=== PATIENT | female | born 1940 | race Caucasian/White ===

== ENCOUNTER → 2016-08-29 | Outpatient (CLI) | payer MEDICARE, BC ==
--- NOTE | 2016-08-29 10:30 | US ---
EXAMINATION TYPE: US kidneys/renal and bladder DATE OF EXAM: 08/29/2016 10:05 AM COMPARISON: 03/01/2016 CLINICAL HISTORY: .History of renal cysts EXAM MEASUREMENTS: Right Kidney: 11.5 x 5.0 x 5.3 cm Left Kidney: 9.5 X 5.1 X 4.7 cm Findings: Right Kidney: Cortical thinning, possible calculi at lateral= 0.5 cm, cystic lesion upper pole as see n on previous= 1.2 x 0.9 x 0.9 cm Left Kidney: Cortical thinning, probable calculi at mid= 0.7 cm/ Cyst lower pole= 1.7 x 1.5 x 1.6 cm, Cyst mid= 2.3 x 1.6 x 1.9 cm Bladder: wnl Bilateral Jets seen: Yes IMPRESSION: 1. Bilateral calcifications are stable with no hydronephrosis. 2. Correlate for chronic medical renal disease 3. Stable appearing simple cysts.
--- NOTE | 2016-08-29 11:23 | MM ---
Reason for exam: follow-up at short interval from prior study. Last mammogram was performed 6 months ago. History: Patient is postmenopausal and history of other cancer. Family history of breast cancer in maternal cousin at age 54 and breast cancer in maternal aunt at age 48. Benign right breast aspiration of the right breast, February 01, 2012. Stereotactic core biopsy of the left breast, 2003. Benign excisional biopsy of the right breast. Physical Findings: Nurse did not find any significant physical abnormalities on exam. MG 3D Diag Mammo W/Cad RT CC and MLO view(s) were taken of the right breast. Prior study comparison: March 01, 2016, bilateral MG 3d screening mammo w/cad. January 06, 2015, bilateral MG diagnostic mammo w CAD BIMAL. February 19, 2014, bilateral MG screening mammo w CAD. February 19, 2013, bilateral digital screening mammo w/CAD. There are scattered fibroglandular densities. Ovoid mass far posterior laterally stable from 01/06/15. These results were verbally communicated with the patient and result sheet given to the patient on 08/29/16. ASSESSMENT: Probably benign, BI-RAD 3 RECOMMENDATION: Follow-up diagnostic mammogram of both breasts in 6 months. Back on schedule.
== END | disposition home or self-care (01) ==
LOC: RADUSWWP 09:43
PROVIDERS: ATTEND Family Medicine
DX: N28.89 Other specified disorders of kidney and ureter (principal); N28.1 Cyst of kidney, acquired
CPT/HCPCS: 76770; G0206; G0279

== ENCOUNTER → 2016-09-19 | Outpatient (CLI) | payer MEDICARE, BC ==
--- NOTE | 2016-09-19 12:01 | US ---
EXAMINATION TYPE: US venous doppler duplex LE DATE OF EXAM: 09/19/2016 11:29 AM COMPARISON: US on PACSBilateral lower extremity venous ultrasound January 10, 2016. CLINICAL HISTORY: Elevated D Dimer R79.1. SIDE PERFORMED: Bilateral VESSELS IMAGED: Common Femoral Vein Deep Femoral Vein Greater Saphenous Vein * Femoral Vein Popliteal Vein Proximal Calf Veins (* superficial vessels) TECHNOLOGIST IMPRESSION: Right Leg: Negative for DVT Left Leg: Non-occluding wall changes are noted distal Left Femoral Vein and in one of 2 Tibial/Peron eal Calf Veins which suggests chronic nonoccluding venous wall changes. Similar prior exam there is incomplete compressibility in the left lower extremity with thickened wal l in the distal superficial femoral vein and in the posterior tibial veins below level of knee consis tent with chronic thrombosis. IMPRESSION: Chronic left lower extremity thrombus redemonstrated unchanged from prior. No new acute DVT in either lower extremity is seen.
== END | disposition home or self-care (01) ==
LOC: RADUSWWP 10:45
PROVIDERS: ATTEND Family Medicine
DX: I82.502 Chronic embolism and thrombosis of unspecified deep veins of left lower extremity (principal)
CPT/HCPCS: 93970

== ENCOUNTER → 2016-11-06 | Outpatient (CLI) | payer MEDICARE, OTHER ==
--- NOTE | 2016-11-06 17:00 | CT ---
EXAMINATION TYPE: CT abdomen wo con DATE OF EXAM: 11/06/2016 4:52 PM COMPARISON: CT cap 09/24/2015 HISTORY: Abdominal pain, bloating and nausea after eating on and off x couple weeks. CT DLP: 505.10 mGycm Automated exposure control for dose reduction was used. TECHNIQUE: Helical acquisition of images was performed from the lung bases through the top of iliac crest to include entire abdomen. CONTRAST: Performed without Oral Contrast and without IV contrast. FINDINGS: LUNG BASES: There is tiny right-sided pleural fluid collection. Dependent atelectatic changes present bilaterally. There is cardiomegaly with coronary artery calcification and/or stents noted.. LIVER/GB: Liver is diffusely low dense consistent with fatty infiltration. Gallbladder is not visuali zed and presumed surgically absent. PANCREAS: No significant abnormality is seen. SPLEEN: No significant abnormality is seen. ADRENALS: No significant abnormality is seen. KIDNEYS: Some areas of cortical scarring and left kidney are redemonstrated. Hyperdense lesions lower pole level left kidney correspond to cysts with dependent calcium or milk of calcium on prior CT pre sumed benign in nature as they are less prominent in size. BOWEL: Evaluation bowel is suboptimal due to lack of enteric contrast. No suspicious dilatation is s een. Some duodenal diverticulum are redemonstrated along second and proximal third portions. LYMPH NODES: No greater than 1 cm abdominal adenopathy is noted. OSSEOUS STRUCTURES: Multilevel spurring in the visualized thoracolumbar spine is noted. OTHER: There is moderate atherosclerotic change of the abdominal aorta extending into pelvic branch v essels redemonstrated. IMPRESSION: NO SIGNIFICANT ACUTE FINDING IS SEEN TO ACCOUNT FOR PATIENT'S SYMPTOMS. NO BOWEL OBSTRUCTION IS NOTED .
--- NOTE | 2016-11-06 17:44 | US ---
EXAMINATION TYPE: US venous doppler duplex LE DATE OF EXAM: 11/06/2016 5:21 PM COMPARISON: NONE CLINICAL HISTORY: Abd Pain R10.9, deep vein thrombosis I82.403. elevated D Dimer SIDE PERFORMED: Bilateral VESSELS IMAGED: Common Femoral Vein Deep Femoral Vein Greater Saphenous Vein * Femoral Vein Popliteal Vein Small Saphenous Vein * Proximal Calf Veins (* superficial vessels) Right Leg: Negative for DVT Left Leg: Minimal chronic wall changes noted left lower Femoral Vein as previously seen as well as i n one of two upper calf veins; however, wall changes are non occluding. IMPRESSION: There is no evidence of acute deep venous thrombosis. There is evidence of mild chronic deep venous thrombosis in the distal femoral vein without a significant change compared to 09/19/2016.
== END | disposition home or self-care (01) ==
LOC: RADCTMAIN 16:17
PROVIDERS: ATTEND Family Medicine
DX: R10.9 Unspecified abdominal pain (principal); I82.5Z3 Chronic embolism and thrombosis of unspecified deep veins of distal lower extremity, bilateral
CPT/HCPCS: 74150; 93970

== ENCOUNTER → 2016-11-07 | Outpatient (CLI) | payer MEDICARE, OTHER ==
--- NOTE | 2016-11-07 18:04 | XR ---
EXAMINATION TYPE: XR chest 2V DATE OF EXAM: 11/07/2016 5:33 PM COMPARISON: 01/29/2016 and 05/19/2016. HISTORY: 76 year-old female shortness of breath TECHNIQUE: Frontal and lateral views FINDINGS: The heart remains borderline to mildly enlarged. Median sternotomy wires with post-CABG clips in the mediastinum. Masslike opacity right midlung probably pseudotumor relating to trapped pleural fluid. T his was seen on 01/29/2016. Both had resolved on 05/19/2016. Mild diffuse interstitial prominence. IMPRESSION: 1. Correlate for mild CHF. 2. Recurrence of a masslike opacity at the right midlung likely representing trapped pleural fluid in the minor fissure. Three-month follow-up recommended to ensure resolution.
== END | disposition home or self-care (01) ==
LOC: RADXRMAIN 17:11
PROVIDERS: ATTEND Family Medicine
DX: R06.02 Shortness of breath (principal)
CPT/HCPCS: 71020

== ENCOUNTER 2016-11-08 13:16 | Inpatient (IN) | payer MEDICARE, OTHER ==
[2016-11-08] MEDS ORDERED: IPRATROPIUM-ALBUTEROL 3 ML NEB INHALATION STA (14:09)
--- NOTE | 2016-11-08 14:12 | ED ---
SOB HPI - General Chief Complaint: Shortness of Breath Stated Complaint: KERRI Time Seen by Provider: 11/08/16 14:00 Source: patient, family, RN notes reviewed Mode of arrival: wheelchair Limitations: no limitations - History of Present Illness Initial Comments: This is a 76-year-old female with a history of bypass surgery 1998 who presents with complaints of the onset shortness of breath for almost a week especially bad over last 2 days. She denies any chills or sweats she was noted have a fever upon arrival here today. She has no phlegm production with her cough she has tightness to her upper abdomen lower chest. She also has some slight edema to the left leg which is more than the right better than usual. No definite orthopnea MD Complaint: shortness of breath, cough - Related Data Home Medications Medication Instructions Recorded Confirmed Atorvastatin [Lipitor] 10 mg PO HS 01/23/16 11/08/16 Clopidogrel [Plavix] 75 mg PO DAILY 01/23/16 11/08/16 Furosemide [Lasix] 40 mg PO DAILY 01/23/16 11/08/16 Isosorbide Mononitrate ER [Imdur] 60 mg PO DAILY 01/23/16 11/08/16 Metoprolol Tartrate [Lopressor] 50 mg PO DAILY 01/23/16 11/08/16 [place]-3 Fatty Acids [[place]-3] 1,000 mg PO DAILY 01/23/16 11/08/16 Potassium Chloride [Klor-Con 20] 20 meq PO DAILY 01/23/16 11/08/16 Previous Rx's Medication Instructions Recorded Lisinopril [Zestril] 20 mg PO BID #60 tab 01/24/16 Warfarin [Coumadin] 2.5 mg PO DAILY@1800 #30 tab 01/24/16 amLODIPine [Norvasc] 10 mg PO DAILY #30 tab 01/24/16 sitaGLIPtin PHOS/metFORMIN HCL 1 tab PO DAILY #0 01/24/16 [Janumet Xr 100-1,000 mg Tablet] Allergies Allergy/AdvReac Type Severity Reaction Status Date / Time sulfamethoxazole Allergy Dyspnea Verified 11/08/16 14:09 [From Bactrim] trimethoprim [From Bactrim] Allergy Dyspnea Verified 11/08/16 14:09 Review of Systems ROS Statement: Those systems with pertinent positive or pertinent negative responses have been documented in the HPI. ROS Other: All systems not noted in ROS Statement are negative. Past Medical History Past Medical History: Atrial Fibrillation, Coronary Artery Disease (CAD), Heart Failure, Diabetes Mellitus, Hyperlipidemia, Osteoarthritis (OA) Additional Past Medical History / Comment(s): sleep apnea History of Any Multi-Drug Resistant Organisms: None Reported Past Surgical History: Cholecystectomy, Coronary Bypass/CABG, Heart Catheterization With Stent, Hysterectomy Additional Past Surgical History / Comment(s): eye 6 cardiac stent placed Past Psychological History: No Psychological Hx Reported Smoking Status: Never smoker Past Alcohol Use History: Occasional Past Drug Use History: None Reported General Exam - General Exam Comments Initial Comments: This is a well up well-nourished awake alert oriented 3 female Limitations: no limitations General appearance: alert, anxious Head exam: Present: atraumatic, normocephalic, normal inspection Eye exam: Present: normal appearance, PERRL, EOMI. Absent: scleral icterus, conjunctival injection, periorbital swelling ENT exam: Present: normal exam, mucous membranes moist Neck exam: Present: normal inspection. Absent: tenderness, meningismus, lymphadenopathy Respiratory exam: Present: decreased breath sounds. Absent: respiratory distress, wheezes, rales, rhonchi, stridor Cardiovascular Exam: Present: regular rate, normal rhythm, normal heart sounds. Absent: systolic murmur, diastolic murmur, rubs, gallop, clicks GI/Abdominal exam: Present: soft, normal bowel sounds. Absent: distended, tenderness, guarding, rebound, rigid Extremities exam: Present: normal inspection, full ROM, normal capillary refill , pedal edema. Absent: tenderness, joint swelling, calf tenderness Back exam: Present: normal inspection Neurological exam: Present: alert, oriented X3, CN II-XII intact Psychiatric exam: Present: normal affect, normal mood Skin exam: Present: warm, dry, intact, normal color. Absent: rash Course Vital Signs 11/08/16 11/08/16 11/08/16 13:50 14:00 14:21 Temperature 97.8 F 100.6 F H Pulse Rate 104 H 91 Respiratory 20 Rate Blood Pressure 137/73 O2 Sat by Pulse 90 L Oximetry 11/08/16 11/08/16 11/08/16 14:29 14:31 16:00 Temperature Pulse Rate 91 98 Respiratory 26 H 18 Rate Blood Pressure 151/71 O2 Sat by Pulse 93 L Oximetry - Reevaluation(s) Reevaluation #1: 11/08/16 16:47 Patient is feeling somewhat better and had a long discussion with her regarding the findings. The patient does have a history of previous workups For blood clots including venous Dopplers and vascular surgery consultation. None of the phone thus far Reevaluation #2: 11/08/16 17:02 I did discuss case with Dr. Mosley. Patient will be admitted to CAT scan his chest will be ordered. A UA is pending. Medical Decision Making - Medical Decision Making I did reevaluate the patient she is feeling slightly improved I did have a long discussion with her regarding findings. Thus far Show the fever is not evident the left he has is somewhat elevated some this is likely elevated to the renal function. - Lab Data Result diagrams: 11/08/16 12:24 11/08/16 12:24 Lab Results 11/08/16 11/08/16 11/08/16 Range/Units 12:24 12:24 12:24 WBC 12.7 H (3.8-10.6) k/uL RBC 4.36 (3.80-5.40) m/uL Hgb 12.2 (11.4-16.0) gm/dL Hct 36.3 (34.0-46.0) % MCV 83.4 (80.0-100.0) fL MCH 27.9 (25.0-35.0) pg MCHC 33.4 (31.0-37.0) g/dL RDW 14.3 (11.5-15.5) % Plt Count 186 (150-450) k/uL Neutrophils % 87 % Lymphocytes % 8 % Monocytes % 4 % Eosinophils % 0 % Basophils % 0 % Neutrophils # 11.1 H (1.3-7.7) k/uL Lymphocytes # 1.0 (1.0-4.8) k/uL Monocytes # 0.5 (0-1.0) k/uL Eosinophils # 0.0 (0-0.7) k/uL Basophils # 0.0 (0-0.2) k/uL PT (9.0-12.0) sec INR (<1.1) APTT (22.0-30.0) sec D-Dimer (<0.60) mg/L FEU Sodium 145 (137-145) mmol/L Potassium 4.0 (3.5-5.1) mmol/L Chloride 105 (98-107) mmol/L Carbon Dioxide 24 (22-30) mmol/L Anion Gap 16 mmol/L BUN 20 H (7-17) mg/dL Creatinine 1.08 H (0.52-1.04) mg/dL Est GFR (MDRD) Af Amer >60 (>60 ml/min/1.73 sqM) Est GFR (MDRD) Non-Af 50 (>60 ml/min/1.73 sqM) Glucose 200 H (74-99) mg/dL Plasma Lactic Acid Shabbir (0.7-2.0) mmol/L Calcium 8.7 (8.4-10.2) mg/dL Magnesium 1.6 (1.6-2.3) mg/dL Total Bilirubin 2.0 H (0.2-1.3) mg/dL AST 69 H (14-36) U/L ALT 70 H (9-52) U/L Alkaline Phosphatase 65 (38-126) U/L Total Creatine Kinase 135 (30-135) U/L CK-MB (CK-2) 1.1 (0.0-2.4) ng/mL CK-MB (CK-2) Rel Index 0.8 Troponin I <0.012 (0.000-0.034) ng/mL NT-Pro-B Natriuret Pep pg/mL Total Protein 7.7 (6.3-8.2) g/dL Albumin 4.2 (3.5-5.0) g/dL Influenza Type A RNA (Not Detectd) Influenza Type B (PCR) (Not Detectd) 11/08/16 11/08/16 11/08/16 Range/Units 12:24 12:24 12:24 WBC (3.8-10.6) k/uL RBC (3.80-5.40) m/uL Hgb (11.4-16.0) gm/dL Hct (34.0-46.0) % MCV (80.0-100.0) fL MCH (25.0-35.0) pg MCHC (31.0-37.0) g/dL RDW (11.5-15.5) % Plt Count (150-450) k/uL Neutrophils % % Lymphocytes % % Monocytes % % Eosinophils % % Basophils % % Neutrophils # (1.3-7.7) k/uL Lymphocytes # (1.0-4.8) k/uL Monocytes # (0-1.0) k/uL Eosinophils # (0-0.7) k/uL Basophils # (0-0.2) k/uL PT 11.3 (9.0-12.0) sec INR 1.1 (<1.1) APTT 27.2 (22.0-30.0) sec D-Dimer 2.01 H (<0.60) mg/L FEU Sodium (137-145) mmol/L Potassium (3.5-5.1) mmol/L Chloride (98-107) mmol/L Carbon Dioxide (22-30) mmol/L Anion Gap mmol/L BUN (7-17) mg/dL Creatinine (0.52-1.04) mg/dL Est GFR (MDRD) Af Amer (>60 ml/min/1.73 sqM) Est GFR (MDRD) Non-Af (>60 ml/min/1.73 sqM) Glucose (74-99) mg/dL Plasma Lactic Acid Shabbir 3.1 H* (0.7-2.0) mmol/L Calcium (8.4-10.2) mg/dL Magnesium (1.6-2.3) mg/dL Total Bilirubin (0.2-1.3) mg/dL AST (14-36) U/L ALT (9-52) U/L Alkaline Phosphatase (38-126) U/L Total Creatine Kinase (30-135) U/L CK-MB (CK-2) (0.0-2.4) ng/mL CK-MB (CK-2) Rel Index Troponin I (0.000-0.034) ng/mL NT-Pro-B Natriuret Pep 6920 pg/mL Total Protein (6.3-8.2) g/dL Albumin (3.5-5.0) g/dL Influenza Type A RNA (Not Detectd) Influenza Type B (PCR) (Not Detectd) 11/08/16 Range/Units 12:24 WBC (3.8-10.6) k/uL RBC (3.80-5.40) m/uL Hgb (11.4-16.0) gm/dL Hct (34.0-46.0) % MCV (80.0-100.0) fL MCH (25.0-35.0) pg MCHC (31.0-37.0) g/dL RDW (11.5-15.5) % Plt Count (150-450) k/uL Neutrophils % % Lymphocytes % % Monocytes % % Eosinophils % % Basophils % % Neutrophils # (1.3-7.7) k/uL Lymphocytes # (1.0-4.8) k/uL Monocytes # (0-1.0) k/uL Eosinophils # (0-0.7) k/uL Basophils # (0-0.2) k/uL PT (9.0-12.0) sec INR (<1.1) APTT (22.0-30.0) sec D-Dimer (<0.60) mg/L FEU Sodium (137-145) mmol/L Potassium (3.5-5.1) mmol/L Chloride (98-107) mmol/L Carbon Dioxide (22-30) mmol/L Anion Gap mmol/L BUN (7-17) mg/dL Creatinine (0.52-1.04) mg/dL Est GFR (MDRD) Af Amer (>60 ml/min/1.73 sqM) Est GFR (MDRD) Non-Af (>60 ml/min/1.73 sqM) Glucose (74-99) mg/dL Plasma Lactic Acid Shabbir (0.7-2.0) mmol/L Calcium (8.4-10.2) mg/dL Magnesium (1.6-2.3) mg/dL Total Bilirubin (0.2-1.3) mg/dL AST (14-36) U/L ALT (9-52) U/L Alkaline Phosphatase (38-126) U/L Total Creatine Kinase (30-135) U/L CK-MB (CK-2) (0.0-2.4) ng/mL CK-MB (CK-2) Rel Index Troponin I (0.000-0.034) ng/mL NT-Pro-B Natriuret Pep pg/mL Total Protein (6.3-8.2) g/dL Albumin (3.5-5.0) g/dL Influenza Type A RNA Not Detected (Not Detectd) Influenza Type B (PCR) Not Detected (Not Detectd) - EKG Data -: EKG Interpreted by Me EKG shows normal: sinus rhythm (Atrial fibrillation rate was 95 QRS 94 QT/QTC of /512 prolonged QT and old inferior changes) - Radiology Data Radiology results: report reviewed (Review the x-ray reveals evidence of CHF with pulmonary vascular congestion there was a diminished size of a right midlung pseudotumor), image reviewed Critical Care Time Critical Care Time: Yes Critical Care Time: 35 minutes critical care time which includes initial monitoring of the patient with history physical lab and x-rays reevaluation the patient response to therapy. Discussed with the patient family and several occasions to review the findings. Discussion with the admitting physician. Admission orders. Documentation the above. Review of old charting. Disposition Clinical Impression: Congestive heart failure, Dyspnea, Renal insufficiency, Febrile illness, acute , Leukocytosis, Elevated lactic acid level, Chronic atrial fibrillation Disposition: ADMITTED IP TO THIS HOSP Condition: Stable
[2016-11-08 14:48] LABS: Basophils % (A) 0 %; CH 27.9; CHCM 33.6; Eosinophils % (A) 0 %; HCT 36.3 % (34.0-46.0); HDW 3.12; HGB 12.2 gm/dL (11.4-16.0); Luc # (Auto) 0.14; Luc % (Auto) 1; Lymphocytes % (A) 8 %; MCH 27.9 pg (25.0-35.0); MCHC 33.4 g/dL (31.0-37.0); MCV 83.4 fL (80.0-100.0); Mean Platelet Volume 8.5; Monocytes # (A) 0.5 k/uL (0-1.0); Monocytes % (A) 4 %; Neutrophils # (A) 11.1 k/uL (1.3-7.7); Neutrophils % (A) 87 %; RBC 4.36 m/uL (3.80-5.40); RDW 14.3 % (11.5-15.5); WBC 12.7 k/uL (3.8-10.6); WBC (Perox) 13.22
[2016-11-08 14:58] LABS: INR 1.1 (<1.1); Partial Thromboplastin Time 27.2 sec (22.0-30.0); Prothrombin Time 11.3 sec (9.0-12.0)
[2016-11-08 15:01] LABS: ALT 70 U/L (9-52); AST 69 U/L (14-36); Alkaline Phosphatase 65 U/L (38-126); Anion Gap 16 mmol/L; Blood Urea Nitrogen 20 mg/dL (7-17); Calcium 8.7 mg/dL (8.4-10.2); Carbon Dioxide 24 mmol/L (22-30); Chloride 105 mmol/L (98-107); Glucose 200 mg/dL (74-99); Magnesium 1.6 mg/dL (1.6-2.3); Non-African American GFR(MDRD) 50 (>60 ml/min/1.73 sqM); Sodium 145 mmol/L (137-145); Total Protein 7.7 g/dL (6.3-8.2)
[2016-11-08 15:13] LABS: Creatine Kinase 135 U/L (30-135)
[2016-11-08 15:26] LABS: Creatine Kinase MB 1.1 ng/mL (0.0-2.4); Troponin I <0.012 ng/mL (0.000-0.034)
--- NOTE | 2016-11-08 15:42 | XR ---
EXAMINATION TYPE: XR chest 2V DATE OF EXAM: 11/08/2016 3:33 PM COMPARISON: 11/07/2016 HISTORY: 76-year-old female difficulty breathing, cough and congestion for 2 weeks TECHNIQUE: Frontal and lateral views FINDINGS: Median sternotomy wires are present with post-CABG clips in the mediastinum. Heart remains borderline enlarged with diffuse interstitial and vascular prominence. Pseudotumor right midlung shows interval decrease in size. Some scattered Andrei B lines are seen. Small pleural effusion on the right and tr la on the left. IMPRESSION: 1. Correlate for CHF and residual pulmonary vascular congestion/interstitial edema. 2. Decreasing size of the right mid lung pseudotumor, likely pleural fluid trapped in the minor fissu re. 3. Small effusions.
[2016-11-08] MEDS ORDERED: NITROGLYCERIN OINT 1 INCH/GM PACKET TOPICAL STA (16:48)
[2016-11-08] MEDS ORDERED: FUROSEMIDE 10 MG/ML 4 ML VIAL IV STA (16:48)
[2016-11-08] MEDS ORDERED: RX INFO: IV CONTRAST WAS GIVEN 1 EACH MISC MISCELLANE PRN (16:59)
[2016-11-08] MEDS: SODIUM CHLORIDE 0.9% 1,000 ML IV SCH (17:51)
[2016-11-08] MEDS: ASPIRIN 325 MG TAB PO SCH (17:51)
[2016-11-08] MEDS ORDERED: WARFARIN 2.5 MG TAB PO SCH (18:00)
--- NOTE | 2016-11-08 18:00 | CT ---
EXAMINATION TYPE: CT angio chest DATE OF EXAM: 11/08/2016 5:40 PM COMPARISON: NONE HISTORY: Cough, shortness of breath and chest discomfort CT DLP: 431.7 mGycm Automated exposure control for dose reduction was used. CONTRAST: CTA scan of the thorax is performed with IV Contrast, patient injected with 80 mL of Visipaque 320, p ulmonary embolism protocol. There are 3-D post processed images.. FINDINGS: There are bilateral pleural effusions. There is some loculated pleural fluid on the right side. There is patchy interstitial edema in both lungs. Heart is enlarged. There is a small pericardial effusion . I see no filling defects in the pulmonary arteries. There are no hilar masses. There is no evidence o f aortic aneurysm. There are a few paratracheal lymph nodes that measure up to 2 cm. There is some pl eural calcification at the right lung base. IMPRESSION: NO EVIDENCE OF PULMONARY EMBOLISM. LOCULATED BILATERAL PLEURAL EFFUSIONS ARE INCREASED COMPARED TO CT SCAN. THERE IS ALSO PLEURAL CALCIFICATION ON THE RIGHT SIDE AND TO LESSER EXTENT THE LEFT SIDE. There is mild mediastinal adenopathy. Cardiomegaly. The findings could relate to worsening alycia estive heart failure. The possibility of mesothelioma should be considered in view of the increasing pleural fluid and persistent adenopathy. Adenopathy is not significantly different.
[2016-11-08 18:07] LABS: Appearance,Urine Clear (Clear); Bilirubin,Urine Negative (Negative); Glucose,Urine (UA) Negative (Negative); Ketones,Urine Negative (Negative); Leukocyte Esterase,Urine Negative (Negative); Nitrite,Urine Negative (Negative); Protein,Urine Trace (Negative); Specific Gravity,Urine 1.011 (1.001-1.035); UA Billing (MACRO vs. MICRO) CHEM; Urobilinogen,Urine <2.0 mg/dL (<2.0)
[2016-11-08 20:10] LABS: Hemoglobin A1C 6.4 % (4.2-6.1)
[2016-11-08] MEDS: LISINOPRIL 20 MG TAB PO SCH (20:21)
[2016-11-08 20:57] LABS: Glucose,Whole Blood 148 mg/dL (75-99)
[2016-11-08] MEDS ORDERED: ATORVASTATIN 10 MG TAB PO SCH (21:00)
[2016-11-08] MEDS: INSULIN LISPRO (humaLOG) 300 UNIT/3 ML VIAL SQ SCH (21:42)
[2016-11-08] MEDS ORDERED: NITROGLYCERIN OINT 1 INCH/GM PACKET TOPICAL SCH (22:00)
[2016-11-08] MEDS: FUROSEMIDE 10 MG/ML 4 ML VIAL IV SCH (23:08)
[2016-11-09 06:09] LABS: Glucose,Whole Blood 224 mg/dL (75-99)
[2016-11-09 06:15] LABS: Basophils % (A) 0 %; CH 27.7; CHCM 33.4; Eosinophils # (A) 0.1 k/uL (0-0.7); Eosinophils % (A) 1 %; HCT 33.6 % (34.0-46.0); HDW 3.19; HGB 11.5 gm/dL (11.4-16.0); Luc # (Auto) 0.13; Luc % (Auto) 1; Lymphocytes % (A) 12 %; MCH 28.5 pg (25.0-35.0); MCHC 34.2 g/dL (31.0-37.0); MCV 83.4 fL (80.0-100.0); Mean Platelet Volume 8.1; Monocytes # (A) 0.4 k/uL (0-1.0); Monocytes % (A) 4 %; Neutrophils # (A) 7.4 k/uL (1.3-7.7); Neutrophils % (A) 82 %; RBC 4.03 m/uL (3.80-5.40); RDW 14.1 % (11.5-15.5); WBC (Perox) 9.32
[2016-11-09 06:21] LABS: INR 1.2 (<1.1)
[2016-11-09 06:29] LABS: ALT 62 U/L (9-52); AST 41 U/L (14-36); Alkaline Phosphatase 65 U/L (38-126); Anion Gap 17 mmol/L; Blood Urea Nitrogen 18 mg/dL (7-17); Carbon Dioxide 23 mmol/L (22-30); Chloride 107 mmol/L (98-107); Glucose 163 mg/dL (74-99); Non-African American GFR(MDRD) 50 (>60 ml/min/1.73 sqM); Sodium 147 mmol/L (137-145); Total Bilirubin 1.7 mg/dL (0.2-1.3); Total Protein 6.5 g/dL (6.3-8.2)
[2016-11-09] MEDS: INSULIN LISPRO (humaLOG) 300 UNIT/3 ML VIAL SQ SCH ×4 (06:43→21:34)
[2016-11-09] MEDS: metFORMIN 500 MG TAB PO SCH ×2 (06:44→17:10)
[2016-11-09] MEDS: LINAGLIPTIN 5 MG TABLET PO SCH (06:54)
[2016-11-09] MEDS: FUROSEMIDE 10 MG/ML 4 ML VIAL IV SCH ×3 (08:27→23:21)
[2016-11-09] MEDS: LISINOPRIL 20 MG TAB PO SCH ×2 (08:27→21:35)
[2016-11-09] MEDS: ISOSORBIDE MONONITRATE ER 60 MG TAB.ER.24H PO SCH (08:27)
[2016-11-09] MEDS: CLOPIDOGREL 75 MG TAB PO SCH (08:28)
[2016-11-09] MEDS: ASPIRIN 325 MG TAB PO SCH (08:28)
[2016-11-09] MEDS ORDERED: METOPROLOL TARTRATE 50 MG TAB PO SCH (09:00)
[2016-11-09] MEDS ORDERED: POTASSIUM CHLORIDE ER 20 MEQ TAB.ER PO SCH (09:00)
[2016-11-09] MEDS ORDERED: amLODIPine 10 MG TAB PO SCH (09:00)
[2016-11-09] MEDS ORDERED: NON-FORMULARY DRUG (Omega-3 Fatty Acids [Omega-3] 1,000 MG) PO SCH (09:00)
[2016-11-09] MEDS ORDERED: FUROSEMIDE 40 MG TAB PO SCH (09:00)
--- NOTE | 2016-11-09 09:52 | P.CRDCN ---
History of Present Illness Consult date: 11/09/16 Requesting physician: Valeria Mosley Consult reason: congestive heart failure Chief complaint: Shortness of breath History of present illness: This is a 76-year-old female with known history of coronary artery disease and prior bypass surgery in 1998 at which time she underwent four- vessel bypass, with the POLO to the LAD, saphenous vein graft to the ramus intermediate, RCA and OM1. Subsequent to that patient did undergo stenting of the mid RCA, and OM1 in 2013. Patient also had 2 subsequent stent placements following that. Patient does have known history of hypertension, diabetes, hyperlipidemia, and paroxysmal atrial fibrillation. She follows with Dr. Ramirez at [facility]. She states that approximately one year ago she underwent cardioversion. She used to be on Coumadin, states that it made her feel unwell , and therefore her primary care doctor discontinued. Patient presents to the hospital on this occasion with symptoms of progressively worsening shortness of breath over 3-4 day duration. Positive dry hacking cough. Chest x-ray on admission revealed congestive heart failure with small bilateral effusions. EKG showed atrial fibrillation with a controlled ventricular response. D-dimer came back at 2.01 and for this reason patient underwent a CTA of the chest which was negative for pulmonary embolism, it did reveal bilateral pleural effusions. White blood cell count on admission 12.7, 9.0 this morning. Hemoglobin 11.5, hematocrit 33.6, platelet count 175. Sodium 147, potassium 3.0 , BUN 18, creatinine 1.07, magnesium level I.6, BNP level 6920, troponin 0.012. AST on admission 69, ALT 70, 41 and 62 this morning. Influenza A and B-. Blood pressure on admission 136/72 with a heart rate of 104. 90% on room air. Low-grade temperature of 100.6. This morning's blood pressure 132/60 with a heart rate in the 90s. Afebrile patient was initiated on IV Lasix, she has diuresed well overnight. At the time of my examination this morning, patient states she still has mild shortness of breath with tachycardia cough however improved from admission. I did have a lengthy discussion with the patient and her this morning regarding the importance of taking anticoagulation for stroke prevention. We will check to see if the patient has coverage for Eliquis , if so we will start the patient on Eliquis, continue Plavix. Past Medical History Past Medical History: Atrial Fibrillation, Coronary Artery Disease (CAD), Heart Failure, CVA/TIA, Diabetes Mellitus, Deep Vein Thrombosis (DVT), Hyperlipidemia , Osteoarthritis (OA) Additional Past Medical History / Comment(s): sleep apnea; no residual since stroke 2013, left leg DVT 2015 History of Any Multi-Drug Resistant Organisms: None Reported Past Surgical History: Cholecystectomy, Coronary Bypass/CABG, Heart Catheterization With Stent, Hysterectomy Additional Past Surgical History / Comment(s): eye 6 cardiac stent placed; CABG 1998 Past Anesthesia/Blood Transfusion Reactions: No Reported Reaction Additional Past Anesthesia/Blood Transfusion Reaction / Comment(s): Jehovahs witness no blood transfusions Date of Last Stent Placement:: 2013 Past Psychological History: No Psychological Hx Reported Smoking Status: Never smoker Past Alcohol Use History: Occasional Past Drug Use History: None Reported - Past Family History Father Additional Family Medical History / Comment(s): Father at age 89 following a hip fracture repair that became infected. He from complications of infection. Mother Additional Family Medical History / Comment(s): Mother in her 70s. She had history of stroke and had been in an extended care facility for 8 years prior to her . Sister(s) Additional Family Medical History / Comment(s): Patient has one sister that is 17 years younger than her with no major medical problems. Patient does not have any brothers. Son(s) Additional Family Medical History / Comment(s): She has 2 sons and one has heart problems. Medications and Allergies Home Medications Medication Instructions Recorded Confirmed Type Atorvastatin [Lipitor] 10 mg PO HS 01/23/16 11/08/16 History Clopidogrel [Plavix] 75 mg PO DAILY 01/23/16 11/08/16 History Furosemide [Lasix] 40 mg PO DAILY 01/23/16 11/08/16 History Isosorbide Mononitrate ER [Imdur] 60 mg PO DAILY 01/23/16 11/08/16 History Metoprolol Tartrate [Lopressor] 50 mg PO DAILY 01/23/16 11/08/16 History [place]-3 Fatty Acids [[place]-3] 1,000 mg PO DAILY 01/23/16 11/08/16 History Potassium Chloride [Klor-Con 20] 20 meq PO DAILY 01/23/16 11/08/16 History Allergies Allergy/AdvReac Type Severity Reaction Status Date / Time sulfamethoxazole Allergy Dyspnea Verified 11/08/16 14:09 [From Bactrim] trimethoprim [From Bactrim] Allergy Dyspnea Verified 11/08/16 14:09 Physical Exam Vitals: Vital Signs Temp Pulse Pulse Resp BP BP Pulse Ox 11/09/16 04:00 97.3 F L 92 18 93 L 11/09/16 00:00 97 F L 97 18 132/64 92 L 11/08/16 20:00 97.1 F L 86 18 176/80 94 L 11/08/16 19:26 97.1 F L 86 18 176/80 94 L 11/08/16 19:12 97.9 F 96 18 188/99 98 11/08/16 17:57 97.4 F L 91 18 173/80 98 Intake and Output 11/08/16 11/09/16 11/09/16 22:59 06:59 14:59 Intake Total 200 300 Output Total 750 1400 250 Balance -550 -1400 50 Intake: Oral 200 300 Output: Urine 750 1400 250 Other: Voiding Method Toilet Toilet # Voids 1 1 Weight 85.275 kg 86.5 kg 86.5 kg Patient Weight 11/10/16 06:59 Weight 86.5 kg PHYSICAL EXAMINATION: HEENT: Head is atraumatic, normocephalic. Pupils equal, round. Neck is supple. There is no elevated jugular venous pressure. HEART EXAMINATION: Heart S1 and S2 irregularly irregular a systolic ejection murmur is heard. CHEST EXAMINATION: Lungs revealed diminished air entry to bilateral bases. ABDOMEN: Soft, nontender. Bowel sounds are heard. No organomegaly noted. EXTREMITIES: 2+ peripheral pulses with trace evidence of peripheral edema and no calf tenderness noted. NEUROLOGIC patient is awake, alert and oriented -3. . Results 11/09/16 05:32 11/09/16 05:32 Cardiac Enzymes 11/09/16 Range/Units 05:32 AST 41 H (14-36) U/L Coagulation 11/09/16 Range/Units 05:32 PT 12.0 (9.0-12.0) sec CBC 11/09/16 Range/Units 05:32 WBC 9.0 (3.8-10.6) k/uL RBC 4.03 (3.80-5.40) m/uL Hgb 11.5 (11.4-16.0) gm/dL Hct 33.6 L (34.0-46.0) % Plt Count 175 (150-450) k/uL Comprehensive Metabolic Panel 11/09/16 Range/Units 05:32 Sodium 147 H (137-145) mmol/L Potassium 3.0 L* (3.5-5.1) mmol/L Chloride 107 (98-107) mmol/L Carbon Dioxide 23 (22-30) mmol/L BUN 18 H (7-17) mg/dL Creatinine 1.07 H (0.52-1.04) mg/dL Glucose 163 H (74-99) mg/dL Calcium 8.0 L (8.4-10.2) mg/dL AST 41 H (14-36) U/L ALT 62 H (9-52) U/L Alkaline Phosphatase 65 (38-126) U/L Total Protein 6.5 (6.3-8.2) g/dL Albumin 3.5 (3.5-5.0) g/dL Current Medications Generic Name Dose Route Start Last Admin Trade Name Freq PRN Reason Stop Dose Admin Amlodipine Besylate 10 mg 11/09/16 09:00 11/09/16 08:27 Norvasc PO 10 mg DAILY CHARLES Administration Aspirin 325 mg 11/08/16 17:45 11/09/16 08:28 Aspirin PO 325 mg DAILY CHARLES Administration Atorvastatin Calcium 10 mg 11/08/16 21:00 11/08/16 20:21 Lipitor PO 10 mg HS CHARLES Administration Clopidogrel Bisulfate 75 mg 11/09/16 09:00 11/09/16 08:28 Plavix PO 75 mg DAILY CHARLES Administration Furosemide 40 mg 11/09/16 00:00 11/09/16 08:27 Lasix IV 40 mg Q8H CHARLES Administration Sodium Chloride 1,000 mls @ 20 mls/hr 11/08/16 17:15 11/08/16 17:51 Saline 0.9% IV Not Given .Q24H CHARLES Insulin Human Lispro 0 unit 11/08/16 21:00 11/09/16 06:43 Humalog SQ Not Given ACHS [facility] Protocol Isosorbide Mononitrate 60 mg 11/09/16 09:00 11/09/16 08:27 Imdur PO 60 mg DAILY CHARLES Administration Linagliptin 5 mg 11/09/16 07:30 11/09/16 06:54 Tradjenta PO 5 mg W/BRKFST CHARLES Administration Lisinopril 20 mg 11/08/16 21:00 11/09/16 08:27 Zestril PO 20 mg BID CHARLES Administration Metformin HCl 500 mg 11/09/16 07:30 11/09/16 06:44 Glucophage PO Not Given BID-W/MEALS CHARLES Metoprolol Tartrate 50 mg 11/09/16 09:00 11/09/16 08:27 Lopressor PO 50 mg DAILY CHARLES Administration Miscellaneous Information 1 each 11/08/16 16:59 Rx Info: Iv Contrast Was Given MISCELLANE 11/10/16 16:59 DAILY PRN Per Protocol Potassium Chloride 20 meq 11/09/16 09:00 11/09/16 08:27 K-Dur 20 PO 20 meq DAILY CHARLES Administration Warfarin Sodium 2.5 mg 11/08/16 18:00 11/08/16 20:14 Coumadin PO Not Given DAILY@1800 CHARLES Intake and Output 11/08/16 11/09/16 11/09/16 22:59 06:59 14:59 Intake Total 200 300 Output Total 750 1400 250 Balance -550 -1400 50 Intake: Oral 200 300 Output: Urine 750 1400 250 Other: Voiding Method Toilet Toilet # Voids 1 1 Weight 85.275 kg 86.5 kg 86.5 kg Patient Weight 11/10/16 06:59 Weight 86.5 kg 11/09/16 05:32 11/09/16 05:32 EKG Interpretations (text) EKG shows atrial fibrillation with a controlled ventricular response. Assessment and Plan Plan: Assessment and plan #1 congestive heart failure, likely diastolic in nature. Most recent echocardiogram with Doppler study was performed one year ago which revealed an ejection fraction of 50-55%. #2 known history of coronary artery disease with prior bypass surgery and stent placements #3 hypertension #4 hyperlipidemia # 5 diabetes #6 paroxysmal atrial fibrillation, not currently on anticoagulation at home. Patient is currently in atrial fibrillation with a controlled ventricular response. #7 mild elevation in liver functions, likely secondary to liver congestion #8 hypokalemia, potassium 3.0 #9 abnormal d-dimer, CT of the chest negative for PE Plan We will obtain an echocardiogram with Doppler study. We will continue the current dose of IV Lasix. We will also start the patient on Eliquis 5 mg one tablet by mouth twice a day, discontinue Plavix as patient's stent most recently was in 2013. Continue baby aspirin daily. Increase Lipitor to 20 mg daily. Increase metoprolol tartrate 50 mg 1 tablet by mouth 3 times a day and decrease Norvasc to 5 mg daily. DNP note has been reviewed, I agree with a documented findings and plan of care. Patient was seen and examined.
[2016-11-09] MEDS: POTASSIUM CHLORIDE ER 20 MEQ TAB.ER PO SCH ×3 (10:08→12:09)
[2016-11-09 10:17] VITALS: BMI 32.7
[2016-11-09] MEDS: APIXABAN 5 MG TAB PO SCH ×2 (10:32→21:36)
--- NOTE | 2016-11-09 11:47 | ECHOF ---
Referral Reason:chf MEASUREMENTS -------- HEIGHT: 162.6 cm WEIGHT: 86.2 kg BP: 165/98 RVIDd: 2.6 cm (< 3.3) IVSd: 1.4 cm (0.6 - 1.1) LVIDd: 4.1 cm (3.9 - 5.3) LVPWd: 1.3 cm (0.6 - 1.1) IVSs: 2.0 cm LVIDs: 3.3 cm LVPWs: 1.7 cm LA Diam: 4.5 cm (2.7 - 3.8) LAESV Index (A-L): 35.25 ml/m Ao Diam: 3.3 cm (2.0 - 3.7) AV Cusp: 1.4 cm (1.5 - 2.6) LA Diam: 3.9 cm (2.7 - 3.8) MV EXCURSION: 18.742 mm (> 18.000) MV EF SLOPE: 121 mm/s (70 - 150) EPSS: 0.7 cm RAP: 5.00 mmHg RVSP: 40.14 mmHg FINDINGS -------- Atrial fibrillation. This was a technically adequate study. There is moderate concentric left ventricular hypertrophy. Overall left ventricular systolic function is mildly impaired with, an EF between 45 - 50 %. The right ventricle is normal in size. LA is moderately dilated 34-39 ml/m2 The right atrium is normal in size. Aortic valve is trileaflet and is mildly thickened. The mitral valve leaflets are mildly thickened. Mild mitral annular calcification present. [id number] mitral regurgitation is present. Moderate tricuspid regurgitation present. There is mild pulmonary hypertension. The right ventricular systolic pressure, as measured by Doppler, is 40.14mmHg. Trace/mild (physiologic) pulmonic regurgitation. The aortic root size is normal. The inferior vena cava is mildly dilated. The inferior vena cava is dilated with poor inspiratory collapse which is consistent with estimated right atrial pressure of 20 mmHg. There is no pericardial effusion. CONCLUSIONS -------- 1. Atrial fibrillation. 2. Mild mitral annular calcification present. 3. [id number] mitral regurgitation is present. 4. Moderate tricuspid regurgitation present. 5. There is mild pulmonary hypertension. 6. The right ventricular systolic pressure, as measured by Doppler, is 40.14mmHg. 7. Trace/mild (physiologic) pulmonic regurgitation. 8. The aortic root size is normal. 9. The inferior vena cava is dilated with poor inspiratory collapse which is consistent with estimated right atrial pressure of 20 mmHg. 10. There is no pericardial effusion. 11. This was a technically adequate study. 12. There is moderate concentric left ventricular hypertrophy. 13. Overall left ventricular systolic function is mildly impaired with, an EF between 45 - 50 %. 14. The right ventricle is normal in size. 15. LA is moderately dilated 34-39 ml/m2 16. The right atrium is normal in size. 17. Aortic valve is trileaflet and is mildly thickened. 18. The mitral valve leaflets are mildly thickened. SALES ORDER SPECIALIST: Aditi Figueroa RDCS
[2016-11-09 11:59] LABS: Glucose,Whole Blood 126 mg/dL (75-99)
--- NOTE | 2016-11-09 14:14 | P.HPIM ---
History of Present Illness H&P Date: 11/09/16 Chief Complaint: Shortness of breath This is a 76-year-old female patient of Dr. Leal'stephie with a past history of coronary artery disease with prior 4 vessel CABG in 1998 and subsequent stenting of the mid RCA and OM and 2013 and 2 subsequent stent placements following that, hypertension, diabetes mellitus type 2, hyperlipidemia, obstructive sleep apnea, paroxysmal atrial fibrillation status post cardioversion 1 year ago on chronic Coumadin. Patient states that she has had shortness of breath with cough for 3-4 days. She states the symptoms are worsening and that her ribs hurt due to coughing so much. She denies any lower extremity edema. Patient recently stopped taking her Coumadin because she didn' t feel well when she took it and only feels cold. She complains of weakness when she walks. She presented to [facility] emergency center. White count 12.7, BUN 20 creatinine 1.08 with GFR greater than 50. Hemoglobin A1c 6.4, d-dimer 2.01. Troponin negative. ProBNP 6920. Total bilirubin 2, AST 69 and ALT 70. Influenza testing for A and B negative. Chest x-ray is positive for heart failure and residual pulmonary vascular congestion and interstitial edema. Decreased size of the right midlung pseudotumor. Likely pleural fluid trapped in the minor fissure. Small effusions. CTA of the chest showed no evidence of pulmonary embolism. Loculated bilateral pleural effusions are increased compared to January 2016. Pleural calcification on the right side and lesser extent on the left. Mild mediastinal adenopathy, cardiomegaly. Possibility of mesothelioma should be considered. Patient has been admitted to the selective care unit and started on IV Lasix. Consult requested with cardiology and Dr. Ward from pulmonary medicine. Patient has been evaluated by cardiology and started on eliquis with plan to continue Plavix as well. Case management is checking cost on eliquis. Potassium replaced. Echocardiogram reveals moderate mitral regurgitation, moderate tricuspid regurgitation, mild pulmonary hypertension, moderate concentric left ventricular hypertrophy, EF 45-50%. Review of Systems All systems: negative Constitutional: Reports weakness, Denies chills, Denies fever Eyes: denies blurred vision, denies pain Ears, nose, mouth and throat: Denies dental pain, Denies headache, Denies mouth pain, Denies sore throat Cardiovascular: Reports shortness of breath, Denies chest pain, Denies edema, Denies leg edema, Denies lightheadedness, Denies syncope Respiratory: Reports cough Gastrointestinal: Denies abdominal pain, Denies diarrhea, Denies nausea, Denies vomiting Genitourinary: Denies dysuria, Denies hematuria, Denies urgency, Denies urinary frequency Musculoskeletal: Denies myalgias Integumentary: Denies pruritus, Denies rash Neurological: Denies numbness, Denies weakness Psychiatric: Denies anxiety, Denies depression Endocrine: Denies fatigue, Denies weight change Past Medical History Past Medical History: Atrial Fibrillation, Coronary Artery Disease (CAD), Heart Failure, CVA/TIA, Diabetes Mellitus, Deep Vein Thrombosis (DVT), Hyperlipidemia , Osteoarthritis (OA) Additional Past Medical History / Comment(s): sleep apnea; no residual since stroke 2013, left leg DVT 2015, paroxysmal atrial fibrillation, chronic diastolic heart failure History of Any Multi-Drug Resistant Organisms: None Reported Past Surgical History: Cholecystectomy, Coronary Bypass/CABG, Heart Catheterization With Stent, Hysterectomy Additional Past Surgical History / Comment(s): eye 6 cardiac stent placed; CABG 1998 Past Anesthesia/Blood Transfusion Reactions: No Reported Reaction Additional Past Anesthesia/Blood Transfusion Reaction / Comment(s): Jehovahs witness no blood transfusions Date of Last Stent Placement:: 2013 Past Psychological History: No Psychological Hx Reported Smoking Status: Never smoker Past Alcohol Use History: Occasional Additional Past Alcohol Use History / Comment(s): Patient is a lifelong nonsmoker. Past Drug Use History: None Reported - Past Family History Father Additional Family Medical History / Comment(s): Father at age 89 following a hip fracture repair that became infected. He from complications of infection. Mother Additional Family Medical History / Comment(s): Mother in her 70s. She had history of stroke and had been in an extended care facility for 8 years prior to her . Sister(s) Additional Family Medical History / Comment(s): Patient has one sister that is 17 years younger than her with no major medical problems. Patient does not have any brothers. Son(s) Additional Family Medical History / Comment(s): She has 2 sons and one has heart problems. Medications and Allergies Home Medications Medication Instructions Recorded Confirmed Type Atorvastatin [Lipitor] 10 mg PO HS 01/22/11/08/16 History Clopidogrel [Plavix] 75 mg PO DAILY 01/23/16 11/08/16 History Furosemide [Lasix] 40 mg PO DAILY 01/23/16 11/08/16 History Isosorbide Mononitrate ER [Imdur] 60 mg PO DAILY 01/23/16 11/08/16 History Metoprolol Tartrate [Lopressor] 50 mg PO DAILY 01/23/16 11/08/16 History [place]-3 Fatty Acids [[place]-3] 1,000 mg PO DAILY 01/23/16 11/08/16 History Potassium Chloride [Klor-Con 20] 20 meq PO DAILY 01/23/16 11/08/16 History Allergies Allergy/AdvReac Type Severity Reaction Status Date / Time sulfamethoxazole Allergy Dyspnea Verified 11/08/16 14:09 [From Bactrim] trimethoprim [From Bactrim] Allergy Dyspnea Verified 11/08/16 14:09 Physical Exam Vitals: Vital Signs Temp Pulse Pulse Resp BP BP Pulse Ox 11/09/16 08:00 98.3 F 120 H 18 165/98 95 11/09/16 04:00 97.3 F L 92 18 93 L 11/09/16 00:00 97 F L 97 18 132/64 92 L 11/08/16 20:00 97.1 F L 86 18 176/80 94 L 11/08/16 19:26 97.1 F L 86 18 176/80 94 L 11/08/16 19:12 97.9 F 96 18 188/99 98 11/08/16 17:57 97.4 F L 91 18 173/80 98 Intake and Output 11/08/16 11/09/16 11/09/16 22:59 06:59 14:59 Intake Total 200 300 Output Total 750 1400 250 Balance -550 -1400 50 Intake: Oral 200 300 Output: Urine 750 1400 250 Other: Voiding Method Toilet Toilet Toilet # Voids 1 1 Weight 85.275 kg 86.5 kg 86.5 kg Patient Weight 11/10/16 06:59 Weight 86.5 kg Gen: This is a 76-year-old female. She is sitting up in bed and appears to be in no acute distress. HEENT: Head is atraumatic, normocephalic. Pupils equal, round. Sclerae is anicteric. Conjunctiva pink. Mucous membranes of the mouth are moist. No thrush noted. NECK: Supple. No JVD. No lymphadenopathy. No thyromegaly. LUNGS: Diminished bilateral bases. No intercostal retractions. HEART: Irregularly irregular rate and rhythm. Systolic ejection murmur. ABDOMEN: Soft. Bowel sounds are present. No masses. No tenderness. EXTREMITIES: No pedal edema. No calf tenderness. Dorsalis pedis +2 bilaterally. NEUROLOGICAL: Patient is awake, alert and oriented x3. Cranial nerves 2 through 12 are grossly intact. Results CBC & Chem 7: 11/09/16 05:32 11/09/16 05:32 Labs: Abnormal Lab Results - Last 24 Hours (Table) 11/08/16 11/08/16 11/08/16 Range/Units 17:50 19:51 20:54 Hct (34.0-46.0) % Sodium (137-145) mmol/L Potassium (3.5-5.1) mmol/L BUN (7-17) mg/dL Creatinine (0.52-1.04) mg/dL Glucose (74-99) mg/dL POC Glucose (mg/dL) 148 H (75-99) mg/dL Hemoglobin A1c 6.4 H (4.2-6.1) % Calcium (8.4-10.2) mg/dL Total Bilirubin (0.2-1.3) mg/dL AST (14-36) U/L ALT (9-52) U/L Urine Protein Trace H (Negative) 11/09/16 11/09/16 11/09/16 Range/Units 05:32 05:32 06:07 Hct 33.6 L (34.0-46.0) % Sodium 147 H (137-145) mmol/L Potassium 3.0 L* (3.5-5.1) mmol/L BUN 18 H (7-17) mg/dL Creatinine 1.07 H (0.52-1.04) mg/dL Glucose 163 H (74-99) mg/dL POC Glucose (mg/dL) 224 H (75-99) mg/dL Hemoglobin A1c (4.2-6.1) % Calcium 8.0 L (8.4-10.2) mg/dL Total Bilirubin 1.7 H (0.2-1.3) mg/dL AST 41 H (14-36) U/L ALT 62 H (9-52) U/L Urine Protein (Negative) Thrombosis Risk Factor Assmnt - DVT/VTE Prophylaxis DVT/VTE Prophylaxis: Pharmacologic Prophylaxis ordered - Choose All That Apply Each Factor Represents 1 point: Obesity (BMI >25) Each Risk Factor Represents 2 Points: Age 61-74 years Each Risk Factor Represents 3 Points: History of DVT/PE Thrombosis Risk Factor Assessment Total Risk Factor Score: 6 Thrombosis Risk Factor Assessment Level: High Risk Assessment and Plan Plan: 1. Acute diastolic heart failure. Cardiology consult appreciated. Continue IV Lasix 40 mg every 8 hours. Echocardiogram as above. I&O and daily weights. Monitor electrolytes and kidney function. 2. Bilateral pleural effusions with possible mesothelioma. Consult with Dr. Ward. 3. Paroxysmal atrial fibrillation currently rate controlled. Cardiology has started patient on eliquis. She has been noncompliant with Coumadin. Continue Lopressor 50 mg 3 times daily. 4. CAD. Continue Imdur 60 mg daily along with Zestril 20 mg twice daily, Plavix 75 mg daily, Norvasc 10 mg daily. 5. Diabetes mellitus type 2. Janumet XR 100/1000 mg daily which will be resumed. Continue Humalog scale before meals and at bedtime. Her A1c is 6.4. 6. Hypertensive cardiovascular disease. Continue lisinopril 20 mg twice a day , amlodipine 5 mg daily, Imdur 60 mg daily and furosemide 40 mg IV every 8 hours 7. History of obstructive sleep apnea. 8. Hyperlipidemia continue Lipitor 20mg. 9. History of CVA, stable 10. History of DVT. 11. Osteoarthritis, dialyzed. 12. DVT prophylaxis. Patient on eliquis 13. Gastrointestinal prophylaxis. Continue Protonix. Patient will be admitted to the hospital for a minimum of 29 stay. Discharge plan: Return home Impression and plan of care have been directed as dictated by the signing physician. Ashtyn Yeung nurse practitioner acting as scribe for signing physician. Cc: Dr. Gerson Leal Time with Patient: Greater than 30
[2016-11-09] MEDS: METOPROLOL TARTRATE 50 MG TAB PO SCH ×2 (15:17→21:35)
[2016-11-09 16:51] LABS: Glucose,Whole Blood 130 mg/dL (75-99)
--- NOTE | 2016-11-09 16:58 | P.CNPUL ---
History of Present Illness Consult date: 11/09/16 Reason for consult: abnormal CXR/CT History of present illness: This is a 76-year-old female patient was hospitalized because of increased shortness of breath over the past 3-4 days. She has no orthopnea. No major swelling lower extremities. No fever or chills. No significant cough or sputum production. She is post-bypass surgery back in 1998 and subsequent stenting of the mid RCA and OM 1 back in 2013. She is also known to have hypertension, diabetes mellitus type 2, obstructive sleep apnea, paroxysmal fibrillation and hyperlipidemia. The patient was hospitalized back in January 2016 for worsening shortness of breath. At that time the patient was seen by Dr. Cuevas , and she was identified to have a right upper lobe opacity which was able to be a pseudotumor within the minor fissure of the right lung. The patient was also being followed up with Dr. Espinal on an outpatient basis at the office. A follow-up CAT scan of the chest was done during this current admission and it showed no evidence of any pulmonary embolism. There was some located better pleural effusion the lung bases along with groundglass changes bilaterally more consistent with CHF. The patient also has cardiomegaly. There was also a right upper lobe pseudotumor which remains essentially unchanged compared to the previous chest CAT scan of the chest that was done in January 2016. She currently is on diuretics and she is placed on Lasix 40 mg daily push every 8 hours. The BNP level was 6920. Troponin first set was negative. Influenza screen was negative. Lactic acid level is at 1.4. Review of Systems Review of system was done and the positive findings were old mentionable history of present illness Past Medical History Past Medical History: Atrial Fibrillation, Coronary Artery Disease (CAD), Heart Failure, CVA/TIA, Diabetes Mellitus, Deep Vein Thrombosis (DVT), Hyperlipidemia , Osteoarthritis (OA) Additional Past Medical History / Comment(s): Coronary artery disease, previous coronary artery bypass surgery, previous coronary artery stenting, previous history of pleural effusion requiring chemical pleurodesis back in 1998, CVA back in 2013 without any residual deficits, left lower extremity DVT in 2015, paroxysmal atrial fibrillation, chronic diastolic heart failure, diabetes mellitus, hyperlipidemia, obesity, osteoarthritis History of Any Multi-Drug Resistant Organisms: None Reported Past Surgical History: Cholecystectomy, Coronary Bypass/CABG, Heart Catheterization With Stent, Hysterectomy Additional Past Surgical History / Comment(s): eye 6 cardiac stent placed; CABG 1998 Past Anesthesia/Blood Transfusion Reactions: No Reported Reaction Additional Past Anesthesia/Blood Transfusion Reaction / Comment(s): Jehovahs witness no blood transfusions Date of Last Stent Placement:: 2013 Past Psychological History: No Psychological Hx Reported Smoking Status: Never smoker Past Alcohol Use History: Occasional Additional Past Alcohol Use History / Comment(s): Patient is a lifelong nonsmoker. Past Drug Use History: None Reported - Past Family History Father Additional Family Medical History / Comment(s): Father at age 89 following a hip fracture repair that became infected. He from complications of infection. Mother Additional Family Medical History / Comment(s): Mother in her 70s. She had history of stroke and had been in an extended care facility for 8 years prior to her . Sister(s) Additional Family Medical History / Comment(s): Patient has one sister that is 17 years younger than her with no major medical problems. Patient does not have any brothers. Son(s) Additional Family Medical History / Comment(s): She has 2 sons and one has heart problems. Medications and Allergies Home Medications Medication Instructions Recorded Confirmed Type Atorvastatin [Lipitor] 10 mg PO HS 01/23/16 11/08/16 History Clopidogrel [Plavix] 75 mg PO DAILY 01/23/16 11/08/16 History Furosemide [Lasix] 40 mg PO DAILY 01/23/16 11/08/16 History Isosorbide Mononitrate ER [Imdur] 60 mg PO DAILY 01/23/16 11/08/16 History Metoprolol Tartrate [Lopressor] 50 mg PO DAILY 01/23/16 11/08/16 History [place]-3 Fatty Acids [[place]-3] 1,000 mg PO DAILY 01/23/16 11/08/16 History Potassium Chloride [Klor-Con 20] 20 meq PO DAILY 01/23/16 11/08/16 History Allergies Allergy/AdvReac Type Severity Reaction Status Date / Time sulfamethoxazole Allergy Dyspnea Verified 11/08/16 14:09 [From Bactrim] trimethoprim [From Bactrim] Allergy Dyspnea Verified 11/08/16 14:09 Physical Exam Vitals: Vital Signs Temp Pulse Pulse Resp BP BP Pulse Ox 11/09/16 16:00 98.8 F 95 18 134/88 94 L 04/06/17 12:00 98.1 F 88 18 126/84 94 L 11/09/16 08:00 98.3 F 120 H 18 165/98 95 11/09/16 04:00 97.3 F L 92 18 93 L 11/09/16 00:00 97 F L 97 18 132/64 92 L 11/08/16 20:00 97.1 F L 86 18 176/80 94 L 11/08/16 19:26 97.1 F L 86 18 176/80 94 L 11/08/16 19:12 97.9 F 96 18 188/99 98 11/08/16 17:57 97.4 F L 91 18 173/80 98 Intake and Output 11/09/16 11/09/16 11/09/16 06:59 14:59 22:59 Intake Total 300 Output Total 1400 900 Balance -1400 -600 Intake: Oral 300 Output: Urine 1400 900 Other: Voiding Method Toilet Toilet Toilet # Voids 2 2 Weight 86.5 kg 86.5 kg 86.5 kg Patient Weight 11/10/16 06:59 Weight 86.5 kg The patient appeared well nourished and normally developed. Vital signs as documented. Head exam is unremarkable. No scleral icterus or corneal arcus noted. Neck is without jugular venous distension, thyromegaly, or carotid bruits. Carotid upstrokes are brisk bilaterally. Lung sounds are diminished in lung bases bilaterally. There is no crackles. No wheezes. No rhonchi. Cardiac exam reveals the PMI to be normally sized and situated. Rhythm is irregular. First and second heart sounds normal. No murmurs, rubs or gallops. Abdominal exam reveals normal bowel sounds, no masses, no organomegaly and no aortic enlargement. Extremities are nonedematous and both femoral and pedal pulses are normal. Results - Laboratory Findings CBC and BMP: 11/09/16 05:32 11/09/16 05:32 PT/INR, D-dimer PT 12.0 sec (9.0-12.0) 11/09/16 05:32 INR 1.2 (<1.1) 11/09/16 05:32 D-Dimer 2.01 mg/L FEU (<0.60) H 11/08/16 12:24 Abnormal lab findings: Abnormal Labs 11/08/16 11/08/16 11/08/16 17:50 19:51 20:54 Hct Sodium Potassium BUN Creatinine Glucose POC Glucose (mg/dL) 148 H Hemoglobin A1c 6.4 H Calcium Total Bilirubin AST ALT Urine Protein Trace H 11/09/16 11/09/16 11/09/16 05:32 05:32 06:07 Hct 33.6 L Sodium 147 H Potassium 3.0 L* BUN 18 H Creatinine 1.07 H Glucose 163 H POC Glucose (mg/dL) 224 H Hemoglobin A1c Calcium 8.0 L Total Bilirubin 1.7 H AST 41 H ALT 62 H Urine Protein 11/09/16 11:58 Hct Sodium Potassium BUN Creatinine Glucose POC Glucose (mg/dL) 126 H Hemoglobin A1c Calcium Total Bilirubin AST ALT Urine Protein - Diagnostic Findings Chest x-ray: image reviewed Assessment and Plan Plan: Assessment 1 shortness of breath most likely on the basis of congestion heart failure. CT angios of the chest was reviewed and there is no evidence for pulmonary embolism. There is some vague bilateral groundglass changes and loculated pleural effusion lung bases bilaterally that are essentially small. These are most likely representation of CHF and the right upper lobe opacity is also likely a pseudotumor within the minor fissure in the right lung. The presence of loculation is attributed to previous chemical pleurodesis the patient had many years back following bypass surgery. Patient is currently on IV diuretics 2 congestion heart failure/diastolic dysfunction 3 coronary artery disease with previous bypass surgery and previous coronary intervention and stenting 4 chronic atrial fibrillation 5 hypertension 6 hyperlipidemia 7 diabetes mellitus 8 CVA without any major residual deficits Plan Continue diuretics. Monitor electrolytes. Monitor renal function. Repeat chest x-ray in the morning. Outpatient follow-up regarding right upper lobe opacity which is most likely a pseudotumor. As for the pleural effusions, they' re somewhat loculated both ineffective the the patient has had previous chemical pleurodesis for recurrent pleural effusions post-bypass surgery. Doubt pneumonia.
[2016-11-09] MEDS: SODIUM CHLORIDE 0.9% 1,000 ML IV SCH (17:11)
[2016-11-09] MEDS ORDERED: ATORVASTATIN 20 MG TAB PO SCH (21:00)
[2016-11-09 21:04] LABS: Glucose,Whole Blood 144 mg/dL (75-99)
[2016-11-10 06:13] LABS: Glucose,Whole Blood 157 mg/dL (75-99)
[2016-11-10] MEDS: INSULIN LISPRO (humaLOG) 300 UNIT/3 ML VIAL SQ SCH ×2 (06:20→14:05)
[2016-11-10] MEDS: metFORMIN 500 MG TAB PO SCH (06:20)
[2016-11-10] MEDS: LINAGLIPTIN 5 MG TABLET PO SCH (06:47)
[2016-11-10 06:49] LABS: Calcium 7.9 mg/dL (8.4-10.2); Potassium 3.2 mmol/L (3.5-5.1); Total Bilirubin 1.3 mg/dL (0.2-1.3); Total Protein 6.4 g/dL (6.3-8.2)
[2016-11-10] MEDS ORDERED: PANTOPRAZOLE 40 MG TABLET PO SCH (07:30)
[2016-11-10 07:52] VITALS: TEMP 97
[2016-11-10] MEDS ORDERED: amLODIPine 5 MG TAB PO SCH (09:00)
[2016-11-10] MEDS: POTASSIUM CHLORIDE ER 20 MEQ TAB.ER PO SCH (09:11)
[2016-11-10] MEDS: FUROSEMIDE 10 MG/ML 4 ML VIAL IV SCH (09:11)
[2016-11-10] MEDS: ISOSORBIDE MONONITRATE ER 60 MG TAB.ER.24H PO SCH (09:12)
[2016-11-10] MEDS: CLOPIDOGREL 75 MG TAB PO SCH (09:12)
[2016-11-10] MEDS: LISINOPRIL 20 MG TAB PO SCH (09:12)
[2016-11-10] MEDS: METOPROLOL TARTRATE 50 MG TAB PO SCH (09:12)
[2016-11-10] MEDS ORDERED: POTASSIUM CHLORIDE ER 20 MEQ TAB.ER PO STA (10:06)
[2016-11-10 11:21] VITALS: BP 140/71; PULSE 97; RESP 16
[2016-11-10 11:41] LABS: Glucose,Whole Blood 151 mg/dL (75-99)
[2016-11-10] MEDS ORDERED: ASPIRIN 81 MG CHEW PO SCH (12:00)
[2016-11-10] MEDS ORDERED: METOPROLOL TARTRATE 25 MG TAB PO ONE (12:15)
--- NOTE | 2016-11-10 13:39 | PN ---
This lady has CAD, atrial fibrillation. 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 Her rate control is better. Her atrial fibrillation rate is in the 90s. Will further increase beta claudia, Lopressor, to 75 mg t.i.d. Eliquis will be continued. Aspirin 81 mg will be continued. We will increase activity, and if she does better will discharge her and she wishes to follow up with her kieselgu[employer] regenerator operator in the [place] area and she may require electrical cardioversion. This was discussed with the patient at length. She understands and will follow through. Vital signs are stable. S1, S2 heard normally, irregular rate and rhythm noted. A short systolic murmur noted. Lungs are clear. Abdomen and lower extremity exam is unchanged.
--- NOTE | 2016-11-10 15:01 | P.PN ---
Subjective This is a 76-year-old female patient was hospitalized because of increased shortness of breath over the past 3-4 days. She has no orthopnea. No major swelling lower extremities. No fever or chills. No significant cough or sputum production. She is post-bypass surgery back in 1998 and subsequent stenting of the mid RCA and OM 1 back in 2013. She is also known to have hypertension, diabetes mellitus type 2, obstructive sleep apnea, paroxysmal fibrillation and hyperlipidemia. The patient was hospitalized back in January 2016 for worsening shortness of breath. At that time the patient was seen by Dr. Cuevas , and she was identified to have a right upper lobe opacity which was able to be a pseudotumor within the minor fissure of the right lung. The patient was also being followed up with Dr. Espinal on an outpatient basis at the office. A follow-up CAT scan of the chest was done during this current admission and it showed no evidence of any pulmonary embolism. There was some located better pleural effusion the lung bases along with groundglass changes bilaterally more consistent with CHF. The patient also has cardiomegaly. There was also a right upper lobe pseudotumor which remains essentially unchanged compared to the previous chest CAT scan of the chest that was done in January 2016. She currently is on diuretics and she is placed on Lasix 40 mg daily push every 8 hours. The BNP level was 6920. Troponin first set was negative. Influenza screen was negative. Lactic acid level is at 1.4. On 11/10/2016, the patient is being seen in follow-up. The patient is less short of breath. She is improved considerably. She is diuresed well over the past 24 hours. She has no specific complaint otherwise for now. No cough or sputum production. No chest pain. The patient is being considered for discharge to be followed up on outpatient basis. Objective - Vital Signs Vital signs: Vital Signs Temp 97 F L 11/10/16 07:35 Pulse 97 11/10/16 11:20 Resp 16 11/10/16 11:21 BP 140/71 11/10/16 11:20 Pulse Ox 95 11/10/16 11:20 Intake & Output 11/09/16 11/10/16 11/10/16 18:59 06:59 18:59 Intake Total 300 350 240 Output Total 900 500 825 Balance -600 -150 -585 Weight 86.5 kg 87 kg Intake: Oral 300 350 240 Output: Urine 900 500 825 Other: Voiding Method Toilet Toilet Toilet # Voids 2 1 1 - Exam patient appeared well nourished and normally developed. Vital signs as documented. Head exam is unremarkable. No scleral icterus or corneal arcus noted. Neck is without jugular venous distension, thyromegaly, or carotid bruits. Carotid upstrokes are brisk bilaterally. Lung sounds are diminished in lung bases bilaterally. There is no crackles. No wheezes. No rhonchi. Cardiac exam reveals the PMI to be normally sized and situated. Rhythm is irregular. First and second heart sounds normal. No murmurs, rubs or gallops. Abdominal exam reveals normal bowel sounds, no masses, no organomegaly and no aortic enlargement. Extremities are nonedematous and both femoral and pedal pulses are normal. - Labs CBC & Chem 7: 11/09/16 05:32 11/10/16 05:52 Labs: Abnormal Lab Results - Last 24 Hours (Table) 11/09/16 11/09/16 11/10/16 Range/Units 16:39 21:02 05:52 Potassium 3.2 L (3.5-5.1) mmol/L BUN 22 H (7-17) mg/dL Creatinine 1.26 H (0.52-1.04) mg/dL Glucose 161 H (74-99) mg/dL POC Glucose (mg/dL) 130 H 144 H (75-99) mg/dL Calcium 7.9 L (8.4-10.2) mg/dL AST 37 H (14-36) U/L ALT 61 H (9-52) U/L 11/10/16 11/10/16 Range/Units 06:11 11:31 Potassium (3.5-5.1) mmol/L BUN (7-17) mg/dL Creatinine (0.52-1.04) mg/dL Glucose (74-99) mg/dL POC Glucose (mg/dL) 157 H 151 H (75-99) mg/dL Calcium (8.4-10.2) mg/dL AST (14-36) U/L ALT (9-52) U/L Assessment and Plan Plan: Assessment 1 shortness of breath most likely on the basis of congestion heart failure. CT angios of the chest was reviewed and there is no evidence for pulmonary embolism. There is some vague bilateral groundglass changes and loculated pleural effusion lung bases bilaterally that are essentially small. These are most likely representation of CHF and the right upper lobe opacity is also likely a pseudotumor within the minor fissure in the right lung. The presence of loculation is attributed to previous chemical pleurodesis the patient had many years back following bypass surgery. Patient is currently on IV diuretics On 10/10/2016, the patient is improved. She patient is less short of breath. The patient has been diuresed well. No other complaints for now. 2 congestion heart failure/diastolic dysfunction 3 coronary artery disease with previous bypass surgery and previous coronary intervention and stenting 4 chronic atrial fibrillation 5 hypertension 6 hyperlipidemia 7 diabetes mellitus 8 CVA without any major residual deficits Plan Switch this patient to oral diuretics. Clinically much stable. Discharge planning is in progress.
[2016-11-10] MEDS ORDERED: METOPROLOL TARTRATE 25 MG TAB PO SCH (16:00)
--- NOTE | 2016-11-11 13:53 | P.DS ---
Providers Date of admission: 11/08/16 17:05 Expected date of discharge: 11/10/16 Attending physician: Valeria Mosley Consults: 11/08/16 23:17 Consult Physician Routine Consulting Provider: Keena Melendez Consult Reason/Comments: CHF Do you want consulting provider notified?: Yes 11/08/16 23:18 Consult Physician Routine Consulting Provider: Derick Ward Consult Reason/Comments: Bilateral pleural effusion Do you want consulting provider notified?: Yes Primary care physician: Gerson Lela [facility] Course: This is a 76-year-old female patient of Dr. Leal'stephie with a past history of coronary artery disease with prior 4 vessel CABG in 1998 and subsequent stenting of the mid RCA and OM and 2013 and 2 subsequent stent placements following that, hypertension, diabetes mellitus type 2, hyperlipidemia, obstructive sleep apnea, paroxysmal atrial fibrillation status post cardioversion 1 year ago on chronic Coumadin. Patient states that she has had shortness of breath with cough for 3-4 days. She states the symptoms are worsening and that her ribs hurt due to coughing so much. She denies any lower extremity edema. Patient recently stopped taking her Coumadin because she didn' t feel well when she took it and only feels cold. She complains of weakness when she walks. She presented to [facility] emergency center. White count 12.7, BUN 20 creatinine 1.08 with GFR greater than 50. Hemoglobin A1c 6.4, d-dimer 2.01. Troponin negative. ProBNP 6920. Total bilirubin 2, AST 69 and ALT 70. Influenza testing for A and B negative. Chest x-ray is positive for heart failure and residual pulmonary vascular congestion and interstitial edema. Decreased size of the right midlung pseudotumor. Likely pleural fluid trapped in the minor fissure. Small effusions. CTA of the chest showed no evidence of pulmonary embolism. Loculated bilateral pleural effusions are increased compared to January 2016. Pleural calcification on the right side and lesser extent on the left. Mild mediastinal adenopathy, cardiomegaly. Possibility of mesothelioma should be considered. Patient has been admitted to the selective care unit and started on IV Lasix. Consult requested with cardiology and Dr. Ward from pulmonary medicine. Patient has been evaluated by cardiology and started on eliquis with plan to continue Plavix as well. Case management is checking cost on eliquis. Potassium replaced. Echocardiogram reveals moderate mitral regurgitation, moderate tricuspid regurgitation, mild pulmonary hypertension, moderate concentric left ventricular hypertrophy, EF 45-50%. 11/10: Patient has been cleared by cardiology for discharge. Dr. STEVE Renee has recommended aspirin 81 mg and eliquis for home. Potassium will be replaced. Patient will be discharged home today in stable condition. Discharge Diagnoses: 1. Acute diastolic heart failure 2. Bilateral pleural effusions with possible mesothelioma. 3. Paroxysmal atrial fibrillation currently rate controlled 4. CAD 5. Diabetes mellitus type 2 6. Hypertensive cardiovascular disease 7. History of obstructive sleep apnea 8. Hyperlipidemia 9. History of CVA, stable 10. History of DVT. 11. Osteoarthritis, generalized. Discharge plan: Return home Impression and plan of care have been directed as dictated by the signing physician. Ashtyn Yeung nurse practitioner acting as scribe for signing physician. Cc: Dr. Gerson Leal Patient Condition at Discharge: Good Plan - Discharge Summary New Discharge Prescriptions: Apixaban [Eliquis] 5 mg PO BID #60 tab Atorvastatin [Lipitor] 20 mg PO HS #30 tab Furosemide [Lasix] 40 mg PO BID #60 tab Metoprolol Tartrate [Lopressor] 75 mg PO TID #180 tab Potassium Chloride [Klor-Con 20] 20 meq PO BID #60 tab.er.prt Discharge Medication List Atorvastatin [Lipitor] 10 mg PO HS 01/23/16 [History] Isosorbide Mononitrate ER [Imdur] 60 mg PO DAILY 01/23/16 [History] [place]-3 Fatty Acids [[place]-3] 1,000 mg PO DAILY 01/23/16 [History] Lisinopril [Zestril] 20 mg PO BID #60 tab 01/24/16 [Rx] amLODIPine [Norvasc] 10 mg PO DAILY #30 tab 01/24/16 [Rx] Apixaban [Eliquis] 5 mg PO BID #60 tab 11/10/16 [Rx] Atorvastatin [Lipitor] 20 mg PO HS #30 tab 11/10/16 [Rx] Furosemide [Lasix] 40 mg PO BID #60 tab 11/10/16 [Rx] Metoprolol Tartrate [Lopressor] 75 mg PO TID #180 tab 11/10/16 [Rx] Potassium Chloride [Klor-Con 20] 20 meq PO BID #60 tab.er.prt 11/10/16 [Rx] sitaGLIPtin PHOS/metFORMIN HCL [Janumet Xr 100-1,000 mg Tablet] 1 tab PO DAILY # 0 11/10/16 [Rx] Follow up Appointment(s)/Referral(s): [facility] [Provider Group] - 1 Week Juan Diego Staples MD [STAFF PHYSICIAN] - 11/23/16 3:15 pm Gerson Leal DO [Primary Care Provider] - 1 Week Patient Instructions/Handouts: Heart Failure (DC) Activity/Diet/Wound Care/Special Instructions: *support merchandiser Eliquis from [facility] at time of discharge* Discharge Disposition: HOME SELF-CARE
== END 2016-11-10 15:34 | disposition home or self-care (01) | DRG 293 ==
LOC: EC 13:16 → 6SEL 17:05
PROVIDERS: ADMIT Internal Medicine; ATTEND Internal Medicine
DX: I11.0 Hypertensive heart disease with heart failure (principal); I27.2 Other secondary pulmonary hypertension; C45.9 Mesothelioma, unspecified; I48.0 Paroxysmal atrial fibrillation; I25.10 Atherosclerotic heart disease of native coronary artery without angina pectoris; I50.33 Acute on chronic diastolic (congestive) heart failure; I08.1 Rheumatic disorders of both mitral and tricuspid valves; I48.2 Chronic atrial fibrillation; E87.6 Hypokalemia; E78.5 Hyperlipidemia, unspecified; G47.33 Obstructive sleep apnea (adult) (pediatric); R05 Cough; R79.89 Other specified abnormal findings of blood chemistry; E66.9 Obesity, unspecified; R74.0 Nonspecific elevation of levels of transaminase and lactic acid dehydrogenase [LDH]; R59.0 Localized enlarged lymph nodes; R50.9 Fever, unspecified; E11.9 Type 2 diabetes mellitus without complications; M19.90 Unspecified osteoarthritis, unspecified site; R53.1 Weakness; T45.516A Underdosing of anticoagulants, initial encounter; Z91.14 Patient's other noncompliance with medication regimen; Z95.5 Presence of coronary angioplasty implant and graft; Z95.1 Presence of aortocoronary bypass graft; Z86.73 Personal history of transient ischemic attack (TIA), and cerebral infarction without residual deficits; Z79.01 Long term (current) use of anticoagulants; Z86.718 Personal history of other venous thrombosis and embolism; Z88.2 Allergy status to sulfonamides; Z71.3 Dietary counseling and surveillance; Z79.899 Other long term (current) drug therapy; Z79.02 Long term (current) use of antithrombotics/antiplatelets; Z90.49 Acquired absence of other specified parts of digestive tract; Z90.710 Acquired absence of both cervix and uterus; Z82.3 Family history of stroke; Z82.49 Family history of ischemic heart disease and other diseases of the circulatory system; Z68.32 Body mass index [BMI] 32.0-32.9, adult; Z87.09 Personal history of other diseases of the respiratory system
CPT/HCPCS: 36415; 71020; 71275; 74150; 80053; 81003; 82550; 82553; 83036; 83605; 83735; 83880; 84484; 85025; 85379; 85610; 85730; 87040; 87502; 93005; 93306; 93970; 94640; 96374; 99291

== ENCOUNTER 2016-11-13 13:07 | Inpatient (IN) | payer MEDICARE, OTHER ==
[2016-11-13 13:27] VITALS: RESP 18
[2016-11-13] MEDS ORDERED: FUROSEMIDE 10 MG/ML 4 ML VIAL IV STA (14:42)
--- NOTE | 2016-11-13 14:48 | ED ---
General Adult HPI - General Chief complaint: Shortness of Breath Stated complaint: KERRI Time Seen by Provider: 11/13/16 14:25 Source: patient, family, RN notes reviewed Mode of arrival: ambulatory Limitations: no limitations - History of Present Illness Initial comments: Patient is a pleasant 76-year-old female presenting to the emergency department with difficulty in breathing. Patient was recently discharged from the hospital with congestive heart failure. Patient has been fatigued. Dyspnea increases with exertion as well as lying flat. No chest pain. - Related Data Home Medications Medication Instructions Recorded Confirmed Isosorbide Mononitrate ER [Imdur] 60 mg PO DAILY 01/23/16 11/13/16 [place]-3 Fatty Acids [[place]-3] 1,000 mg PO DAILY 01/23/16 11/13/16 Aspirin [Adult Low Dose Aspirin EC] 81 mg PO QAM 11/13/16 11/13/16 Metoprolol Tartrate [Lopressor] 75 mg PO TID 11/13/16 11/13/16 Previous Rx's Medication Instructions Recorded Apixaban [Eliquis] 5 mg PO BID #60 tab 11/10/16 Atorvastatin [Lipitor] 20 mg PO HS #30 tab 11/10/16 Furosemide [Lasix] 40 mg PO BID #60 tab 11/10/16 Potassium Chloride [Klor-Con 20] 20 meq PO BID #60 tab.er.prt 11/10/16 sitaGLIPtin PHOS/metFORMIN HCL 1 tab PO DAILY #0 11/10/16 [Janumet Xr 100-1,000 mg Tablet] Allergies Allergy/AdvReac Type Severity Reaction Status Date / Time sulfamethoxazole Allergy Dyspnea Verified 11/13/16 15:19 [From Bactrim] trimethoprim [From Bactrim] Allergy Dyspnea Verified 11/13/16 15:19 Review of Systems ROS Statement: Those systems with pertinent positive or pertinent negative responses have been documented in the HPI. ROS Other: All systems not noted in ROS Statement are negative. Constitutional: Denies: fever Eyes: Denies: eye pain ENT: Denies: ear pain Respiratory: Reports: cough, dyspnea Cardiovascular: Denies: chest pain Endocrine: Reports: fatigue Gastrointestinal: Denies: abdominal pain Genitourinary: Denies: dysuria Musculoskeletal: Denies: back pain Skin: Denies: rash Neurological: Denies: weakness Past Medical History Past Medical History: Atrial Fibrillation, Coronary Artery Disease (CAD), Heart Failure, CVA/TIA, Diabetes Mellitus, Deep Vein Thrombosis (DVT), Hyperlipidemia , Osteoarthritis (OA) Additional Past Medical History / Comment(s): Coronary artery disease, previous coronary artery bypass surgery, previous coronary artery stenting, previous history of pleural effusion requiring chemical pleurodesis back in 1998, CVA back in 2013 without any residual deficits, left lower extremity DVT in 2016, paroxysmal atrial fibrillation, chronic diastolic heart failure, diabetes mellitus, hyperlipidemia, obesity, osteoarthritis History of Any Multi-Drug Resistant Organisms: None Reported Past Surgical History: Cholecystectomy, Coronary Bypass/CABG, Heart Catheterization With Stent, Hysterectomy Additional Past Surgical History / Comment(s): eye 6 cardiac stent placed; CABG 1998, OVARY CYST REMOVED Past Anesthesia/Blood Transfusion Reactions: No Reported Reaction Additional Past Anesthesia/Blood Transfusion Reaction / Comment(s): Jehovahs witness no blood transfusions Date of Last Stent Placement:: 2013 Past Psychological History: No Psychological Hx Reported Smoking Status: Never smoker Past Alcohol Use History: Occasional Additional Past Alcohol Use History / Comment(s): Patient is a lifelong nonsmoker. Past Drug Use History: None Reported - Past Family History Father Additional Family Medical History / Comment(s): Father at age 89 following a hip fracture repair that became infected. He from complications of infection. Mother Additional Family Medical History / Comment(s): Mother in her 70s. She had history of stroke and had been in an extended care facility for 8 years prior to her . Sister(s) Additional Family Medical History / Comment(s): Patient has one sister that is 17 years younger than her with no major medical problems. Patient does not have any brothers. Son(s) Additional Family Medical History / Comment(s): She has 2 sons and one has heart problems. General Exam Limitations: no limitations General appearance: alert, in no apparent distress Head exam: Present: atraumatic Eye exam: Present: normal appearance ENT exam: Present: normal oropharynx Neck exam: Present: normal inspection Respiratory exam: Present: decreased breath sounds Cardiovascular Exam: Present: irregular rhythm GI/Abdominal exam: Present: soft. Absent: tenderness Extremities exam: Present: normal inspection. Absent: pedal edema, calf tenderness Neurological exam: Present: alert Psychiatric exam: Present: normal affect, normal mood Skin exam: Absent: rash Course Vital Signs 11/13/16 11/13/16 13:19 14:49 Temperature 97 F L 98.2 F Pulse Rate 70 87 Respiratory 18 18 Rate Blood Pressure 146/77 186/88 O2 Sat by Pulse 96 98 Oximetry EKG Findings - EKG Comments: EKG Findings:: A. fib with a rate of 68. PVC present. QRS 94. QT 444. QTC 472. Left axis. Inferior Q waves. No acute ST change. Medical Decision Making - Medical Decision Making Patient reevaluated and unchanged. Patient and family updated on results and plan. Case discussed in detail with Dr. Low, who will admit for Dr. Leal with cardiology consult. - Lab Data Result diagrams: 11/13/16 14:28 11/13/16 14:28 Lab Results 11/13/16 11/13/16 11/13/16 Range/Units 14:28 14:28 14:28 WBC 10.7 H (3.8-10.6) k/uL RBC 4.50 (3.80-5.40) m/uL Hgb 12.7 (11.4-16.0) gm/dL Hct 39.0 (34.0-46.0) % MCV 86.6 (80.0-100.0) fL MCH 28.3 (25.0-35.0) pg MCHC 32.6 (31.0-37.0) g/dL RDW 14.5 (11.5-15.5) % Plt Count 271 (150-450) k/uL Neutrophils % 77 % Lymphocytes % 17 % Monocytes % 4 % Eosinophils % 2 % Basophils % 0 % Neutrophils # 8.2 H (1.3-7.7) k/uL Lymphocytes # 1.8 (1.0-4.8) k/uL Monocytes # 0.4 (0-1.0) k/uL Eosinophils # 0.2 (0-0.7) k/uL Basophils # 0.0 (0-0.2) k/uL Hypochromasia Slight PT (9.0-12.0) sec INR (<1.1) APTT (22.0-30.0) sec Sodium 143 (137-145) mmol/L Potassium 3.7 (3.5-5.1) mmol/L Chloride 102 (98-107) mmol/L Carbon Dioxide 26 (22-30) mmol/L Anion Gap 15 mmol/L BUN 20 H (7-17) mg/dL Creatinine 1.25 H (0.52-1.04) mg/dL Est GFR (MDRD) Af Amer 51 (>60 ml/min/1.73 sqM) Est GFR (MDRD) Non-Af 42 (>60 ml/min/1.73 sqM) Glucose 115 H (74-99) mg/dL Calcium 9.1 (8.4-10.2) mg/dL Total Bilirubin 1.1 (0.2-1.3) mg/dL AST 38 H (14-36) U/L ALT 51 (9-52) U/L Alkaline Phosphatase 66 (38-126) U/L Total Creatine Kinase 64 (30-135) U/L CK-MB (CK-2) 1.0 (0.0-2.4) ng/mL CK-MB (CK-2) Rel Index 1.6 Troponin I <0.012 (0.000-0.034) ng/mL NT-Pro-B Natriuret Pep pg/mL Total Protein 7.5 (6.3-8.2) g/dL Albumin 4.1 (3.5-5.0) g/dL 11/13/16 11/13/16 Range/Units 14:28 14:28 WBC (3.8-10.6) k/uL RBC (3.80-5.40) m/uL Hgb (11.4-16.0) gm/dL Hct (34.0-46.0) % MCV (80.0-100.0) fL MCH (25.0-35.0) pg MCHC (31.0-37.0) g/dL RDW (11.5-15.5) % Plt Count (150-450) k/uL Neutrophils % % Lymphocytes % % Monocytes % % Eosinophils % % Basophils % % Neutrophils # (1.3-7.7) k/uL Lymphocytes # (1.0-4.8) k/uL Monocytes # (0-1.0) k/uL Eosinophils # (0-0.7) k/uL Basophils # (0-0.2) k/uL Hypochromasia PT 11.9 (9.0-12.0) sec INR 1.2 (<1.1) APTT 36.2 H (22.0-30.0) sec Sodium (137-145) mmol/L Potassium (3.5-5.1) mmol/L Chloride (98-107) mmol/L Carbon Dioxide (22-30) mmol/L Anion Gap mmol/L BUN (7-17) mg/dL Creatinine (0.52-1.04) mg/dL Est GFR (MDRD) Af Amer (>60 ml/min/1.73 sqM) Est GFR (MDRD) Non-Af (>60 ml/min/1.73 sqM) Glucose (74-99) mg/dL Calcium (8.4-10.2) mg/dL Total Bilirubin (0.2-1.3) mg/dL AST (14-36) U/L ALT (9-52) U/L Alkaline Phosphatase (38-126) U/L Total Creatine Kinase (30-135) U/L CK-MB (CK-2) (0.0-2.4) ng/mL CK-MB (CK-2) Rel Index Troponin I (0.000-0.034) ng/mL NT-Pro-B Natriuret Pep 6610 pg/mL Total Protein (6.3-8.2) g/dL Albumin (3.5-5.0) g/dL - Radiology Data Radiology results: image reviewed (This x-ray shows only vascular congestion. Pleural effusion right mid lung.) Disposition Clinical Impression: Congestive heart failure Disposition: ADMITTED IP TO THIS HOSP
--- NOTE | 2016-11-13 15:16 | XR ---
EXAMINATION TYPE: XR chest 2V DATE OF EXAM: 11/13/2016 3:06 PM COMPARISON: 11/08/2016,05/19/2016, and 01/29/2016 HISTORY: 76-year-old female difficulty in breathing TECHNIQUE: PA and lateral views FINDINGS: Median sternotomy wires are present with post-CABG clips. The heart is borderline to mildly enlarged with diffuse interstitial and vascular prominence relatively similar from prior exam. Blunting of the left costophrenic angle and 3.3 cm masslike opacity at the right midlung, larger from 11/08/2016 but n oted to have been present on 01/29/2016 and then resolved and 05/19/2016 IMPRESSION: Correlate for continued CHF with pulmonary vascular congestion. Trace left pleural effusion and likel y pseudotumor at the right mid lung representing trapped fluid within the minor fissure. Follow-up af ter treatment to ensure clearance of this right midlung masslike opacity.
[2016-11-13 15:21] LABS: Basophils % (A) 0 %; CH 28.3; CHCM 32.8; Eosinophils # (A) 0.2 k/uL (0-0.7); Eosinophils % (A) 2 %; HDW 3.17; HGB 12.7 gm/dL (11.4-16.0); Hypochromasia Slight; Luc % (Auto) 1; Lymphocytes # (A) 1.8 k/uL (1.0-4.8); Lymphocytes % (A) 17 %; MCH 28.3 pg (25.0-35.0); MCHC 32.6 g/dL (31.0-37.0); MCV 86.6 fL (80.0-100.0); Monocytes # (A) 0.4 k/uL (0-1.0); Monocytes % (A) 4 %; Neutrophils # (A) 8.2 k/uL (1.3-7.7); Neutrophils % (A) 77 %; RDW 14.5 % (11.5-15.5); WBC 10.7 k/uL (3.8-10.6); WBC (Perox) 10.56
[2016-11-13 15:30] LABS: INR 1.2 (<1.1); Partial Thromboplastin Time 36.2 sec (22.0-30.0); Prothrombin Time 11.9 sec (9.0-12.0)
[2016-11-13 15:31] LABS: Calcium 9.1 mg/dL (8.4-10.2); Potassium 3.7 mmol/L (3.5-5.1); Total Bilirubin 1.1 mg/dL (0.2-1.3); Total Protein 7.5 g/dL (6.3-8.2)
[2016-11-13 15:51] LABS: Creatine Kinase 64 U/L (30-135)
[2016-11-13 16:03] LABS: Troponin I <0.012 ng/mL (0.000-0.034)
[2016-11-13] MEDS ORDERED: ASPIRIN 325 MG TAB PO STA (17:33)
[2016-11-13] MEDS ORDERED: FUROSEMIDE 10 MG/ML 4 ML VIAL IV SCH (17:45)
[2016-11-13] MEDS: NITROGLYCERIN OINT 1 INCH/GM PACKET TOPICAL SCH (17:51)
[2016-11-14] MEDS: ATORVASTATIN 20 MG TAB PO SCH ×2 (00:14→22:17)
[2016-11-14] MEDS: NITROGLYCERIN OINT 1 INCH/GM PACKET TOPICAL SCH ×2 (00:14→08:33)
[2016-11-14] MEDS: POTASSIUM CHLORIDE ER 20 MEQ TAB.ER PO SCH ×3 (00:14→22:17)
[2016-11-14] MEDS: APIXABAN 5 MG TAB PO SCH ×3 (00:14→22:16)
[2016-11-14] MEDS: FUROSEMIDE 10 MG/ML 4 ML VIAL IV SCH ×2 (00:19→08:32)
[2016-11-14] MEDS: LINAGLIPTIN 5 MG TABLET PO SCH ×2 (00:28→08:32)
[2016-11-14] MEDS: metFORMIN 500 MG TAB PO SCH (08:32)
[2016-11-14] MEDS: ASPIRIN 81 MG CHEW PO SCH (08:33)
[2016-11-14] MEDS: METOPROLOL TARTRATE 25 MG TAB PO SCH ×3 (08:33→22:18)
[2016-11-14] MEDS ORDERED: ASPIRIN 325 MG TAB PO SCH (09:00)
[2016-11-14] MEDS ORDERED: CLOPIDOGREL 75 MG TAB PO SCH (09:00)
[2016-11-14] MEDS ORDERED: NON-FORMULARY DRUG (Omega-3 Fatty Acids [Omega-3] 1,000 MG) PO SCH (09:00)
[2016-11-14] MEDS: IOHEXOL 350 MG/ML 25 ML BOTTLE (ORAL USE) PO PRN ×2 (13:20→14:23)
--- NOTE | 2016-11-14 13:51 | P.CRDCN ---
History of Present Illness Consult date: 11/14/16 Requesting physician: Livier Low Consult reason: congestive heart failure Chief complaint: Shortness of breath History of present illness: This is a 76-year-old female with known history of coronary artery disease and prior bypass surgery in 1998 at which time she underwent four- vessel bypass, with the POLO to the LAD, saphenous vein graft to the ramus intermediate, RCA and OM1. Subsequent to that patient did undergo stenting of the mid RCA, and OM1 in 2013. Patient also had 2 subsequent stent placements following that. Patient does have known history of hypertension, diabetes, hyperlipidemia, and paroxysmal atrial fibrillation. She follows with Dr. Ramirez at [facility]. She states that approximately one year ago she underwent cardioversion. Was admitted to the hospital approximately a week ago with atrial fibrillation, was initiated on Eliquis. Patient states overall she felt quite well on discharge, then started to become more and more short of breath. For this reason she came to the emergency room for further evaluation. BNP level on admission 6610. BUN 20, creatinine 1.2, potassium 3.7. Patient was initiated on IV Lasix in the emergency room and has diuresed well. She states her breathing overall today has improved somewhat. Still mildly short of breath. Chest x-ray on admission did show evidence of congestive heart failure with pulmonary vascular congestion. EKG shows atrial fibrillation with a controlled ventricular response. Past Medical History Past Medical History: Atrial Fibrillation, Coronary Artery Disease (CAD), Heart Failure, CVA/TIA, Diabetes Mellitus, Deep Vein Thrombosis (DVT), Hyperlipidemia , Osteoarthritis (OA) Additional Past Medical History / Comment(s): Coronary artery disease, previous coronary artery bypass surgery, previous coronary artery stenting, previous history of pleural effusion requiring chemical pleurodesis back in 1998, CVA back in 2013 without any residual deficits, left lower extremity DVT in 2015, paroxysmal atrial fibrillation, chronic diastolic heart failure, diabetes mellitus, hyperlipidemia, obesity, osteoarthritis History of Any Multi-Drug Resistant Organisms: None Reported Past Surgical History: Cholecystectomy, Coronary Bypass/CABG, Heart Catheterization With Stent, Hysterectomy Additional Past Surgical History / Comment(s): eye 6 cardiac stent placed; CABG 1998, OVARY CYST REMOVED Past Anesthesia/Blood Transfusion Reactions: No Reported Reaction Additional Past Anesthesia/Blood Transfusion Reaction / Comment(s): Jehovahs witness no blood transfusions Date of Last Stent Placement:: 2013 Past Psychological History: No Psychological Hx Reported Smoking Status: Never smoker Past Alcohol Use History: Occasional Additional Past Alcohol Use History / Comment(s): Patient is a lifelong nonsmoker. Past Drug Use History: None Reported - Past Family History Father Additional Family Medical History / Comment(s): Father at age 89 following a hip fracture repair that became infected. He from complications of infection. Mother Additional Family Medical History / Comment(s): Mother in her 70s. She had history of stroke and had been in an extended care facility for 8 years prior to her . Sister(s) Additional Family Medical History / Comment(s): Patient has one sister that is 17 years younger than her with no major medical problems. Patient does not have any brothers. Son(s) Additional Family Medical History / Comment(s): She has 2 sons and one has heart problems. Medications and Allergies Home Medications Medication Instructions Recorded Confirmed Type Isosorbide Mononitrate ER [Imdur] 60 mg PO DAILY 01/23/16 11/13/16 History [place]-3 Fatty Acids [[place]-3] 1,000 mg PO DAILY 01/23/16 11/13/16 History Aspirin [Adult Low Dose Aspirin EC] 81 mg PO QAM 11/13/16 11/13/16 History Metoprolol Tartrate [Lopressor] 75 mg PO TID 11/13/16 11/13/16 History Allergies Allergy/AdvReac Type Severity Reaction Status Date / Time sulfamethoxazole Allergy Dyspnea Verified 11/13/16 15:19 [From Bactrim] trimethoprim [From Bactrim] Allergy Dyspnea Verified 11/13/16 15:19 Physical Exam Vitals: Vital Signs Temp Pulse Pulse Resp BP BP Pulse Ox 11/14/16 11:47 97.0 F L 72 16 157/73 96 11/14/16 08:00 96.9 F L 62 16 181/74 94 L 11/14/16 04:00 97.0 F L 95 18 134/75 97 11/14/16 00:00 97.5 F L 93 18 187/87 95 11/13/16 20:00 97.2 F L 75 18 175/97 97 11/13/16 19:03 154/78 11/13/16 18:49 97.3 F L 77 18 156/119 98 11/13/16 18:17 97.2 F L 75 18 175/91 97 11/13/16 17:52 97.4 F L 85 18 162/95 95 Intake and Output 11/13/16 11/14/16 11/14/16 22:59 06:59 14:59 Intake Total 60 Output Total 750 850 Balance -750 -790 Intake: Oral 60 Output: Urine 750 850 Other: Voiding Method Toilet Toilet Toilet Weight 85.8 kg 85.3 kg 85.3 kg Patient Weight 11/15/16 06:59 Weight 85.3 kg PHYSICAL EXAMINATION: HEENT: Head is atraumatic, normocephalic. Pupils equal, round. Neck is supple. There is no elevated jugular venous pressure. HEART EXAMINATION: Heart S1 and S2 irregularly irregular a systolic ejection murmur is heard. CHEST EXAMINATION: Lungs revealed diminished air entry to bilateral bases. ABDOMEN: Soft, nontender. Bowel sounds are heard. No organomegaly noted. EXTREMITIES: 2+ peripheral pulses with trace evidence of peripheral edema and no calf tenderness noted. NEUROLOGIC patient is awake, alert and oriented -3. Results 11/13/16 14:28 11/13/16 14:28 Current Medications Generic Name Dose Route Start Last Admin Trade Name Freq PRN Reason Stop Dose Admin Apixaban 5 mg 11/13/16 23:00 11/14/16 08:32 Eliquis PO 5 mg BID CHARLES Administration Aspirin 81 mg 11/14/16 09:00 11/14/16 08:33 Aspirin PO 81 mg QAM CHARLES Administration Atorvastatin Calcium 20 mg 11/13/16 23:00 11/14/16 00:14 Lipitor PO 20 mg HS CHARLES Administration Furosemide 40 mg 11/14/16 16:00 Lasix PO BID@0900,1600 CHARLES Iohexol 25 ml 11/14/16 12:55 11/14/16 13:20 Omnipaque 350 Mg/Ml (For Oral Use) PO 11/15/16 12:56 25 ml Q60M PRN Administration CT Scan Linagliptin 5 mg 11/13/16 23:00 11/14/16 08:32 Tradjenta PO 5 mg DAILY CHARLES Administration Metformin HCl 1,000 mg 11/14/16 09:00 11/14/16 08:32 Glucophage PO 1,000 mg DAILY CHARLES Administration Metoprolol Tartrate 75 mg 11/14/16 09:00 11/14/16 08:33 Lopressor PO 75 mg TID CHARLES Administration Potassium Chloride 20 meq 11/13/16 23:00 11/14/16 08:33 K-Dur 20 PO 20 meq BID CHARLES Administration Sodium Chloride 10 ml 11/13/16 21:00 11/14/16 08:33 Saline Flush IV 10 ml BID CHARLES Administration Intake and Output 11/13/16 11/14/16 11/14/16 22:59 06:59 14:59 Intake Total 60 Output Total 750 850 Balance -750 -790 Intake: Oral 60 Output: Urine 750 850 Other: Voiding Method Toilet Toilet Toilet Weight 85.8 kg 85.3 kg 85.3 kg Patient Weight 11/15/16 06:59 Weight 85.3 kg EKG Interpretations (text) EKG shows atrial fibrillation with a slow ventricular response. Assessment and Plan Plan: Assessment and plan #1 congestive heart failure, diastolic in nature. Most recent echocardiogram with Doppler study was performed earlier this month which revealed an ejection fraction of 45-50% #2 known history of coronary artery disease with prior bypass surgery and stent placements #3 hypertension #4 hyperlipidemia # 5 diabetes #6 paroxysmal atrial fibrillation, on Eliquis for anticoagulation #7 hypokalemia, potassium 3.2 Plan We will continue current dose of IV Lasix, after her second dose this evening she will be changed over to oral diuretics. We will check lytes BUN and creatinine in the morning. Replace potassium. Plan on possible discharge home in 24 hours if stable. DNP note has been reviewed, I agree with a documented findings and plan of care. Patient was seen and examined.
--- NOTE | 2016-11-14 14:58 | P.HPIM ---
<Ashtyn Yeung A - Last Filed: 11/14/16 14:43> History of Present Illness H&P Date: 11/14/16 Chief Complaint: Cough This is a 76-year-old female patient of Dr. Leal'stephie with a past history of coronary artery disease with prior 4 vessel CABG in 1998 and subsequent stenting of the mid RCA and OM and 2013 and 2 subsequent stent placements following that, hypertension, diabetes mellitus type 2, hyperlipidemia, obstructive sleep apnea, paroxysmal atrial fibrillation status post cardioversion 1 year ago on chronic Coumadin. Patient presented to [facility] emergency center on November 08 due to shortness of breath with cough for 3-4 days. She states the symptoms are worsening and that her ribs hurt due to coughing so much. She denies any lower extremity edema. Patient recently stopped taking her Coumadin because she didn't feel well when she took it and only feels cold. She complains of weakness when she walks. CTA of the chest showed no evidence of pulmonary embolism. Loculated bilateral pleural effusions are increased compared to January 2016. Pleural calcification on the right side and lesser extent on the left. Mild mediastinal adenopathy, cardiomegaly. Possibility of mesothelioma should be considered. Patient was seen by Dr. Ward and this was thought to be due to previous chemical pleurodesis following her CABG. Patient has been evaluated by cardiology and started on eliquis with plan to continue Plavix as well. Echocardiogram reveals moderate mitral regurgitation, moderate tricuspid regurgitation, mild pulmonary hypertension, moderate concentric left ventricular hypertrophy, EF 45- 50%. Vision was discharged home on November 10. She presented back to [facility] emergency center on November 13 with complaints of cough that been going on for 2-3 weeks and shortness of breath with exertion. She denies any lower extremity edema but does feel distended in the abdomen with occasional pain and a full feeling in her belly. Her last colonoscopy was 6-7 years ago. She also states she has a cold occasional coughing when she eats. She denies any constipation. She denies any history of asthma or ALLERGIES. She does not use home oxygen. There are no pets in the home and no mold that she knows of. Chest x-ray correlate for continued heart failure with pulmonary vascular congestion. Trace left pleural effusion and likely pseudotumor at the right mid lung representing trapped fluid within the minor fissure. Consult with Dr. Staples in place as well as cardiology. Patient was initially started on IV Lasix which over to oral. She has been continued on eliquis and metoprolol as well. Review of Systems All systems: negative Constitutional: Denies chills, Denies fever Eyes: denies blurred vision, denies pain Ears, nose, mouth and throat: Denies headache, Denies sore throat Cardiovascular: Reports edema, Denies chest pain, Denies leg edema, Denies shortness of breath Respiratory: Reports cough, Reports dyspnea, Denies hemoptysis, Denies home oxygen, Denies wheezing Gastrointestinal: Reports bloating, Denies abdominal pain, Denies diarrhea, Denies nausea, Denies vomiting Genitourinary: Denies dysuria, Denies hematuria Musculoskeletal: Denies myalgias Integumentary: Denies pruritus, Denies rash Neurological: Denies numbness, Denies weakness Psychiatric: Denies anxiety, Denies depression Endocrine: Denies fatigue, Denies weight change Past Medical History Past Medical History: Atrial Fibrillation, Coronary Artery Disease (CAD), Heart Failure, CVA/TIA, Diabetes Mellitus, Deep Vein Thrombosis (DVT), Hyperlipidemia , Osteoarthritis (OA) Additional Past Medical History / Comment(s): Coronary artery disease, previous coronary artery bypass surgery, previous coronary artery stenting, previous history of pleural effusion requiring chemical pleurodesis back in 1998, CVA back in 2013 without any residual deficits, left lower extremity DVT in 2015, paroxysmal atrial fibrillation, chronic diastolic heart failure, diabetes mellitus, hyperlipidemia, obesity, osteoarthritis History of Any Multi-Drug Resistant Organisms: None Reported Past Surgical History: Cholecystectomy, Coronary Bypass/CABG, Heart Catheterization With Stent, Hysterectomy Additional Past Surgical History / Comment(s): eye 6 cardiac stent placed; CABG 1998, OVARY CYST REMOVED Past Anesthesia/Blood Transfusion Reactions: No Reported Reaction Additional Past Anesthesia/Blood Transfusion Reaction / Comment(s): Jehovahs witness no blood transfusions Date of Last Stent Placement:: 2013 Past Psychological History: No Psychological Hx Reported Smoking Status: Never smoker Past Alcohol Use History: Occasional Additional Past Alcohol Use History / Comment(s): Patient is a lifelong nonsmoker. Past Drug Use History: None Reported - Past Family History Father Additional Family Medical History / Comment(s): Father at age 89 following a hip fracture repair that became infected. He from complications of infection. Mother Additional Family Medical History / Comment(s): Mother in her 70s. She had history of stroke and had been in an extended care facility for 8 years prior to her . Sister(s) Additional Family Medical History / Comment(s): Patient has one sister that is 17 years younger than her with no major medical problems. Patient does not have any brothers. Son(s) Additional Family Medical History / Comment(s): She has 2 sons and one has heart problems. Medications and Allergies Home Medications Medication Instructions Recorded Confirmed Type Isosorbide Mononitrate ER [Imdur] 60 mg PO DAILY 01/23/16 11/13/16 History [place]-3 Fatty Acids [[place]-3] 1,000 mg PO DAILY 01/23/16 11/13/16 History Aspirin [Adult Low Dose Aspirin EC] 81 mg PO QAM 11/13/16 11/13/16 History Metoprolol Tartrate [Lopressor] 75 mg PO TID 11/13/16 11/13/16 History Allergies Allergy/AdvReac Type Severity Reaction Status Date / Time sulfamethoxazole Allergy Dyspnea Verified 11/13/16 15:19 [From Bactrim] trimethoprim [From Bactrim] Allergy Dyspnea Verified 11/13/16 15:19 Physical Exam Vitals: Vital Signs Temp Pulse Pulse Resp BP BP Pulse Ox 11/14/16 11:47 97.0 F L 72 16 157/73 96 11/14/16 08:00 96.9 F L 62 16 181/74 94 L 11/14/16 04:00 97.0 F L 95 18 134/75 97 11/14/16 00:00 97.5 F L 93 18 187/87 95 11/13/16 20:00 97.2 F L 75 18 175/97 97 11/13/16 19:03 154/78 11/13/16 18:49 97.3 F L 77 18 156/119 98 11/13/16 18:17 97.2 F L 75 18 175/91 97 11/13/16 17:52 97.4 F L 85 18 162/95 95 Intake and Output 11/13/16 11/14/16 11/14/16 22:59 06:59 14:59 Intake Total 60 Output Total 750 850 Balance -750 -790 Intake: Oral 60 Output: Urine 750 850 Other: Voiding Method Toilet Toilet Toilet Weight 85.8 kg 85.3 kg 85.3 kg Patient Weight 11/15/16 06:59 Weight 85.3 kg Gen: This is a 76-year-old female. She is sitting up in bed and appears to be in no acute distress. HEENT: Head is atraumatic, normocephalic. Pupils equal, round. Sclerae is anicteric. Conjunctiva pink. Mucous membranes of the mouth are moist. No thrush noted. NECK: Supple. No JVD. No lymphadenopathy. No thyromegaly. LUNGS: Diminished bilateral bases. No intercostal retractions. HEART: Irregularly irregular rate and rhythm. Systolic ejection murmur. ABDOMEN: Soft. Bowel sounds are present. No masses. No tenderness. EXTREMITIES: No pedal edema. No calf tenderness. Dorsalis pedis +2 bilaterally. NEUROLOGICAL: Patient is awake, alert and oriented x3. Cranial nerves 2 through 12 are grossly intact. Results CBC & Chem 7: 11/13/16 14:28 11/13/16 14:28 Thrombosis Risk Factor Assmnt - DVT/VTE Prophylaxis DVT/VTE Prophylaxis: Pharmacologic Prophylaxis ordered - Choose All That Apply Each Risk Factor Represents 2 Points: Age 61-74 years Thrombosis Risk Factor Assessment Total Risk Factor Score: 2 Thrombosis Risk Factor Assessment Level: Low Risk Assessment and Plan Plan: 1. Acute on chronic diastolic heart failure with abdominal edema and distention. Cardiology consult appreciated. Continue Lasix. Echocardiogram was performed on the last admission. I&O and daily weights. Monitor electrolytes and kidney function. CAT scan of the abdomen and pelvis. 2. Bilateral pleural effusions with possible mesothelioma thought to be due to previous pleurodesis done after her CABG. Patient has been seen by Dr. Ward on last admission. Consult with Dr. Staples.. 3. Paroxysmal atrial fibrillation currently rate controlled. Cardiology consult appreciated. Continue eliquis. Continue Lopressor 75 mg 3 times daily. 4. CAD. Continue Imdur 60 mg, aspirin 81 mg daily. 5. Diabetes mellitus type 2. Janumet XR 100/1000 mg daily which will be resumed. Continue Humalog scale before meals and at bedtime. Her A1c is 6.4. 6. Hypertensive cardiovascular disease. Continue Imdur, metoprolol and Lasix. 7. History of obstructive sleep apnea. 8. Hyperlipidemia continue Lipitor 20mg. 9. History of CVA, stable 10. History of DVT. 11. Osteoarthritis, generalized. 12. DVT prophylaxis. Patient on eliquis 13. Gastrointestinal prophylaxis. Continue Protonix. Patient will be admitted to the hospital for a minimum of 2 night stay. Discharge plan: Return home Impression and plan of care have been directed as dictated by the signing physician. Ashtyn Yeung nurse practitioner acting as scribe for signing physician. Cc: Dr. Gerson Leal Time with Patient: Greater than 30 <Livier Low - Last Filed: 11/14/16 18:21> Physical Exam Vitals: Vital Signs Temp Pulse Resp BP Pulse Ox 11/14/16 16:00 96.9 F L 88 16 188/93 95 11/14/16 11:47 97.0 F L 72 16 157/73 96 11/14/16 08:00 96.9 F L 62 16 181/74 94 L 11/14/16 04:00 97.0 F L 95 18 134/75 97 11/14/16 00:00 97.5 F L 93 18 187/87 95 11/13/16 20:00 97.2 F L 75 18 175/97 97 11/13/16 19:03 154/78 11/13/16 18:49 97.3 F L 77 18 156/119 98 Intake and Output 11/14/16 11/14/16 11/14/16 06:59 14:59 22:59 Intake Total 460 Output Total 1150 Balance -690 Intake: Oral 460 Output: Urine 1150 Other: Voiding Method Toilet Toilet Toilet Weight 85.3 kg 85.3 kg Patient Weight 11/15/16 06:59 Weight 85.3 kg Results CBC & Chem 7: 11/13/16 14:28 11/13/16 14:28 Labs: Abnormal Lab Results - Last 24 Hours (Table) 11/14/16 Range/Units 17:01 POC Glucose (mg/dL) 117 H (75-99) mg/dL Assessment and Plan Plan: Abdominal distention complained by the patient for which increasing abdominal fullness was noted, CAT scan of the abdomen and pelvis is requested with oral contrast only.
--- NOTE | 2016-11-14 15:10 | P.CNPUL ---
History of Present Illness Consult date: 11/14/16 Requesting physician: Livier Low Reason for consult: dyspnea Chief complaint: Shortness of breath, cough History of present illness: This is a very pleasant 76-year-old female patient who follows with Dr. Leal as her primary care physician. She has a history of coronary artery disease, atrial fibrillation anticoagulated with a apixaban, diabetes mellitus, DVT, hyperlipidemia, congestive heart failure, CVA/TIA, osteoarthritis. She also follows with Dr. Staples in our office. 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 She was just discharged last week after being admitted for congestive heart failure exacerbation. A computed tomography scan of the chest was reviewed and there is no evidence of pulmonary embolism. There was some mild vague bilateral groundglass changes and loculated pleural effusions in the lung bases bilaterally. The patient does have a previous history of chemical pleurodesis after having recurrent effusions following her bypass surgery. She presented here again today with complaints of continued shortness of breath cough and congestion. She also has some vague abdominal discomfort. Her chest x-ray reveals no acute pulmonary process. Mild congestive heart failure. The pseudotumor in the right lung is again visualized. Recently, she is resting quite comfortably in bed. She's been afebrile since admission. She is maintaining O2 saturations in the mid 90s on room air. Her proBNP is 6610. No leukocytosis. Creatinine 1.25. Review of Systems 14 point review of system was conducted. All negative other than as mentioned in HPI. Past Medical History Past Medical History: Atrial Fibrillation, Coronary Artery Disease (CAD), Heart Failure, CVA/TIA, Diabetes Mellitus, Deep Vein Thrombosis (DVT), Hyperlipidemia , Osteoarthritis (OA) Additional Past Medical History / Comment(s): Coronary artery disease, previous coronary artery bypass surgery, previous coronary artery stenting, previous history of pleural effusion requiring chemical pleurodesis back in 1998, CVA back in 2013 without any residual deficits, left lower extremity DVT in 2015, paroxysmal atrial fibrillation, chronic diastolic heart failure, diabetes mellitus, hyperlipidemia, obesity, osteoarthritis History of Any Multi-Drug Resistant Organisms: None Reported Past Surgical History: Cholecystectomy, Coronary Bypass/CABG, Heart Catheterization With Stent, Hysterectomy Additional Past Surgical History / Comment(s): eye 6 cardiac stent placed; CABG 1998, OVARY CYST REMOVED Past Anesthesia/Blood Transfusion Reactions: No Reported Reaction Additional Past Anesthesia/Blood Transfusion Reaction / Comment(s): Jehovahs witness no blood transfusions Date of Last Stent Placement:: 2013 Past Psychological History: No Psychological Hx Reported Smoking Status: Never smoker Past Alcohol Use History: Occasional Additional Past Alcohol Use History / Comment(s): Patient is a lifelong nonsmoker. Past Drug Use History: None Reported - Past Family History Father Additional Family Medical History / Comment(s): Father at age 89 following a hip fracture repair that became infected. He from complications of infection. Mother Additional Family Medical History / Comment(s): Mother in her 70s. She had history of stroke and had been in an extended care facility for 8 years prior to her . Sister(s) Additional Family Medical History / Comment(s): Patient has one sister that is 17 years younger than her with no major medical problems. Patient does not have any brothers. Son(s) Additional Family Medical History / Comment(s): She has 2 sons and one has heart problems. Medications and Allergies Home Medications Medication Instructions Recorded Confirmed Type Isosorbide Mononitrate ER [Imdur] 60 mg PO DAILY 01/23/16 11/13/16 History [place]-3 Fatty Acids [[place]-3] 1,000 mg PO DAILY 01/23/16 11/13/16 History Aspirin [Adult Low Dose Aspirin EC] 81 mg PO QAM 11/13/16 11/13/16 History Metoprolol Tartrate [Lopressor] 75 mg PO TID 11/13/16 11/13/16 History Allergies Allergy/AdvReac Type Severity Reaction Status Date / Time sulfamethoxazole Allergy Dyspnea Verified 11/13/16 15:19 [From Bactrim] trimethoprim [From Bactrim] Allergy Dyspnea Verified 11/13/16 15:19 Physical Exam Vitals: Vital Signs Temp Pulse Pulse Resp BP BP Pulse Ox 11/14/16 11:47 97.0 F L 72 16 157/73 96 11/14/16 08:00 96.9 F L 62 16 181/74 94 L 11/14/16 04:00 97.0 F L 95 18 134/75 97 11/14/16 00:00 97.5 F L 93 18 187/87 95 11/13/16 20:00 97.2 F L 75 18 175/97 97 11/13/16 19:03 154/78 11/13/16 18:49 97.3 F L 77 18 156/119 98 11/13/16 18:17 97.2 F L 75 18 175/91 97 11/13/16 17:52 97.4 F L 85 18 162/95 95 Intake and Output 11/13/16 11/14/16 11/14/16 22:59 06:59 14:59 Intake Total 460 Output Total 750 1150 Balance -750 -690 Intake: Oral 460 Output: Urine 750 1150 Other: Voiding Method Toilet Toilet Toilet Weight 85.8 kg 85.3 kg 85.3 kg Patient Weight 11/15/16 06:59 Weight 85.3 kg GENERAL EXAM: Alert, comfortable in no apparent distress. HEAD: Normocephalic. EYES: Normal reaction of pupils, equal size. NOSE: Clear with pink turbinates. THROAT: No erythema or exudates. NECK: No masses, no JVD. CHEST: No chest wall deformity. LUNGS: Equal air entry with no crackles, wheeze, rhonchi or dullness. CVS: S1 and S2 normal with no audible mumurs, regular rhythm. ABDOMEN: Soft, slightly distended, normal bowel sounds, no guarding or rigidity. SPINE: No scoliosis or deformity SKIN: No rashes CENTRAL NERVOUS SYSTEM: No focal deficits, tone is normal in all 4 extremities. Extremities: There is trace peripheral edema. No clubbing, no cyanosis. Peripheral pulses are intact. Results - Laboratory Findings CBC and BMP: 11/13/16 14:28 11/13/16 14:28 PT/INR, D-dimer PT 11.9 sec (9.0-12.0) 11/13/16 14:28 INR 1.2 (<1.1) 11/13/16 14:28 - Diagnostic Findings Chest x-ray: image reviewed Assessment and Plan Plan: Impression: #1 Acute exacerbation of chronic systolic congestive heart failure. Mildly impaired left ventricular systolic function with estimated ejection fraction between 45-50%. BNP greater than 6000, orthopnea. Currently in a negative balance. 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 The patient does have a previous history of chemical pleurodesis following recurrent effusions following bypass surgery. #3 Coronary artery disease with previous coronary artery bypass grafting and stenting. #4 Chronic atrial fibrillation, anticoagulated with the apixaban. #5 Hypertension. #6 Hyperlipidemia. #7 Diabetes mellitus. #8 CVA, history of. No residual effects. #9 Nausea with mild abdominal discomfort and distention. Computed tomography scan of the abdomen is pending. Plan: The patient was seen and evaluated by Dr. Staples. Her chest x-ray from this admission and previous admissions show chronic pseudotumor in the right main or fissure. Currently not in any acute respiratory distress. We will continue with her current medications including diuretics. We'll await results of the computed tomography scan of the abdomen. We'll continue to follow make further recommendations based on her clinical status. Time with Patient: Greater than 30
--- NOTE | 2016-11-14 15:23 | CT ---
EXAMINATION TYPE: CT abdomen pelvis wo con DATE OF EXAM: 11/14/2016 3:12 PM COMPARISON: 11/06/2016 HISTORY: Patient complains of bloating and nausea. CT DLP: 1075 mGycm FINDINGS: LUNG BASES: No evidence for nodule. No evidence for infiltrate. Pleural-based calcifications noted wi th a persistent pleural thickening. Basilar parenchymal scarring. LIVER/GB: Fatty hepatic infiltration seen. Postoperative changes of cholecystectomy. No space-occupy ing hepatic lesion. PANCREAS: No pancreatic mass identified. No inflammatory process seen. SPLEEN: No evidence for splenomegaly. No intrasplenic lesions seen. ADRENALS: No adrenal nodules identified. No evidence for thickening. KIDNEYS: Some areas of cortical scarring and left kidney are redemonstrated. Hyperdense lesions lower pole level left kidney correspond to cysts with dependent calcium or milk of calcium on prior CT pre sumed benign in nature as they are less prominent in size. No evidence for hydronephrosis. BOWEL: Appendix is not clearly visualized. No evidence of bowel obstruction. No inflammatory process. Lymph nodes: No evidence for adenopathy greater than 1 cm. Abdominal aorta: Atheromatous changes seen. No evidence for aneurysm. Genital organs: Hysterectomy changes noted. No adnexal masses. Other: No significant abnormality. IMPRESSION: 1. NO ACUTE INTRA-ABDOMINAL PROCESS OR OBSTRUCTIVE CHANGES APPRECIATED. OVERALL STABLE EXAMINATION.
[2016-11-14 17:03] LABS: Glucose,Whole Blood 117 mg/dL (75-99)
[2016-11-14] MEDS: FUROSEMIDE 40 MG TAB PO SCH (17:03)
[2016-11-14] MEDS: INSULIN LISPRO (humaLOG) 300 UNIT/3 ML VIAL SQ SCH ×2 (17:05→22:17)
[2016-11-14 21:55] LABS: Glucose,Whole Blood 146 mg/dL (75-99)
[2016-11-15 06:24] LABS: Glucose,Whole Blood 145 mg/dL (75-99)
[2016-11-15] MEDS: INSULIN LISPRO (humaLOG) 300 UNIT/3 ML VIAL SQ SCH ×2 (06:58→11:48)
[2016-11-15] MEDS ORDERED: PANTOPRAZOLE 40 MG TABLET PO SCH (07:30)
[2016-11-15] MEDS ORDERED: ISOSORBIDE MONONITRATE ER 60 MG TAB.ER.24H PO SCH (09:00)
[2016-11-15] MEDS: METOPROLOL TARTRATE 25 MG TAB PO SCH (09:04)
[2016-11-15] MEDS: ASPIRIN 81 MG CHEW PO SCH (09:04)
[2016-11-15] MEDS: LINAGLIPTIN 5 MG TABLET PO SCH (09:04)
[2016-11-15] MEDS: FUROSEMIDE 40 MG TAB PO SCH (09:05)
[2016-11-15] MEDS: POTASSIUM CHLORIDE ER 20 MEQ TAB.ER PO SCH (09:05)
[2016-11-15] MEDS: metFORMIN 500 MG TAB PO SCH (09:05)
[2016-11-15] MEDS: APIXABAN 5 MG TAB PO SCH (09:05)
[2016-11-15 09:15] VITALS: PULSE 88; TEMP 97.6
[2016-11-15] MEDS ORDERED: methylPREDNISolone 4 MG TAB TAPER PO SCH (09:30)
--- NOTE | 2016-11-15 09:38 | P.PN ---
Subjective Principal diagnosis: Acute on chronic systolic congestive heart failure This is a very pleasant 76-year-old female patient who follows with Dr. Leal as her primary care physician. She has a history of coronary artery disease, atrial fibrillation anticoagulated with a apixaban, diabetes mellitus, DVT, hyperlipidemia, congestive heart failure, CVA/TIA, osteoarthritis. She also follows with Dr. Staples in our office. 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 She was just discharged last week after being admitted for congestive heart failure exacerbation. A computed tomography scan of the chest was reviewed and there is no evidence of pulmonary embolism. There was some mild vague bilateral groundglass changes and loculated pleural effusions in the lung bases bilaterally. The patient does have a previous history of chemical pleurodesis after having recurrent effusions following her bypass surgery. She presented here again today with complaints of continued shortness of breath cough and congestion. She also has some vague abdominal discomfort. Her chest x-ray reveals no acute pulmonary process. Mild congestive heart failure. The pseudotumor in the right lung is again visualized. Recently, she is resting quite comfortably in bed. She's been afebrile since admission. She is maintaining O2 saturations in the mid 90s on room air. Her proBNP is 6610. No leukocytosis. Creatinine 1.25. Patient was reevaluated today on 11/15/2016, feeling better, breathing easier, continues to have a bit of a dry hacking cough. Shortness of breath significantly improved with diuretics. And I believe the patient is being considered for possible discharge planning today. I recommended a Medrol Dosepak for her dry hacking cough, otherwise the patient is to remain on the same cardiac medications and diuretics. 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 Objective - Vital Signs Vital signs: Vital Signs Temp 97.6 F 11/15/16 09:10 Pulse 88 11/15/16 09:10 Resp 18 11/15/16 09:10 BP 162/81 11/15/16 09:10 Pulse Ox 96 11/15/16 09:10 Intake & Output 11/14/16 11/15/16 11/15/16 18:59 06:59 18:59 Intake Total 460 Output Total 1150 600 Balance -690 -600 Weight 85.3 kg 85.3 kg Intake: Oral 460 Output: Urine 1150 600 Other: Voiding Method Toilet Toilet Toilet # Voids 2 # Bowel Movements 2 - Exam GENERAL EXAM: Alert, comfortable in no apparent distress. HEAD: Normocephalic. EYES: Normal reaction of pupils, equal size. NOSE: Clear with pink turbinates. THROAT: No erythema or exudates. NECK: No masses, no JVD. CHEST: No chest wall deformity. LUNGS: Equal air entry with no crackles, wheeze, rhonchi or dullness. CVS: S1 and S2 normal with no audible mumurs, regular rhythm. ABDOMEN: Soft, slightly distended, normal bowel sounds, no guarding or rigidity. SPINE: No scoliosis or deformity SKIN: No rashes CENTRAL NERVOUS SYSTEM: No focal deficits, tone is normal in all 4 extremities. Extremities: There is trace peripheral edema. No clubbing, no cyanosis. Peripheral pulses are intact. - Labs CBC & Chem 7: 11/13/16 14:28 11/13/16 14:28 Labs: Abnormal Lab Results - Last 24 Hours (Table) 11/14/16 11/14/16 11/15/16 Range/Units 17:01 21:34 06:17 POC Glucose (mg/dL) 117 H 146 H 145 H (75-99) mg/dL Assessment and Plan Plan: #1 Acute exacerbation of chronic systolic congestive heart failure. Mildly impaired left ventricular systolic function with estimated ejection fraction between 45-50%. BNP greater than 6000, orthopnea. Currently in a negative balance. 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 The patient does have a previous history of chemical pleurodesis following recurrent effusions following bypass surgery. #3 Coronary artery disease with previous coronary artery bypass grafting and stenting. #4 Chronic atrial fibrillation, anticoagulated with the apixaban. #5 Hypertension. #6 Hyperlipidemia. #7 Diabetes mellitus. #8 CVA, history of. No residual effects. #9 Nausea with mild abdominal discomfort and distention. Computed tomography scan of the abdomen is pending. Plan agree with discharge planning, continue diuretics, Medrol Dosepak will be prescribed on outpatient basis. Discussed the results of the CT of the abdomen and pelvis with the patient, evaluate on outpatient basis, clear for discharge today. Patient could be discharged this cleared also by cardiology. Time with Patient: Less than 30
[2016-11-15 11:34] VITALS: BMI 36.7
[2016-11-15 11:45] LABS: Glucose,Whole Blood 122 mg/dL (75-99)
[2016-11-15 12:25] VITALS: BP 142/79
--- NOTE | 2016-11-15 15:19 | P.PN ---
Subjective Principal diagnosis: Shortness of breath This is a 76-year-old female with known history of coronary artery disease and prior bypass surgery in 1998 at which time she underwent four- vessel bypass, with the POLO to the LAD, saphenous vein graft to the ramus intermediate, RCA and OM1. Subsequent to that patient did undergo stenting of the mid RCA, and OM1 in 2013. Patient also had 2 subsequent stent placements following that. Patient does have known history of hypertension, diabetes, hyperlipidemia, and paroxysmal atrial fibrillation. She follows with Dr. Ramirez at [facility]. Patient presented to the hospital on this occasion with symptoms of shortness of breath. She was on IV Lasix, diuresed well. Recently the patient was again in the hospital had gone back into atrial fibrillation, and was initiated on Eliquis. This morning patient was seen and examined, overall feeling much better today. Creatinine 1.2. Lungs are clear. Objective - Vital Signs Vital signs: Vital Signs Temp 97.6 F 11/15/16 12:00 Pulse 88 11/15/16 12:00 Resp 18 11/15/16 12:00 BP 142/79 11/15/16 12:00 Pulse Ox 95 11/15/16 12:00 Intake & Output 11/14/16 11/15/16 11/15/16 18:59 06:59 18:59 Intake Total 460 960 Output Total 1150 650 150 Balance -690 -650 810 Weight 85.3 kg 85.3 kg 85.3 kg Intake: Oral 460 960 Output: Urine 1150 650 150 Other: Voiding Method Toilet Toilet Toilet # Voids 2 # Bowel Movements 2 - Exam PHYSICAL EXAMINATION: HEENT: Head is atraumatic, normocephalic. Pupils equal, round. Neck is supple. There is no elevated jugular venous pressure. HEART EXAMINATION: Heart S1 and S2 irregularly irregular a systolic ejection murmur is heard. CHEST EXAMINATION: Lungs revealed improvement in air entry to bilateral bases. ABDOMEN: Soft, nontender. Bowel sounds are heard. No organomegaly noted. EXTREMITIES: 2+ peripheral pulses with trace evidence of peripheral edema and no calf tenderness noted. NEUROLOGIC patient is awake, alert and oriented -3. - Labs CBC & Chem 7: 11/13/16 14:28 11/13/16 14:28 Labs: Abnormal Lab Results - Last 24 Hours (Table) 11/14/16 11/14/16 11/15/16 Range/Units 17:01 21:34 06:17 POC Glucose (mg/dL) 117 H 146 H 145 H (75-99) mg/dL 11/15/16 Range/Units 11:44 POC Glucose (mg/dL) 122 H (75-99) mg/dL Assessment and Plan Plan: Assessment and plan #1 congestive heart failure, diastolic in nature. Most recent echocardiogram with Doppler study was performed earlier this month which revealed an ejection fraction of 45-50% #2 known history of coronary artery disease with prior bypass surgery and stent placements #3 hypertension #4 hyperlipidemia # 5 diabetes #6 paroxysmal atrial fibrillation, on Eliquis for anticoagulation #7 hypokalemia, potassium 3.2 Plan From cardiology's perspective, we'll discontinue the IV Lasix, put the patient on oral diuretics. She may be able to be discharged home from cardiology's perspective. She can follow-up with Dr. 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 DNP note has been reviewed, I agree with a documented findings and plan of care. Patient was seen and examined.
--- NOTE | 2016-11-15 15:23 | P.DS ---
Providers Date of admission: 11/13/16 17:34 Expected date of discharge: 11/15/16 Attending physician: Livier Low Consults: 11/14/16 12:41 Consult Physician Routine Consulting Provider: Juan Diego Staples Consult Reason/Comments: CHF, PAXTON Do you want consulting provider notified?: Yes Primary care physician: Gerson WalterElvis [facility] Course: This is a 76-year-old female patient of Dr. Leal's with a past history of coronary artery disease with prior 4 vessel CABG in 1998 and subsequent stenting of the mid RCA and OM and 2013 and 2 subsequent stent placements following that, hypertension, diabetes mellitus type 2, hyperlipidemia, obstructive sleep apnea, paroxysmal atrial fibrillation status post cardioversion 1 year ago on chronic Coumadin. Patient presented to [facility] emergency center on November 08 due to shortness of breath with cough for 3-4 days. She states the symptoms are worsening and that her ribs hurt due to coughing so much. She denies any lower extremity edema. Patient recently stopped taking her Coumadin because she didn't feel well when she took it and only feels cold. She complains of weakness when she walks. CTA of the chest showed no evidence of pulmonary embolism. Loculated bilateral pleural effusions are increased compared to January 2016. Pleural calcification on the right side and lesser extent on the left. Mild mediastinal adenopathy, cardiomegaly. Possibility of mesothelioma should be considered. Patient was seen by Dr. Ward and this was thought to be due to previous chemical pleurodesis following her CABG. Patient has been evaluated by cardiology and started on eliquis with plan to continue Plavix as well. Echocardiogram reveals moderate mitral regurgitation, moderate tricuspid regurgitation, mild pulmonary hypertension, moderate concentric left ventricular hypertrophy, EF 45- 50%. Vision was discharged home on November 10. She presented back to [facility] emergency center on November 13 with complaints of cough that been going on for 2-3 weeks and shortness of breath with exertion. She denies any lower extremity edema but does feel distended in the abdomen with occasional pain and a full feeling in her belly. Her last colonoscopy was 6-7 years ago. She also states she has a cold occasional coughing when she eats. She denies any constipation. She denies any history of asthma or ALLERGIES. She does not use home oxygen. There are no pets in the home and no mold that she knows of. Chest x-ray correlate for continued heart failure with pulmonary vascular congestion. Trace left pleural effusion and likely pseudotumor at the right mid lung representing trapped fluid within the minor fissure. Consult with Dr. Staples in place as well as cardiology. Patient was initially started on IV Lasix which over to oral. She has been continued on eliquis and metoprolol as well. 11/15: Patient has been doing well on oral Lasix. She has been seen by Dr. Staples. CAT scan of the abdomen and pelvis showed no acute findings. Patient will be discharged home today in stable condition. Patient's insurance would not cover for Qvar or Asmanex so this was canceled. Discharge diagnoses: 1. Acute on chronic diastolic heart failure with abdominal edema and distention. 2. Bilateral pleural effusions with possible mesothelioma thought to be due to previous pleurodesis done after her CABG and diagnosed as pseudotumor. 3. Paroxysmal atrial fibrillation currently rate controlled. 4. CAD. 5. Diabetes mellitus type 2. 6. Hypertensive cardiovascular disease. 7. History of obstructive sleep apnea. 8. Hyperlipidemia 9. History of CVA, stable 10. History of DVT. 11. Osteoarthritis, generalized. Discharge plan: Return home Impression and plan of care have been directed as dictated by the signing physician. Ashtyn Yeung nurse practitioner acting as scribe for signing physician. Patient Condition at Discharge: Good Plan - Discharge Summary New Discharge Prescriptions: Albuterol Inhaler [Ventolin Hfa Inhaler] 2 puff INHALATION Q6HR PRN #1 inhaler PRN Reason: Cough Mometasone Furoate [Asmanex] 2 puff INHALATION DAILY #1 inhaler methylPREDNISolone Dose Pack [Medrol Dose Pack] 4 mg PO DIRECTED #21 package Discharge Medication List Isosorbide Mononitrate ER [Imdur] 60 mg PO DAILY 01/23/16 [History] Kent-3 Fatty Acids [Kent-3] 1,000 mg PO DAILY 01/23/16 [History] Apixaban [Eliquis] 5 mg PO BID #60 tab 11/10/16 [Rx] Atorvastatin [Lipitor] 20 mg PO HS #30 tab 11/10/16 [Rx] Furosemide [Lasix] 40 mg PO BID #60 tab 11/10/16 [Rx] Potassium Chloride [Klor-Con 20] 20 meq PO BID #60 tab.er.prt 11/10/16 [Rx] sitaGLIPtin PHOS/metFORMIN HCL [Janumet Xr 100-1,000 mg Tablet] 1 tab PO DAILY # 0 11/10/16 [Rx] Aspirin [Adult Low Dose Aspirin EC] 81 mg PO QAM 11/13/16 [History] Metoprolol Tartrate [Lopressor] 75 mg PO TID 11/13/16 [History] Albuterol Inhaler [Ventolin Hfa Inhaler] 2 puff INHALATION Q6HR PRN #1 inhaler 11/15/16 [Rx] Mometasone Furoate [Asmanex] 2 puff INHALATION DAILY #1 inhaler 11/15/16 [Rx] methylPREDNISolone Dose Pack [Medrol Dose Pack] 4 mg PO DIRECTED #21 package 11/15/16 [Rx] Follow up Appointment(s)/Referral(s): [facility] [Provider Group] - 1 Week (keep prior follow up) [facility], [NON-STAFF] - Gerson Leal DO [Primary Care Provider] - 1 Week (keep prior follow up) Derick Ward MD [STAFF PHYSICIAN] - 2 Weeks (keep prior follow up) Patient Instructions/Handouts: Heart Failure (DC) Discharge Disposition: HOME WITH HOME HEALTH SERVICES
== END 2016-11-15 14:46 | disposition home health service (06) | DRG 293 ==
LOC: EC 13:07 → 6SEL 17:34
PROVIDERS: ADMIT Family Medicine; ATTEND Family Medicine
DX: I11.0 Hypertensive heart disease with heart failure (principal); I27.2 Other secondary pulmonary hypertension; I48.0 Paroxysmal atrial fibrillation; E11.9 Type 2 diabetes mellitus without complications; I08.1 Rheumatic disorders of both mitral and tricuspid valves; I50.43 Acute on chronic combined systolic (congestive) and diastolic (congestive) heart failure; E78.5 Hyperlipidemia, unspecified; E87.6 Hypokalemia; G47.33 Obstructive sleep apnea (adult) (pediatric); I25.10 Atherosclerotic heart disease of native coronary artery without angina pectoris; I48.2 Chronic atrial fibrillation; M19.90 Unspecified osteoarthritis, unspecified site; Z79.01 Long term (current) use of anticoagulants; Z79.82 Long term (current) use of aspirin; Z79.899 Other long term (current) drug therapy; Z86.718 Personal history of other venous thrombosis and embolism; Z86.73 Personal history of transient ischemic attack (TIA), and cerebral infarction without residual deficits; Z95.1 Presence of aortocoronary bypass graft; Z95.5 Presence of coronary angioplasty implant and graft; Z88.2 Allergy status to sulfonamides
CPT/HCPCS: 36415; 71020; 74176; 80053; 82550; 82553; 83880; 84484; 85025; 85610; 85730; 93005; 96374; 99285

== ENCOUNTER 2016-12-08 15:31 | Inpatient (IN) | payer MEDICARE, OTHER ==
[2016-12-08] MEDS ORDERED: hydrALAZINE HCL 20 MG/ML 1 ML VIAL IVP STA ×2 (15:42→16:13)
[2016-12-08] MEDS ORDERED: NITROGLYCERIN OINT 1 INCH/GM PACKET TOPICAL STA (15:42)
--- NOTE | 2016-12-08 15:45 | ED ---
General Adult HPI - General Chief complaint: Shortness of Breath Stated complaint: SOB Time Seen by Provider: 12/08/16 15:35 Source: patient, RN notes reviewed Mode of arrival: EMS Limitations: no limitations - History of Present Illness Initial comments: This is a 76-year-old female presents emergency Department complaining that she has been short of breath since this morning. Patient states yesterday she has scheduled cardioversion for atrial fibrillation and she had that done already. Patient states she has a history of atrial fibrillation and is on eliquis. Patient states she just became more more short of breath she believes she is getting a little bit more edema in her abdomen on her legs however. Patient also has past medical history significant for a four-way bypass some 18 years ago. Patient denies any recent fever or chills. Patient states she does have a cough but no sputum production. Patient denies any chest pain or palpitations. Patient denies any lightheadedness dizziness or near syncopal episode. Patient denies any numbness or weakness. Patient denies abdominal pain patient denies nausea vomiting diarrhea. Patient denies any calf pain or leg tenderness. - Related Data Home Medications Medication Instructions Recorded Confirmed Staples-3 Fatty Acids [Staples-3] 1,000 mg PO DAILY 01/23/16 12/08/16 Aspirin [Adult Low Dose Aspirin EC] 81 mg PO QAM 11/13/16 12/08/16 Metoprolol Tartrate [Lopressor] 150 mg PO BID 11/13/16 12/08/16 Albuterol Inhaler [Ventolin Hfa 2 puff INHALATION RT-Q6H PRN 12/08/16 12/08/16 Inhaler] Nitroglycerin Sl Tabs [Nitrostat] 0.4 mg SUBLINGUAL Q5M PRN 12/08/16 12/08/16 Previous Rx's Medication Instructions Recorded Apixaban [Eliquis] 5 mg PO BID #60 tab 11/10/16 Atorvastatin [Lipitor] 20 mg PO HS #30 tab 11/10/16 Furosemide [Lasix] 40 mg PO BID #60 tab 11/10/16 Potassium Chloride [Klor-Con 20] 20 meq PO BID #60 tab.er.prt 11/10/16 sitaGLIPtin PHOS/metFORMIN HCL 1 tab PO DAILY #0 11/10/16 [Janumet Xr 100-1,000 mg Tablet] Allergies Allergy/AdvReac Type Severity Reaction Status Date / Time sulfamethoxazole Allergy Dyspnea Verified 12/08/16 16:34 [From Bactrim] trimethoprim [From Bactrim] Allergy Dyspnea Verified 12/08/16 16:34 Review of Systems ROS Statement: Those systems with pertinent positive or pertinent negative responses have been documented in the HPI. ROS Other: All systems not noted in ROS Statement are negative. Past Medical History Past Medical History: Atrial Fibrillation, Coronary Artery Disease (CAD), Heart Failure, CVA/TIA, Diabetes Mellitus, Deep Vein Thrombosis (DVT), Hyperlipidemia , Osteoarthritis (OA) Additional Past Medical History / Comment(s): Coronary artery disease, previous coronary artery bypass surgery, previous coronary artery stenting, previous history of pleural effusion requiring chemical pleurodesis back in 1998, CVA back in 2013 without any residual deficits, left lower extremity DVT in 2015, paroxysmal atrial fibrillation, chronic diastolic heart failure, diabetes mellitus, hyperlipidemia, obesity, osteoarthritis History of Any Multi-Drug Resistant Organisms: None Reported Past Surgical History: Cholecystectomy, Coronary Bypass/CABG, Heart Catheterization With Stent, Hysterectomy Additional Past Surgical History / Comment(s): eye 6 cardiac stent placed; CABG 1998, OVARY CYST REMOVED Past Anesthesia/Blood Transfusion Reactions: No Reported Reaction Additional Past Anesthesia/Blood Transfusion Reaction / Comment(s): Jehovahs witness no blood transfusions Date of Last Stent Placement:: 2013 Past Psychological History: No Psychological Hx Reported Smoking Status: Never smoker Past Alcohol Use History: Rare Additional Past Alcohol Use History / Comment(s): Patient is a lifelong nonsmoker. Past Drug Use History: None Reported - Past Family History Father Additional Family Medical History / Comment(s): Father at age 89 following a hip fracture repair that became infected. He from complications of infection. Mother Additional Family Medical History / Comment(s): Mother in her 70s. She had history of stroke and had been in an extended care facility for 8 years prior to her . Sister(s) Additional Family Medical History / Comment(s): Patient has one sister that is 17 years younger than her with no major medical problems. Patient does not have any brothers. Son(s) Additional Family Medical History / Comment(s): She has 2 sons and one has heart problems. General Exam - General Exam Comments Initial Comments: GENERAL: Patient is well-developed and well-nourished. Patient is nontoxic and well- hydrated and is in mild distress. ENT: Neck is soft and supple. No significant lymphadenopathy is noted. Oropharynx is clear. Moist mucous membranes. Neck has full range of motion without eliciting any pain. EYES: The sclera were anicteric and conjunctiva were pink and moist. Extraocular movements were intact and pupils were equal round and reactive to light. Eyelids were unremarkable. PULMONARY: Unlabored respirations. Good breath sounds bilaterally. Patient has crackles bilateral bases CARDIOVASCULAR: There is a regular rate and rhythm without any murmurs gallops or rubs. ABDOMEN: Soft and nontender with normal bowel sounds. No palpable organomegaly was noted. There is no palpable pulsatile mass. SKIN: Skin is clear with no lesions or rashes and otherwise unremarkable. NEUROLOGIC: Patient is alert and oriented x3. Cranial nerves II through XII are grossly intact. Motor and sensory are also intact. Normal speech, volume and content. Symmetrical smile. MUSCULOSKELETAL: Normal extremities with adequate strength and full range of motion. No lower extremity swelling or edema. No calf tenderness. LYMPHATICS: No significant lymphadenopathy is noted PSYCHIATRIC: Normal psychiatric evaluation. Normal interpersonal interactions appears functionally intact in deals appropriately with others. No signs of depression. No signs of anxiety. Limitations: no limitations Course Vital Signs 12/08/16 12/08/16 12/08/16 15:31 15:34 16:17 Temperature 97.1 F L Pulse Rate 73 68 Respiratory 18 18 18 Rate Blood Pressure 227/116 166/79 O2 Sat by Pulse 96 96 Oximetry Medical Decision Making - Medical Decision Making EKG shows normal sinus rhythm at 72 bpm WA interval 156 dresses 88 QT interval is 462 QTC is 505. Patient's EKG shows no ST segment elevation or depression or T wave abnormalities are noted. Chest x-ray shows pulmonary edema. Patient was given Lasix at this time also some hydralazine because of blood pressure remained high. Patient was also placed on Nitropaste. - Lab Data Result diagrams: 12/08/16 15:35 12/08/16 15:35 Lab Results 12/08/16 12/08/16 12/08/16 Range/Units 15:35 15:35 15:35 WBC 11.5 H (3.8-10.6) k/uL RBC 4.51 (3.80-5.40) m/uL Hgb 12.5 (11.4-16.0) gm/dL Hct 38.5 (34.0-46.0) % MCV 85.4 (80.0-100.0) fL MCH 27.6 (25.0-35.0) pg MCHC 32.3 (31.0-37.0) g/dL RDW 14.8 (11.5-15.5) % Plt Count 188 (150-450) k/uL Neutrophils % 78 % Lymphocytes % 15 % Monocytes % 4 % Eosinophils % 1 % Basophils % 1 % Neutrophils # 9.0 H (1.3-7.7) k/uL Lymphocytes # 1.7 (1.0-4.8) k/uL Monocytes # 0.5 (0-1.0) k/uL Eosinophils # 0.2 (0-0.7) k/uL Basophils # 0.1 (0-0.2) k/uL Hypochromasia Slight PT (9.0-12.0) sec INR (<1.1) APTT (22.0-30.0) sec Sodium 143 (137-145) mmol/L Potassium 4.3 (3.5-5.1) mmol/L Chloride 108 H (98-107) mmol/L Carbon Dioxide 20 L (22-30) mmol/L Anion Gap 15 mmol/L BUN 29 H (7-17) mg/dL Creatinine 1.13 H (0.52-1.04) mg/dL Est GFR (MDRD) Af Amer 57 (>60 ml/min/1.73 sqM) Est GFR (MDRD) Non-Af 47 (>60 ml/min/1.73 sqM) Glucose 165 H (74-99) mg/dL Calcium 9.0 (8.4-10.2) mg/dL Total Bilirubin 2.0 H (0.2-1.3) mg/dL AST 70 H (14-36) U/L ALT 99 H (9-52) U/L Alkaline Phosphatase 75 (38-126) U/L Total Creatine Kinase 43 (30-135) U/L CK-MB (CK-2) 1.0 (0.0-2.4) ng/mL CK-MB (CK-2) Rel Index 2.3 Troponin I <0.012 (0.000-0.034) ng/mL NT-Pro-B Natriuret Pep pg/mL Total Protein 7.2 (6.3-8.2) g/dL Albumin 3.9 (3.5-5.0) g/dL 12/08/16 12/08/16 Range/Units 15:35 15:35 WBC (3.8-10.6) k/uL RBC (3.80-5.40) m/uL Hgb (11.4-16.0) gm/dL Hct (34.0-46.0) % MCV (80.0-100.0) fL MCH (25.0-35.0) pg MCHC (31.0-37.0) g/dL RDW (11.5-15.5) % Plt Count (150-450) k/uL Neutrophils % % Lymphocytes % % Monocytes % % Eosinophils % % Basophils % % Neutrophils # (1.3-7.7) k/uL Lymphocytes # (1.0-4.8) k/uL Monocytes # (0-1.0) k/uL Eosinophils # (0-0.7) k/uL Basophils # (0-0.2) k/uL Hypochromasia PT 12.2 H (9.0-12.0) sec INR 1.2 (<1.1) APTT 28.7 (22.0-30.0) sec Sodium (137-145) mmol/L Potassium (3.5-5.1) mmol/L Chloride (98-107) mmol/L Carbon Dioxide (22-30) mmol/L Anion Gap mmol/L BUN (7-17) mg/dL Creatinine (0.52-1.04) mg/dL Est GFR (MDRD) Af Amer (>60 ml/min/1.73 sqM) Est GFR (MDRD) Non-Af (>60 ml/min/1.73 sqM) Glucose (74-99) mg/dL Calcium (8.4-10.2) mg/dL Total Bilirubin (0.2-1.3) mg/dL AST (14-36) U/L ALT (9-52) U/L Alkaline Phosphatase (38-126) U/L Total Creatine Kinase (30-135) U/L CK-MB (CK-2) (0.0-2.4) ng/mL CK-MB (CK-2) Rel Index Troponin I (0.000-0.034) ng/mL NT-Pro-B Natriuret Pep 7070 pg/mL Total Protein (6.3-8.2) g/dL Albumin (3.5-5.0) g/dL Critical Care Time Critical Care Time: Yes Total Critical Care Time: 35 Disposition Clinical Impression: Pulmonary edema Disposition: ADMITTED IP TO THIS [facility] Time of Disposition: 17:04
[2016-12-08 16:02] LABS: Basophils # (A) 0.1 k/uL (0-0.2); Basophils % (A) 1 %; CH 27.7; CHCM 32.6; Eosinophils # (A) 0.2 k/uL (0-0.7); Eosinophils % (A) 1 %; HCT 38.5 % (34.0-46.0); HDW 3.04; HGB 12.5 gm/dL (11.4-16.0); Hypochromasia Slight; INR 1.2 (<1.1); Luc # (Auto) 0.14; Luc % (Auto) 1; Lymphocytes # (A) 1.7 k/uL (1.0-4.8); Lymphocytes % (A) 15 %; MCH 27.6 pg (25.0-35.0); MCHC 32.3 g/dL (31.0-37.0); MCV 85.4 fL (80.0-100.0); Mean Platelet Volume 9.3; Monocytes # (A) 0.5 k/uL (0-1.0); Monocytes % (A) 4 %; Neutrophils % (A) 78 %; Partial Thromboplastin Time 28.7 sec (22.0-30.0); Prothrombin Time 12.2 sec (9.0-12.0); RBC 4.51 m/uL (3.80-5.40); RDW 14.8 % (11.5-15.5); WBC 11.5 k/uL (3.8-10.6); WBC (Perox) 11.11
[2016-12-08 16:03] LABS: Total Protein 7.2 g/dL (6.3-8.2)
[2016-12-08 16:08] LABS: Potassium 4.3 mmol/L (3.5-5.1)
[2016-12-08] MEDS ORDERED: FUROSEMIDE 10 MG/ML 4 ML VIAL IV STA (16:13)
--- NOTE | 2016-12-08 16:14 | XR ---
EXAMINATION TYPE: XR chest 2V DATE OF EXAM: 12/08/2016 4:06 PM HISTORY: difficulty breathing. REFERENCE: Previous study dated 11/13/2016. FINDINGS: There is a persistent probable pseudotumor within the major fissure on the right. There are bilateral effusions. These have worsened. The heart is enlarged. There is vascular congestion and in terstitial change. Note is made of a previous midline sternotomy. IMPRESSION: 1. CARDIOMEGALY AND CONTINUING FINDINGS OF PULMONARY EDEMA. 2. ENLARGING, BILATERAL PLEURAL EFFUSIONS. 3. PROBABLE PSEUDOTUMOR WITHIN THE MAJOR FISSURE ON THE RIGHT.
[2016-12-08 16:17] LABS: Creatine Kinase 43 U/L (30-135)
[2016-12-08 16:30] LABS: Troponin I <0.012 ng/mL (0.000-0.034)
[2016-12-08 20:09] LABS: Glucose,Whole Blood 228 mg/dL (75-99)
[2016-12-08] MEDS ORDERED: NITROGLYCERIN SL TABS 0.4 MG TAB SUBLINGUAL PRN (20:47)
[2016-12-08] MEDS: APIXABAN 5 MG TAB PO SCH (22:07)
[2016-12-08] MEDS: INSULIN LISPRO (humaLOG) 300 UNIT/3 ML VIAL SQ SCH (22:07)
[2016-12-08] MEDS: POTASSIUM CHLORIDE ER 20 MEQ TAB.ER PO SCH (22:08)
[2016-12-08] MEDS: ATORVASTATIN 20 MG TAB PO SCH (22:08)
[2016-12-08] MEDS: NITROGLYCERIN OINT 1 INCH/GM PACKET TOPICAL SCH (22:08)
[2016-12-08] MEDS: METOPROLOL TARTRATE 50 MG TAB PO SCH (22:08)
[2016-12-08] MEDS: FUROSEMIDE 10 MG/ML 4 ML VIAL IV SCH (23:30)
[2016-12-09 06:22] LABS: Glucose,Whole Blood 204 mg/dL (75-99)
[2016-12-09] MEDS: INSULIN LISPRO (humaLOG) 300 UNIT/3 ML VIAL SQ SCH ×4 (06:46→22:03)
[2016-12-09] MEDS ORDERED: IPRATROPIUM-ALBUTEROL 3 ML NEB INHALATION PRN (08:21)
[2016-12-09] MEDS: APIXABAN 5 MG TAB PO SCH ×2 (08:34→20:46)
[2016-12-09] MEDS: LINAGLIPTIN 5 MG TABLET PO SCH (08:34)
[2016-12-09] MEDS: ASPIRIN 81 MG CHEW PO SCH (08:34)
[2016-12-09] MEDS: FUROSEMIDE 10 MG/ML 4 ML VIAL IV SCH ×3 (08:34→23:41)
[2016-12-09] MEDS: METOPROLOL TARTRATE 50 MG TAB PO SCH ×2 (08:35→20:46)
[2016-12-09] MEDS: POTASSIUM CHLORIDE ER 20 MEQ TAB.ER PO SCH ×2 (08:35→20:46)
--- NOTE | 2016-12-09 08:57 | P.CRDCN ---
History of Present Illness Consult date: 12/09/16 Reason for Consult (text): Acute Pulmonary Edema Chief complaint: shortness of breath History of present illness: A pleasant 76-year-old female with a known history of coronary artery disease and prior bypass graft surgery in 1998 in which time she underwent four- vessel bypass with POLO to the LAD, SVG to the ramus intermedius, RCA and OM1. She also has a history of subsequent multiple stent placements. Patient has a known history of hypertension, diabetes, hyperlipidemia and paroxysmal atrial fibrillation, on Eliquis. She recently, within the last few days underwent cardioversion by Dr. Ramirez out of splint. Cardioversion was successful however patient began developing increasing shortness of breath, weight gain of 7 pounds in 3 or 4 days, abdominal distention and inability to sleep due to orthopnea. Upon Presentation to the emergency department, EKG showed normal sinus rhythm with possible old inferior infarct with Q waves in inferiorly, chest x-ray showed pulmonary edema with enlarging bilateral pleural effusions. Laboratory values showed BUN of 29, creatinine 1.13, slightly elevated AST and ALTs and a BNP level of 7070. She has been placed on IV Lasix 40 mg every 8 hours. Upon examination this morning, patient is resting comfortably in bed with head of bed flat. His breath at this time been up ambulating to the bathroom without any difficulties. She denies any recent history of chest discomfort. She does complain of occasional dizziness at home and says her blood pressure usually tends to run low. Past Medical History Past Medical History: Atrial Fibrillation, Coronary Artery Disease (CAD), Heart Failure, CVA/TIA, Diabetes Mellitus, Deep Vein Thrombosis (DVT), Hyperlipidemia , Hypertension, Osteoarthritis (OA) Additional Past Medical History / Comment(s): Coronary artery disease, previous coronary artery bypass surgery, previous coronary artery stenting, previous history of pleural, chemical pleurodesis back in 1998 following cabg, CVA back in 2013 without any residual deficits, left lower extremity DVT in 2016, paroxysmal atrial fibrillation, chronic diastolic heart failure, diabetes mellitus, hyperlipidemia, obesity, osteoarthritis, uti-ecoli History of Any Multi-Drug Resistant Organisms: None Reported Past Surgical History: Cholecystectomy, Coronary Bypass/CABG, Heart Catheterization With Stent, Hysterectomy Additional Past Surgical History / Comment(s): eye sx 6 cardiac stent placed; CABG 1998, OVARY CYST REMOVED,colonoscopy cardioversion 1 year ago and again 12-07-16 at [facility] Past Anesthesia/Blood Transfusion Reactions: No Reported Reaction Additional Past Anesthesia/Blood Transfusion Reaction / Comment(s): Jehovahs witness no blood transfusions Date of Last Stent Placement:: 2013 Past Psychological History: No Psychological Hx Reported Smoking Status: Never smoker Past Alcohol Use History: Rare Additional Past Alcohol Use History / Comment(s): Patient is a lifelong nonsmoker. Past Drug Use History: None Reported - Past Family History Father Additional Family Medical History / Comment(s): Father at age 89 following a hip fracture repair that became infected. He from complications of infection. Mother Additional Family Medical History / Comment(s): Mother in her 70s. She had history of stroke and had been in an extended care facility for 8 years prior to her . Sister(s) Additional Family Medical History / Comment(s): Patient has one sister that is 17 years younger than her with no major medical problems. Patient does not have any brothers. Son(s) Additional Family Medical History / Comment(s): She has 2 sons and one has heart problems. Medications and Allergies Home Medications Medication Instructions Recorded Confirmed Type [place]-3 Fatty Acids [[place]-3] 1,000 mg PO DAILY 01/23/16 12/08/16 History Aspirin [Adult Low Dose Aspirin EC] 81 mg PO QAM 11/13/16 12/08/16 History Metoprolol Tartrate [Lopressor] 150 mg PO BID 11/13/16 12/08/16 History Albuterol Inhaler [Ventolin Hfa 2 puff INHALATION RT-Q6H PRN 12/08/16 12/08/16 History Inhaler] Nitroglycerin Sl Tabs [Nitrostat] 0.4 mg SUBLINGUAL Q5M PRN 12/08/16 12/08/16 History Allergies Allergy/AdvReac Type Severity Reaction Status Date / Time sulfamethoxazole Allergy Dyspnea Verified 12/08/16 16:34 [From Bactrim] trimethoprim [From Bactrim] Allergy Dyspnea Verified 12/08/16 16:34 Physical Exam Vitals: Vital Signs Temp Pulse Pulse Resp BP BP Pulse Ox 12/09/16 04:00 97.6 F 63 16 153/74 99 12/08/16 23:22 97.5 F L 65 18 173/81 94 L 12/08/16 22:00 80 157/88 12/08/16 20:30 80 12/08/16 19:33 97.0 F L 67 16 162/72 94 L 12/08/16 18:54 97.6 F 67 20 178/87 94 L 12/08/16 17:24 70 18 155/75 95 Intake and Output 12/08/16 12/09/16 12/09/16 22:59 06:59 14:59 Other: Voiding Method Toilet # Voids 3 Weight 84.8 kg 84.6 kg PHYSICAL EXAMINATION: HEENT: Head is atraumatic, normocephalic. Pupils equal, round. Neck is supple. There is no elevated jugular venous pressure. HEART EXAMINATION: Heart sounds regular, S1 and S2 normal. No murmur or gallop heard. CHEST EXAMINATION: Lungs cai diminished air entry bilateral bases with faint crackles to mid lung. No chest wall tenderness is noted on palpation or with deep breathing. ABDOMEN: Soft, obese, nontender. Bowel sounds are heard. No organomegaly noted. EXTREMITIES: 2+ peripheral pulses with evidence of trace peripheral edema and no calf tenderness noted. NEUROLOGIC patient is awake, alert and oriented x3. . Results 12/08/16 15:35 12/08/16 15:35 Current Medications Generic Name Dose Route Start Last Admin Trade Name Freq PRN Reason Stop Dose Admin Albuterol/Ipratropium 3 ml 12/09/16 08:21 Duoneb 0.5 Mg-3 Mg/3 Ml Soln INHALATION RT-QID PRN Shortness Of Breath Or Wheezing Apixaban 5 mg 12/08/16 21:30 12/08/16 22:07 Eliquis PO 5 mg BID CHARLES Administration Aspirin 81 mg 12/09/16 09:00 Aspirin PO QAM CHARLES Atorvastatin Calcium 20 mg 12/08/16 21:30 12/08/16 22:08 Lipitor PO 20 mg HS CHARLES Administration Furosemide 40 mg 12/09/16 00:00 12/08/16 23:30 Lasix IV 40 mg Q8H CHARLES Administration Insulin Human Lispro 0 unit 12/08/16 21:00 12/09/16 06:46 Humalog SQ 6 unit ACHS CHARLES Administration Protocol Linagliptin 5 mg 12/09/16 09:00 Tradjenta PO DAILY CHARLES Metformin HCl 1,000 mg 12/09/16 09:00 Glucophage PO DAILY CHARLES Metoprolol Tartrate 150 mg 12/08/16 21:30 12/08/16 22:08 Lopressor PO 150 mg BID CHARLES Administration Nitroglycerin 1 inch 12/08/16 22:00 12/08/16 22:08 Nitro-Bid Oint TOPICAL 1 inch QID CHARLES Administration Nitroglycerin 0.4 mg 12/08/16 20:47 Nitrostat SUBLINGUAL Q5M PRN Chest Pain Potassium Chloride 20 meq 12/08/16 21:30 12/08/16 22:08 K-Dur 20 PO 20 meq BID CHARLES Administration Intake and Output 12/08/16 12/09/16 12/09/16 22:59 06:59 14:59 Other: Voiding Method Toilet # Voids 3 Weight 84.8 kg 84.6 kg EKG Interpretations (text) Normal sinus rhythm with evidence of possible old inferior infarct Assessment and Plan Plan: Assessment and plan #1 acute on chronic diastolic congestive heart failure #2 persistent atrial fibrillation, status post cardioversion, currently maintaining sinus rhythm #3 diabetes #4 hypertension #5 hyperlipidemia #6 coronary artery disease with prior CABG and stenting From a Cardiac standpoint, we will continue Lasix 40mg IV Q8 hours. We will add a small dose of JONAH inhibitor. We will follow the renal function, daily weights and intake and output. Further recommendations to follow. OBSTETRICIAN/GYNECOLOGIST note has been reviewed, I agree with a documented findings and plan of care. Patient was seen and examined.
[2016-12-09] MEDS: NITROGLYCERIN OINT 1 INCH/GM PACKET TOPICAL SCH ×4 (08:58→22:03)
[2016-12-09] MEDS ORDERED: NON-FORMULARY DRUG (Omega-3 Fatty Acids [Omega-3] 1,000 MG) PO SCH (09:00)
[2016-12-09] MEDS ORDERED: metFORMIN 500 MG TAB PO SCH (09:00)
[2016-12-09] MEDS ORDERED: SITAGLIPTIN PHOS PO SCH (09:00)
[2016-12-09] MEDS ORDERED: METFORMIN HCL PO SCH (09:00)
[2016-12-09] MEDS ORDERED: [UNRECOGNIZED DRUG - OTHER] PO SCH (09:00)
--- NOTE | 2016-12-09 10:01 | P.HPIM ---
History of Present Illness H&P Date: 12/09/16 Chief Complaint: Shortness of breath This is a 76-year-old female patient of Dr. Leal'stephie with a past history of coronary artery disease with prior 4 vessel CABG in 1998 and subsequent stenting of the mid RCA and OM and 2013 and 2 subsequent stent placements following that, hypertension, diabetes mellitus type 2, hyperlipidemia, obstructive sleep apnea, paroxysmal atrial fibrillation status post cardioversion 1 year ago on chronic Coumadin. Patient presented to [facility] emergency center on November 08 due to shortness of breath with cough for 3-4 days. She states the symptoms are worsening and that her ribs hurt due to coughing so much. She denies any lower extremity edema. Patient recently stopped taking her Coumadin because she didn't feel well when she took it and only feels cold. She complains of weakness when she walks. CTA of the chest showed no evidence of pulmonary embolism. Loculated bilateral pleural effusions are increased compared to January 2016. Pleural calcification on the right side and lesser extent on the left. Mild mediastinal adenopathy, cardiomegaly. Possibility of mesothelioma should be considered. Patient was seen by Dr. Ward and this was thought to be due to previous chemical pleurodesis following her CABG. Patient has been evaluated by cardiology and started on eliquis with plan to continue Plavix as well. Echocardiogram reveals moderate mitral regurgitation, moderate tricuspid regurgitation, mild pulmonary hypertension, moderate concentric left ventricular hypertrophy, EF 45- 50%. Vision was discharged home on November 10. She presented back to [facility] emergency center on November 13 with complaints of cough that been going on for 2-3 weeks and shortness of breath with exertion. She denies any lower extremity edema but does feel distended in the abdomen with occasional pain and a full feeling in her belly. Her last colonoscopy was 6-7 years ago. She also states she has a cold occasional coughing when she eats. She denies any constipation. She denies any history of asthma or ALLERGIES. She does not use home oxygen. There are no pets in the home and no mold that she knows of. Chest x-ray correlate for continued heart failure with pulmonary vascular congestion. Trace left pleural effusion and likely pseudotumor at the right mid lung representing trapped fluid within the minor fissure. He was seen in consultation by Dr. Staples and cardiology. She was treated for acute diastolic heart failure and was discharged home on 11/15/2016. Patient then followed up with her glue size machine operator at [facility], Dr. Katty Ramirez and she has scheduled procedures on December 18 for heart catheterization and on January 01 for ablation. She does plan to follow-up with Dr. Ramierz when she discharges from the hospital. Patient now presents again to [facility] with shortness of breath worsening with activity. She complains of increased edema but no chest pain. ProBNP was 7070. Total bilirubin 2.0, AST 70 and ALT 99. Troponin was negative. She was started on IV Lasix and admitted to the selective care unit and consult requested with cardiology. Review of Systems All systems: negative Constitutional: Reports fatigue, Denies chills, Denies fever Eyes: denies blurred vision, denies pain Ears, nose, mouth and throat: Denies headache, Denies sore throat Cardiovascular: Reports decreased exercise tolerance, Reports dyspnea on exertion, Reports edema, Reports leg edema, Reports shortness of breath, Denies chest pain Respiratory: Reports dyspnea, Denies cough Gastrointestinal: Denies abdominal pain, Denies diarrhea, Denies nausea, Denies vomiting Genitourinary: Denies dysuria, Denies hematuria Musculoskeletal: Denies myalgias Integumentary: Denies pruritus, Denies rash Neurological: Denies numbness, Denies weakness Psychiatric: Denies anxiety, Denies depression Endocrine: Denies fatigue, Denies weight change Past Medical History Past Medical History: Atrial Fibrillation, Coronary Artery Disease (CAD), Heart Failure, CVA/TIA, Diabetes Mellitus, Deep Vein Thrombosis (DVT), Hyperlipidemia , Hypertension, Osteoarthritis (OA) Additional Past Medical History / Comment(s): Coronary artery disease, previous coronary artery bypass surgery, previous coronary artery stenting, previous history of pleural, chemical pleurodesis back in 1998 following cabg, CVA back in 2013 without any residual deficits, left lower extremity DVT in 2015, paroxysmal atrial fibrillation, chronic diastolic heart failure, diabetes mellitus, hyperlipidemia, obesity, osteoarthritis, uti-ecoli History of Any Multi-Drug Resistant Organisms: None Reported Past Surgical History: Cholecystectomy, Coronary Bypass/CABG, Heart Catheterization With Stent, Hysterectomy Additional Past Surgical History / Comment(s): eye sx 6 cardiac stent placed; CABG 1998, OVARY CYST REMOVED,colonoscopy cardioversion 1 year ago and again 12-07-16 at [facility] Past Anesthesia/Blood Transfusion Reactions: No Reported Reaction Additional Past Anesthesia/Blood Transfusion Reaction / Comment(s): Jehovahs witness no blood transfusions Date of Last Stent Placement:: 2013 Past Psychological History: No Psychological Hx Reported Smoking Status: Never smoker Past Alcohol Use History: Rare Additional Past Alcohol Use History / Comment(s): Patient is a lifelong nonsmoker. Past Drug Use History: None Reported - Past Family History Father Additional Family Medical History / Comment(s): Father at age 89 following a hip fracture repair that became infected. He from complications of infection. Mother Additional Family Medical History / Comment(s): Mother in her 70s. She had history of stroke and had been in an extended care facility for 8 years prior to her . Sister(s) Additional Family Medical History / Comment(s): Patient has one sister that is 17 years younger than her with no major medical problems. Patient does not have any brothers. Son(s) Additional Family Medical History / Comment(s): She has 2 sons and one has heart problems. Medications and Allergies Home Medications Medication Instructions Recorded Confirmed Type [place]-3 Fatty Acids [[place]-3] 1,000 mg PO DAILY 01/23/16 12/08/16 History Aspirin [Adult Low Dose Aspirin EC] 81 mg PO QAM 11/13/16 12/08/16 History Metoprolol Tartrate [Lopressor] 150 mg PO BID 11/13/16 12/08/16 History Albuterol Inhaler [Ventolin Hfa 2 puff INHALATION RT-Q6H PRN 12/08/16 12/08/16 History Inhaler] Nitroglycerin Sl Tabs [Nitrostat] 0.4 mg SUBLINGUAL Q5M PRN 12/08/16 12/08/16 History Allergies Allergy/AdvReac Type Severity Reaction Status Date / Time sulfamethoxazole Allergy Dyspnea Verified 12/08/16 16:34 [From Bactrim] trimethoprim [From Bactrim] Allergy Dyspnea Verified 12/08/16 16:34 Physical Exam Vitals: Vital Signs Temp Pulse Pulse Resp BP BP Pulse Ox 12/09/16 04:00 97.6 F 63 16 153/74 99 12/08/16 23:22 97.5 F L 65 18 173/81 94 L 12/08/16 22:00 80 157/88 12/08/16 20:30 80 12/08/16 19:33 97.0 F L 67 16 162/72 94 L 12/08/16 18:54 97.6 F 67 20 178/87 94 L 12/08/16 17:24 70 18 155/75 95 Intake and Output 12/08/16 12/09/16 12/09/16 22:59 06:59 14:59 Other: Voiding Method Toilet # Voids 3 Weight 84.8 kg 84.6 kg Gen: This is a 76-year-old female. She is sitting up in bed and appears to be in no acute distress. Is able to speak in full sentences. HEENT: Head is atraumatic, normocephalic. Pupils equal, round. Sclerae is anicteric. Conjunctiva pink. Mucous membranes of the mouth are moist. No thrush noted. NECK: Supple. No JVD. No lymphadenopathy. No thyromegaly. LUNGS: Diminished bilateral bases. No intercostal retractions. HEART: Regular rate and rhythm. Systolic ejection murmur. ABDOMEN: Soft. Bowel sounds are present. No masses. No tenderness. EXTREMITIES: Trace pedal edema. No calf tenderness. Dorsalis pedis +2 bilaterally. NEUROLOGICAL: Patient is awake, alert and oriented x3. Cranial nerves 2 through 12 are grossly intact. Results CBC & Chem 7: 12/08/16 15:35 12/08/16 15:35 Labs: Abnormal Lab Results - Last 24 Hours (Table) 12/08/16 12/09/16 Range/Units 20:07 06:20 POC Glucose (mg/dL) 228 H 204 H (75-99) mg/dL Thrombosis Risk Factor Assmnt - DVT/VTE Prophylaxis DVT/VTE Prophylaxis: Pharmacologic Prophylaxis ordered Assessment and Plan Plan: 1. Acute on chronic diastolic heart failure with abdominal edema and distention. Cardiology consult appreciated. Continue IV Lasix. Echocardiogram was performed on the previous admission. I&O and daily weights. Monitor electrolytes and kidney function. CAT scan of the abdomen and pelvis. 2. Bilateral pleural effusions with possible mesothelioma thought to be due to previous pleurodesis done after her CABG. Patient has been seen by Dr. Ward and Dr. Staples on previous admissions. 3. Persistant atrial fibrillation currently rate controlled status post reversion. Cardiology consult appreciated. Continue eliquis. Continue Lopressor 75 mg 3 times daily. 4. CAD. Continue Imdur 60 mg, aspirin 81 mg daily. 5. Diabetes mellitus type 2. Janumet XR 100/1000 mg daily which will be resumed. Continue Humalog scale before meals and at bedtime. Her A1c is 6.4. 6. Hypertensive cardiovascular disease. Continue Imdur, metoprolol and Lasix. 7. History of obstructive sleep apnea. 8. Hyperlipidemia continue Lipitor 20mg. 9. History of CVA, stable 10. History of DVT. 11. Osteoarthritis, generalized. 12. DVT prophylaxis. Patient on eliquis 13. Gastrointestinal prophylaxis. Continue Protonix. Patient will be admitted to the hospital for a minimum of 2 night stay. Discharge plan: Return home Impression and plan of care have been directed as dictated by the signing physician. Ashtyn Yeung nurse practitioner acting as scribe for signing physician. Cc: Dr. Gerson Leal Time with Patient: Greater than 30
[2016-12-09 11:33] LABS: Glucose,Whole Blood 196 mg/dL (75-99)
[2016-12-09] MEDS: LISINOPRIL 5 MG TAB PO SCH (11:36)
[2016-12-09 13:40] LABS: Hemoglobin A1C 7.3 % (4.2-6.1)
[2016-12-09 15:35] VITALS: BMI 32.0
[2016-12-09 16:22] LABS: Glucose,Whole Blood 84 mg/dL (75-99)
[2016-12-09] MEDS: hydrALAZINE HCL 50 MG TAB PO SCH ×2 (18:16→20:46)
[2016-12-09] MEDS: ATORVASTATIN 20 MG TAB PO SCH (20:46)
[2016-12-09 21:15] LABS: Glucose,Whole Blood 190 mg/dL (75-99)
[2016-12-10 06:42] LABS: Glucose,Whole Blood 129 mg/dL (75-99)
[2016-12-10] MEDS: INSULIN LISPRO (humaLOG) 300 UNIT/3 ML VIAL SQ SCH ×5 (06:58→21:10)
[2016-12-10] MEDS: PANTOPRAZOLE 40 MG TABLET PO SCH (07:00)
[2016-12-10 07:38] LABS: Calcium 8.5 mg/dL (8.4-10.2)
[2016-12-10 07:51] LABS: Potassium 4.2 mmol/L (3.5-5.1)
[2016-12-10] MEDS: FUROSEMIDE 10 MG/ML 4 ML VIAL IV SCH ×3 (08:00→15:24)
[2016-12-10] MEDS: ASPIRIN 81 MG CHEW PO SCH (08:31)
[2016-12-10] MEDS: hydrALAZINE HCL 50 MG TAB PO SCH ×2 (08:31→21:05)
[2016-12-10] MEDS: POTASSIUM CHLORIDE ER 20 MEQ TAB.ER PO SCH ×2 (08:31→21:05)
[2016-12-10] MEDS: APIXABAN 5 MG TAB PO SCH ×2 (08:31→21:04)
[2016-12-10] MEDS: LISINOPRIL 5 MG TAB PO SCH (08:31)
[2016-12-10] MEDS: LINAGLIPTIN 5 MG TABLET PO SCH (08:31)
[2016-12-10] MEDS: NITROGLYCERIN OINT 1 INCH/GM PACKET TOPICAL SCH ×3 (08:32→18:59)
--- NOTE | 2016-12-10 11:43 | P.PN ---
Subjective This is a 76-year-old female patient of Dr. Leal's with a past history of coronary artery disease with prior 4 vessel CABG in 1998 and subsequent stenting of the mid RCA and OM and 2013 and 2 subsequent stent placements following that, hypertension, diabetes mellitus type 2, hyperlipidemia, obstructive sleep apnea, paroxysmal atrial fibrillation status post cardioversion 1 year ago on chronic Coumadin. Patient presented to [facility] emergency center on November 08 due to shortness of breath with cough for 3-4 days. She states the symptoms are worsening and that her ribs hurt due to coughing so much. She denies any lower extremity edema. Patient recently stopped taking her Coumadin because she didn't feel well when she took it and only feels cold. She complains of weakness when she walks. CTA of the chest showed no evidence of pulmonary embolism. Loculated bilateral pleural effusions are increased compared to January 2016. Pleural calcification on the right side and lesser extent on the left. Mild mediastinal adenopathy, cardiomegaly. Possibility of mesothelioma should be considered. Patient was seen by Dr. Ward and this was thought to be due to previous chemical pleurodesis following her CABG. Patient has been evaluated by cardiology and started on eliquis with plan to continue Plavix as well. Echocardiogram reveals moderate mitral regurgitation, moderate tricuspid regurgitation, mild pulmonary hypertension, moderate concentric left ventricular hypertrophy, EF 45- 50%. Vision was discharged home on November 10. She presented back to [facility] emergency center on November 13 with complaints of cough that been going on for 2-3 weeks and shortness of breath with exertion. She denies any lower extremity edema but does feel distended in the abdomen with occasional pain and a full feeling in her belly. Her last colonoscopy was 6-7 years ago. She also states she has a cold occasional coughing when she eats. She denies any constipation. She denies any history of asthma or ALLERGIES. She does not use home oxygen. There are no pets in the home and no mold that she knows of. Chest x-ray correlate for continued heart failure with pulmonary vascular congestion. Trace left pleural effusion and likely pseudotumor at the right mid lung representing trapped fluid within the minor fissure. He was seen in consultation by Dr. Staples and cardiology. She was treated for acute diastolic heart failure and was discharged home on 11/15/2016. Patient then followed up with her ekg manager at [facility], Dr. Savanna Ramirez and she has scheduled procedures on December 18 for heart catheterization and on January 01 for ablation. She does plan to follow-up with Dr. Ramirez when she discharges from the hospital. Patient now presents again to [facility] with shortness of breath worsening with activity. She complains of increased edema but no chest pain. ProBNP was 7070. Total bilirubin 2.0, AST 70 and ALT 99. Troponin was negative. She was started on IV Lasix and admitted to the selective care unit and consult requested with cardiology. 12/10: BUN 42 and creatinine 1.5. Glucophage has been placed on hold. Heart rate is on the low side in the 50s and blood pressure is high. Hydralazine was started yesterday. Patient has been seen by ekg manager with no plan for any intervention and patient to follow-up with her primary ekg manager after discharge. Anticipate possible discharge by tomorrow Objective - Vital Signs Vital signs: Vital Signs Temp 97.1 F L 12/10/16 04:00 Pulse 55 L 12/10/16 04:00 Resp 16 12/10/16 04:00 BP 146/70 12/10/16 04:00 Pulse Ox 97 12/10/16 04:00 Intake & Output 12/09/16 12/10/16 12/10/16 18:59 06:59 18:59 Intake Total 960 Output Total 350 Balance 610 Weight 84.6 kg Intake: Oral 960 Output: Urine 350 Other: Voiding Method Toilet Toilet # Voids 1 1 - Exam Gen: This is a 76-year-old female. She is sitting up in bed and appears to be in no acute distress. Is able to speak in full sentences. HEENT: Head is atraumatic, normocephalic. Pupils equal, round. Sclerae is anicteric. Conjunctiva pink. Mucous membranes of the mouth are moist. No thrush noted. NECK: Supple. No JVD. No lymphadenopathy. No thyromegaly. LUNGS: Diminished bilateral bases. No intercostal retractions. HEART: Regular rate and rhythm. Systolic ejection murmur. ABDOMEN: Soft. Bowel sounds are present. No masses. No tenderness. EXTREMITIES: Trace pedal edema. No calf tenderness. Dorsalis pedis +2 bilaterally. NEUROLOGICAL: Patient is awake, alert and oriented x3. Cranial nerves 2 through 12 are grossly intact. - Labs CBC & Chem 7: 12/08/16 15:35 12/10/16 06:40 Labs: Abnormal Lab Results - Last 24 Hours (Table) 12/09/16 12/09/16 12/10/16 Range/Units 11:31 21:13 06:40 Chloride 110 H (98-107) mmol/L Carbon Dioxide 18 L (22-30) mmol/L BUN 42 H (7-17) mg/dL Creatinine 1.50 H (0.52-1.04) mg/dL Glucose 131 H (74-99) mg/dL POC Glucose (mg/dL) 196 H 190 H (75-99) mg/dL 12/10/16 Range/Units 06:40 Chloride (98-107) mmol/L Carbon Dioxide (22-30) mmol/L BUN (7-17) mg/dL Creatinine (0.52-1.04) mg/dL Glucose (74-99) mg/dL POC Glucose (mg/dL) 129 H (75-99) mg/dL Assessment and Plan Plan: 1. Acute on chronic diastolic heart failure with abdominal edema and distention. Cardiology consult appreciated. Continue IV Lasix. Echocardiogram was performed on the previous admission. I&O and daily weights. Monitor electrolytes and kidney function. CAT scan of the abdomen and pelvis. 2. Bilateral pleural effusions with possible mesothelioma thought to be due to previous pleurodesis done after her CABG. Patient has been seen by Dr. Ward and Dr. Staples on previous admissions. 3. Persistant atrial fibrillation currently rate controlled status post reversion. Cardiology consult appreciated. Continue eliquis. Continue Lopressor 75 mg 3 times daily. 4. CAD. Continue Imdur 60 mg, aspirin 81 mg daily. 5. Diabetes mellitus type 2. Janumet XR 100/1000 mg daily which will be resumed. Continue Humalog scale before meals and at bedtime. Her A1c is 6.4. 6. Hypertensive cardiovascular disease. Continue Imdur, metoprolol and Lasix. 7. History of obstructive sleep apnea. 8. Hyperlipidemia continue Lipitor 20mg. 9. History of CVA, stable 10. History of DVT. 11. Osteoarthritis, generalized. 12. DVT prophylaxis. Patient on eliquis 13. Gastrointestinal prophylaxis. Continue Protonix. Patient will be admitted to the hospital for a minimum of 2 night stay. Discharge plan: Return home Impression and plan of care have been directed as dictated by the signing physician. Ashtyn Yeung nurse practitioner acting as scribe for signing physician.
[2016-12-10] MEDS: METOPROLOL TARTRATE 50 MG TAB PO SCH ×2 (11:48→21:05)
--- NOTE | 2016-12-10 11:54 | P.PN ---
Subjective Principal diagnosis: Congestive heart failure This is a pleasant 76-year-old female patient who sees a cognos tm1 developer out of the town with a past medical history significant for CAD and prior CABG in 1998 where she received 4 bypasses with POLO to LAD, SVG to ramus, SVG to RCA , SVG to OM as well as paroxysmal atrial fibrillation, was admitted to the hospital yesterday with evidence of congestive heart failure. The patient has been developing progressive exertional dyspnea, associated with bilateral lower extremities edema, and she gained about 7 pounds in a few days. She had a recent echocardiogram showing preserved LV function without any significant valvular abnormalities with mild pulmonary hypertension. I'll follow-up with her today, she still not feeling well. She continues to have shortness of breath internal of exertional dyspnea and orthopnea. Also she still have mild bilateral lower extremities edema. The blood pressure continues to be not well-controlled as well. The kidney function is slightly worse compared to before. The patient is not making urine and as a matter of fact she gained about 2 kg since yesterday. I will continue the patient on the current above dose of Lasix IV. I suggest will obtain a nephrology consult to see her. I am going to increase the dose of hydralazine for better blood pressure control and decrease the dose of metoprolol in view of the bradycardia. She was started yesterday on lisinopril. Objective - Vital Signs Vital signs: Vital Signs Temp 97.4 F L 12/10/16 08:00 Pulse 56 L 12/10/16 08:00 Resp 16 12/10/16 08:00 BP 161/74 12/10/16 08:00 Pulse Ox 94 L 12/10/16 08:00 Intake & Output 12/09/16 12/10/16 12/10/16 18:59 06:59 18:59 Intake Total 960 240 Output Total 350 300 Balance 610 -60 Weight 84.6 kg 86.4 kg Intake: Oral 960 240 Output: Urine 350 300 Other: Voiding Method Toilet Toilet Toilet # Voids 1 1 1 - Constitutional General appearance: Present: no acute distress - Respiratory Respiratory: bilateral: rales - Cardiovascular Rhythm: regular Heart sounds: normal: S1, S2 - Labs CBC & Chem 7: 12/08/16 15:35 12/10/16 06:40 Labs: Abnormal Lab Results - Last 24 Hours (Table) 12/09/16 12/10/16 12/10/16 Range/Units 21:13 06:40 06:40 Chloride 110 H (98-107) mmol/L Carbon Dioxide 18 L (22-30) mmol/L BUN 42 H (7-17) mg/dL Creatinine 1.50 H (0.52-1.04) mg/dL Glucose 131 H (74-99) mg/dL POC Glucose (mg/dL) 190 H 129 H (75-99) mg/dL Assessment and Plan Plan: Assessment #1 acute on chronic diastolic heart failure was evidence of right and left heart failure #2 paroxysmal atrial fibrillation #3 CAD and prior revascularization as described above #4 multiple comorbid conditions Plan #1 continue the current above dose of Lasix IV #2 continue monitoring her kidney function and electrolytes #3 I suggest obtaining an effort consult #4 follow-up with the patient
[2016-12-10 12:12] LABS: Glucose,Whole Blood 200 mg/dL (75-99)
[2016-12-10 16:16] LABS: Glucose,Whole Blood 116 mg/dL (75-99)
[2016-12-10 20:30] LABS: Glucose,Whole Blood 177 mg/dL (75-99)
[2016-12-10] MEDS: ATORVASTATIN 20 MG TAB PO SCH (21:04)
[2016-12-11] MEDS: NITROGLYCERIN OINT 1 INCH/GM PACKET TOPICAL SCH ×2 (00:11→10:17)
[2016-12-11] MEDS: FUROSEMIDE 10 MG/ML 4 ML VIAL IV SCH ×3 (00:11→10:18)
[2016-12-11 01:04] VITALS: RESP 16; TEMP 97.4
[2016-12-11 06:50] LABS: Glucose,Whole Blood 153 mg/dL (75-99)
[2016-12-11] MEDS: PANTOPRAZOLE 40 MG TABLET PO SCH (06:52)
[2016-12-11] MEDS: INSULIN LISPRO (humaLOG) 300 UNIT/3 ML VIAL SQ SCH (06:52)
[2016-12-11 07:11] LABS: Calcium 8.6 mg/dL (8.4-10.2); Potassium 3.4 mmol/L (3.5-5.1)
[2016-12-11] MEDS: METOPROLOL TARTRATE 50 MG TAB PO SCH (09:00)
[2016-12-11] MEDS: ASPIRIN 81 MG CHEW PO SCH (09:00)
[2016-12-11] MEDS: hydrALAZINE HCL 50 MG TAB PO SCH (09:00)
[2016-12-11] MEDS: LINAGLIPTIN 5 MG TABLET PO SCH (09:00)
[2016-12-11] MEDS: LISINOPRIL 5 MG TAB PO SCH ×2 (09:00→10:18)
[2016-12-11] MEDS: POTASSIUM CHLORIDE ER 20 MEQ TAB.ER PO SCH (09:01)
[2016-12-11] MEDS: APIXABAN 5 MG TAB PO SCH (09:01)
[2016-12-11 09:06] VITALS: BP 163/67; PULSE 67
[2016-12-11] MEDS ORDERED: POTASSIUM CHLORIDE ER 20 MEQ TAB.ER PO STA (09:38)
[2016-12-11] MEDS ORDERED: FUROSEMIDE 40 MG TAB PO SCH (09:45)
[2016-12-11 11:13] LABS: Glucose,Whole Blood 143 mg/dL (75-99)
[2016-12-11] MEDS ORDERED: LISINOPRIL 5 MG TAB PO SCH (12:00)
--- NOTE | 2016-12-11 13:01 | P.DS ---
Providers Date of admission: 12/08/16 17:06 Expected date of discharge: 12/11/16 Attending physician: Livier Low [facility]: This is a 76-year-old female patient of Dr. Leal's with a past history of coronary artery disease with prior 4 vessel CABG in 1998 and subsequent stenting of the mid RCA and OM and 2013 and 2 subsequent stent placements following that, hypertension, diabetes mellitus type 2, hyperlipidemia, obstructive sleep apnea, paroxysmal atrial fibrillation status post cardioversion 1 year ago on chronic Coumadin. Patient presented to [facility] on November 08 due to shortness of breath with cough for 3-4 days. She states the symptoms are worsening and that her ribs hurt due to coughing so much. She denies any lower extremity edema. Patient recently stopped taking her Coumadin because she didn't feel well when she took it and only feels cold. She complains of weakness when she walks. CTA of the chest showed no evidence of pulmonary embolism. Loculated bilateral pleural effusions are increased compared to January 2016. Pleural calcification on the right side and lesser extent on the left. Mild mediastinal adenopathy, cardiomegaly. Possibility of mesothelioma should be considered. Patient was seen by Dr. Ward and this was thought to be due to previous chemical pleurodesis following her CABG. Patient has been evaluated by cardiology and started on eliquis with plan to continue Plavix as well. Echocardiogram reveals moderate mitral regurgitation, moderate tricuspid regurgitation, mild pulmonary hypertension, moderate concentric left ventricular hypertrophy, EF 45- 50%. Vision was discharged home on November 10. She presented back to [facility] on November 13 with complaints of cough that been going on for 2-3 weeks and shortness of breath with exertion. She denies any lower extremity edema but does feel distended in the abdomen with occasional pain and a full feeling in her belly. Her last colonoscopy was 6-7 years ago. She also states she has a cold occasional coughing when she eats. She denies any constipation. She denies any history of asthma or ALLERGIES. She does not use home oxygen. There are no pets in the home and no mold that she knows of. Chest x-ray correlate for continued heart failure with pulmonary vascular congestion. Trace left pleural effusion and likely pseudotumor at the right mid lung representing trapped fluid within the minor fissure. He was seen in consultation by Dr. Staples and cardiology. She was treated for acute diastolic heart failure and was discharged home on 11/15/2016. Patient then followed up with her crew leader/control room operator at [facility], Dr. Savanna Ramirez and she has scheduled procedures on December 18 for heart catheterization and on January 01 for ablation. She does plan to follow-up with Dr. Ramirez when she discharges from the hospital. Patient now presents again to [facility] with shortness of breath worsening with activity. She complains of increased edema but no chest pain. ProBNP was 7070. Total bilirubin 2.0, AST 70 and ALT 99. Troponin was negative. She was started on IV Lasix and admitted to the selective care unit and consult requested with cardiology. 12/10: BUN 42 and creatinine 1.5. Glucophage has been placed on hold. Heart rate is on the low side in the 50s and blood pressure is high. Hydralazine was started yesterday. Patient has been seen by crew leader/control room operator with no plan for any intervention and patient to follow-up with her primary crew leader/control room operator after discharge. Anticipate possible discharge by tomorrow 12/11: Patient's shortness of breath is somewhat improved. She will be discharged home on Lasix 40 mg with increased frequency to 3 times daily. New medications include hydralazine and lisinopril. Metoprolol dose decreased to 100 mg twice daily due to bradycardia. Patient will be discharged home today in stable condition. Patient has been instructed to follow-up with her primary crew leader/control room operator within 1 week. Discharge diagnoses: 1. Acute on chronic diastolic heart failure 2. Bilateral pleural effusions with possible mesothelioma due to previous pleurodesis done after her CABG. 3. Persistant atrial fibrillation 4. CAD. 5. Diabetes mellitus type 2. 6. Hypertensive cardiovascular disease. 7. History of obstructive sleep apnea. 8. Hyperlipidemia 9. History of CVA, stable 10. History of DVT. 11. Osteoarthritis, generalized. Discharge plan: Return home Impression and plan of care have been directed as dictated by the signing physician. Ashtyn Yeung nurse practitioner acting as scribe for signing physician. Patient Condition at Discharge: Good Plan - Discharge Summary New Discharge Prescriptions: Lisinopril [Zestril] 5 mg PO 1200 #30 tab Metoprolol Tartrate [Lopressor] 100 mg PO BID #60 tab hydrALAZINE HCL [Apresoline] 100 mg PO BID #60 tab Discharge Medication List Greenbelt-3 Fatty Acids [Greenbelt-3] 1,000 mg PO DAILY 01/23/16 [History] Apixaban [Eliquis] 5 mg PO BID #60 tab 11/10/16 [Rx] Atorvastatin [Lipitor] 20 mg PO HS #30 tab 11/10/16 [Rx] Potassium Chloride [Klor-Con 20] 20 meq PO BID #60 tab.er.prt 11/10/16 [Rx] sitaGLIPtin PHOS/metFORMIN HCL [Janumet Xr 100-1,000 mg Tablet] 1 tab PO DAILY # 0 11/10/16 [Rx] Aspirin [Adult Low Dose Aspirin EC] 81 mg PO QAM 11/13/16 [History] Albuterol Inhaler [Ventolin Hfa Inhaler] 2 puff INHALATION RT-Q6H PRN 12/08/16 [ History] Nitroglycerin Sl Tabs [Nitrostat] 0.4 mg SUBLINGUAL Q5M PRN 12/08/16 [History] Furosemide [Lasix] 40 mg PO TID #60 tab 12/11/16 [Rx] Lisinopril [Zestril] 5 mg PO 1200 #30 tab 12/11/16 [Rx] Metoprolol Tartrate [Lopressor] 100 mg PO BID #60 tab 12/11/16 [Rx] hydrALAZINE HCL [Apresoline] 100 mg PO BID #60 tab 12/11/16 [Rx] Follow up Appointment(s)/Referral(s): [facility], [NON-STAFF] - Gerson Leal DO [Primary Care Provider] - 1-2 days (Spoke with voice network engineer. They will call you with an appointment time.) Activity/Diet/Wound Care/Special Instructions: Follow up with Dr. Ramirez this week Discharge Disposition: HOME SELF-CARE
== END 2016-12-11 11:22 | disposition home health service (06) | DRG 292 ==
LOC: EC 15:31 → 4MS4W 17:06 → 6SEL 22:41
PROVIDERS: ADMIT Family Medicine; ATTEND Family Medicine
DX: I11.0 Hypertensive heart disease with heart failure (principal); I48.1 Persistent atrial fibrillation; I27.2 Other secondary pulmonary hypertension; I48.0 Paroxysmal atrial fibrillation; E11.9 Type 2 diabetes mellitus without complications; I08.1 Rheumatic disorders of both mitral and tricuspid valves; E78.5 Hyperlipidemia, unspecified; G47.33 Obstructive sleep apnea (adult) (pediatric); I25.10 Atherosclerotic heart disease of native coronary artery without angina pectoris; I50.33 Acute on chronic diastolic (congestive) heart failure; M19.90 Unspecified osteoarthritis, unspecified site; R59.0 Localized enlarged lymph nodes; E66.9 Obesity, unspecified; Z68.32 Body mass index [BMI] 32.0-32.9, adult; C45.9 Mesothelioma, unspecified; Z79.01 Long term (current) use of anticoagulants; Z79.82 Long term (current) use of aspirin; Z79.899 Other long term (current) drug therapy; Z95.1 Presence of aortocoronary bypass graft; Z95.5 Presence of coronary angioplasty implant and graft; Z88.1 Allergy status to other antibiotic agents; Z88.2 Allergy status to sulfonamides
CPT/HCPCS: 36415; 71020; 80048; 80053; 82550; 82553; 83036; 83880; 84484; 85025; 85610; 85730; 93005; 96374; 96375; 96376; 99291

== ENCOUNTER → 2016-12-28 | Outpatient (CLI) | payer MEDICARE, OTHER ==
--- NOTE | 2016-12-28 12:26 | XR ---
EXAMINATION TYPE: XR chest 2V DATE OF EXAM: 12/28/2016 12:06 PM COMPARISON: 12/08/2016 INDICATION: Cough TECHNIQUE: Frontal and lateral views of the chest are obtained. FINDINGS: The heart size is normal. The pulmonary vasculature is normal. There is plate atelectasis along the right midlung. Minimal bilateral pleural effusions. Present. St ernotomy wires are present IMPRESSION: 1. Linear opacity along the minor fissure could be some minimal fluid. There are small bilateral pleu ral effusions. Atelectasis be considered. 2. Examination is improving from 12/09/2019
== END | disposition home or self-care (01) ==
LOC: RADXRMAIN 11:52
PROVIDERS: ATTEND Family Medicine
DX: J90 Pleural effusion, not elsewhere classified (principal); R91.8 Other nonspecific abnormal finding of lung field
CPT/HCPCS: 71020

== ENCOUNTER → 2017-05-14 | Outpatient (CLI) | payer MEDICARE, OTHER ==
--- NOTE | 2017-05-14 09:33 | CT ---
EXAMINATION TYPE: CT abdomen wo con DATE OF EXAM: 05/14/2017 COMPARISON: Prior CT 11/14/2016 HISTORY: Abdominal pain, nausea CT DLP: 638 mGycm Automated exposure control for dose reduction was used. TECHNIQUE: Helical acquisition of images was performed from the lung bases through the top of iliac crest to include entire abdomen. CONTRAST: Performed with Oral Contrast and without IV contrast. FINDINGS: Coronary artery calcifications are present, the heart is enlarged. Patient is post median s ternotomy. Lack of intravenous contrast could compromise sensitivity. LUNG BASES: Minimal subpleural nodularity at the left lung base may be postinflammatory, there are ca lcified foci within the posterior pleura at the left lung base, stable probable calcification also pr esent at the right lung base, there may be some local scarring bilaterally. LIVER/GB: No significant abnormality is appreciated. PANCREAS: No significant abnormality is seen. SPLEEN: No significant abnormality is seen. ADRENALS: No significant abnormality is seen. KIDNEYS: Some hyperdense foci are associated with the low dense probable left-sided renal cysts possi ervin wall calcification in at least 2 lesions. No evident hydronephrosis bilaterally. BOWEL: No significant abnormality is seen. Stomach shows luminal soft tissue density possibly relate d to exclude or secretions. Gastric antrum show some questionable wall thickening. LYMPH NODES: No significant abnormality is appreciated. OSSEOUS STRUCTURES: No significant abnormality is seen. FREE AIR: No Free Air visible ASCITES: None visible. RETROPERITONEAL ADENOPATHY: No Retroperitoneal Adenopathy visible. OTHER: Small limited dissection suspected in the descending aorta in the infrarenal location. IMPRESSION: No significant interval change. Correlate to exclude gastritis. Noncontrast exam. Additional findings above.
== END | disposition home or self-care (01) ==
LOC: RADCTMAIN 07:58
PROVIDERS: ATTEND Family Medicine
DX: R11.0 Nausea (principal); R10.9 Unspecified abdominal pain
CPT/HCPCS: 74150

== ENCOUNTER 2017-05-18 07:25 | Day surgery (SDC) | payer MEDICARE, OTHER ==
[2017-05-16 15:33] VITALS: BMI 28.8
[~2017-05-18 07:25] MED LIST: LACTATED RINGERS 1,000 ML IV SCH
[2017-05-18 08:00] VITALS: TEMP 98.3
[2017-05-18] MEDS ORDERED: PROPOFOL 10 MG/ML 20 ML VIAL IV ONE (08:26)
[2017-05-18] MEDS ORDERED: LIDOCAINE 1% INJ 10MG/ML (20 ML MDV) ONE (08:26)
[2017-05-18] MEDS ORDERED: LIDOCAINE 1% 20 ML VIAL (10MG/ML) FOR IV START INTRADERMA ONE (08:34)
--- NOTE | 2017-05-18 08:39 | P.PCN ---
Date of Procedure: 05/18/17 Procedure(s) Performed: BRIEF HISTORY: Patient is a 77-year-old, pleasant, white female, scheduled for an upper endoscopy as part of evaluation of epigastric pain associated with nausea vomiting for the last 1 year duration. She has these episodes once or twice a week and often happens in the morning and has associated cramping epigastric discomfort. She denies any heartburn. No dysphagia or odynophagia. She was diagnosed with diverticulitis about a year ago.. PROCEDURE PERFORMED: Esophagogastroduodenoscopy with biopsy. PREOPERATIVE DIAGNOSIS: Epigastric pain, nausea and vomiting of one year duration. IV sedation per anesthesia. PROCEDURE: After informed consent was obtained, the patient was brought into the endoscopy unit. IV sedation was administered by Anesthesia under continuous monitoring. Initially the Olympus GIF-140 video endoscope was inserted into the mouth. Esophagus intubated without any difficulty. It was gradually advanced into the stomach and duodenum and carefully examined. The bulb and the second part of the duodenum appeared normal. The scope at this time was withdrawn to the stomach, adequately insufflated with air, and upon careful examination, mucosa of the antrum, had a few scattered erosions and biopsies were done from this area. The body, cardia and the fundus appeared normal. The scope was then withdrawn into the esophagus. The GE junction was located at 39 cm from the incisors. The esophagus appeared normal. Biopsies were done from the distal esophagus to rule out reflux esophagitis. There were no erosions or ulcerations seen and the patient tolerated the procedure well. IMPRESSION: 1. Scattered erosions in the antrum consistent with gastritis. 2. No evidence of esophagitis or peptic ulcer disease or gastric outlet obstruction. RECOMMENDATIONS: The findings of this examination were discussed with the patient as well as a family. She was advised to follow with the biopsy results. She was advised to also use [id number] H2 blockers was.
[2017-05-18 08:48] VITALS: RESP 16
[2017-05-18 09:05] LABS: Glucose,Whole Blood 115 mg/dL (75-99)
[2017-05-18] MEDS ORDERED: hydrALAZINE HCL 20 MG/ML 1 ML VIAL IV ONE (09:19)
[2017-05-18 09:23] VITALS: PULSE 61
[2017-05-18 09:29] VITALS: BP 174/73
== END 2017-05-18 10:08 | disposition home or self-care (01) ==
LOC: ORWHC2ENDO 07:25
PROVIDERS: ATTEND Internal Medicine Gastroenterology
DX: K29.50 Unspecified chronic gastritis without bleeding (principal); K20.9 Esophagitis, unspecified; I25.10 Atherosclerotic heart disease of native coronary artery without angina pectoris; I50.9 Heart failure, unspecified; I10 Essential (primary) hypertension; E78.5 Hyperlipidemia, unspecified; Z95.5 Presence of coronary angioplasty implant and graft; E11.9 Type 2 diabetes mellitus without complications; Z86.73 Personal history of transient ischemic attack (TIA), and cerebral infarction without residual deficits; Z95.1 Presence of aortocoronary bypass graft; Z90.710 Acquired absence of both cervix and uterus; Z88.2 Allergy status to sulfonamides; Z79.02 Long term (current) use of antithrombotics/antiplatelets; Z79.899 Other long term (current) drug therapy
CPT/HCPCS: 43239; 88305; 88312; 88342; J0360; J2001; J2704

== ENCOUNTER 2017-06-19 18:48 | Inpatient (IN) | payer MEDICARE, OTHER ==
[2017-06-19] MEDS ORDERED: NITROGLYCERIN OINT 1 INCH/GM PACKET TOPICAL STA (19:01)
--- NOTE | 2017-06-19 19:18 | ED ---
SOB HPI - General Chief Complaint: Shortness of Breath Stated Complaint: KERRI Time Seen by Provider: 06/19/17 18:52 Source: patient, EMS Mode of arrival: EMS Limitations: no limitations - History of Present Illness Initial Comments: This is a 77-year-old female with a history of CHF and A. fib, and chronic anemia who presents emergency department for worsening shortness of breath over the last 3 days. The patient states that she's also noticed some swelling in her lower extremities. She intermittently uses CPAP however does not typically wear oxygen per the patient. They were having difficulty keeping the patient's oxygen saturations up on nasal cannula at the rehab facility and thus she was sent to the emergency department. Patient denies any chest pain. No dark or bloody stools. No abdominal pain. She states that she does feel short of breath. No other complaints. The patient reports that she is a Faith and does not want blood products, intubation, or CPR. - Related Data Home Medications Medication Instructions Recorded Confirmed ALPRAZolam [Xanax] 0.5 mg PO HS PRN 06/19/17 06/19/17 Acetaminophen Tab [Tylenol Tab] 650 mg PO Q4H PRN 06/19/17 06/19/17 Cholecalciferol [Vitamin D3] 1,000 unit PO DAILY 06/19/17 06/19/17 Epoetin Redd [Procrit] 4,000 unit SQ DAILY 06/19/17 06/19/17 Escitalopram [Lexapro] 20 mg PO DAILY 06/19/17 06/19/17 Ferrous Sulfate [Feosol] 325 mg PO BID 06/19/17 06/19/17 Furosemide [Lasix] 60 mg PO BID 06/19/17 06/19/17 Isosorbide Dinitrate [Isordil] 20 mg PO TID 06/19/17 06/19/17 Losartan Potassium 50 mg PO DAILY 06/19/17 06/19/17 Omeprazole 20 mg PO DAILY 06/19/17 06/19/17 Potassium Chloride [Klor-Con 20] 20 meq PO TID 06/19/17 06/19/17 Sennosides [Senna] 17.2 mg PO HS 06/19/17 06/19/17 Trimethobenzamide [Tigan] 300 mg PO Q8H PRN 06/19/17 06/19/17 amLODIPine [Norvasc] 10 mg PO DAILY 06/19/17 06/19/17 hydrALAZINE HCL [Apresoline] 100 mg PO TID 06/19/17 06/19/17 Previous Rx's Medication Instructions Recorded Apixaban [Eliquis] 5 mg PO BID #60 tab 11/10/16 Allergies Allergy/AdvReac Type Severity Reaction Status Date / Time sulfamethoxazole Allergy Dyspnea Verified 06/19/17 19:08 [From Bactrim] trimethoprim [From Bactrim] Allergy Dyspnea Verified 06/19/17 19:08 Review of Systems ROS Statement: Those systems with pertinent positive or pertinent negative responses have been documented in the HPI. ROS Other: All systems not noted in ROS Statement are negative. Past Medical History Past Medical History: Atrial Fibrillation, Coronary Artery Disease (CAD), Heart Failure, CVA/TIA, Diabetes Mellitus, Deep Vein Thrombosis (DVT), Hyperlipidemia , Hypertension, Osteoarthritis (OA) Additional Past Medical History / Comment(s): Coronary artery disease, chemical pleurodesis back in 1998 following cabg, CVA back in 2013 without any residual deficits, left lower extremity DVT in 2015, chronic diastolic heart failure, obesity, History of Any Multi-Drug Resistant Organisms: None Reported Past Surgical History: Cholecystectomy, Coronary Bypass/CABG, Heart Catheterization With Stent, Hysterectomy Additional Past Surgical History / Comment(s): ,eye sx, 6 cardiac stent placed ; CABG 1998, OVARY CYST REMOVED,colonoscopy cardioversion 1 year ago and again 12-07-16 at [facility] Past Anesthesia/Blood Transfusion Reactions: No Reported Reaction Additional Past Anesthesia/Blood Transfusion Reaction / Comment(s): Jehovahs witness no blood transfusions Date of Last Stent Placement:: 2013 Past Psychological History: No Psychological Hx Reported Smoking Status: Never smoker Past Alcohol Use History: None Reported Past Drug Use History: None Reported - Past Family History Father Additional Family Medical History / Comment(s): Father at age 89 following a hip fracture repair that became infected. He from complications of infection. Mother Additional Family Medical History / Comment(s): Mother in her 70s. She had history of stroke and had been in an extended care facility for 8 years prior to her . Sister(s) Additional Family Medical History / Comment(s): Patient has one sister that is 17 years younger than her with no major medical problems. Patient does not have any brothers. Son(s) Additional Family Medical History / Comment(s): She has 2 sons and one has heart problems. General Exam - General Exam Comments Initial Comments: Constitutional: Awake alert Appears comfortable Head: Normocephalic atraumatic Eyes: There are pale conjunctiva bilaterally no conjunctival injection No scleral icterus EOMI Neck: No JVD Supple Heart: Regular rate rhythm normal S1-S2 no murmurs Lungs: Decreased breath sounds at bilateral bases with crackling Abdomen: Soft nondistended nontender Extremities: Non edematous DP pulses intact Radial pulses intact Neuro: A&Ox3 No focal neurologic deficits Psych: Appropriate mood and affect Limitations: no limitations Course Vital Signs 06/19/17 18:50 Temperature 98.5 F Pulse Rate 75 Respiratory 20 Rate Blood Pressure 172/72 O2 Sat by Pulse 94 L Oximetry Medical Decision Making - Medical Decision Making This is a 77-year-old female presents emergency department for progressively worsening shortness of breath. The patient appears to be in congestive heart failure exacerbation. She was on a nonrebreather mask upon arrival and she is satting well on that. Oxygen was 124 on ABG. The patient has no signs of respiratory distress at this time. She was started on Nitropaste and given 40 mg of Lasix. The patient was noted to be anemic however is a Faith and does not want blood transfusion. I did speak with Dr. Ambriz who accepts the admission. The patient is [facility]. The patient does not want to be intubated however agrees to BiPAP. - Lab Data Result diagrams: 06/19/17 17:08 06/19/17 17:08 Lab Results 06/19/17 06/19/17 06/19/17 Range/Units 17:08 17:08 17:08 WBC 11.5 H (3.8-10.6) k/uL RBC 3.04 L (3.80-5.40) m/uL Hgb 7.7 L (11.4-16.0) gm/dL Hct 26.0 L (34.0-46.0) % MCV 85.7 (80.0-100.0) fL MCH 25.3 (25.0-35.0) pg MCHC 29.5 L (31.0-37.0) g/dL RDW 20.1 H (11.5-15.5) % Plt Count 274 (150-450) k/uL Neutrophils % 91 % Lymphocytes % 5 % Monocytes % 3 % Eosinophils % 1 % Basophils % 0 % Neutrophils # 10.4 H (1.3-7.7) k/uL Lymphocytes # 0.6 L (1.0-4.8) k/uL Monocytes # 0.3 (0-1.0) k/uL Eosinophils # 0.1 (0-0.7) k/uL Basophils # 0.0 (0-0.2) k/uL Hypochromasia Marked Anisocytosis Moderate Sample Site ABG pH (7.35-7.45) ABG pCO2 (35-45) mmHg ABG pO2 (83-108) mmHg ABG HCO3 (21-25) mmol/L ABG Total CO2 (19-24) mmol/L ABG O2 Saturation (94-97) % ABG Base Excess mmol/L FiO2 % Sodium 143 (137-145) mmol/L Potassium 3.3 L (3.5-5.1) mmol/L Chloride 107 (98-107) mmol/L Carbon Dioxide 23 (22-30) mmol/L Anion Gap 13 mmol/L BUN 14 (7-17) mg/dL Creatinine 1.20 H (0.52-1.04) mg/dL Est GFR (MDRD) Af Amer 53 (>60 ml/min/1.73 sqM) Est GFR (MDRD) Non-Af 44 (>60 ml/min/1.73 sqM) Glucose 141 H (74-99) mg/dL Plasma Lactic Acid Shabbir 1.1 (0.7-2.0) mmol/L Calcium 8.6 (8.4-10.2) mg/dL Magnesium 1.7 (1.6-2.3) mg/dL Total Bilirubin 0.8 (0.2-1.3) mg/dL AST 32 (14-36) U/L ALT 34 (9-52) U/L Alkaline Phosphatase 83 (38-126) U/L Total Creatine Kinase (30-135) U/L CK-MB (CK-2) (0.0-2.4) ng/mL CK-MB (CK-2) Rel Index Troponin I (0.000-0.034) ng/mL NT-Pro-B Natriuret Pep pg/mL Total Protein 6.2 L (6.3-8.2) g/dL Albumin 3.1 L (3.5-5.0) g/dL 06/19/17 06/19/17 06/19/17 Range/Units 17:08 17:08 19:41 WBC (3.8-10.6) k/uL RBC (3.80-5.40) m/uL Hgb (11.4-16.0) gm/dL Hct (34.0-46.0) % MCV (80.0-100.0) fL MCH (25.0-35.0) pg MCHC (31.0-37.0) g/dL RDW (11.5-15.5) % Plt Count (150-450) k/uL Neutrophils % % Lymphocytes % % Monocytes % % Eosinophils % % Basophils % % Neutrophils # (1.3-7.7) k/uL Lymphocytes # (1.0-4.8) k/uL Monocytes # (0-1.0) k/uL Eosinophils # (0-0.7) k/uL Basophils # (0-0.2) k/uL Hypochromasia Anisocytosis Sample Site r rad ABG pH 7.47 H (7.35-7.45) ABG pCO2 34 L (35-45) mmHg ABG pO2 124 H (83-108) mmHg ABG HCO3 24 (21-25) mmol/L ABG Total CO2 25 H (19-24) mmol/L ABG O2 Saturation 99.0 H (94-97) % ABG Base Excess 0.9 mmol/L FiO2 100 % Sodium (137-145) mmol/L Potassium (3.5-5.1) mmol/L Chloride (98-107) mmol/L Carbon Dioxide (22-30) mmol/L Anion Gap mmol/L BUN (7-17) mg/dL Creatinine (0.52-1.04) mg/dL Est GFR (MDRD) Af Amer (>60 ml/min/1.73 sqM) Est GFR (MDRD) Non-Af (>60 ml/min/1.73 sqM) Glucose (74-99) mg/dL Plasma Lactic Acid Shabbir (0.7-2.0) mmol/L Calcium (8.4-10.2) mg/dL Magnesium (1.6-2.3) mg/dL Total Bilirubin (0.2-1.3) mg/dL AST (14-36) U/L ALT (9-52) U/L Alkaline Phosphatase (38-126) U/L Total Creatine Kinase 28 L (30-135) U/L CK-MB (CK-2) 0.7 (0.0-2.4) ng/mL CK-MB (CK-2) Rel Index 2.5 Troponin I <0.012 (0.000-0.034) ng/mL NT-Pro-B Natriuret Pep 9800 pg/mL Total Protein (6.3-8.2) g/dL Albumin (3.5-5.0) g/dL Disposition Clinical Impression: CHF exacerbation Disposition: ADMITTED IP TO THIS HOSP Condition: Serious
[2017-06-19 19:20] LABS: Anisocytosis Moderate; Basophils % (A) 0 %; CH 25.3; CHCM 29.8; Eosinophils # (A) 0.1 k/uL (0-0.7); Eosinophils % (A) 1 %; HDW 2.95; HGB 7.7 gm/dL (11.4-16.0); Hypochromasia Marked; Luc # (Auto) 0.06; Luc % (Auto) 1; Lymphocytes # (A) 0.6 k/uL (1.0-4.8); Lymphocytes % (A) 5 %; MCH 25.3 pg (25.0-35.0); MCHC 29.5 g/dL (31.0-37.0); MCV 85.7 fL (80.0-100.0); Mean Platelet Volume 8.6; Monocytes # (A) 0.3 k/uL (0-1.0); Monocytes % (A) 3 %; Neutrophils # (A) 10.4 k/uL (1.3-7.7); Neutrophils % (A) 91 %; RBC 3.04 m/uL (3.80-5.40); RDW 20.1 % (11.5-15.5); WBC 11.5 k/uL (3.8-10.6); WBC (Perox) 11.54
[2017-06-19 19:37] LABS: Calcium 8.6 mg/dL (8.4-10.2); Magnesium 1.7 mg/dL (1.6-2.3); Potassium 3.3 mmol/L (3.5-5.1); Total Bilirubin 0.8 mg/dL (0.2-1.3); Total Protein 6.2 g/dL (6.3-8.2)
[2017-06-19] MEDS ORDERED: FUROSEMIDE 10 MG/ML 4 ML VIAL IV STA (19:38)
--- NOTE | 2017-06-19 19:38 | XR ---
EXAMINATION TYPE: XR chest 1V DATE OF EXAM: 06/19/2017 COMPARISON: 04/05/2017 HISTORY: Short of breath TECHNIQUE: Single frontal view of the chest is obtained. FINDINGS: There is pulmonary edema. Heart is enlarged. There is blunting of costophrenic angles. The re are chest leads. IMPRESSION: There is increasing congestive heart failure compared to last exam with more pulmonary e brendan. Right pleural effusion is increased.
[2017-06-19 19:39] LABS: Creatine Kinase 28 U/L (30-135)
[2017-06-19 19:53] LABS: Creatine Kinase MB 0.7 ng/mL (0.0-2.4); Troponin I <0.012 ng/mL (0.000-0.034)
[2017-06-19 19:58] LABS: ABG Base Excess 0.9 mmol/L; ABG HCO3 24 mmol/L (21-25); ABG PCO2 34 mmHg (35-45); ABG PH 7.47 (7.35-7.45); ABG PO2 124 mmHg (83-108); ABG TCO2 25 mmol/L (19-24)
[2017-06-19] MEDS: FUROSEMIDE 10 MG/ML 4 ML VIAL IV SCH (20:38)
[2017-06-19] MEDS ORDERED: TRIMETHOBENZAMIDE 300 MG CAP PO PRN (21:45)
[2017-06-19] MEDS ORDERED: LOSARTAN 50 MG TAB PO SCH (21:45)
[2017-06-19] MEDS ORDERED: amLODIPine 10 MG TAB PO SCH (21:45)
[2017-06-19] MEDS ORDERED: ACETAMINOPHEN TAB 325 MG TAB PO PRN (21:45)
[2017-06-19] MEDS ORDERED: DARBEPOETIN ALFA 60 MCG/0.3 ML SYRINGE SQ SCH (22:15)
[2017-06-19] MEDS ORDERED: Potassium Replacement Protocol 1 EACH MISC MISCELLANE PRN (22:17)
[2017-06-19] MEDS: APIXABAN 5 MG TAB PO SCH (22:36)
[2017-06-19] MEDS: FERROUS SULFATE 325 MG TAB PO SCH (22:36)
[2017-06-19] MEDS: ISOSORBIDE DINITRATE 20 MG TAB PO SCH (22:37)
[2017-06-19] MEDS: SENNOSIDES 8.6 MG TAB PO SCH (22:37)
[2017-06-19] MEDS: hydrALAZINE HCL 50 MG TAB PO SCH (22:37)
[2017-06-19] MEDS: POTASSIUM CHLORIDE ER 20 MEQ TAB.ER PO SCH ×2 (22:45→23:45)
[2017-06-20] MEDS: PANTOPRAZOLE 40 MG TABLET PO SCH ×2 (03:42→06:30)
[2017-06-20] MEDS: CHOLECALCIFEROL 1,000 UNIT TAB PO SCH ×2 (03:42→08:48)
[2017-06-20] MEDS: ESCITALOPRAM 20 MG TAB PO SCH ×2 (03:42→08:48)
[2017-06-20 04:04] LABS: Creatine Kinase MB 0.7 ng/mL (0.0-2.4); Troponin I <0.012 ng/mL (0.000-0.034)
[2017-06-20 05:05] LABS: Appearance,Urine Clear (Clear); Bilirubin,Urine Negative (Negative); Glucose,Urine (UA) Negative (Negative); Ketones,Urine Negative (Negative); Leukocyte Esterase,Urine Negative (Negative); Nitrite,Urine Negative (Negative); Protein,Urine Negative (Negative); Specific Gravity,Urine 1.006 (1.001-1.035); UA Billing (MACRO vs. MICRO) CHEM; Urobilinogen,Urine <2.0 mg/dL (<2.0)
[2017-06-20 06:02] LABS: Glucose,Whole Blood 140 mg/dL (75-99)
[2017-06-20] MEDS ORDERED: FUROSEMIDE 10 MG/ML 4 ML VIAL IV SCH (08:00)
[2017-06-20] MEDS ORDERED: POTASSIUM CHLORIDE ER 20 MEQ TAB.ER PO STA (08:43)
[2017-06-20] MEDS: ISOSORBIDE DINITRATE 20 MG TAB PO SCH ×3 (08:47→21:05)
[2017-06-20] MEDS: hydrALAZINE HCL 50 MG TAB PO SCH ×3 (08:48→21:04)
[2017-06-20] MEDS: APIXABAN 5 MG TAB PO SCH ×2 (08:48→21:04)
[2017-06-20] MEDS: FUROSEMIDE 10 MG/ML 4 ML VIAL IV SCH ×3 (08:49→23:23)
[2017-06-20] MEDS: FERROUS SULFATE 325 MG TAB PO SCH ×2 (08:50→21:05)
[2017-06-20 08:58] LABS: Calcium 8.9 mg/dL (8.4-10.2); Potassium 3.5 mmol/L (3.5-5.1)
[2017-06-20 09:18] LABS: Creatine Kinase MB 0.9 ng/mL (0.0-2.4); Troponin I <0.012 ng/mL (0.000-0.034)
--- NOTE | 2017-06-20 11:10 | ECHOF ---
Referral Reason:chf MEASUREMENTS -------- HEIGHT: 162.6 cm WEIGHT: 80.3 kg BP: 121/59 RVIDd: 3.7 cm (< 3.3) IVSd: 1.2 cm (0.6 - 1.1) LVIDd: 4.4 cm (3.9 - 5.3) LVPWd: 1.3 cm (0.6 - 1.1) IVSs: 1.8 cm LVIDs: 3.0 cm LVPWs: 1.5 cm LA Diam: 4.6 cm (2.7 - 3.8) LAESV Index (A-L): 38.26 ml/m Ao Diam: 3.2 cm (2.0 - 3.7) AV Cusp: 2.1 cm (1.5 - 2.6) MV EXCURSION: 17.245 mm (> 18.000) MV EF SLOPE: 161 mm/s (70 - 150) EPSS: 0.3 cm RAP: 15.00 mmHg RVSP: 57.24 mmHg FINDINGS -------- This was a technically good study. The left ventricular size is normal. There is mild concentric left ventricular hypertrophy. Overa ll left ventricular systolic function is normal with, an EF between 55 - 60 %. Mitral Doppler inflo w pattern suggests diastolic filling abnormality {E/E'}. The right ventricle is mildly enlarged. LA is moderately dilated 34-39 ml/m2 The right atrium is normal in size. There is mild aortic valve sclerosis. The mitral valve leaflets are mildly thickened. Mild mitral annular calcification present. There is trace to mild mitral regurgitation. Mild tricuspid regurgitation present. There is severe pulmonary hypertension. The right ventricul ar systolic pressure, as measured by Doppler, is 57.24mmHg. Moderate pulmonic regurgitation. The aortic root size is normal. The inferior vena cava is dilated with poor inspiratory collapse which is consistent with estimated r ight atrial pressure of 15 mmHg. There is no pericardial effusion. CONCLUSIONS -------- 1. This was a technically good study. 2. The left ventricular size is normal. 3. There is mild concentric left ventricular hypertrophy. 4. Overall left ventricular systolic function is normal with, an EF between 55 - 60 %. 5. Mitral Doppler inflow pattern suggest diastolic filling abnormality {E/E'}. 6. The right ventricle is mildly enlarged. 7. LA is moderately dilated 34-39 ml/m2 8. The right atrium is normal in size. 9. There is mild aortic valve sclerosis. 10. The mitral valve leaflets are mildly thickened. 11. Mild mitral annular calcification present. 12. There is trace to mild mitral regurgitation. 13. Mild tricuspid regurgitation present. 14. There is severe pulmonary hypertension. 15. The right ventricular systolic pressure, as measured by Doppler, is 57.24mmHg. 16. Moderate pulmonic regurgitation. 17. The aortic root size is normal. 18. The inferior vena cava is dilated with poor inspiratory collapse which is consistent with estimat ed right atrial pressure of 15 mmHg. 19. There is no pericardial effusion. CONTRACT NEGOTIATION MANAGER: Khushi Negrete RDCS
[2017-06-20] MEDS: LOSARTAN 50 MG TAB PO SCH (12:10)
[2017-06-20] MEDS: cloNIDine HCL 0.1 MG TAB PO SCH ×2 (12:11→22:08)
[2017-06-20 12:16] LABS: Glucose,Whole Blood 179 mg/dL (75-99)
--- NOTE | 2017-06-20 13:31 | XR ---
EXAMINATION TYPE: XR chest 1V DATE OF EXAM: 06/20/2017 CLINICAL HISTORY: Difficulty breathing progress study. TECHNIQUE: Single AP portable upright view of the chest is obtained. COMPARISON: Chest x-ray from one day earlier and older studies. FINDINGS: Post-CABG changes with mediastinal clips and sternal wires is redemonstrated. There is per sisting cardiomegaly with moderate central vascular congestion and central alveolar edema with small bilateral pleural effusions. No pneumothorax is seen bilaterally. Osseous structures are demineralize d. Overlying EKG wires are present. IMPRESSION: Persistent CHF exacerbation, not significant change from prior study as there is cardiome alee with small bilateral pleural effusions, moderate central vascular congestion and bilateral perih ilar edema all redemonstrated.
--- NOTE | 2017-06-20 16:19 | P.CNPUL ---
History of Present Illness Consult date: 06/20/17 Requesting physician: Estefany Schaeffer Reason for consult: dyspnea, hypoxemia, abnormal CXR/CT Chief complaint: Shortness of breath, hypoxemia History of present illness: Jany is a 77-year-old white female patient that sees Dr. 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 Patient is from a rehab facility, and the staff noted desaturation and low oxygenation. Patient denies any chest pain, fever, chills, increased chest congestion, or wheezing. Past medical history includes coronary artery disease with history of coronary artery bypass grafting, congestive heart failure, recurrent pleural effusions requiring chemical pleurodesis, heart catheterization with stents, hyperlipidemia, DVT, chronic anemia and osteoarthritis. She does use CPAP machine for obstructive sleep apnea syndrome , but usually does not require any oxygen. Chest x-ray from 06/19/2017 shows pulmonary edema, cardiomegaly, blunting of costophrenic angles consistent with pleural effusions. EKG showed sinus rhythm with occasional PVCs, with a rate of 71 BPM. Patient was initiated on IV Lasix 40 mg daily, and was later increased to 40 mg IV push 3 times a day per cardiology. She is anticoagulated with Apixaban for her history of A. fib and history of DVT. She is on Aranesp for her history of chronic anemia. Opponens were negative 3, no proBNP was done this admission. Patient's stated she had an 8 pound weight gain in the last week. Today we work on salted in regards to patient's hypoxemia and increased shortness of breath. On evaluation patient was seen on 100% nonrebreather, comfortable at rest, however she complained about low activity tolerance, and being short of breath with any exertion even get up out of bed. Lung sounds are positive for scattered crackles over bilateral lower lobes and posterior right middle lobe. No wheezes, no rhonchi were appreciated. She remains in the normal sinus rhythm. 2-D echocardiogram results were reviewed and showed left ventricular systolic function to be normal with an EF between 55 and 60%. There is evidence of severe pulmonary hypertension with right ventricular systolic pressure at 57 mmHg. Patient's Lasix was already increased to 3 times a day per cardiology, patient is a -1800 fluid balance. Repeat chest x-ray was ordered and reviewed by Dr. Jiménez and shows persistent CHF exacerbation with small bilateral pleural effusions, moderate central vascular congestion and bilateral perihilar edema. Patient was placed in BiPAP ventilatory support with settings of 12 and 5, 100%. She is tolerating the BiPAP support very well, states she is comfortable on it. Respirations are even and nonlabored. We gave her her 1600 dose of Lasix early add 1400. At this point decision was made to continue monitoring the patient on selective care unit, continue weaning FiO2 to keep O2 sat at 92%. She is very comfortable on the BiPAP support, continue diuresis, repeat chest x-ray in the morning. Patient is agreeable with the plan, and so is her . Patient is currently a DO NOT RESUSCITATE status. Review of Systems All systems: negative Constitutional: Denies chills, Denies fever Eyes: denies blurred vision, denies pain Ears, nose, mouth and throat: Denies headache, Denies sore throat Cardiovascular: Denies chest pain, Denies shortness of breath Respiratory: Denies cough Gastrointestinal: Denies abdominal pain, Denies diarrhea, Denies nausea, Denies vomiting Genitourinary: Denies dysuria, Denies hematuria Musculoskeletal: Denies myalgias Integumentary: Denies pruritus, Denies rash Neurological: Denies numbness, Denies weakness Psychiatric: Denies anxiety, Denies depression Endocrine: Denies fatigue, Denies weight change Past Medical History Past Medical History: Atrial Fibrillation, Coronary Artery Disease (CAD), Heart Failure, COPD, CVA/TIA, Diabetes Mellitus, Deep Vein Thrombosis (DVT), Hyperlipidemia, Hypertension, Osteoarthritis (OA), Sleep Apnea/CPAP/BIPAP Additional Past Medical History / Comment(s): Coronary artery disease, chemical pleurodesis back in 1998 following cabg, CVA back in 2013 without any residual deficits, left lower extremity DVT in 2016, chronic diastolic heart failure, obesity,cpap at [facility], uti's, wears a brief, iron deficiency anemia"has recieved iron infusions". History of Any Multi-Drug Resistant Organisms: None Reported Past Surgical History: Cholecystectomy, Coronary Bypass/CABG, Heart Catheterization With Stent, Hysterectomy Additional Past Surgical History / Comment(s): eye sx, 6 cardiac stent placed; quad CABG 1998, OVARY CYST REMOVED,colonoscopy cardioversion 1 year ago and again 12-07-16 at [facility], egd w/ bx -neg Past Anesthesia/Blood Transfusion Reactions: No Reported Reaction Additional Past Anesthesia/Blood Transfusion Reaction / Comment(s): Jehovahs witness no blood transfusions Date of Last Stent Placement:: 2013 Smoking Status: Never smoker - Past Family History Father Additional Family Medical History / Comment(s): Father at age 89 following a hip fracture repair that became infected. He from complications of infection. Mother Additional Family Medical History / Comment(s): Mother in her 70s. She had history of stroke and had been in an extended care facility for 8 years prior to her . Sister(s) Additional Family Medical History / Comment(s): Patient has one sister that is 17 years younger than her with no major medical problems. Patient does not have any brothers. Son(s) Additional Family Medical History / Comment(s): She has 2 sons and one has heart problems. Medications and Allergies Home Medications Medication Instructions Recorded Confirmed Type Apixaban [Eliquis] 5 mg PO BID #60 tab 11/10/16 06/19/17 Rx ALPRAZolam [Xanax] 0.5 mg PO HS PRN 06/19/17 06/19/17 History Acetaminophen Tab [Tylenol Tab] 650 mg PO Q4H PRN 06/19/17 06/19/17 History Cholecalciferol [Vitamin D3] 1,000 unit PO DAILY 06/19/17 06/19/17 History Epoetin Redd [Procrit] 4,000 unit SQ DAILY 06/19/17 06/19/17 History Escitalopram [Lexapro] 20 mg PO DAILY 06/19/17 06/19/17 History Ferrous Sulfate [Feosol] 325 mg PO BID 06/19/17 06/19/17 History Furosemide [Lasix] 60 mg PO BID 06/19/17 06/19/17 History Isosorbide Dinitrate [Isordil] 20 mg PO TID 06/19/17 06/19/17 History Losartan Potassium 50 mg PO DAILY 06/19/17 06/19/17 History Omeprazole 20 mg PO DAILY 06/19/17 06/19/17 History Potassium Chloride [Klor-Con 20] 20 meq PO TID 06/19/17 06/19/17 History Sennosides [Senna] 17.2 mg PO HS 06/19/17 06/19/17 History Trimethobenzamide [Tigan] 300 mg PO Q8H PRN 06/19/17 06/19/17 History amLODIPine [Norvasc] 10 mg PO DAILY 06/19/17 06/19/17 History hydrALAZINE HCL [Apresoline] 100 mg PO TID 06/19/17 06/19/17 History Allergies Allergy/AdvReac Type Severity Reaction Status Date / Time sulfamethoxazole Allergy Dyspnea Verified 06/19/17 19:08 [From Bactrim] trimethoprim [From Bactrim] Allergy Dyspnea Verified 06/19/17 19:08 Physical Exam Vitals: Vital Signs Temp Pulse Pulse Resp BP BP Pulse Ox 06/20/17 12:40 32 H 91 L 06/20/17 11:45 97.4 F L 71 24 153/67 96 06/20/17 08:40 97.8 F 71 24 121/59 93 L 06/20/17 04:00 98.5 F 64 22 170/78 98 06/20/17 00:00 97.9 F 65 22 172/75 95 06/19/17 22:04 99.2 F 75 22 168/74 96 06/19/17 20:42 77 20 165/73 94 L 06/19/17 20:38 98.0 F 80 20 146/70 94 L 06/19/17 18:50 98.5 F 75 20 172/72 94 L Intake and Output 06/20/17 06/20/17 06/20/17 06:59 14:59 22:59 Intake Total 60 Output Total 1800 825 Balance -1800 -765 Intake: Oral 60 Output: Urine 1800 825 Uretheral (Brooks) 800 300 Other: Voiding Method Indwelling Catheter Indwelling Catheter Weight 80.5 kg 80.5 kg Patient Weight 06/21/17 06:59 Weight 80.5 kg GENERAL EXAM: Alert, active, comfortable in no apparent distress. HEAD: Normocephalic/atraumatic. EYES: Normal reaction of pupils, equal size. Conjunctiva pink, sclera white. NOSE: Clear with pink turbinates. THROAT: No erythema or exudates. NECK: No masses, no JVD, no thyroid enlargement, no adenopathy. CHEST: No chest wall deformity. Symmetrical expansion. LUNGS: Equal air entry, fine respiratory crackles noted bilaterally, over bilateral lower lung lobes anteriorly and posteriorly. No rhonchi, no wheezes. CVS: Regular rate and rhythm, normal S1 and S2, no gallops, no murmurs, no rubs ABDOMEN: Soft, nontender. No hepatosplenomegaly, normal bowel sounds, no guarding or rigidity. EXTREMITIES: No clubbing, no edema, no cyanosis, 2+ pulses and upper and lower extremities. MUSCULOSKELETAL: Muscle strength and tone normal. SPINE: No scoliosis or deformity SKIN: No rashes CENTRAL NERVOUS SYSTEM: Alert and oriented -3. No focal deficits, tone is normal in all 4 extremities. PSYCHIATRIC: Alert and oriented -3. Appropriate affect. Intact judgment and insight. Results - Laboratory Findings CBC and BMP: 06/19/17 17:08 06/20/17 08:19 ABG ABG pH 7.47 (7.35-7.45) H 06/19/17 19:41 ABG pCO2 34 mmHg (35-45) L 06/19/17 19:41 ABG pO2 124 mmHg (83-108) H 06/19/17 19:41 ABG O2 Saturation 99.0 % (94-97) H 06/19/17 19:41 Abnormal lab findings: Abnormal Labs 06/19/17 06/19/17 06/19/17 17:08 17:08 17:08 WBC 11.5 H RBC 3.04 L Hgb 7.7 L Hct 26.0 L MCHC 29.5 L RDW 20.1 H Neutrophils # 10.4 H Lymphocytes # 0.6 L ABG pH ABG pCO2 ABG pO2 ABG Total CO2 ABG O2 Saturation Sodium Potassium 3.3 L Chloride Creatinine 1.20 H Glucose 141 H POC Glucose (mg/dL) Total Creatine Kinase 28 L Total Protein 6.2 L Albumin 3.1 L 06/19/17 06/20/17 06/20/17 19:41 06:01 08:19 WBC RBC Hgb Hct MCHC RDW Neutrophils # Lymphocytes # ABG pH 7.47 H ABG pCO2 34 L ABG pO2 124 H ABG Total CO2 25 H ABG O2 Saturation 99.0 H Sodium 146 H Potassium Chloride 110 H Creatinine 1.25 H Glucose 125 H POC Glucose (mg/dL) 140 H Total Creatine Kinase Total Protein Albumin 06/20/17 12:05 WBC RBC Hgb Hct MCHC RDW Neutrophils # Lymphocytes # ABG pH ABG pCO2 ABG pO2 ABG Total CO2 ABG O2 Saturation Sodium Potassium Chloride Creatinine Glucose POC Glucose (mg/dL) 179 H Total Creatine Kinase Total Protein Albumin - Diagnostic Findings Chest x-ray: report reviewed Assessment and Plan Plan: Assessment: #1. Acute hypoxic respiratory failure secondary to acute diastolic heart failure, EF is 55-60 on the echo from 06/20/2017. #2. Pulmonary hypertension, right ventricular systolic pressure of 57 mmHg on the echo from 06/20/2017 #3. Coronary artery disease, with history of CABG and stenting #4. History of obstructive sleep apnea, on home CPAP with a pressure of 10 cm of water #5. History of paroxysmal A. fib, currently in sinus rhythm, on Eliquis, prior history of cardioversion #6. History of CVA/TIA graft #7. Diabetes mellitus #8. Hyperlipidemia #9. Hypertension #10. Osteoarthritis #11. History of deep vein thrombosis #12. 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 #13. History of chronic anemia, no evidence of GI blood loss. On Aranes. EGD from 05/18/[address] Pena showed scattered erosions in the antrum consistent with gastritis, no esophagitis or peptic ulcer disease noted #14. Status DO NOT RESUSCITATE Plan: Repeat chest x-ray was obtained and reviewed by Dr. Jiménez, and shows pulmonary edema, blunting of the costophrenic angles consistent with bilateral pleural effusions, cardiomegaly and changes consistent with CHF. Patient's Lasix dose has already been increased per cardiology, patient is maintaining negative fluid balance. She was placed on BiPAP ventilatory support with a pressure of 12/5, with FiO2 100% to wean to maintain O2 sat at 92 will better. She is tolerating the positive pressure ventilation very well, states she is very comfortable and less dyspneic. Continue with diuresis, obtain repeat chest x- ray in the morning. Patient can remain on selective care floor provided she is tolerating the BiPAP support well and is not deteriorating. This was discussed with the patient and the family, who are agreeable to the plan. Patient does not want intubation or heroic measures at this time. Continue with supportive care. I performed a history & physical examination of the patient and discussed their management with my nurse practitioner, Debbie Brewer. I reviewed the nurse practitioner's note and agree with the documented findings and plan of care. Lung sounds are positive for scattered crackles. The findings and the impression was discussed with the patient. I attest to the documentation by the nurse practitioner. Time with Patient: Greater than 30
--- NOTE | 2017-06-20 16:42 | P.HPIM ---
History of Present Illness H&P Date: 06/20/17 Chief Complaint: Shortness of breath This is a 76-year-old female patient of Dr. Leal'stephie with a past history of coronary artery disease with prior 4 vessel CABG in 1998 and subsequent stenting of the mid RCA and OM and 2013 and 2 subsequent stent placements following that, hypertension, diabetes mellitus type 2, hyperlipidemia, obstructive sleep apnea, paroxysmal atrial fibrillation status post cardioversion 1 year ago on chronic Coumadin. Patient presented to [facility] emergency center on November 08 due to shortness of breath with cough for 3-4 days. She states the symptoms are worsening and that her ribs hurt due to coughing so much. She denies any lower extremity edema. Patient recently stopped taking her Coumadin because she didn't feel well when she took it and only feels cold. She complains of weakness when she walks. CTA of the chest showed no evidence of pulmonary embolism. Loculated bilateral pleural effusions are increased compared to January 2016. Pleural calcification on the right side and lesser extent on the left. Mild mediastinal adenopathy, cardiomegaly. Possibility of mesothelioma should be considered. Patient was seen by Dr. Ward and this was thought to be due to previous chemical pleurodesis following her CABG. Patient has been evaluated by cardiology and started on eliquis with plan to continue Plavix as well. Echocardiogram reveals moderate mitral regurgitation, moderate tricuspid regurgitation, mild pulmonary hypertension, moderate concentric left ventricular hypertrophy, EF 45- 50%. Vision was discharged home on November 10. She presented back to [facility] emergency center on November 13 with complaints of cough that been going on for 2-3 weeks and shortness of breath with exertion. She denies any lower extremity edema but does feel distended in the abdomen with occasional pain and a full feeling in her belly. Her last colonoscopy was 6-7 years ago. She also states she has a cold occasional coughing when she eats. She denies any constipation. She denies any history of asthma or ALLERGIES. She does not use home oxygen. There are no pets in the home and no mold that she knows of. Chest x-ray correlate for continued heart failure with pulmonary vascular congestion. Trace left pleural effusion and likely pseudotumor at the right mid lung representing trapped fluid within the minor fissure. He was seen in consultation by Dr. Staples and cardiology. She was treated for acute diastolic heart failure and was discharged home on 11/15/2016. Patient then followed up with her consulting property manager at [facility], Dr. Katty Ramirez and she has scheduled procedures on December 18 for heart catheterization and on January 01 for ablation. She does plan to follow-up with Dr. Ramirez when she discharges from the hospital, then came to [facility] with shortness of breath worsening with activitywith increased edema but no chest pain. ProBNP was 7070. She was discharged after a few days of IV diuretics. Patient is here this time with 3 weeks history of worsening shortness of breath on exertion and at rest.. Patient states she is not at her baseline since December but for the past few weeks it has been difficult for her to breathe associated with cough production with whitish phlegm. She denies any chest pain or palpitations. On my evaluation, patient was on high flow on 13 L of oxygen with a heart rate of 90 using her accessory muscles. Patient patient had received IV Lasix 40 mg and is currently scheduled to get 40 IV every 8 hours. Patient has been taking her medications regularly, endorses 8 pound weight gain in the last 1 week. She currently resides at [facility] and saw Dr. Leal last week. Patient does use CPAP machine for obstructive sleep apnea but does not require any oxygen at home. Chest x-ray done on 06/19 show pulmonary edema, cardiomegaly, blunting of costophrenic angle consistent with pleural effusion. EKG suggested sinus rhythm with occasional PVC with heartrate 71. Troponin negative 3 Labs including CBC suggested anemia with drop in hemoglobin from 10.7-7.8. Patient has had workup for blood loss anemia from intestine with negative Hemoccult in the past Reticulocyte count is 2.8. 2-D echo suggested left ventricle systolic function is normal with EF of 50-60% with evidence of severe pulmonary hypertension.. Due to increased distress patient was placed on BiPAP, pulmonary and cardiology was consulted for further recommendation. Review of Systems Constitutional: Denies chills, Denies fever, Denies lethargy, Denies malaise, Denies poor appetite, Denies weakness, Denies weight loss Eyes: denies decreased vision, denies diplopia, denies discharge, denies pain Ears: deny: decreased hearing Ears, nose, mouth and throat: Denies dental pain, Denies headache, Denies nasal discharge, Denies nose pain Cardiovascular: Denies chest pain, Denies decreased exercise tolerance, Denies edema, Denies high blood pressure, Denies irregular heart beat, Denies palpitations, Denies paroxysmal nocturnal dyspnea, Denies rapid heart beat, Denies shortness of breath Respiratory: Endorses endorses cough, endorses cough with sputum,, Denies home oxygen, Denies wheezing Gastrointestinal: Denies abdominal pain, Denies change in bowel habits, Denies coffee ground emesis, Denies early satiety, Denies excessive gas, Denies heartburn, Denies hematemesis, Denies hematochezia, Denies loss of appetite, endorses nausea Genitourinary: Denies dysuria, Denies flank pain, Denies kidney stones, Denies menorrhagia, Denies urgency, Denies urinary frequency Musculoskeletal: Denies gait dysfunction, Denies limitation of motion, Denies morning stiffness, Denies muscle cramps Integumentary: Denies rash, Denies wounds, Denies brittle nails, Denies change in hair/nails, Denies darkening of skin Neurological: Denies balance difficulties, Denies change in speech, Denies double vision, Denies gait dysfunction, Denies loss of vision, Denies motor disturbance, Denies numbness, Denies paralysis, Denies paresthesias, Denies seizures Psychiatric: Denies anxiety, Denies depression Endocrine: Denies excessive sweating, Denies excessive thirst, Denies high blood sugars, Denies palpitations Hematologic/Lymphatic: Denies easy bruising, Denies lymphadenopathy Past Medical History Past Medical History: Atrial Fibrillation, Coronary Artery Disease (CAD), Heart Failure, COPD, CVA/TIA, Diabetes Mellitus, Deep Vein Thrombosis (DVT), Hyperlipidemia, Hypertension, Osteoarthritis (OA), Sleep Apnea/CPAP/BIPAP Additional Past Medical History / Comment(s): Coronary artery disease, chemical pleurodesis back in 1998 following cabg, CVA back in 2013 without any residual deficits, left lower extremity DVT in 2016, chronic diastolic heart failure, obesity,cpap at hs, uti's, wears a brief, iron deficiency anemia"has recieved iron infusions". History of Any Multi-Drug Resistant Organisms: None Reported Past Surgical History: Cholecystectomy, Coronary Bypass/CABG, Heart Catheterization With Stent, Hysterectomy Additional Past Surgical History / Comment(s): eye sx, 6 cardiac stent placed; quad CABG 1998, OVARY CYST REMOVED,colonoscopy cardioversion 1 year ago and again 12-07-16 at [facility], egd w/ bx -neg Past Anesthesia/Blood Transfusion Reactions: No Reported Reaction Additional Past Anesthesia/Blood Transfusion Reaction / Comment(s): Jehovahs witness no blood transfusions Date of Last Stent Placement:: 2013 Smoking Status: Never smoker - Past Family History Father Additional Family Medical History / Comment(s): Father at age 89 following a hip fracture repair that became infected. He from complications of infection. Mother Additional Family Medical History / Comment(s): Mother in her 70s. She had history of stroke and had been in an extended care facility for 8 years prior to her . Sister(s) Additional Family Medical History / Comment(s): Patient has one sister that is 17 years younger than her with no major medical problems. Patient does not have any brothers. Son(s) Additional Family Medical History / Comment(s): She has 2 sons and one has heart problems. Medications and Allergies Home Medications Medication Instructions Recorded Confirmed Type Apixaban [Eliquis] 5 mg PO BID #60 tab 11/10/16 06/19/17 Rx ALPRAZolam [Xanax] 0.5 mg PO HS PRN 06/19/17 06/19/17 History Acetaminophen Tab [Tylenol Tab] 650 mg PO Q4H PRN 06/19/17 06/19/17 History Cholecalciferol [Vitamin D3] 1,000 unit PO DAILY 06/19/17 06/19/17 History Epoetin Redd [Procrit] 4,000 unit SQ DAILY 06/19/17 06/19/17 History Escitalopram [Lexapro] 20 mg PO DAILY 06/19/17 06/19/17 History Ferrous Sulfate [Feosol] 325 mg PO BID 06/19/17 06/19/17 History Furosemide [Lasix] 60 mg PO BID 06/19/17 06/19/17 History Isosorbide Dinitrate [Isordil] 20 mg PO TID 06/19/17 06/19/17 History Losartan Potassium 50 mg PO DAILY 06/19/17 06/19/17 History Omeprazole 20 mg PO DAILY 06/19/17 06/19/17 History Potassium Chloride [Klor-Con 20] 20 meq PO TID 06/19/17 06/19/17 History Sennosides [Senna] 17.2 mg PO HS 06/19/17 06/19/17 History Trimethobenzamide [Tigan] 300 mg PO Q8H PRN 06/19/17 06/19/17 History amLODIPine [Norvasc] 10 mg PO DAILY 06/19/17 06/19/17 History hydrALAZINE HCL [Apresoline] 100 mg PO TID 06/19/17 06/19/17 History Allergies Allergy/AdvReac Type Severity Reaction Status Date / Time sulfamethoxazole Allergy Dyspnea Verified 06/19/17 19:08 [From Bactrim] trimethoprim [From Bactrim] Allergy Dyspnea Verified 06/19/17 19:08 Physical Exam Vitals: Vital Signs Temp Pulse Pulse Resp BP BP Pulse Ox 06/20/17 11:45 97.4 F L 71 16 153/67 96 06/20/17 08:40 97.8 F 71 24 121/59 93 L 06/20/17 04:00 98.5 F 64 22 170/78 98 06/20/17 00:00 97.9 F 65 22 172/75 95 06/19/17 22:04 99.2 F 75 22 168/74 96 06/19/17 20:42 77 20 165/73 94 L 06/19/17 20:38 98.0 F 80 20 146/70 94 L 06/19/17 18:50 98.5 F 75 20 172/72 94 L Intake and Output 06/19/17 06/20/17 06/20/17 22:59 06:59 14:59 Output Total 1800 300 Balance -1800 -300 Output: Urine 1800 300 Uretheral (Brooks) 800 300 Other: Voiding Method Indwelling Catheter Indwelling Catheter Weight 80.286 kg 80.5 kg 80.5 kg Patient Weight 06/21/17 06:59 Weight 80.5 kg - Constitutional General appearance: cooperative, moderate acute distress - EENT Eyes: anicteric sclerae, PERRLA, normal appearance ENT: hearing grossly normal - Neck Neck: no lymphadenopathy, normal ROM, no other, no rigidity, no stridor, no thyromegaly. Found to be using his S3 muscles - Respiratory Respiratory: bilateral: Diminished with increased crackles bilaterally - Cardiovascular Rhythm: regular Heart sounds: normal: S1, S2 Abnormal Heart Sounds: no systolic murmur, no diastolic murmur, no rub, no S3 Gallop, no S4 Gallop, no click, no other, significant edema lower extremities up to the knees - Gastrointestinal General gastrointestinal: normal bowel sounds, soft - Integumentary Integumentary: no rash - Neurologic Neurologic: CNII-XII intact - Musculoskeletal Musculoskeletal: gait normal, strength equal bilaterally - Psychiatric Psychiatric: A&O x's 3, appropriate affect Results CBC & Chem 7: 06/19/17 17:08 06/20/17 08:19 Labs: Abnormal Lab Results - Last 24 Hours (Table) 06/19/17 06/19/17 06/19/17 Range/Units 17:08 17:08 17:08 WBC 11.5 H (3.8-10.6) k/uL RBC 3.04 L (3.80-5.40) m/uL Hgb 7.7 L (11.4-16.0) gm/dL Hct 26.0 L (34.0-46.0) % MCHC 29.5 L (31.0-37.0) g/dL RDW 20.1 H (11.5-15.5) % Neutrophils # 10.4 H (1.3-7.7) k/uL Lymphocytes # 0.6 L (1.0-4.8) k/uL ABG pH (7.35-7.45) ABG pCO2 (35-45) mmHg ABG pO2 (83-108) mmHg ABG Total CO2 (19-24) mmol/L ABG O2 Saturation (94-97) % Sodium (137-145) mmol/L Potassium 3.3 L (3.5-5.1) mmol/L Chloride (98-107) mmol/L Creatinine 1.20 H (0.52-1.04) mg/dL Glucose 141 H (74-99) mg/dL POC Glucose (mg/dL) (75-99) mg/dL Total Creatine Kinase 28 L (30-135) U/L Total Protein 6.2 L (6.3-8.2) g/dL Albumin 3.1 L (3.5-5.0) g/dL 06/19/17 06/20/17 06/20/17 Range/Units 19:41 06:01 08:19 WBC (3.8-10.6) k/uL RBC (3.80-5.40) m/uL Hgb (11.4-16.0) gm/dL Hct (34.0-46.0) % MCHC (31.0-37.0) g/dL RDW (11.5-15.5) % Neutrophils # (1.3-7.7) k/uL Lymphocytes # (1.0-4.8) k/uL ABG pH 7.47 H (7.35-7.45) ABG pCO2 34 L (35-45) mmHg ABG pO2 124 H (83-108) mmHg ABG Total CO2 25 H (19-24) mmol/L ABG O2 Saturation 99.0 H (94-97) % Sodium 146 H (137-145) mmol/L Potassium (3.5-5.1) mmol/L Chloride 110 H (98-107) mmol/L Creatinine 1.25 H (0.52-1.04) mg/dL Glucose 125 H (74-99) mg/dL POC Glucose (mg/dL) 140 H (75-99) mg/dL Total Creatine Kinase (30-135) U/L Total Protein (6.3-8.2) g/dL Albumin (3.5-5.0) g/dL 06/20/17 Range/Units 12:05 WBC (3.8-10.6) k/uL RBC (3.80-5.40) m/uL Hgb (11.4-16.0) gm/dL Hct (34.0-46.0) % MCHC (31.0-37.0) g/dL RDW (11.5-15.5) % Neutrophils # (1.3-7.7) k/uL Lymphocytes # (1.0-4.8) k/uL ABG pH (7.35-7.45) ABG pCO2 (35-45) mmHg ABG pO2 (83-108) mmHg ABG Total CO2 (19-24) mmol/L ABG O2 Saturation (94-97) % Sodium (137-145) mmol/L Potassium (3.5-5.1) mmol/L Chloride (98-107) mmol/L Creatinine (0.52-1.04) mg/dL Glucose (74-99) mg/dL POC Glucose (mg/dL) 179 H (75-99) mg/dL Total Creatine Kinase (30-135) U/L Total Protein (6.3-8.2) g/dL Albumin (3.5-5.0) g/dL Thrombosis Risk Factor Assmnt - DVT/VTE Prophylaxis DVT/VTE Prophylaxis: Pharmacologic Prophylaxis ordered - Choose All That Apply Any of the Below Risk Factors Present?: Yes Each Factor Represents 1 point: Abnormal pulmonary function (COPD), Heart failure (<1month), Obesity (BMI >25), Swollen legs (current) Other Risk Factors: Yes Each Risk Factor Represents 3 Points: Age 75 years or older Other congenital or acquired thrombophilia - If yes, enter type in comment: No Thrombosis Risk Factor Assessment Total Risk Factor Score: 7 Thrombosis Risk Factor Assessment Level: High Risk Assessment and Plan Plan: 1. Acute on chronic diastolic heart failure. Cardiology consult appreciated. Continue IV Lasix and IV every 8 Echocardiogram suggested severe pulmonary hypertension with 55-60% ejection fraction . I&O and daily weights. Monitor electrolytes and kidney function. 2. Bilateral pleural effusions with possible mesothelioma thought to be due to previous pleurodesis done after her CABG. Patient has been seen by Dr. Ward and Dr. Staples on previous admissions. 3. Persistant atrial fibrillation currently rate controlled status post reversion. Cardiology consult appreciated. Continue eliquis at low-dose 2.5 mg twice a day. Continue Lopressor 75 mg 3 times daily. 4. CAD. Continue Imdur 20 mg 3 times a day, aspirin stopped as patient is on IS 5. Diabetes mellitus type 2. Continue Humalog scale before meals and at bedtime. Her A1c is 6.4. 6. Hypertensive cardiovascular disease. Continue Imdur, metoprolol and Lasix. 7. History of obstructive sleep apnea. 8. Hyperlipidemia continue Lipitor 20mg. 9. History of CVA, stable 10. Normocytic anemia, unclear if patient underwent endoscopy in the past, continue Aranesp every 7 days. hb 7.7 decreased from last blood work, f/up CBC 11. History of DVT. 12. Osteoarthritis, generalized. 13. DVT prophylaxis. Patient on eliquis 14. Gastrointestinal prophylaxis. Continue Protonix. Patient will be admitted to the hospital for a minimum of 2 night stay. Discharge plan: return to [facility]
[2017-06-20 16:47] LABS: Glucose,Whole Blood 143 mg/dL (75-99)
[2017-06-20 21:03] LABS: Glucose,Whole Blood 131 mg/dL (75-99)
[2017-06-20] MEDS: SENNOSIDES 8.6 MG TAB PO SCH (21:04)
[2017-06-21 05:59] LABS: Glucose,Whole Blood 136 mg/dL (75-99)
[2017-06-21 06:25] LABS: Anisocytosis Slight; Basophils % (A) 0 %; CH 25.4; CHCM 28.7; Eosinophils # (A) 0.2 k/uL (0-0.7); Eosinophils % (A) 3 %; HCT 25.2 % (34.0-46.0); HGB 7.1 gm/dL (11.4-16.0); Hypochromasia Marked; Luc # (Auto) 0.08; Luc % (Auto) 1; Lymphocytes # (A) 0.7 k/uL (1.0-4.8); Lymphocytes % (A) 12 %; MCH 25.1 pg (25.0-35.0); MCHC 28.2 g/dL (31.0-37.0); MCV 89.1 fL (80.0-100.0); Mean Platelet Volume 8.4; Monocytes # (A) 0.3 k/uL (0-1.0); Monocytes % (A) 6 %; Neutrophils # (A) 4.5 k/uL (1.3-7.7); Neutrophils % (A) 78 %; RBC 2.83 m/uL (3.80-5.40); RDW 18.2 % (11.5-15.5); WBC 5.8 k/uL (3.8-10.6); WBC (Perox) 6.09
[2017-06-21] MEDS: PANTOPRAZOLE 40 MG TABLET PO SCH (06:39)
[2017-06-21 06:45] LABS: Calcium 8.6 mg/dL (8.4-10.2); Potassium 3.1 mmol/L (3.5-5.1); Total Bilirubin 0.5 mg/dL (0.2-1.3); Total Protein 5.8 g/dL (6.3-8.2)
--- NOTE | 2017-06-21 08:40 | XR ---
EXAMINATION TYPE: XR chest 1V portable DATE OF EXAM: 06/21/2017 COMPARISON: 06/20/2017 HISTORY: Shortness of breath. TECHNIQUE: Single frontal view of the chest is obtained. FINDINGS: There is improved aeration of the lungs in comparison to the prior exam with persistent pu lmonary vascular congestion and interstitial edema. Alveolar opacities have resolved. Post CABG howell es again appreciated. Heart is again enlarged. Multilevel degenerative changes of the thoracic spine and acromio clavicular joints are noted. IMPRESSION: Improving ingestive heart failure with resolved alveolar edema but persistent interstiti al edema and pulmonary vascular congestion.
[2017-06-21] MEDS: CHOLECALCIFEROL 1,000 UNIT TAB PO SCH (10:19)
[2017-06-21] MEDS: ISOSORBIDE DINITRATE 20 MG TAB PO SCH ×3 (10:19→20:11)
[2017-06-21] MEDS: ESCITALOPRAM 20 MG TAB PO SCH (10:19)
[2017-06-21] MEDS: cloNIDine HCL 0.1 MG TAB PO SCH ×2 (10:19→20:12)
[2017-06-21] MEDS: FERROUS SULFATE 325 MG TAB PO SCH ×2 (10:19→20:11)
[2017-06-21] MEDS: POTASSIUM CHLORIDE ER 20 MEQ TAB.ER PO SCH ×3 (10:19→15:33)
[2017-06-21] MEDS: hydrALAZINE HCL 50 MG TAB PO SCH ×3 (10:19→20:11)
[2017-06-21] MEDS: LOSARTAN 50 MG TAB PO SCH (10:20)
[2017-06-21 12:10] LABS: Glucose,Whole Blood 172 mg/dL (75-99)
[2017-06-21 12:38] LABS: Reticulocyte % 2.9 % (0.5-2.0)
--- NOTE | 2017-06-21 12:45 | P.PN ---
Subjective Progress Note Date: 06/21/17 Principal diagnosis: Acute hypoxic respiratory failure secondary to acute diastolic heart failure, with pulmonary edema Jany is a 77-year-old white female patient that sees Dr. 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 Patient is from a rehab facility, and the staff noted desaturation and low oxygenation. Patient denies any chest pain, fever, chills, increased chest congestion, or wheezing. Past medical history includes coronary artery disease with history of coronary artery bypass grafting, congestive heart failure, recurrent pleural effusions requiring chemical pleurodesis, heart catheterization with stents, hyperlipidemia, DVT, chronic anemia and osteoarthritis. She does use CPAP machine for obstructive sleep apnea syndrome , but usually does not require any oxygen. Chest x-ray from 06/19/2017 shows pulmonary edema, cardiomegaly, blunting of costophrenic angles consistent with pleural effusions. EKG showed sinus rhythm with occasional PVCs, with a rate of 71 BPM. Patient was initiated on IV Lasix 40 mg daily, and was later increased to 40 mg IV push 3 times a day per cardiology. She is anticoagulated with Apixaban for her history of A. fib and history of DVT. She is on Aranesp for her history of chronic anemia. Opponens were negative 3, no proBNP was done this admission. Patient's stated she had an 8 pound weight gain in the last week. Today we work on salted in regards to patient's hypoxemia and increased shortness of breath. On evaluation patient was seen on 100% nonrebreather, comfortable at rest, however she complained about low activity tolerance, and being short of breath with any exertion even get up out of bed. Lung sounds are positive for scattered crackles over bilateral lower lobes and posterior right middle lobe. No wheezes, no rhonchi were appreciated. She remains in the normal sinus rhythm. 2-D echocardiogram results were reviewed and showed left ventricular systolic function to be normal with an EF between 55 and 60%. There is evidence of severe pulmonary hypertension with right ventricular systolic pressure at 57 mmHg. Patient's Lasix was already increased to 3 times a day per cardiology, patient is a -1800 fluid balance. Repeat chest x-ray was ordered and reviewed by Dr. Jiménez and shows persistent CHF exacerbation with small bilateral pleural effusions, moderate central vascular congestion and bilateral perihilar edema. Patient was placed in BiPAP ventilatory support with settings of 12 and 5, 100%. She is tolerating the BiPAP support very well, states she is comfortable on it. Respirations are even and nonlabored. We gave her her 1600 dose of Lasix early add 1400. At this point decision was made to continue monitoring the patient on selective care unit, continue weaning FiO2 to keep O2 sat at 92%. She is very comfortable on the BiPAP support, continue diuresis, repeat chest x-ray in the morning. Patient is agreeable with the plan, and so is her . Patient is currently a DO NOT RESUSCITATE status. On 06/21/2017 patient seen in follow-up on selective care floor. She is significantly less dyspneic today, she is currently on 10 L of oxygen per high flow nasal cannula. She wore the BiPAP through the night, with the settings of 12/5, FiO2 was weaned down to 50% from 100%. She states she feels significantly improved in terms of her breathing. Her lung sounds are positive for better air entry bilaterally, still remains with coarse moist crackles left greater than the right over posterior lower lobes. She is in negative 20/160 5 mL fluid balance over the last 24 hours. She has lost 3.7 kg in the last 24 hours. Continue diuresis with Lasix, patient may wear BiPAP intermittently as needed. Her oxygenation is anticipated to further improve. Replace potassium per protocol. Monitor renal function. Monitor vital signs and oxygenation status. Objective - Vital Signs Vital signs: Vital Signs Temp 99.8 F H 06/21/17 03:37 Pulse 59 L 06/21/17 08:00 Resp 25 H 06/21/17 08:00 BP 166/72 06/21/17 08:00 Pulse Ox 98 06/21/17 09:32 Intake & Output 06/20/17 06/21/17 06/21/17 18:59 06:59 18:59 Intake Total 60 100 Output Total 1125 1200 100 Balance -1065 -1100 -100 Weight 80.5 kg 76.8 kg 76.8 kg Intake: Oral 60 100 Output: Urine 1125 1200 100 Uretheral (Brooks) 600 100 100 Other: Voiding Method Indwelling Catheter Indwelling Catheter Indwelling Catheter - Exam GENERAL EXAM: Alert, active, comfortable in no apparent distress. HEAD: Normocephalic/atraumatic. EYES: Normal reaction of pupils, equal size. Conjunctiva pink, sclera white. NOSE: Clear with pink turbinates. THROAT: No erythema or exudates. NECK: No masses, no JVD, no thyroid enlargement, no adenopathy. CHEST: No chest wall deformity. Symmetrical expansion. LUNGS: Equal air entry, fine respiratory crackles noted bilaterally, over bilateral lower lung lobes anteriorly and posteriorly. No rhonchi, no wheezes. CVS: Regular rate and rhythm, normal S1 and S2, no gallops, no murmurs, no rubs ABDOMEN: Soft, nontender. No hepatosplenomegaly, normal bowel sounds, no guarding or rigidity. EXTREMITIES: No clubbing, no edema, no cyanosis, 2+ pulses and upper and lower extremities. MUSCULOSKELETAL: Muscle strength and tone normal. SPINE: No scoliosis or deformity SKIN: No rashes CENTRAL NERVOUS SYSTEM: Alert and oriented -3. No focal deficits, tone is normal in all 4 extremities. PSYCHIATRIC: Alert and oriented -3. Appropriate affect. Intact judgment and insight. - Labs CBC & Chem 7: 06/21/17 05:33 06/21/17 05:33 Labs: Abnormal Lab Results - Last 24 Hours (Table) 06/20/17 06/20/17 06/21/17 Range/Units 16:45 21:01 05:33 RBC 2.83 L (3.80-5.40) m/uL Hgb 7.1 L (11.4-16.0) gm/dL Hct 25.2 L (34.0-46.0) % MCHC 28.2 L (31.0-37.0) g/dL RDW 18.2 H (11.5-15.5) % Lymphocytes # 0.7 L (1.0-4.8) k/uL Sodium (137-145) mmol/L Potassium (3.5-5.1) mmol/L Chloride (98-107) mmol/L BUN (7-17) mg/dL Creatinine (0.52-1.04) mg/dL Glucose (74-99) mg/dL POC Glucose (mg/dL) 143 H 131 H (75-99) mg/dL Total Protein (6.3-8.2) g/dL Albumin (3.5-5.0) g/dL 06/21/17 06/21/17 06/21/17 Range/Units 05:33 05:38 12:00 RBC (3.80-5.40) m/uL Hgb (11.4-16.0) gm/dL Hct (34.0-46.0) % MCHC (31.0-37.0) g/dL RDW (11.5-15.5) % Lymphocytes # (1.0-4.8) k/uL Sodium 146 H (137-145) mmol/L Potassium 3.1 L (3.5-5.1) mmol/L Chloride 110 H (98-107) mmol/L BUN 18 H (7-17) mg/dL Creatinine 1.29 H (0.52-1.04) mg/dL Glucose 120 H (74-99) mg/dL POC Glucose (mg/dL) 136 H 172 H (75-99) mg/dL Total Protein 5.8 L (6.3-8.2) g/dL Albumin 2.7 L (3.5-5.0) g/dL Assessment and Plan Plan: Assessment: #1. Acute hypoxic respiratory failure secondary to acute diastolic heart failure, EF is 55-60 on the echo from 06/20/2017. #2. Pulmonary hypertension, right ventricular systolic pressure of 57 mmHg on the echo from 06/20/2017 #3. Coronary artery disease, with history of CABG and stenting #4. History of obstructive sleep apnea, on home CPAP with a pressure of 10 cm of water #5. History of paroxysmal A. fib, currently in sinus rhythm, on Eliquis, prior history of cardioversion #6. History of CVA/TIA graft #7. Diabetes mellitus #8. Hyperlipidemia #9. Hypertension #10. Osteoarthritis #11. History of deep vein thrombosis #12. 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 #13. History of chronic anemia, no evidence of GI blood loss. On Aranesp. EGD from 05/18/[address] Pena showed scattered erosions in the antrum consistent with gastritis, no esophagitis or peptic ulcer disease noted #14. Status DO NOT RESUSCITATE Plan: Repeat chest x-ray was obtained and reviewed by Dr. Jiménez, and shows improvement in the aeration of the lungs in comparison to the prior exam with persistent pulmonary vascular congestion and interstitial edema. Alveolar opacities have resolved. Patient's is a negative 20/160 5 fluid balance, she has lost 3.6 kg since yesterday. Oxygenation has improved, she is currently on 10 L of oxygen per high flow nasal cannula with O2 sat at 98%. She reports significant improvement in her dyspnea. Continue diuresis, replace potassium per protocol, monitor renal function, accurate I&O's, daily weights. She may wear BiPAP intermittently as needed and at bedtime. We'll continue to follow with you. I performed a history & physical examination of the patient and discussed their management with my nurse practitioner, Debbie Brewer. I reviewed the nurse practitioner's note and agree with the documented findings and plan of care. Lung sounds are positive for scattered crackles. The findings and the impression was discussed with the patient. I attest to the documentation by the nurse practitioner. Time with Patient: Less than 30
[2017-06-21] MEDS ORDERED: FUROSEMIDE 10 MG/ML 2 ML VIAL IV ONE (13:00)
[2017-06-21] MEDS: INSULIN ASPART 100 UNIT/ML 1 ML 10 ML VIAL SQ SCH ×3 (13:09→22:33)
--- NOTE | 2017-06-21 14:25 | P.PN ---
Subjective Progress Note Date: 06/21/17 Principal diagnosis: CHF This is a pleasant 77-year-old female patient with a known history of panic atrial fibrillation, coronary artery disease, diastolic congestive heart failure, COPD, diabetes, hyperlipidemia, hypertension. Was admitted to the hospital with complaints of worsening shortness of breath over the last few days. She was also noticing some edema in her lower extremities. Upon admission patient was found to be anemic with hemoglobin of 7.7, repeat this morning 7.1. She underwent echocardiogram that showed normal LV systolic function with an ejection fraction of 55-60% with abnormal diastolic filling, mild tricuspid regurgitation, severe pulmonary hypertension. Her BNP was elevated at 9800. She was placed on IV Lasix and has diuresed well with approximately 3-4 kg weight loss since admission. BUN and creatinine are slightly elevated this morning at 18 and 1.29 respectively. Potassium is low at 3.1. Objective - Vital Signs Vital signs: Vital Signs Temp 99.8 F H 06/21/17 03:37 Pulse 56 L 06/21/17 12:00 Resp 18 06/21/17 12:00 BP 110/55 06/21/17 12:00 Pulse Ox 96 06/21/17 12:00 Intake & Output 06/20/17 06/21/17 06/21/17 18:59 06:59 18:59 Intake Total 60 100 Output Total 1125 1200 100 Balance -1065 -1100 -100 Weight 80.5 kg 76.8 kg 76.8 kg Intake: Oral 60 100 Output: Urine 1125 1200 100 Uretheral (Brooks) 600 100 100 Other: Voiding Method Indwelling Catheter Indwelling Catheter Indwelling Catheter - Exam PHYSICAL EXAMINATION: HEENT: Head is atraumatic, normocephalic. Pupils equal, round. Neck is supple. There is no elevated jugular venous pressure. HEART EXAMINATION: Heart sounds irregularly irregular, S1 and S2 normal. No murmur or gallop heard. CHEST EXAMINATION: Lungs faint crackles noted bilateral bases. No chest wall tenderness is noted on palpation or with deep breathing. ABDOMEN: Soft, nontender. Bowel sounds are heard. No organomegaly noted. EXTREMITIES: 2+ peripheral pulses with no evidence of peripheral edema and no calf tenderness noted. NEUROLOGIC patient is awake, alert and oriented x3. . - Labs CBC & Chem 7: 06/21/17 05:33 06/21/17 05:33 Labs: Abnormal Lab Results - Last 24 Hours (Table) 06/20/17 06/20/17 06/21/17 Range/Units 16:45 21:01 05:33 RBC 2.83 L (3.80-5.40) m/uL Hgb 7.1 L (11.4-16.0) gm/dL Hct 25.2 L (34.0-46.0) % MCHC 28.2 L (31.0-37.0) g/dL RDW 18.2 H (11.5-15.5) % Lymphocytes # 0.7 L (1.0-4.8) k/uL Retic Count (0.5-2.0) % Sodium (137-145) mmol/L Potassium (3.5-5.1) mmol/L Chloride (98-107) mmol/L BUN (7-17) mg/dL Creatinine (0.52-1.04) mg/dL Glucose (74-99) mg/dL POC Glucose (mg/dL) 143 H 131 H (75-99) mg/dL Total Protein (6.3-8.2) g/dL Albumin (3.5-5.0) g/dL 06/21/17 06/21/17 06/21/17 Range/Units 05:33 05:33 05:38 RBC (3.80-5.40) m/uL Hgb (11.4-16.0) gm/dL Hct (34.0-46.0) % MCHC (31.0-37.0) g/dL RDW (11.5-15.5) % Lymphocytes # (1.0-4.8) k/uL Retic Count 2.9 H (0.5-2.0) % Sodium 146 H (137-145) mmol/L Potassium 3.1 L (3.5-5.1) mmol/L Chloride 110 H (98-107) mmol/L BUN 18 H (7-17) mg/dL Creatinine 1.29 H (0.52-1.04) mg/dL Glucose 120 H (74-99) mg/dL POC Glucose (mg/dL) 136 H (75-99) mg/dL Total Protein 5.8 L (6.3-8.2) g/dL Albumin 2.7 L (3.5-5.0) g/dL 06/21/17 Range/Units 12:00 RBC (3.80-5.40) m/uL Hgb (11.4-16.0) gm/dL Hct (34.0-46.0) % MCHC (31.0-37.0) g/dL RDW (11.5-15.5) % Lymphocytes # (1.0-4.8) k/uL Retic Count (0.5-2.0) % Sodium (137-145) mmol/L Potassium (3.5-5.1) mmol/L Chloride (98-107) mmol/L BUN (7-17) mg/dL Creatinine (0.52-1.04) mg/dL Glucose (74-99) mg/dL POC Glucose (mg/dL) 172 H (75-99) mg/dL Total Protein (6.3-8.2) g/dL Albumin (3.5-5.0) g/dL Assessment and Plan Assessment: #1 acute on chronic diastolic congestive heart failure 2 paroxysmal atrial fibrillation #3 anemia #4 hypokalemia #5 hypertension #6 pulmonary hypertension Plan: From cardiology's perspective, we will replace potassium and recheck potassium level this evening and smile morning. We will decrease Eliquis to 2.5 mg by mouth twice a day. We will switch the patient to by mouth Lasix. Continue to monitor renal function, intake and output as well as daily weights. We'll continue to follow the patient provide further recommendations accordingly. [employer] note has been reviewed, I agree with a documented findings and plan of care. Patient was seen and examined.
--- NOTE | 2017-06-21 15:05 | P.PN ---
Subjective Progress Note Date: 06/21/1706/21: Cardiology decreased TO 2.5 mg twice daily and switch the patient over to oral Lasix today. She has been diuresing well and is down 4 kg. echocardiogram reveals EF of 55-60% with LAD moderately dilated 34-39, mild mitral regurgitation and mild tricuspid regurgitation, severe pulmonary hypertension and moderate pulmonary regurgitation. Patient was seen by Dr. Jiménez and placed on BiPAP and is currently on high flow nasal cannula. Patient states she is feeling a little bit better from yesterday. Repeat chest x-ray shows improving congestive heart failure with resolved alveolar edema but persistent interstitial edema and pulmonary vascular congestion. Hemoglobin is at 7.1 and 1 unit of packed RBCs is been ordered. Consult with Dr. Loja regarding underlying reason for anemia and anemia workup is been started. She has had a recent EGD with Dr. Reid which did not show any abnormalities. Biopsy revealed chronic gastritis, esophagitis with chronic active esophagitis, H. pylori negative. Patient is on Procrit at the halfway. Objective - Vital Signs Vital signs: Vital Signs Temp 99.8 F H 06/21/17 03:37 Pulse 59 L 06/21/17 08:00 Resp 25 H 06/21/17 08:00 BP 166/72 06/21/17 08:00 Pulse Ox 98 06/21/17 09:32 Intake & Output 06/20/17 06/21/17 06/21/17 18:59 06:59 18:59 Intake Total 60 100 Output Total 1125 1200 100 Balance -1065 -1100 -100 Weight 80.5 kg 76.8 kg 76.8 kg Intake: Oral 60 100 Output: Urine 1125 1200 100 Uretheral (Brooks) 600 100 100 Other: Voiding Method Indwelling Catheter Indwelling Catheter Indwelling Catheter - Exam General appearance: cooperative, moderate acute distress - EENT Eyes: anicteric sclerae, PERRLA, normal appearance ENT: hearing grossly normal - Neck Neck: no lymphadenopathy, normal ROM, no other, no rigidity, no stridor, no thyromegaly. Found to be using his S3 muscles - Respiratory Respiratory: bilateral: Diminished with increased crackles bilaterally - Cardiovascular Rhythm: regular Heart sounds: normal: S1, S2 Abnormal Heart Sounds: no systolic murmur, no diastolic murmur, no rub, no S3 Gallop, no S4 Gallop, no click, no other, significant edema lower extremities up to the knees - Gastrointestinal General gastrointestinal: normal bowel sounds, soft - Integumentary Integumentary: no rash - Neurologic Neurologic: CNII-XII intact - Musculoskeletal Musculoskeletal: gait normal, strength equal bilaterally - Psychiatric Psychiatric: A&O x's 3, appropriate affect - Labs CBC & Chem 7: 06/21/17 05:33 06/21/17 05:33 Labs: Abnormal Lab Results - Last 24 Hours (Table) 06/20/17 06/20/17 06/21/17 Range/Units 16:45 21:01 05:33 RBC 2.83 L (3.80-5.40) m/uL Hgb 7.1 L (11.4-16.0) gm/dL Hct 25.2 L (34.0-46.0) % MCHC 28.2 L (31.0-37.0) g/dL RDW 18.2 H (11.5-15.5) % Lymphocytes # 0.7 L (1.0-4.8) k/uL Sodium (137-145) mmol/L Potassium (3.5-5.1) mmol/L Chloride (98-107) mmol/L BUN (7-17) mg/dL Creatinine (0.52-1.04) mg/dL Glucose (74-99) mg/dL POC Glucose (mg/dL) 143 H 131 H (75-99) mg/dL Total Protein (6.3-8.2) g/dL Albumin (3.5-5.0) g/dL 06/21/17 06/21/17 06/21/17 Range/Units 05:33 05:38 12:00 RBC (3.80-5.40) m/uL Hgb (11.4-16.0) gm/dL Hct (34.0-46.0) % MCHC (31.0-37.0) g/dL RDW (11.5-15.5) % Lymphocytes # (1.0-4.8) k/uL Sodium 146 H (137-145) mmol/L Potassium 3.1 L (3.5-5.1) mmol/L Chloride 110 H (98-107) mmol/L BUN 18 H (7-17) mg/dL Creatinine 1.29 H (0.52-1.04) mg/dL Glucose 120 H (74-99) mg/dL POC Glucose (mg/dL) 136 H 172 H (75-99) mg/dL Total Protein 5.8 L (6.3-8.2) g/dL Albumin 2.7 L (3.5-5.0) g/dL Assessment and Plan Plan: 1. Acute on chronic diastolic heart failure. Cardiology consult appreciated. Continue IV Lasix to oral. Echocardiogram as above. I&O and daily weights. Monitor electrolytes and kidney function. . 2. Bilateral pleural effusions with possible mesothelioma thought to be due to previous pleurodesis done after her CABG. Patient has been seen by Dr. Ward and Dr. Staples on previous admissions. 3. Persistant atrial fibrillation currently rate controlled status post reversion. Cardiology consult appreciated. Continue eliquis at low-dose 2.5 mg twice a day. 4. CAD. Continue Imdur 20 mg 3 times a day, aspirin stopped as patient is on IS 5. Diabetes mellitus type 2. Continue Humalog scale before meals and at bedtime. Her A1c is 6.4. 6. Hypertensive cardiovascular disease. Continue Imdur, and Lasix. 7. History of obstructive sleep apnea. 8. Hyperlipidemia continue Lipitor 20mg. 9. History of CVA, stable 10. Normocytic anemia, unclear if patient underwent endoscopy in the past, continue Aranesp every 7 days. hb 7.7 decreased from last blood work, f/up CBC Transfuse 1 unit of packed RBCs for hemoglobin of 7.7. Anemia workup. Consult with Dr. Loja. 11. History of DVT. 12. Osteoarthritis, generalized. 13. DVT prophylaxis. Patient on eliquis 14. Gastrointestinal prophylaxis. Continue Protonix. Discharge plan: return to [facility] Impression and plan of care have been directed as dictated by the signing physician. Ashtyn Yeung nurse practitioner acting as scribe for signing physician.
[2017-06-21] MEDS ORDERED: FUROSEMIDE 40 MG TAB PO SCH (16:00)
[2017-06-21] MEDS: APIXABAN 5 MG TAB PO SCH (17:14)
[2017-06-21] MEDS: FUROSEMIDE 10 MG/ML 4 ML VIAL IV SCH ×3 (17:14→20:30)
[2017-06-21 17:31] LABS: Glucose,Whole Blood 118 mg/dL (75-99)
[2017-06-21 19:26] LABS: Iron Saturation 5.16 (12.00-45.00)
[2017-06-21] MEDS: SENNOSIDES 8.6 MG TAB PO SCH (20:12)
[2017-06-21] MEDS: APIXABAN 2.5 MG TABLET PO SCH (20:14)
[2017-06-21 21:42] LABS: Glucose,Whole Blood 161 mg/dL (75-99)
[2017-06-22] MEDS: ALPRAZolam 0.5 MG TAB PO PRN (05:17)
[2017-06-22 06:10] LABS: Glucose,Whole Blood 132 mg/dL (75-99)
[2017-06-22 06:27] LABS: Anisocytosis Slight; Basophils % (A) 0 %; CH 24.8; CHCM 28.9; Eosinophils # (A) 0.3 k/uL (0-0.7); Eosinophils % (A) 5 %; HCT 24.8 % (34.0-46.0); HDW 2.92; HGB 7.2 gm/dL (11.4-16.0); Hypochromasia Marked; Luc # (Auto) 0.04; Luc % (Auto) 1; Lymphocytes # (A) 0.7 k/uL (1.0-4.8); Lymphocytes % (A) 11 %; MCH 25.1 pg (25.0-35.0); MCV 86.6 fL (80.0-100.0); Mean Platelet Volume 8.9; Monocytes # (A) 0.3 k/uL (0-1.0); Monocytes % (A) 4 %; Neutrophils # (A) 4.6 k/uL (1.3-7.7); Neutrophils % (A) 79 %; RBC 2.87 m/uL (3.80-5.40); RDW 19.2 % (11.5-15.5); WBC 5.9 k/uL (3.8-10.6); WBC (Perox) 6.33
[2017-06-22] MEDS: INSULIN ASPART 100 UNIT/ML 1 ML 10 ML VIAL SQ SCH ×4 (06:35→21:55)
[2017-06-22] MEDS: PANTOPRAZOLE 40 MG TABLET PO SCH (06:35)
--- NOTE | 2017-06-22 07:50 | P.CRDCN ---
History of Present Illness Consult date: 06/20/17 Requesting physician: Hardeep Ambriz Consult reason: congestive heart failure Chief complaint: Shortness of breath History of present illness: This is a pleasant 77-year-old female with known history of coronary artery disease and prior bypass surgery, patient also had subsequent stent placements, hypertension, diabetes, hyperlipidemia, paroxysmal atrial fibrillation, currently on a rehab facility. She presented to the hospital with symptoms of a three-day progression of worsening shortness of breath. Chest x-ray on admission did reveal worsening heart failure as compared with prior exam. Echocardiogram with Doppler study was performed which revealed an ejection fraction of 55-60%. BNP level 9800, troponins were negative 3. Potassium 3.3, BUN 14, creatinine 1.2. White blood cell count 11.5, hemoglobin of 7.7. On patient's most recent admission to the hospital, hemoglobin was 10.7 at that time, it appears that her baseline is around 14. She was initiated on IV Lasix in the emergency room. Weight was down 1 kg from yesterday. The pressure on arrival here 172/70, heart rate in the 70s, nor 94% on a nonrebreather. We will replace her potassium, increase her Lasix to 40 mg IV every 8 hourly. Discontinue Norvasc, increase losartan to 100 mg daily, clonidine 0.1 mg twice a day to her medication regime. Past Medical History Past Medical History: Atrial Fibrillation, Coronary Artery Disease (CAD), Heart Failure, COPD, CVA/TIA, Diabetes Mellitus, Deep Vein Thrombosis (DVT), Hyperlipidemia, Hypertension, Osteoarthritis (OA), Sleep Apnea/CPAP/BIPAP Additional Past Medical History / Comment(s): Coronary artery disease, chemical pleurodesis back in 1998 following cabg, CVA back in 2013 without any residual deficits, left lower extremity DVT in 2016, chronic diastolic heart failure, obesity,cpap at , uti's, wears a brief, iron deficiency anemia"has recieved iron infusions". History of Any Multi-Drug Resistant Organisms: None Reported Past Surgical History: Cholecystectomy, Coronary Bypass/CABG, Heart Catheterization With Stent, Hysterectomy Additional Past Surgical History / Comment(s): eye sx, 6 cardiac stent placed; quad CABG 1998, OVARY CYST REMOVED,colonoscopy cardioversion 1 year ago and again 12-07-16 at [facility], egd w/ bx -neg Past Anesthesia/Blood Transfusion Reactions: No Reported Reaction Additional Past Anesthesia/Blood Transfusion Reaction / Comment(s): Jehovahs witness no blood transfusions Date of Last Stent Placement:: 2013 Smoking Status: Never smoker - Past Family History Father Additional Family Medical History / Comment(s): Father at age 89 following a hip fracture repair that became infected. He from complications of infection. Mother Additional Family Medical History / Comment(s): Mother in her 70s. She had history of stroke and had been in an extended care facility for 8 years prior to her . Sister(s) Additional Family Medical History / Comment(s): Patient has one sister that is 17 years younger than her with no major medical problems. Patient does not have any brothers. Son(s) Additional Family Medical History / Comment(s): She has 2 sons and one has heart problems. Medications and Allergies Home Medications Medication Instructions Recorded Confirmed Type Apixaban [Eliquis] 5 mg PO BID #60 tab 11/10/16 06/19/17 Rx ALPRAZolam [Xanax] 0.5 mg PO HS PRN 06/19/17 06/19/17 History Acetaminophen Tab [Tylenol Tab] 650 mg PO Q4H PRN 06/19/17 06/19/17 History Cholecalciferol [Vitamin D3] 1,000 unit PO DAILY 06/19/17 06/19/17 History Epoetin Redd [Procrit] 4,000 unit SQ DAILY 06/19/17 06/19/17 History Escitalopram [Lexapro] 20 mg PO DAILY 06/19/17 06/19/17 History Ferrous Sulfate [Feosol] 325 mg PO BID 06/19/17 06/19/17 History Furosemide [Lasix] 60 mg PO BID 06/19/17 06/19/17 History Isosorbide Dinitrate [Isordil] 20 mg PO TID 06/19/17 06/19/17 History Losartan Potassium 50 mg PO DAILY 06/19/17 06/19/17 History Omeprazole 20 mg PO DAILY 06/19/17 06/19/17 History Potassium Chloride [Klor-Con 20] 20 meq PO TID 06/19/17 06/19/17 History Sennosides [Senna] 17.2 mg PO HS 06/19/17 06/19/17 History Trimethobenzamide [Tigan] 300 mg PO Q8H PRN 06/19/17 06/19/17 History amLODIPine [Norvasc] 10 mg PO DAILY 06/19/17 06/19/17 History hydrALAZINE HCL [Apresoline] 100 mg PO TID 06/19/17 06/19/17 History Allergies Allergy/AdvReac Type Severity Reaction Status Date / Time sulfamethoxazole Allergy Dyspnea Verified 06/19/17 19:08 [From Bactrim] trimethoprim [From Bactrim] Allergy Dyspnea Verified 06/19/17 19:08 Physical Exam Vitals: Vital Signs Temp Pulse Resp BP Pulse Ox 06/22/17 04:00 97 F L 57 L 17 136/63 93 L 06/22/17 00:00 54 L 19 95 06/21/17 20:00 98.4 F 56 L 18 132/60 94 L 06/21/17 16:00 96.6 F L 51 L 16 106/54 93 L 06/21/17 12:00 56 L 18 110/55 96 06/21/17 09:32 98 06/21/17 08:00 59 L 25 H 166/72 99 Intake and Output 06/21/17 06/22/17 06/22/17 22:59 06:59 14:59 Intake Total 100 Output Total 35 500 Balance 65 -500 Intake: Oral 100 Output: Urine 35 500 Other: Voiding Method Indwelling Catheter Indwelling Catheter Weight 76.8 kg 81.5 kg PHYSICAL EXAMINATION: HEENT: Head is atraumatic, normocephalic. Pupils equal, round. Neck is supple. There is elevated jugular venous pressure. HEART EXAMINATION: Heart S1, S2 normal. No murmur or gallop heard. CHEST EXAMINATION: Lungs reveal rales to bilateral bases with diminished air entry to the bases. ABDOMEN: Soft, nontender. Bowel sounds are heard. No organomegaly noted. EXTREMITIES: 2+ peripheral pulses with 1+ evidence of peripheral edema and no calf tenderness noted. NEUROLOGIC patient is awake, alert and oriented -3. . Results 06/22/17 05:36 06/21/17 18:21 CBC 06/22/17 Range/Units 05:36 WBC 5.9 (3.8-10.6) k/uL RBC 2.87 L (3.80-5.40) m/uL Hgb 7.2 L (11.4-16.0) gm/dL Hct 24.8 L (34.0-46.0) % Plt Count 202 (150-450) k/uL Comprehensive Metabolic Panel 06/21/17 Range/Units 18:21 Potassium 3.5 (3.5-5.1) mmol/L Current Medications Generic Name Dose Route Start Last Admin Trade Name Freq PRN Reason Stop Dose Admin Acetaminophen 650 mg 06/19/17 21:45 Tylenol Tab PO Q4H PRN Fever and/ or Pain Alprazolam 0.5 mg 06/19/17 21:45 06/22/17 05:17 Xanax PO 0.5 mg HS PRN Administration Anxiety Apixaban 2.5 mg 06/21/17 09:53 06/21/17 20:14 Eliquis PO 2.5 mg BID CHARLES Administration Cholecalciferol 1,000 unit 06/19/17 21:45 06/21/17 10:19 Vitamin D3 PO 1,000 unit DAILY CHARLES Administration Clonidine 0.1 mg 06/20/17 09:00 06/21/17 20:12 Catapres PO 0.1 mg BID CHARLES Administration Darbepoetin Redd 60 mcg 06/19/17 22:15 06/19/17 22:38 Aranesp SQ 60 mcg Q7D CHARLES Administration Escitalopram Oxalate 20 mg 06/19/17 21:45 06/21/17 10:19 Lexapro PO 20 mg DAILY CHARLES Administration Ferrous Sulfate 325 mg 06/19/17 21:45 06/21/17 20:11 Feosol PO 325 mg BID CHARLES Administration Furosemide 40 mg 06/21/17 21:00 06/21/17 20:12 Lasix IV 40 mg Q12HR CHARLES Administration Hydralazine HCl 100 mg 06/19/17 22:00 06/21/17 20:11 Apresoline PO 100 mg TID CHARLES Administration Insulin Aspart 0 unit 06/21/17 12:30 06/22/17 06:35 Novolog SQ 1 unit ACHS CHARLES Administration Protocol Isosorbide Dinitrate 20 mg 06/19/17 22:00 06/21/17 20:11 Isordil PO 20 mg TID CHARLES Administration Losartan Potassium 100 mg 06/20/17 09:00 06/21/17 10:20 Cozaar PO 100 mg DAILY CHARLES Administration Miscellaneous Information 1 each 06/19/17 22:17 Potassium Per Protocol MISCELLANE DAILY PRN Per Protocol Protocol Pantoprazole Sodium 40 mg 06/19/17 21:45 06/22/17 06:35 Protonix PO 40 mg [id number]-[id number] CHARLES Administration Senna 17.2 mg 06/19/17 21:45 06/21/17 20:12 Senokot PO 17.2 mg HS CHARLES Administration Trimethobenzamide HCl 300 mg 06/19/17 21:45 Tigan PO Q8H PRN Nausea Intake and Output 06/21/17 06/22/17 06/22/17 22:59 06:59 14:59 Intake Total 100 Output Total 35 500 Balance 65 -500 Intake: Oral 100 Output: Urine 35 500 Other: Voiding Method Indwelling Catheter Indwelling Catheter Weight 76.8 kg 81.5 kg 06/22/17 05:36 06/21/17 18:21 EKG Interpretations (text) EKG shows a normal sinus rhythm with no acute changes. Assessment and Plan Plan: Assessment and plan #1 congestive heart failure, acute on chronic diastolic in nature. Echocardiogram with Doppler study reveals an ejection fraction of 55-60%. #2 known history of coronary artery disease with prior bypass surgery and multiple stent placements #3 diabetes #4 hypertension #5 hyperlipidemia #6 anemia #7 paroxysmal atrial fibrillation, on Eliquis for anticoagulation #8 sleep apnea uses a CPAP at home #9 history of TIA #10 history of DVT Plan We will replace the patient's potassium, increase Lasix to 40 mg IV every 8 hourly, discontinue Norvasc, increase losartan to 100 mg daily, clonidine 0.1 mg twice a day to her medication regime. Check lytes BUN and creatinine in the morning and monitor intake and output along with daily weights. DNP note has been reviewed, I agree with a documented findings and plan of care. Patient was seen and examined.
[2017-06-22] MEDS: ESCITALOPRAM 20 MG TAB PO SCH (08:42)
[2017-06-22] MEDS: APIXABAN 2.5 MG TABLET PO SCH ×2 (08:42→20:56)
[2017-06-22] MEDS: cloNIDine HCL 0.1 MG TAB PO SCH ×2 (08:42→20:58)
[2017-06-22] MEDS: LOSARTAN 50 MG TAB PO SCH (08:42)
[2017-06-22] MEDS: CHOLECALCIFEROL 1,000 UNIT TAB PO SCH (08:42)
[2017-06-22] MEDS: FUROSEMIDE 10 MG/ML 4 ML VIAL IV SCH (08:42)
[2017-06-22] MEDS: ISOSORBIDE DINITRATE 20 MG TAB PO SCH ×3 (08:42→22:04)
[2017-06-22] MEDS: FERROUS SULFATE 325 MG TAB PO SCH ×2 (08:42→20:57)
[2017-06-22] MEDS: hydrALAZINE HCL 50 MG TAB PO SCH ×3 (08:43→22:04)
[2017-06-22 09:20] LABS: Calcium 8.2 mg/dL (8.4-10.2); Potassium 3.7 mmol/L (3.5-5.1); Total Bilirubin 0.4 mg/dL (0.2-1.3); Total Protein 5.2 g/dL (6.3-8.2)
--- NOTE | 2017-06-22 09:53 | CDI ---
In responding to this query, please exercise your independent professional judgment. The [facility] Coding Staff and Clinical Documentation Specialists appreciate your assistance in clarifying documentation, maintaining compliance with coding guidelines, accurately documenting patients condition and capturing severity of illness. The fact that a question is asked does not imply that any particular answer is desired or expected. Communication forms are a method of clarifying documentation and are not made part of the Legal Health Record. Thank you in advance for your clarification. Last Revision, June 2015 Fiorella Aguayo [address] [place] [address] Documentation Clarification Form Date: 06/22/2017 9:39:00 AM From: Gisselle Acevedo Admit Date: 06/19/2017 7:58:00 PM Patient Name: Jany Vega Visit Number: [id number] Dr. Estefany Schaeffer/ Ashtyn Yeung CNP History/Risk Factors: CAD, A/C Diastolic CHF, TIA, DVT, HTN, iron deficiency anemia Clinical Indicators: Patients baseline BUN/CR/GFR: 13/1.2/53 Patient presents with a BUN:14/16/18/23 CR: 1.2/1.25/1.29/1.5 GFR: 53/51/49/41 Treatment: Consults: Cardiology, Pulmonary IVF: none Other: Lasix 40 mg IVP Q 12 hrs In order to capture the severity of condition, please clarify if the condition signifies: Acute renal failure Please specify (if known): Cortical, Medullary, or Tubular Necrosis? Acute kidney injury Acute on chronic renal failure Chronic renal failure, please stage Chronic kidney disease (CKD) and please stage Stage 1 GFR >90 Stage 2 GFR 60-89 Stage 3 GFR 30-59 Stage 4 GFR 15-29 Stage 5 GFR <15 ESRD Unable to determine Other, specify Please document in your progress notes and discharge summary in order to capture severity of illness and risk of mortality. Include clinical findings that support your diagnosis. FYI: Press F11 to launch patient chart. MTDChristopher
--- NOTE | 2017-06-22 11:01 | P.PN ---
Subjective Progress Note Date: 06/22/17 Principal diagnosis: Acute hypoxic respiratory failure secondary to acute diastolic heart failure, with pulmonary edema Jany is a 77-year-old white female patient that sees Dr. 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 Patient is from a rehab facility, and the staff noted desaturation and low oxygenation. Patient denies any chest pain, fever, chills, increased chest congestion, or wheezing. Past medical history includes coronary artery disease with history of coronary artery bypass grafting, congestive heart failure, recurrent pleural effusions requiring chemical pleurodesis, heart catheterization with stents, hyperlipidemia, DVT, chronic anemia and osteoarthritis. She does use CPAP machine for obstructive sleep apnea syndrome , but usually does not require any oxygen. Chest x-ray from 06/19/2017 shows pulmonary edema, cardiomegaly, blunting of costophrenic angles consistent with pleural effusions. EKG showed sinus rhythm with occasional PVCs, with a rate of 71 BPM. Patient was initiated on IV Lasix 40 mg daily, and was later increased to 40 mg IV push 3 times a day per cardiology. She is anticoagulated with Apixaban for her history of A. fib and history of DVT. She is on Aranesp for her history of chronic anemia. Opponens were negative 3, no proBNP was done this admission. Patient's stated she had an 8 pound weight gain in the last week. Today we work on salted in regards to patient's hypoxemia and increased shortness of breath. On evaluation patient was seen on 100% nonrebreather, comfortable at rest, however she complained about low activity tolerance, and being short of breath with any exertion even get up out of bed. Lung sounds are positive for scattered crackles over bilateral lower lobes and posterior right middle lobe. No wheezes, no rhonchi were appreciated. She remains in the normal sinus rhythm. 2-D echocardiogram results were reviewed and showed left ventricular systolic function to be normal with an EF between 55 and 60%. There is evidence of severe pulmonary hypertension with right ventricular systolic pressure at 57 mmHg. Patient's Lasix was already increased to 3 times a day per cardiology, patient is a -1800 fluid balance. Repeat chest x-ray was ordered and reviewed by Dr. Jiménez and shows persistent CHF exacerbation with small bilateral pleural effusions, moderate central vascular congestion and bilateral perihilar edema. Patient was placed in BiPAP ventilatory support with settings of 12 and 5, 100%. She is tolerating the BiPAP support very well, states she is comfortable on it. Respirations are even and nonlabored. We gave her her 1600 dose of Lasix early add 1400. At this point decision was made to continue monitoring the patient on selective care unit, continue weaning FiO2 to keep O2 sat at 92%. She is very comfortable on the BiPAP support, continue diuresis, repeat chest x-ray in the morning. Patient is agreeable with the plan, and so is her . Patient is currently a DO NOT RESUSCITATE status. On 06/21/2017 patient seen in follow-up on selective care floor. She is significantly less dyspneic today, she is currently on 10 L of oxygen per high flow nasal cannula. She wore the BiPAP through the night, with the settings of 12/5, FiO2 was weaned down to 50% from 100%. She states she feels significantly improved in terms of her breathing. Her lung sounds are positive for better air entry bilaterally, still remains with coarse moist crackles left greater than the right over posterior lower lobes. She is in negative 20/160 5 mL fluid balance over the last 24 hours. She has lost 3.7 kg in the last 24 hours. Continue diuresis with Lasix, patient may wear BiPAP intermittently as needed. Her oxygenation is anticipated to further improve. Replace potassium per protocol. Monitor renal function. Monitor vital signs and oxygenation status. On 06/22/2017 patient's no follow-up was to Floor. She sits up in the chair, no acute distress. She is currently on 10 L per high flow nasal cannula, O2 sat at 94%. She denies any dyspnea, cough or chest congestion. She did wear her BiPAP last night. She is is maintaining negative fluid balance, she is - 500 mL over the last 24 hours. IV Lasix was switched to oral Lasix per cardiology in view of patient's worsening renal file. Medically she continues to improve, able to tolerate more activity. Continue with current medical treatment. Objective - Vital Signs Vital signs: Vital Signs Temp 97.4 F L 06/22/17 08:45 Pulse 57 L 06/22/17 08:45 Resp 18 06/22/17 08:45 BP 141/63 06/22/17 08:45 Pulse Ox 94 L 06/22/17 08:45 Intake & Output 06/21/17 06/22/17 06/22/17 18:59 06:59 18:59 Intake Total 200 Output Total 235 500 Balance -35 -500 Weight 76.8 kg 81.5 kg Intake: Oral 200 Output: Urine 235 500 Uretheral (Brooks) 100 Other: Voiding Method Indwelling Catheter Indwelling Catheter Indwelling Catheter - Exam GENERAL EXAM: Alert, active, comfortable in no apparent distress. HEAD: Normocephalic/atraumatic. EYES: Normal reaction of pupils, equal size. Conjunctiva pink, sclera white. NOSE: Clear with pink turbinates. THROAT: No erythema or exudates. NECK: No masses, no JVD, no thyroid enlargement, no adenopathy. CHEST: No chest wall deformity. Symmetrical expansion. LUNGS: Equal air entry, fine respiratory crackles noted bilaterally, over bilateral lower lung lobes anteriorly and posteriorly. No rhonchi, no wheezes. CVS: Regular rate and rhythm, normal S1 and S2, no gallops, no murmurs, no rubs ABDOMEN: Soft, nontender. No hepatosplenomegaly, normal bowel sounds, no guarding or rigidity. EXTREMITIES: No clubbing, no edema, no cyanosis, 2+ pulses and upper and lower extremities. MUSCULOSKELETAL: Muscle strength and tone normal. SPINE: No scoliosis or deformity SKIN: No rashes CENTRAL NERVOUS SYSTEM: Alert and oriented -3. No focal deficits, tone is normal in all 4 extremities. PSYCHIATRIC: Alert and oriented -3. Appropriate affect. Intact judgment and insight. - Labs CBC & Chem 7: 06/22/17 05:36 06/22/17 05:36 Labs: Abnormal Lab Results - Last 24 Hours (Table) 06/21/17 06/21/17 06/21/17 Range/Units 05:33 05:33 12:00 RBC (3.80-5.40) m/uL Hgb (11.4-16.0) gm/dL Hct (34.0-46.0) % MCHC (31.0-37.0) g/dL RDW (11.5-15.5) % Lymphocytes # (1.0-4.8) k/uL Retic Count 2.9 H (0.5-2.0) % Chloride (98-107) mmol/L BUN (7-17) mg/dL Creatinine (0.52-1.04) mg/dL Glucose (74-99) mg/dL POC Glucose (mg/dL) 172 H (75-99) mg/dL Calcium (8.4-10.2) mg/dL Iron 11 L (50-170) ug/dL TIBC 213 L (228-460) ug/dL Iron Saturation 5.16 L (12.00-45.00) Total Protein (6.3-8.2) g/dL Albumin (3.5-5.0) g/dL Crossmatch 06/21/17 06/21/17 06/21/17 Range/Units 13:27 17:08 21:06 RBC (3.80-5.40) m/uL Hgb (11.4-16.0) gm/dL Hct (34.0-46.0) % MCHC (31.0-37.0) g/dL RDW (11.5-15.5) % Lymphocytes # (1.0-4.8) k/uL Retic Count (0.5-2.0) % Chloride (98-107) mmol/L BUN (7-17) mg/dL Creatinine (0.52-1.04) mg/dL Glucose (74-99) mg/dL POC Glucose (mg/dL) 118 H 161 H (75-99) mg/dL Calcium (8.4-10.2) mg/dL Iron (50-170) ug/dL TIBC (228-460) ug/dL Iron Saturation (12.00-45.00) Total Protein (6.3-8.2) g/dL Albumin (3.5-5.0) g/dL Crossmatch See Detail 06/22/17 06/22/17 06/22/17 Range/Units 05:36 05:36 06:08 RBC 2.87 L (3.80-5.40) m/uL Hgb 7.2 L (11.4-16.0) gm/dL Hct 24.8 L (34.0-46.0) % MCHC 29.0 L (31.0-37.0) g/dL RDW 19.2 H (11.5-15.5) % Lymphocytes # 0.7 L (1.0-4.8) k/uL Retic Count (0.5-2.0) % Chloride 109 H (98-107) mmol/L BUN 23 H (7-17) mg/dL Creatinine 1.50 H (0.52-1.04) mg/dL Glucose 121 H (74-99) mg/dL POC Glucose (mg/dL) 132 H (75-99) mg/dL Calcium 8.2 L (8.4-10.2) mg/dL Iron (50-170) ug/dL TIBC (228-460) ug/dL Iron Saturation (12.00-45.00) Total Protein 5.2 L (6.3-8.2) g/dL Albumin 2.5 L (3.5-5.0) g/dL Crossmatch Assessment and Plan Plan: Assessment: #1. Acute hypoxic respiratory failure secondary to acute diastolic heart failure, EF is 55-60 on the echo from 06/20/2017. #2. Pulmonary hypertension, right ventricular systolic pressure of 57 mmHg on the echo from 06/20/2017 #3. Coronary artery disease, with history of CABG and stenting #4. History of obstructive sleep apnea, on home CPAP with a pressure of 10 cm of water #5. History of paroxysmal A. fib, currently in sinus rhythm, on Eliquis, prior history of cardioversion #6. History of CVA/TIA graft #7. Diabetes mellitus #8. Hyperlipidemia #9. Hypertension #10. Osteoarthritis #11. History of deep vein thrombosis #12. 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 #13. History of chronic anemia, no evidence of GI blood loss. On Aranesp. EGD from 05/18/[address] Pena showed scattered erosions in the antrum consistent with gastritis, no esophagitis or peptic ulcer disease noted #14. Status DO NOT RESUSCITATE Plan: Patient continues to improve. She is on 10 L high flow nasal cannula with stable oxygenation. She is wearing her BiPAP at bedtime. She is out of bed in the chair, she hasn't walked very far, but is able to tolerate more activity without significant respiratory distress. Maintaining negative fluid balance, - 500 ml over the last 24 hours. She reports significant improvement in her dyspnea. Continue diuresis, replace potassium per protocol, monitor renal function, accurate I&O's, daily weights. She may wear BiPAP intermittently as needed and at bedtime. We'll continue to follow with you. I performed a history & physical examination of the patient and discussed their management with my nurse practitioner, Debbie Brewer. I reviewed the nurse practitioner's note and agree with the documented findings and plan of care. Lung sounds are positive for scattered crackles. The findings and the impression was discussed with the patient. I attest to the documentation by the nurse practitioner. Time with Patient: Less than 30
[2017-06-22] MEDS: SPIRONOLACTONE 25 MG TAB PO SCH (11:37)
[2017-06-22 11:50] LABS: Glucose,Whole Blood 185 mg/dL (75-99)
--- NOTE | 2017-06-22 13:26 | P.PN ---
Subjective Progress Note Date: 06/22/17 This is a pleasant 77-year-old female with known history of coronary artery disease and prior bypass surgery, patient also had subsequent stent placements, hypertension, diabetes, hyperlipidemia, paroxysmal atrial fibrillation, currently on a rehab facility. She presented to the hospital with symptoms of a three-day progression of worsening shortness of breath. Chest x-ray on admission did reveal worsening heart failure as compared with prior exam. Echocardiogram with Doppler study was performed which revealed an ejection fraction of 55-60%. BNP level 9800,patient was also found to have a low hemoglobin, she is a Jehovah witness and refuses to have any blood products. was initiated on IV Lasix and has diuresed well from that. Today we will change her over to oral diuretics and add Aldactone to her medication regime.pressure 97/50 with a heart rate in the 50s.hemoglobin 7.2 today, potassium 3.7, BUN 23, creatinine 1.5. Objective - Vital Signs Vital signs: Vital Signs Temp 97.5 F L 06/22/17 11:27 Pulse 57 L 06/22/17 11:27 Resp 18 06/22/17 11:27 BP 97/50 06/22/17 11:27 Pulse Ox 94 L 06/22/17 11:27 Intake & Output 06/21/17 06/22/17 06/22/17 18:59 06:59 18:59 Intake Total 200 Output Total 235 500 Balance -35 -500 Weight 76.8 kg 81.5 kg 81.5 kg Intake: Oral 200 Output: Urine 235 500 Uretheral (Brooks) 100 Other: Voiding Method Indwelling Catheter Indwelling Catheter Indwelling Catheter # Voids 1 # Bowel Movements 1 - Exam PHYSICAL EXAMINATION: HEENT: Head is atraumatic, normocephalic. Pupils equal, round. Neck is supple. There is elevated jugular venous pressure. HEART EXAMINATION: Heart S1, S2 normal. No murmur or gallop heard. CHEST EXAMINATION: Lungs reveal rales to bilateral bases with diminished air entry to the bases. ABDOMEN: Soft, nontender. Bowel sounds are heard. No organomegaly noted. EXTREMITIES: 2+ peripheral pulses with 1+ evidence of peripheral edema and no calf tenderness noted. NEUROLOGIC patient is awake, alert and oriented -3. - Labs CBC & Chem 7: 06/22/17 05:36 06/22/17 05:36 Labs: Abnormal Lab Results - Last 24 Hours (Table) 06/21/17 06/21/17 06/21/17 Range/Units 05:33 13:27 17:08 RBC (3.80-5.40) m/uL Hgb (11.4-16.0) gm/dL Hct (34.0-46.0) % MCHC (31.0-37.0) g/dL RDW (11.5-15.5) % Lymphocytes # (1.0-4.8) k/uL Chloride (98-107) mmol/L BUN (7-17) mg/dL Creatinine (0.52-1.04) mg/dL Glucose (74-99) mg/dL POC Glucose (mg/dL) 118 H (75-99) mg/dL Calcium (8.4-10.2) mg/dL Iron 11 L (50-170) ug/dL TIBC 213 L (228-460) ug/dL Iron Saturation 5.16 L (12.00-45.00) Total Protein (6.3-8.2) g/dL Albumin (3.5-5.0) g/dL Crossmatch See Detail 06/21/17 06/22/17 06/22/17 Range/Units 21:06 05:36 05:36 RBC 2.87 L (3.80-5.40) m/uL Hgb 7.2 L (11.4-16.0) gm/dL Hct 24.8 L (34.0-46.0) % MCHC 29.0 L (31.0-37.0) g/dL RDW 19.2 H (11.5-15.5) % Lymphocytes # 0.7 L (1.0-4.8) k/uL Chloride 109 H (98-107) mmol/L BUN 23 H (7-17) mg/dL Creatinine 1.50 H (0.52-1.04) mg/dL Glucose 121 H (74-99) mg/dL POC Glucose (mg/dL) 161 H (75-99) mg/dL Calcium 8.2 L (8.4-10.2) mg/dL Iron (50-170) ug/dL TIBC (228-460) ug/dL Iron Saturation (12.00-45.00) Total Protein 5.2 L (6.3-8.2) g/dL Albumin 2.5 L (3.5-5.0) g/dL Crossmatch 06/22/17 06/22/17 Range/Units 06:08 11:48 RBC (3.80-5.40) m/uL Hgb (11.4-16.0) gm/dL Hct (34.0-46.0) % MCHC (31.0-37.0) g/dL RDW (11.5-15.5) % Lymphocytes # (1.0-4.8) k/uL Chloride (98-107) mmol/L BUN (7-17) mg/dL Creatinine (0.52-1.04) mg/dL Glucose (74-99) mg/dL POC Glucose (mg/dL) 132 H 185 H (75-99) mg/dL Calcium (8.4-10.2) mg/dL Iron (50-170) ug/dL TIBC (228-460) ug/dL Iron Saturation (12.00-45.00) Total Protein (6.3-8.2) g/dL Albumin (3.5-5.0) g/dL Crossmatch Assessment and Plan Plan: Assessment and plan #1 congestive heart failure, acute on chronic diastolic in nature. Echocardiogram with Doppler study reveals an ejection fraction of 55-60%. #2 known history of coronary artery disease with prior bypass surgery and multiple stent placements #3 diabetes #4 hypertension #5 hyperlipidemia #6 anemia #7 paroxysmal atrial fibrillation, on Eliquis for anticoagulation #8 sleep apnea uses a CPAP at home #9 history of TIA #10 history of DVT Plan From Cardiology's perspective, we'll discontinue the IV Lasix and start the patient on Lasix 60 mg one tablet by mouth twice a day. We will also add Aldactone 25 mg 1 tablet daily to the medication regime. may be able to be discharged once cleared by the primary. he has been instructed to follow-up with her operator bearer systems in the [place] area. DNP note has been reviewed, I agree with a documented findings and plan of care. Patient was seen and examined.
--- NOTE | 2017-06-22 15:02 | P.PN ---
Subjective Progress Note Date: 06/22/17 This is a 76-year-old female patient of Dr. Leal'stephie with a past history of coronary artery disease with prior 4 vessel CABG in 1998 and subsequent stenting of the mid RCA and OM and 2013 and 2 subsequent stent placements following that, hypertension, diabetes mellitus type 2, hyperlipidemia, obstructive sleep apnea, paroxysmal atrial fibrillation status post cardioversion 1 year ago on chronic Coumadin. Patient presented to [facility] emergency center on November 08 due to shortness of breath with cough for 3-4 days. She states the symptoms are worsening and that her ribs hurt due to coughing so much. She denies any lower extremity edema. Patient recently stopped taking her Coumadin because she didn't feel well when she took it and only feels cold. She complains of weakness when she walks. CTA of the chest showed no evidence of pulmonary embolism. Loculated bilateral pleural effusions are increased compared to January 2016. Pleural calcification on the right side and lesser extent on the left. Mild mediastinal adenopathy, cardiomegaly. Possibility of mesothelioma should be considered. Patient was seen by Dr. Ward and this was thought to be due to previous chemical pleurodesis following her CABG. Patient has been evaluated by cardiology and started on eliquis with plan to continue Plavix as well. Echocardiogram reveals moderate mitral regurgitation, moderate tricuspid regurgitation, mild pulmonary hypertension, moderate concentric left ventricular hypertrophy, EF 45- 50%. Vision was discharged home on November 10. She presented back to [facility] emergency center on November 13 with complaints of cough that been going on for 2-3 weeks and shortness of breath with exertion. She denies any lower extremity edema but does feel distended in the abdomen with occasional pain and a full feeling in her belly. Her last colonoscopy was 6-7 years ago. She also states she has a cold occasional coughing when she eats. She denies any constipation. She denies any history of asthma or ALLERGIES. She does not use home oxygen. There are no pets in the home and no mold that she knows of. Chest x-ray correlate for continued heart failure with pulmonary vascular congestion. Trace left pleural effusion and likely pseudotumor at the right mid lung representing trapped fluid within the minor fissure. He was seen in consultation by Dr. Staples and cardiology. She was treated for acute diastolic heart failure and was discharged home on 11/15/2016. Patient then followed up with her safety instructor at [facility], Dr. Katty Ramirez and she has scheduled procedures on December 18 for heart catheterization and on January 01 for ablation. She does plan to follow-up with Dr. Ramirez when she discharges from the hospital, then came to [facility] with shortness of breath worsening with activitywith increased edema but no chest pain. ProBNP was 7070. She was discharged after a few days of IV diuretics. Patient is here this time with 3 weeks history of worsening shortness of breath on exertion and at rest.. Patient states she is not at her baseline since December but for the past few weeks it has been difficult for her to breathe associated with cough production with whitish phlegm. She denies any chest pain or palpitations. On my evaluation, patient was on high flow on 13 L of oxygen with a heart rate of 90 using her accessory muscles. Patient patient had received IV Lasix 40 mg and is currently scheduled to get 40 IV every 8 hours. Patient has been taking her medications regularly, endorses 8 pound weight gain in the last 1 week. She currently resides at [facility] and saw Dr. Leal last week. Patient does use CPAP machine for obstructive sleep apnea but does not require any oxygen at home. Chest x-ray done on 06/19 show pulmonary edema, cardiomegaly, blunting of costophrenic angle consistent with pleural effusion. EKG suggested sinus rhythm with occasional PVC with heartrate 71. Troponin negative 3 Labs including CBC suggested anemia with drop in hemoglobin from 10.7-7.8. Patient has had workup for blood loss anemia from intestine with negative Hemoccult in the past Reticulocyte count is 2.8. 2-D echo suggested left ventricle systolic function is normal with EF of 50-60% with evidence of severe pulmonary hypertension.. Due to increased distress patient was placed on BiPAP, pulmonary and cardiology was consulted for further recommendation. 06/21: Cardiology decreased TO 2.5 mg twice daily and switch the patient over to oral Lasix today. She has been diuresing well and is down 4 kg. echocardiogram reveals EF of 55-60% with LAD moderately dilated 34-39, mild mitral regurgitation and mild tricuspid regurgitation, severe pulmonary hypertension and moderate pulmonary regurgitation. Patient was seen by Dr. Basha and placed on BiPAP and is currently on high flow nasal cannula. Patient states she is feeling a little bit better from yesterday. Repeat chest x-ray shows improving congestive heart failure with resolved alveolar edema but persistent interstitial edema and pulmonary vascular congestion. Hemoglobin is at 7.1 and 1 unit of packed RBCs is been ordered. Consult with Dr. Loja regarding underlying reason for anemia and anemia workup is been started. She has had a recent EGD with Dr. Reid which did not show any abnormalities. Biopsy revealed chronic gastritis, esophagitis with chronic active esophagitis, H. pylori negative. Patient is on Procrit at the retirement. 06/22: Patient was switched back to IV Lasix yesterday she had decreased urine output. Cardiology has changed his back to oral at 60 mg twice daily this morning. Patient was unable to receive transfusion of blood yesterday as she is a Jehovah witness and transfusion was canceled. Incentive spirometry ordered. Patient is complaining of feeling tired and weak and cold. BUN is a 23 and creatinine 1.5 with sodium of 141. Discussed discharge plan with the patient and she is planning to return to [facility] and case management updated. Most likely she will be ready for discharge on Sunday. Objective - Vital Signs Vital signs: Vital Signs Temp 97.4 F L 06/22/17 08:45 Pulse 57 L 06/22/17 08:45 Resp 18 06/22/17 08:45 BP 141/63 06/22/17 08:45 Pulse Ox 94 L 06/22/17 08:45 Intake & Output 06/21/17 06/22/17 06/22/17 18:59 06:59 18:59 Intake Total 200 Output Total 235 500 Balance -35 -500 Weight 76.8 kg 81.5 kg Intake: Oral 200 Output: Urine 235 500 Uretheral (Brooks) 100 Other: Voiding Method Indwelling Catheter Indwelling Catheter Indwelling Catheter - Exam General appearance: cooperative, moderate acute distress - EENT Eyes: anicteric sclerae, PERRLA, normal appearance ENT: hearing grossly normal - Neck Neck: no lymphadenopathy, normal ROM, no other, no rigidity, no stridor, no thyromegaly. Found to be using his S3 muscles - Respiratory Respiratory: bilateral: Diminished with increased crackles bilaterally - Cardiovascular Rhythm: regular Heart sounds: normal: S1, S2 Abnormal Heart Sounds: no systolic murmur, no diastolic murmur, no rub, no S3 Gallop, no S4 Gallop, no click, no other, significant edema lower extremities up to the knees - Gastrointestinal General gastrointestinal: normal bowel sounds, soft - Integumentary Integumentary: no rash - Neurologic Neurologic: CNII-XII intact - Musculoskeletal Musculoskeletal: gait normal, strength equal bilaterally - Psychiatric Psychiatric: A&O x's 3, appropriate affect - Labs CBC & Chem 7: 06/22/17 05:36 06/22/17 05:36 Labs: Abnormal Lab Results - Last 24 Hours (Table) 06/21/17 06/21/17 06/21/17 Range/Units 05:33 05:33 12:00 RBC (3.80-5.40) m/uL Hgb (11.4-16.0) gm/dL Hct (34.0-46.0) % MCHC (31.0-37.0) g/dL RDW (11.5-15.5) % Lymphocytes # (1.0-4.8) k/uL Retic Count 2.9 H (0.5-2.0) % POC Glucose (mg/dL) 172 H (75-99) mg/dL Iron 11 L (50-170) ug/dL TIBC 213 L (228-460) ug/dL Iron Saturation 5.16 L (12.00-45.00) Crossmatch 06/21/17 06/21/17 06/21/17 Range/Units 13:27 17:08 21:06 RBC (3.80-5.40) m/uL Hgb (11.4-16.0) gm/dL Hct (34.0-46.0) % MCHC (31.0-37.0) g/dL RDW (11.5-15.5) % Lymphocytes # (1.0-4.8) k/uL Retic Count (0.5-2.0) % POC Glucose (mg/dL) 118 H 161 H (75-99) mg/dL Iron (50-170) ug/dL TIBC (228-460) ug/dL Iron Saturation (12.00-45.00) Crossmatch See Detail 06/22/17 06/22/17 Range/Units 05:36 06:08 RBC 2.87 L (3.80-5.40) m/uL Hgb 7.2 L (11.4-16.0) gm/dL Hct 24.8 L (34.0-46.0) % MCHC 29.0 L (31.0-37.0) g/dL RDW 19.2 H (11.5-15.5) % Lymphocytes # 0.7 L (1.0-4.8) k/uL Retic Count (0.5-2.0) % POC Glucose (mg/dL) 132 H (75-99) mg/dL Iron (50-170) ug/dL TIBC (228-460) ug/dL Iron Saturation (12.00-45.00) Crossmatch Assessment and Plan Plan: 1. Acute on chronic diastolic heart failure. Cardiology consult appreciated. Continue IV Lasix to oral. Echocardiogram as above. I&O and daily weights. Monitor electrolytes and kidney function. . 2. Bilateral pleural effusions with possible mesothelioma thought to be due to previous pleurodesis done after her CABG. Patient has been seen by Dr. Ward and Dr. Staples on previous admissions. 3. Persistant atrial fibrillation currently rate controlled status post reversion. Cardiology consult appreciated. Continue eliquis at low-dose 2.5 mg twice a day. 4. CAD. Continue Imdur 20 mg 3 times a day, aspirin stopped as patient is on IS 5. Diabetes mellitus type 2. Continue Humalog scale before meals and at bedtime. Her A1c is 6.4. 6. Hypertensive cardiovascular disease. Continue Imdur, and Lasix. 7. History of obstructive sleep apnea. 8. Hyperlipidemia continue Lipitor 20mg. 9. History of CVA, stable 10. Normocytic anemia, unclear if patient underwent endoscopy in the past, continue Aranesp every 7 days. hb 7.7 decreased from last blood work, f/up CBC Transfuse 1 unit of packed RBCs for hemoglobin of 7.7. Anemia workup. Consult with Dr. Loja. 11. History of DVT. 12. Osteoarthritis, generalized. 13. Chronic kidney disease stage III. Patient will be monitored for acute kidney injury. 14. DVT prophylaxis. Patient on eliquis 15. Gastrointestinal prophylaxis. Continue Protonix. Discharge plan: return to [facility] Impression and plan of care have been directed as dictated by the signing physician. Ashtyn Yeung nurse practitioner acting as scribe for signing physician.
[2017-06-22] MEDS: FUROSEMIDE 20 MG TAB PO SCH (15:57)
[2017-06-22 16:48] LABS: Glucose,Whole Blood 127 mg/dL (75-99)
--- NOTE | 2017-06-22 17:34 | P.CONS ---
History of Present Illness - Reason for Consult Consult date: 06/22/17 anemia - History of Present Illness The patient is a 77-year-old white female, with multiple medical problems. Till about 11/20, the patient's hemoglobin was normal. In 03/22 and 04/22 hemoglobin was noted to have dropped down into the 10 range. She had an EGD in 05/22 which was overall negative other than showing some mild erosive gastritis. The patient was admitted this time again, with progressive shortness of breath, associated with orthopnea, and lower extremity swelling as well as weight gain. There was some increase in chronic loculated pleural effusions bilaterally. Presentation was consistent with CHF exacerbation. She had been admitted admitted for similar diagnosis regarding her previous admission. Hemoglobin was now noted to have dropped down into the 7 range. RBC indices were in the normochromic normocytic range. No obvious bleeding has been noted. Iron studies were performed this admission, and showed high normal ferritin, ranging from 190-230. As consult was therefore placed for further evaluation and recommendations. She denied any prior history of blood problems or malignancy. She has never received a blood transfusion before. She is actually a [employer] and does not accept blood products. Her last colonoscopy was about 5-6 years ago. The patient is currently on Eliquis and aspirin for atrial fibrillation Review of Systems Constitutional: Reports fatigue, Reports weakness, Reports weight gain Eyes: denies blurred vision, denies pain Ears: deny: decreased hearing, ear discharge, earache, tinnitus Ears, nose, mouth and throat: Denies headache, Denies sore throat Cardiovascular: Reports orthopnea, Reports palpitations, Reports shortness of breath Respiratory: Reports dyspnea Gastrointestinal: Denies abdominal pain, Denies diarrhea, Denies nausea, Denies vomiting Genitourinary: Denies dysuria, Denies hematuria Menstruation: Reports postmenopausal Musculoskeletal: Reports as per HPI (Lower extremity edema), Reports muscle weakness Integumentary: Denies pruritus, Denies rash Neurological: Reports weakness Psychiatric: Denies anxiety, Denies depression Endocrine: Reports fatigue, Reports weight change Hematologic/Lymphatic: Reports as per HPI Past Medical History Past Medical History: Atrial Fibrillation, Coronary Artery Disease (CAD), Heart Failure, COPD, CVA/TIA, Diabetes Mellitus, Deep Vein Thrombosis (DVT), Hyperlipidemia, Hypertension, Osteoarthritis (OA), Sleep Apnea/CPAP/BIPAP Additional Past Medical History / Comment(s): Coronary artery disease, chemical pleurodesis back in 1998 following cabg, CVA back in 2013 without any residual deficits, left lower extremity DVT in 2016, chronic diastolic heart failure, obesity,cpap at [facility], uti's, wears a brief, iron deficiency anemia"has recieved iron infusions". History of Any Multi-Drug Resistant Organisms: None Reported Past Surgical History: Cholecystectomy, Coronary Bypass/CABG, Heart Catheterization With Stent, Hysterectomy Additional Past Surgical History / Comment(s): eye sx, 6 cardiac stent placed; quad CABG 1998, OVARY CYST REMOVED,colonoscopy cardioversion 1 year ago and again 12-07-16 at [facility], egd w/ bx -neg Past Anesthesia/Blood Transfusion Reactions: No Reported Reaction Additional Past Anesthesia/Blood Transfusion Reaction / Comm: Jehovahs witness no blood transfusions Date of Last Stent Placement:: 2013 Smoking Status: Never smoker - Past Family History Father Additional Family Medical History / Comment(s): Father at age 89 following a hip fracture repair that became infected. He from complications of infection. Mother Additional Family Medical History / Comment(s): Mother in her 70s. She had history of stroke and had been in an extended care facility for 8 years prior to her . Sister(s) Additional Family Medical History / Comment(s): Patient has one sister that is 17 years younger than her with no major medical problems. Patient does not have any brothers. Son(s) Additional Family Medical History / Comment(s): She has 2 sons and one has heart problems. Medications and Allergies Home Medications Medication Instructions Recorded Confirmed Type Apixaban [Eliquis] 5 mg PO BID #60 tab 11/10/16 06/19/17 Rx ALPRAZolam [Xanax] 0.5 mg PO HS PRN 06/19/17 06/19/17 History Acetaminophen Tab [Tylenol Tab] 650 mg PO Q4H PRN 06/19/17 06/19/17 History Cholecalciferol [Vitamin D3] 1,000 unit PO DAILY 06/19/17 06/19/17 History Epoetin Redd [Procrit] 4,000 unit SQ DAILY 06/19/17 06/19/17 History Escitalopram [Lexapro] 20 mg PO DAILY 06/19/17 06/19/17 History Ferrous Sulfate [Feosol] 325 mg PO BID 06/19/17 06/19/17 History Furosemide [Lasix] 60 mg PO BID 06/19/17 06/19/17 History Isosorbide Dinitrate [Isordil] 20 mg PO TID 06/19/17 06/19/17 History Losartan Potassium 50 mg PO DAILY 06/19/17 06/19/17 History Omeprazole 20 mg PO DAILY 06/19/17 06/19/17 History Potassium Chloride [Klor-Con 20] 20 meq PO TID 06/19/17 06/19/17 History Sennosides [Senna] 17.2 mg PO HS 06/19/17 06/19/17 History Trimethobenzamide [Tigan] 300 mg PO Q8H PRN 06/19/17 06/19/17 History amLODIPine [Norvasc] 10 mg PO DAILY 06/19/17 06/19/17 History hydrALAZINE HCL [Apresoline] 100 mg PO TID 06/19/17 06/19/17 History Allergies Allergy/AdvReac Type Severity Reaction Status Date / Time sulfamethoxazole Allergy Dyspnea Verified 06/19/17 19:08 [From Bactrim] trimethoprim [From Bactrim] Allergy Dyspnea Verified 06/19/17 19:08 Physical Exam Vitals: Vital Signs Temp Pulse Resp BP Pulse Ox 06/22/17 14:54 97.3 F L 51 L 16 127/58 95 06/22/17 11:27 97.5 F L 52 L 18 97/50 94 L 06/22/17 09:30 18 06/22/17 08:45 97.4 F L 56 L 18 141/63 94 L 06/22/17 04:00 97 F L 57 L 17 136/63 93 L 06/22/17 00:00 54 L 19 95 06/21/17 20:00 98.4 F 56 L 18 132/60 94 L 06/21/17 16:00 96.6 F L 51 L 16 106/54 93 L Intake and Output 06/22/17 06/22/17 06/22/17 06:59 14:59 22:59 Output Total 500 Balance -500 Output: Urine 500 Other: Voiding Method Indwelling Catheter Indwelling Catheter # Voids 1 # Bowel Movements 1 Weight 81.5 kg 81.5 kg Patient Weight 11/18/17 06:59 Weight 81.5 kg - Constitutional General appearance: no acute distress - EENT Eyes: EOMI, PERRLA ENT: hearing grossly normal, normal oropharynx - Neck Neck: no lymphadenopathy Thyroid: bilateral: normal size - Respiratory Respiratory: bilateral: diminished - Cardiovascular Rhythm: irregularly irregular Heart sounds: normal: S1, S2 - Gastrointestinal General gastrointestinal: normal bowel sounds, soft - Integumentary Integumentary: normal - Neurologic Neurologic: CNII-XII intact - Musculoskeletal Musculoskeletal: generalized weakness, strength equal bilaterally - Psychiatric Psychiatric: A&O x's 3, appropriate affect Results CBC & Chem 7: 06/22/17 05:36 06/22/17 05:36 Labs: Abnormal Lab Results - Last 24 Hours (Table) 06/21/17 06/21/17 06/21/17 Range/Units 05:33 13:27 17:08 RBC (3.80-5.40) m/uL Hgb (11.4-16.0) gm/dL Hct (34.0-46.0) % MCHC (31.0-37.0) g/dL RDW (11.5-15.5) % Lymphocytes # (1.0-4.8) k/uL Chloride (98-107) mmol/L BUN (7-17) mg/dL Creatinine (0.52-1.04) mg/dL Glucose (74-99) mg/dL POC Glucose (mg/dL) 118 H (75-99) mg/dL Calcium (8.4-10.2) mg/dL Iron 11 L (50-170) ug/dL TIBC 213 L (228-460) ug/dL Iron Saturation 5.16 L (12.00-45.00) Total Protein (6.3-8.2) g/dL Albumin (3.5-5.0) g/dL Crossmatch See Detail 06/21/17 06/22/17 06/22/17 Range/Units 21:06 05:36 05:36 RBC 2.87 L (3.80-5.40) m/uL Hgb 7.2 L (11.4-16.0) gm/dL Hct 24.8 L (34.0-46.0) % MCHC 29.0 L (31.0-37.0) g/dL RDW 19.2 H (11.5-15.5) % Lymphocytes # 0.7 L (1.0-4.8) k/uL Chloride 109 H (98-107) mmol/L BUN 23 H (7-17) mg/dL Creatinine 1.50 H (0.52-1.04) mg/dL Glucose 121 H (74-99) mg/dL POC Glucose (mg/dL) 161 H (75-99) mg/dL Calcium 8.2 L (8.4-10.2) mg/dL Iron (50-170) ug/dL TIBC (228-460) ug/dL Iron Saturation (12.00-45.00) Total Protein 5.2 L (6.3-8.2) g/dL Albumin 2.5 L (3.5-5.0) g/dL Crossmatch 06/22/17 06/22/17 Range/Units 06:08 11:48 RBC (3.80-5.40) m/uL Hgb (11.4-16.0) gm/dL Hct (34.0-46.0) % MCHC (31.0-37.0) g/dL RDW (11.5-15.5) % Lymphocytes # (1.0-4.8) k/uL Chloride (98-107) mmol/L BUN (7-17) mg/dL Creatinine (0.52-1.04) mg/dL Glucose (74-99) mg/dL POC Glucose (mg/dL) 132 H 185 H (75-99) mg/dL Calcium (8.4-10.2) mg/dL Iron (50-170) ug/dL TIBC (228-460) ug/dL Iron Saturation (12.00-45.00) Total Protein (6.3-8.2) g/dL Albumin (3.5-5.0) g/dL Crossmatch Comments: Report of echocardiogram reviewed EGD report, and pathology reviewed Chest x-ray: report reviewed CT scan - abdomen: report reviewed CT scan - pelvis: report reviewed Assessment and Plan (1) Anemia Narrative/Plan: The consult is being placed for development of anemia that has been gradually progressing over the last 3 months. The patient was supposed to see Dr. Norman in the outpatient setting. Case was discussed with the admitting service. Her anemia is normochromic and normocytic. Ferritin level is normal, close to the 200 range. While this can occur in acute blood loss anemia, the patient has had no obvious bleeding, and hemoglobin has declined gradually over a period of few months. Therefore this ferritin level, combined with the low iron saturation and low TIBC is more suggestive of a hypoproliferative anemia and other than blood loss. I will therefore check a full anemia workup. The patient does have some renal insufficiency but the degree of that is not sufficient to cause the hemoglobin in the 7 range. In addition creatinine has not changed significantly in the last several months. If the above-mentioned workup is unrevealing, then the patient may need a bone marrow aspiration and biopsy. Current Visit: Yes Status: Acute Code(s): D64.9 - ANEMIA, UNSPECIFIED SNOMED Code(s): 176651460 Plan: Defer to the admitting service for management of her other medical problems
[2017-06-22 21:10] LABS: Glucose,Whole Blood 168 mg/dL (75-99)
[2017-06-22] MEDS: SENNOSIDES 8.6 MG TAB PO SCH (21:13)
[2017-06-23] MEDS ORDERED: FUROSEMIDE 10 MG/ML 4 ML VIAL IV STA (03:02)
[2017-06-23 06:04] LABS: Glucose,Whole Blood 149 mg/dL (75-99)
[2017-06-23] MEDS: PANTOPRAZOLE 40 MG TABLET PO SCH ×2 (06:15→06:32)
[2017-06-23] MEDS: INSULIN ASPART 100 UNIT/ML 1 ML 10 ML VIAL SQ SCH ×4 (06:17→22:19)
--- NOTE | 2017-06-23 07:37 | XR ---
EXAMINATION TYPE: XR chest 1V portable DATE OF EXAM: 06/23/2017 HISTORY: shortness of breath. REFERENCE: Previous study dated 06/21/2017. FINDINGS: There has been a midline sternotomy. The heart is enlarged. There is vascular congestion and pulmonary edema. There is worsening confluent airspace disease on the left. This may represent confluent edema or superimposed pneumonia. There is a small left effusion. IMPRESSION: 1. CONTINUING CHANGES OF CONGESTIVE HEART FAILURE. 2. WORSENING CONFLUENT AIRSPACE DISEASE ON THE LEFT MAY REPRESENT CONFLUENT EDEMA OR SUPERIMPOSED PNE UMONIA.
[2017-06-23] MEDS: FUROSEMIDE 20 MG TAB PO SCH ×2 (08:40→15:53)
[2017-06-23] MEDS: hydrALAZINE HCL 50 MG TAB PO SCH ×3 (08:41→22:19)
[2017-06-23] MEDS: ISOSORBIDE DINITRATE 20 MG TAB PO SCH ×3 (08:41→22:19)
[2017-06-23] MEDS: LOSARTAN 50 MG TAB PO SCH (08:42)
[2017-06-23] MEDS: CHOLECALCIFEROL 1,000 UNIT TAB PO SCH (08:42)
[2017-06-23] MEDS: cloNIDine HCL 0.1 MG TAB PO SCH ×2 (08:42→22:19)
[2017-06-23] MEDS: ESCITALOPRAM 20 MG TAB PO SCH (08:42)
[2017-06-23] MEDS: APIXABAN 2.5 MG TABLET PO SCH ×2 (08:42→22:20)
[2017-06-23] MEDS: SPIRONOLACTONE 25 MG TAB PO SCH (08:42)
[2017-06-23] MEDS: FERROUS SULFATE 325 MG TAB PO SCH ×2 (08:42→22:19)
[2017-06-23 10:05] LABS: Anisocytosis Slight; CH 24.9; CHCM 28.4; HCT 24.8 % (34.0-46.0); HDW 2.91; HGB 7.2 gm/dL (11.4-16.0); Hypochromasia Marked; MCH 25.5 pg (25.0-35.0); MCHC 28.9 g/dL (31.0-37.0); MCV 88.2 fL (80.0-100.0); Mean Platelet Volume 9.7; RBC 2.81 m/uL (3.80-5.40); RDW 19.4 % (11.5-15.5); WBC 7.6 k/uL (3.8-10.6)
[2017-06-23 10:12] LABS: Calcium 8.4 mg/dL (8.4-10.2); Potassium 3.7 mmol/L (3.5-5.1)
[2017-06-23 11:43] LABS: Glucose,Whole Blood 146 mg/dL (75-99)
--- NOTE | 2017-06-23 11:48 | P.PN ---
Subjective Progress Note Date: 06/23/17 This is a 76-year-old female patient of Dr. Leal'stephie with a past history of coronary artery disease with prior 4 vessel CABG in 1998 and subsequent stenting of the mid RCA and OM and 2013 and 2 subsequent stent placements following that, hypertension, diabetes mellitus type 2, hyperlipidemia, obstructive sleep apnea, paroxysmal atrial fibrillation status post cardioversion 1 year ago on chronic Coumadin. Patient presented to [facility] emergency center on November 08 due to shortness of breath with cough for 3-4 days. She states the symptoms are worsening and that her ribs hurt due to coughing so much. She denies any lower extremity edema. Patient recently stopped taking her Coumadin because she didn't feel well when she took it and only feels cold. She complains of weakness when she walks. CTA of the chest showed no evidence of pulmonary embolism. Loculated bilateral pleural effusions are increased compared to January 2016. Pleural calcification on the right side and lesser extent on the left. Mild mediastinal adenopathy, cardiomegaly. Possibility of mesothelioma should be considered. Patient was seen by Dr. Ward and this was thought to be due to previous chemical pleurodesis following her CABG. Patient has been evaluated by cardiology and started on eliquis with plan to continue Plavix as well. Echocardiogram reveals moderate mitral regurgitation, moderate tricuspid regurgitation, mild pulmonary hypertension, moderate concentric left ventricular hypertrophy, EF 45- 50%. Vision was discharged home on November 10. She presented back to [facility] emergency center on November 13 with complaints of cough that been going on for 2-3 weeks and shortness of breath with exertion. She denies any lower extremity edema but does feel distended in the abdomen with occasional pain and a full feeling in her belly. Her last colonoscopy was 6-7 years ago. She also states she has a cold occasional coughing when she eats. She denies any constipation. She denies any history of asthma or ALLERGIES. She does not use home oxygen. There are no pets in the home and no mold that she knows of. Chest x-ray correlate for continued heart failure with pulmonary vascular congestion. Trace left pleural effusion and likely pseudotumor at the right mid lung representing trapped fluid within the minor fissure. He was seen in consultation by Dr. Staples and cardiology. She was treated for acute diastolic heart failure and was discharged home on 11/15/2016. Patient then followed up with her health information coder at [facility], Dr. Katty Ramirez and she has scheduled procedures on December 18 for heart catheterization and on January 01 for ablation. She does plan to follow-up with Dr. Ramirez when she discharges from the hospital, then came to [facility] with shortness of breath worsening with activitywith increased edema but no chest pain. ProBNP was 7070. She was discharged after a few days of IV diuretics. Patient is here this time with 3 weeks history of worsening shortness of breath on exertion and at rest.. Patient states she is not at her baseline since December but for the past few weeks it has been difficult for her to breathe associated with cough production with whitish phlegm. She denies any chest pain or palpitations. On my evaluation, patient was on high flow on 13 L of oxygen with a heart rate of 90 using her accessory muscles. Patient patient had received IV Lasix 40 mg and is currently scheduled to get 40 IV every 8 hours. Patient has been taking her medications regularly, endorses 8 pound weight gain in the last 1 week. She currently resides at [facility] and saw Dr. Leal last week. Patient does use CPAP machine for obstructive sleep apnea but does not require any oxygen at home. Chest x-ray done on 06/19 show pulmonary edema, cardiomegaly, blunting of costophrenic angle consistent with pleural effusion. EKG suggested sinus rhythm with occasional PVC with heartrate 71. Troponin negative 3 Labs including CBC suggested anemia with drop in hemoglobin from 10.7-7.8. Patient has had workup for blood loss anemia from intestine with negative Hemoccult in the past Reticulocyte count is 2.8. 2-D echo suggested left ventricle systolic function is normal with EF of 50-60% with evidence of severe pulmonary hypertension.. Due to increased distress patient was placed on BiPAP, pulmonary and cardiology was consulted for further recommendation. 06/21: Cardiology decreased TO 2.5 mg twice daily and switch the patient over to oral Lasix today. She has been diuresing well and is down 4 kg. echocardiogram reveals EF of 55-60% with LAD moderately dilated 34-39, mild mitral regurgitation and mild tricuspid regurgitation, severe pulmonary hypertension and moderate pulmonary regurgitation. Patient was seen by Dr. Basha and placed on BiPAP and is currently on high flow nasal cannula. Patient states she is feeling a little bit better from yesterday. Repeat chest x-ray shows improving congestive heart failure with resolved alveolar edema but persistent interstitial edema and pulmonary vascular congestion. Hemoglobin is at 7.1 and 1 unit of packed RBCs is been ordered. Consult with Dr. Loja regarding underlying reason for anemia and anemia workup is been started. She has had a recent EGD with Dr. Reid which did not show any abnormalities. Biopsy revealed chronic gastritis, esophagitis with chronic active esophagitis, H. pylori negative. [facility] 06/22: Patient was switched back to IV Lasix yesterday she had decreased urine output. Cardiology has changed his back to oral at 60 mg twice daily this morning. Patient was unable to receive transfusion of blood yesterday as she is a Jehovah witness and transfusion was canceled. Incentive spirometry ordered. Patient is complaining of feeling tired and weak and cold. BUN is a 23 and creatinine 1.5 with sodium of 141. Discussed discharge plan with the patient and she is planning to return to [facility] and case management updated. Most likely she will be ready for discharge on Sunday. 06/23: Cardiology also added and Aldactone 25 mg daily. It appears they have cleared her for discharge with plan to follow-up with her own health information coder. Chest x-ray shows continued changes of heart failure with worsening can fluid airspace disease on the left. Patient was seen by Dr. Loja for hyperproliferative anemia and patient may need bone marrow biopsy. Workup isn' t in process. Patient's breathing is improved from yesterday. She did not use BiPAP last evening. She states she had an episode of coughing after she was drinking water for which her oxygen was increased to 8 L. Plan to increase activity and wean oxygen down today. She is continued on Lasix 60 mg twice daily. Anticipate discharge back to [facility] on Sunday. Objective - Vital Signs Vital signs: Vital Signs Temp 99.6 F 06/23/17 04:00 Pulse 61 06/23/17 04:00 Resp 18 06/22/17 23:30 BP 128/63 06/23/17 04:00 Pulse Ox 93 L 06/23/17 04:00 Intake & Output 06/22/17 06/23/17 06/23/17 18:59 06:59 18:59 Intake Total 5 Output Total 1300 Balance -1295 Weight 81.5 kg 82.5 kg Intake: Oral 5 Output: Urine 1300 Other: Voiding Method Indwelling Catheter Indwelling Catheter # Voids 1 1 # Bowel Movements 1 - Exam General appearance: cooperative, moderate acute distress - EENT Eyes: anicteric sclerae, PERRLA, normal appearance ENT: hearing grossly normal - Neck Neck: no lymphadenopathy, normal ROM, no other, no rigidity, no stridor, no thyromegaly. Found to be using his S3 muscles - Respiratory Respiratory: bilateral: Diminished with increased crackles bilaterally - Cardiovascular Rhythm: regular Heart sounds: normal: S1, S2 Abnormal Heart Sounds: no systolic murmur, no diastolic murmur, no rub, no S3 Gallop, no S4 Gallop, no click, no other, significant edema lower extremities up to the knees - Gastrointestinal General gastrointestinal: normal bowel sounds, soft - Integumentary Integumentary: no rash - Neurologic Neurologic: CNII-XII intact - Musculoskeletal Musculoskeletal: gait normal, strength equal bilaterally - Psychiatric Psychiatric: A&O x's 3, appropriate affect - Labs CBC & Chem 7: 06/23/17 05:15 06/23/17 05:15 Labs: Abnormal Lab Results - Last 24 Hours (Table) 06/22/17 06/22/17 06/22/17 Range/Units 05:36 11:48 16:46 Chloride 109 H (98-107) mmol/L BUN 23 H (7-17) mg/dL Creatinine 1.50 H (0.52-1.04) mg/dL Glucose 121 H (74-99) mg/dL POC Glucose (mg/dL) 185 H 127 H (75-99) mg/dL Calcium 8.2 L (8.4-10.2) mg/dL Total Protein 5.2 L (6.3-8.2) g/dL Albumin 2.5 L (3.5-5.0) g/dL 06/22/17 06/23/17 Range/Units 21:08 05:58 Chloride (98-107) mmol/L BUN (7-17) mg/dL Creatinine (0.52-1.04) mg/dL Glucose (74-99) mg/dL POC Glucose (mg/dL) 168 H 149 H (75-99) mg/dL Calcium (8.4-10.2) mg/dL Total Protein (6.3-8.2) g/dL Albumin (3.5-5.0) g/dL Assessment and Plan Plan: 1. Acute on chronic diastolic heart failure. Cardiology consult appreciated. Continue IV Lasix to oral and added Aldactone. Echocardiogram as above. I&O and daily weights. Monitor electrolytes and kidney function. . 2. Bilateral pleural effusions with possible mesothelioma thought to be due to previous pleurodesis done after her CABG. Patient has been seen by Dr. Ward and Dr. Staples on previous admissions. 3. Persistant atrial fibrillation currently rate controlled status post reversion. Cardiology consult appreciated. Continue eliquis at low-dose 2.5 mg twice a day. 4. CAD. Continue Imdur 20 mg 3 times a day, aspirin stopped as patient is on IS 5. Diabetes mellitus type 2. Continue Humalog scale before meals and at bedtime. Her A1c is 6.4. 6. Hypertensive cardiovascular disease. Continue Imdur, and Lasix. 7. History of obstructive sleep apnea. 8. Hyperlipidemia continue Lipitor 20mg. 9. History of CVA, stable 10. Normocytic anemia Consult with Dr. Loja appreciated. Workup in process. 11. History of DVT. 12. Osteoarthritis, generalized. 13. Chronic kidney disease stage III. Patient will be monitored for acute kidney injury. 14. DVT prophylaxis. Patient on eliquis 15. Gastrointestinal prophylaxis. Continue Protonix. Discharge plan: return to [facility] Impression and plan of care have been directed as dictated by the signing physician. Ashtyn Yeung nurse practitioner acting as scribe for signing physician.
[2017-06-23 12:49] LABS: Free Kappa Lt Chain Qnt, Serum 9.63 mg/dL (0.33-1.94)
--- NOTE | 2017-06-23 12:51 | P.PN ---
Subjective Progress Note Date: 06/23/17 Principal diagnosis: CHF This is a pleasant 77-year-old female patient with a known history of panic atrial fibrillation, coronary artery disease, diastolic congestive heart failure, COPD, diabetes, hyperlipidemia, hypertension. Was admitted to the hospital with complaints of worsening shortness of breath over the last few days. She was also noticing some edema in her lower extremities. Upon admission patient was found to be anemic with hemoglobin of 7.7, repeat this morning 7.1. She underwent echocardiogram that showed normal LV systolic function with an ejection fraction of 55-60% with abnormal diastolic filling, mild tricuspid regurgitation, severe pulmonary hypertension. Her BNP was elevated at 9800. She was placed on IV Lasix and has diuresed well. Chest x- ray from this morning shows continuing changes of congestive heart failure with worsening confluent airspace disease on the left which may represent confluent edema or superimposed pneumonia. And, patient is resting comfortably in bed. She does believe her breathing has improved. She is looking forward to being discharged on Sunday, likely going to [facility] for rehab. Objective - Vital Signs Vital signs: Vital Signs Temp 97 F L 06/23/17 08:00 Pulse 57 L 06/23/17 08:00 Resp 18 06/23/17 08:00 BP 126/59 06/23/17 08:00 Pulse Ox 93 L 06/23/17 08:00 Intake & Output 06/22/17 06/23/17 06/23/17 18:59 06:59 18:59 Intake Total 5 720 Output Total 1300 Balance -1295 720 Weight 81.5 kg 82.5 kg Intake: Oral 5 720 Output: Urine 1300 Other: Voiding Method Indwelling Catheter Indwelling Catheter Indwelling Catheter # Voids 1 1 # Bowel Movements 1 - Exam PHYSICAL EXAMINATION: HEENT: Head is atraumatic, normocephalic. Pupils equal, round. Neck is supple. There is no elevated jugular venous pressure. HEART EXAMINATION: Heart sounds irregularly irregular, S1 and S2 normal. No murmur or gallop heard. CHEST EXAMINATION: Lungs faint crackles noted bilateral bases. No chest wall tenderness is noted on palpation or with deep breathing. ABDOMEN: Soft, nontender. Bowel sounds are heard. No organomegaly noted. EXTREMITIES: 2+ peripheral pulses with evidence of trace peripheral edema and no calf tenderness noted. NEUROLOGIC patient is awake, alert and oriented x3. . - Labs CBC & Chem 7: 06/23/17 05:15 06/23/17 05:15 Labs: Abnormal Lab Results - Last 24 Hours (Table) 06/22/17 06/22/17 06/23/17 Range/Units 16:46 21:08 05:15 RBC 2.81 L (3.80-5.40) m/uL Hgb 7.2 L (11.4-16.0) gm/dL Hct 24.8 L (34.0-46.0) % MCHC 28.9 L (31.0-37.0) g/dL RDW 19.4 H (11.5-15.5) % BUN (7-17) mg/dL Creatinine (0.52-1.04) mg/dL Glucose (74-99) mg/dL POC Glucose (mg/dL) 127 H 168 H (75-99) mg/dL 06/23/17 06/23/17 06/23/17 Range/Units 05:15 05:58 11:40 RBC (3.80-5.40) m/uL Hgb (11.4-16.0) gm/dL Hct (34.0-46.0) % MCHC (31.0-37.0) g/dL RDW (11.5-15.5) % BUN 28 H (7-17) mg/dL Creatinine 1.51 H (0.52-1.04) mg/dL Glucose 125 H (74-99) mg/dL POC Glucose (mg/dL) 149 H 146 H (75-99) mg/dL Assessment and Plan Assessment: #1 acute on chronic diastolic congestive heart failure 2 paroxysmal atrial fibrillation #3 anemia #4 hypokalemia #5 hypertension #6 pulmonary hypertension Plan: From cardiology's perspective, medications were reviewed and we will continue the same. At this time will follow the patient on an as-needed basis. Please do not hesitate to contact us with questions. [employer] note has been reviewed, I agree with a documented findings and plan of care. Patient was seen and examined.
--- NOTE | 2017-06-23 13:56 | P.PN ---
Subjective Progress Note Date: 06/23/17 Principal diagnosis: Acute hypoxic respiratory failure secondary to acute diastolic congestive heart failure. Jany is a 77-year-old white female patient that sees Dr. 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 Patient is from a rehab facility, and the staff noted desaturation and low oxygenation. Patient denies any chest pain, fever, chills, increased chest congestion, or wheezing. Past medical history includes coronary artery disease with history of coronary artery bypass grafting, congestive heart failure, recurrent pleural effusions requiring chemical pleurodesis, heart catheterization with stents, hyperlipidemia, DVT, chronic anemia and osteoarthritis. She does use CPAP machine for obstructive sleep apnea syndrome, but usually does not require any oxygen. Chest x-ray from 06/19/2017 shows pulmonary edema, cardiomegaly, blunting of costophrenic angles consistent with pleural effusions. EKG showed sinus rhythm with occasional PVCs, with a rate of 71 BPM. Patient was initiated on IV Lasix 40 mg daily, and was later increased to 40 mg IV push 3 times a day per cardiology. She is anticoagulated with Apixaban for her history of A. fib and history of DVT. She is on Aranesp for her history of chronic anemia. Opponens were negative 3, no proBNP was done this admission. Patient's stated she had an 8 pound weight gain in the last week. Today we work on salted in regards to patient's hypoxemia and increased shortness of breath. On evaluation patient was seen on 100% nonrebreather, comfortable at rest, however she complained about low activity tolerance, and being short of breath with any exertion even get up out of bed. Lung sounds are positive for scattered crackles over bilateral lower lobes and posterior right middle lobe. No wheezes, no rhonchi were appreciated. She remains in the normal sinus rhythm. 2-D echocardiogram results were reviewed and showed left ventricular systolic function to be normal with an EF between 55 and 60%. There is evidence of severe pulmonary hypertension with right ventricular systolic pressure at 57 mmHg. Patient's Lasix was already increased to 3 times a day per cardiology, patient is a -1800 fluid balance. Repeat chest x-ray was ordered and reviewed by Dr. Jiménez and shows persistent CHF exacerbation with small bilateral pleural effusions, moderate central vascular congestion and bilateral perihilar edema. Patient was placed in BiPAP ventilatory support with settings of 12 and 5, 100%. She is tolerating the BiPAP support very well , states she is comfortable on it. Respirations are even and nonlabored. We gave her her 1600 dose of Lasix early add 1400. At this point decision was made to continue monitoring the patient on selective care unit, continue weaning FiO2 to keep O2 sat at 92%. She is very comfortable on the BiPAP support, continue diuresis, repeat chest x-ray in the morning. Patient is agreeable with the plan, and so is her . Patient is currently a DO NOT RESUSCITATE status. On 06/21/2017 patient seen in follow-up on selective care floor. She is significantly less dyspneic today, she is currently on 10 L of oxygen per high flow nasal cannula. She wore the BiPAP through the night, with the settings of 12/5, FiO2 was weaned down to 50% from 100%. She states she feels significantly improved in terms of her breathing. Her lung sounds are positive for better air entry bilaterally, still remains with coarse moist crackles left greater than the right over posterior lower lobes. She is in negative 20/160 5 mL fluid balance over the last 24 hours. She has lost 3.7 kg in the last 24 hours. Continue diuresis with Lasix, patient may wear BiPAP intermittently as needed. Her oxygenation is anticipated to further improve. Replace potassium per protocol. Monitor renal function. Monitor vital signs and oxygenation status. On 06/22/2017 patient's no follow-up was to Floor. She sits up in the chair, no acute distress. She is currently on 10 L per high flow nasal cannula, O2 sat at 94%. She denies any dyspnea, cough or chest congestion. She did wear her BiPAP last night. She is is maintaining negative fluid balance, she is - 500 mL over the last 24 hours. IV Lasix was switched to oral Lasix per cardiology in view of patient's worsening renal file. Medically she continues to improve, able to tolerate more activity. Continue with current medical treatment. The patient is seen again today 06/23/2017 on the selective care unit. She is awake and alert in no acute distress. She is resting quite comfortably in bed. She denies any worsening shortness of breath, cough or congestion. Maintaining O2 saturations in the 90s on 8 L of high flow nasal cannula. She does not utilize the BiPAP last night. She's been afebrile. Hemodynamically stable. Hemoglobin currently 7.2. No leukocytosis. She remains on oral Lasix 60 mg twice a day. Objective - Vital Signs Vital signs: Vital Signs Temp 97.2 F L 06/23/17 12:00 Pulse 55 L 06/23/17 12:00 Resp 18 06/23/17 12:00 BP 120/58 06/23/17 12:00 Pulse Ox 93 L 06/23/17 12:00 Intake & Output 06/22/17 06/23/17 06/23/17 18:59 06:59 18:59 Intake Total 5 720 Output Total 1300 Balance -1295 720 Weight 81.5 kg 82.5 kg Intake: Oral 5 720 Output: Urine 1300 Other: Voiding Method Indwelling Catheter Indwelling Catheter Indwelling Catheter # Voids 1 1 # Bowel Movements 1 - Exam GENERAL EXAM: Alert, active, comfortable in no apparent distress. HEAD: Normocephalic/atraumatic. EYES: Normal reaction of pupils, equal size. Conjunctiva pink, sclera white. NOSE: Clear with pink turbinates. THROAT: No erythema or exudates. NECK: No masses, no JVD, no thyroid enlargement, no adenopathy. CHEST: No chest wall deformity. Symmetrical expansion. LUNGS: Equal air entry, fine respiratory crackles noted bilaterally, over bilateral lower lung lobes anteriorly and posteriorly. No rhonchi, no wheezes. CVS: Regular rate and rhythm, normal S1 and S2, no gallops, no murmurs, no rubs ABDOMEN: Soft, nontender. No hepatosplenomegaly, normal bowel sounds, no guarding or rigidity. EXTREMITIES: No clubbing, no edema, no cyanosis, 2+ pulses and upper and lower extremities. MUSCULOSKELETAL: Muscle strength and tone normal. SPINE: No scoliosis or deformity SKIN: No rashes CENTRAL NERVOUS SYSTEM: Alert and oriented -3. No focal deficits, tone is normal in all 4 extremities. PSYCHIATRIC: Alert and oriented -3. Appropriate affect. Intact judgment and insight. - Labs CBC & Chem 7: 06/23/17 05:15 06/23/17 05:15 Labs: Abnormal Lab Results - Last 24 Hours (Table) 06/22/17 06/22/17 06/23/17 Range/Units 16:46 21:08 05:15 RBC 2.81 L (3.80-5.40) m/uL Hgb 7.2 L (11.4-16.0) gm/dL Hct 24.8 L (34.0-46.0) % MCHC 28.9 L (31.0-37.0) g/dL RDW 19.4 H (11.5-15.5) % BUN (7-17) mg/dL Creatinine (0.52-1.04) mg/dL Glucose (74-99) mg/dL POC Glucose (mg/dL) 127 H 168 H (75-99) mg/dL 06/23/17 06/23/17 06/23/17 Range/Units 05:15 05:58 11:40 RBC (3.80-5.40) m/uL Hgb (11.4-16.0) gm/dL Hct (34.0-46.0) % MCHC (31.0-37.0) g/dL RDW (11.5-15.5) % BUN 28 H (7-17) mg/dL Creatinine 1.51 H (0.52-1.04) mg/dL Glucose 125 H (74-99) mg/dL POC Glucose (mg/dL) 149 H 146 H (75-99) mg/dL Assessment and Plan Assessment: Assessment: #1. Acute hypoxic respiratory failure secondary to acute diastolic heart failure, EF is 55-60 on the echo from 06/20/2017. #2. Pulmonary hypertension, right ventricular systolic pressure of 57 mmHg on the echo from 06/20/2017 #3. Coronary artery disease, with history of CABG and stenting #4. History of obstructive sleep apnea, on home CPAP with a pressure of 10 cm of water #5. History of paroxysmal A. fib, currently in sinus rhythm, on Eliquis, prior history of cardioversion #6. History of CVA/TIA graft #7. Diabetes mellitus #8. Hyperlipidemia #9. Hypertension #10. Osteoarthritis #11. History of deep vein thrombosis #12. 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 #13. History of chronic anemia, no evidence of GI blood loss. On Aranesp. EGD from 05/18/[address] Pena showed scattered erosions in the antrum consistent with gastritis, no esophagitis or peptic ulcer disease noted #14. Status DO NOT RESUSCITATE Plan: She was seen and evaluated by Dr. Jiménez. She is currently stable from the pulmonary standpoint. We'll continue to attempt to titrate down her FiO2 will maintain O2 saturations in the 90s. She is currently on oral Lasix. He Remains at the bedside. Will increase her activity as tolerated. We'll continue to follow and make further recommendations based on her clinical status. I, the cosigning physician, have performed a history and physical examination on the patient. Lung sounds are clear to [place], crackles in the bilateral posterior bases.. Maintaining good O2 saturations in the 90s on 8 L high flow nasal cannula. I have discussed the assessment and plan of care with my nurse practitioner, Dariela Keyes. I attest the above documented note as dictated by her.
[2017-06-23 16:43] LABS: Glucose,Whole Blood 139 mg/dL (75-99)
[2017-06-23 20:43] LABS: Glucose,Whole Blood 143 mg/dL (75-99)
[2017-06-23] MEDS: SENNOSIDES 8.6 MG TAB PO SCH (22:19)
[2017-06-24 06:20] LABS: Glucose,Whole Blood 131 mg/dL (75-99)
[2017-06-24] MEDS: INSULIN ASPART 100 UNIT/ML 1 ML 10 ML VIAL SQ SCH ×4 (06:21→21:46)
[2017-06-24] MEDS: PANTOPRAZOLE 40 MG TABLET PO SCH (06:23)
[2017-06-24 06:25] LABS: Anisocytosis Slight; CHCM 29.2; HCT 24.7 % (34.0-46.0); HDW 3.06; HGB 7.1 gm/dL (11.4-16.0); Hypochromasia Marked; MCH 24.7 pg (25.0-35.0); MCHC 28.7 g/dL (31.0-37.0); MCV 86.1 fL (80.0-100.0); Mean Platelet Volume 8.4; RBC 2.87 m/uL (3.80-5.40); RDW 17.6 % (11.5-15.5); WBC 6.9 k/uL (3.8-10.6)
[2017-06-24 06:45] LABS: Calcium 8.1 mg/dL (8.4-10.2); Potassium 3.4 mmol/L (3.5-5.1)
[2017-06-24] MEDS: APIXABAN 2.5 MG TABLET PO SCH ×2 (08:28→21:46)
[2017-06-24] MEDS: FERROUS SULFATE 325 MG TAB PO SCH ×2 (08:30→21:46)
[2017-06-24] MEDS: ISOSORBIDE DINITRATE 20 MG TAB PO SCH ×3 (08:30→21:44)
[2017-06-24] MEDS: CHOLECALCIFEROL 1,000 UNIT TAB PO SCH (08:30)
[2017-06-24] MEDS: ESCITALOPRAM 20 MG TAB PO SCH (08:30)
[2017-06-24] MEDS: hydrALAZINE HCL 50 MG TAB PO SCH ×3 (08:30→21:44)
[2017-06-24] MEDS: cloNIDine HCL 0.1 MG TAB PO SCH ×2 (08:30→21:43)
[2017-06-24] MEDS: FUROSEMIDE 20 MG TAB PO SCH ×2 (08:31→16:37)
[2017-06-24] MEDS: SPIRONOLACTONE 25 MG TAB PO SCH (08:31)
[2017-06-24] MEDS: LOSARTAN 50 MG TAB PO SCH (08:32)
--- NOTE | 2017-06-24 10:48 | P.PN ---
Subjective Progress Note Date: 06/24/17 This is a 76-year-old female patient of Dr. Leal'stephie with a past history of coronary artery disease with prior 4 vessel CABG in 1998 and subsequent stenting of the mid RCA and OM and 2013 and 2 subsequent stent placements following that, hypertension, diabetes mellitus type 2, hyperlipidemia, obstructive sleep apnea, paroxysmal atrial fibrillation status post cardioversion 1 year ago on chronic Coumadin. Patient presented to [facility] emergency center on November 08 due to shortness of breath with cough for 3-4 days. She states the symptoms are worsening and that her ribs hurt due to coughing so much. She denies any lower extremity edema. Patient recently stopped taking her Coumadin because she didn't feel well when she took it and only feels cold. She complains of weakness when she walks. CTA of the chest showed no evidence of pulmonary embolism. Loculated bilateral pleural effusions are increased compared to January 2016. Pleural calcification on the right side and lesser extent on the left. Mild mediastinal adenopathy, cardiomegaly. Possibility of mesothelioma should be considered. Patient was seen by Dr. Ward and this was thought to be due to previous chemical pleurodesis following her CABG. Patient has been evaluated by cardiology and started on eliquis with plan to continue Plavix as well. Echocardiogram reveals moderate mitral regurgitation, moderate tricuspid regurgitation, mild pulmonary hypertension, moderate concentric left ventricular hypertrophy, EF 45- 50%. Vision was discharged home on November 10. She presented back to [facility] emergency center on November 13 with complaints of cough that been going on for 2-3 weeks and shortness of breath with exertion. She denies any lower extremity edema but does feel distended in the abdomen with occasional pain and a full feeling in her belly. Her last colonoscopy was 6-7 years ago. She also states she has a cold occasional coughing when she eats. She denies any constipation. She denies any history of asthma or ALLERGIES. She does not use home oxygen. There are no pets in the home and no mold that she knows of. Chest x-ray correlate for continued heart failure with pulmonary vascular congestion. Trace left pleural effusion and likely pseudotumor at the right mid lung representing trapped fluid within the minor fissure. He was seen in consultation by Dr. Staples and cardiology. She was treated for acute diastolic heart failure and was discharged home on 11/15/2016. Patient then followed up with her ground host/hostess at [facility], Dr. Katty Ramirez and she has scheduled procedures on December 18 for heart catheterization and on January 01 for ablation. She does plan to follow-up with Dr. Ramirez when she discharges from the hospital, then came to [facility] with shortness of breath worsening with activitywith increased edema but no chest pain. ProBNP was 7070. She was discharged after a few days of IV diuretics. Patient is here this time with 3 weeks history of worsening shortness of breath on exertion and at rest.. Patient states she is not at her baseline since December but for the past few weeks it has been difficult for her to breathe associated with cough production with whitish phlegm. She denies any chest pain or palpitations. On my evaluation, patient was on high flow on 13 L of oxygen with a heart rate of 90 using her accessory muscles. Patient patient had received IV Lasix 40 mg and is currently scheduled to get 40 IV every 8 hours. Patient has been taking her medications regularly, endorses 8 pound weight gain in the last 1 week. She currently resides at [facility] and saw Dr. Leal last week. Patient does use CPAP machine for obstructive sleep apnea but does not require any oxygen at home. Chest x-ray done on 06/19 show pulmonary edema, cardiomegaly, blunting of costophrenic angle consistent with pleural effusion. EKG suggested sinus rhythm with occasional PVC with heartrate 71. Troponin negative 3 Labs including CBC suggested anemia with drop in hemoglobin from 10.7-7.8. Patient has had workup for blood loss anemia from intestine with negative Hemoccult in the past Reticulocyte count is 2.8. 2-D echo suggested left ventricle systolic function is normal with EF of 50-60% with evidence of severe pulmonary hypertension.. Due to increased distress patient was placed on BiPAP, pulmonary and cardiology was consulted for further recommendation. 06/21: Cardiology decreased TO 2.5 mg twice daily and switch the patient over to oral Lasix today. She has been diuresing well and is down 4 kg. echocardiogram reveals EF of 55-60% with LAD moderately dilated 34-39, mild mitral regurgitation and mild tricuspid regurgitation, severe pulmonary hypertension and moderate pulmonary regurgitation. Patient was seen by Dr. Jiménez and placed on BiPAP and is currently on high flow nasal cannula. Patient states she is feeling a little bit better from yesterday. Repeat chest x-ray shows improving congestive heart failure with resolved alveolar edema but persistent interstitial edema and pulmonary vascular congestion. Hemoglobin is at 7.1 and 1 unit of packed RBCs is been ordered. Consult with Dr. Loja regarding underlying reason for anemia and anemia workup is been started. She has had a recent EGD with Dr. Reid which did not show any abnormalities. Biopsy revealed chronic gastritis, esophagitis with chronic active esophagitis, H. pylori negative. Patient is on [facility] [place] [facility]. 06/22: Patient was switched back to IV Lasix yesterday she had decreased urine output. Cardiology has changed his back to oral at 60 mg twice daily this morning. Patient was unable to receive transfusion of blood yesterday as she is a Jehovah witness and transfusion was canceled. Incentive spirometry ordered. Patient is complaining of feeling tired and weak and cold. BUN is a 23 and creatinine 1.5 with sodium of 141. Discussed discharge plan with the patient and she is planning to return to [facility] and case management updated. Most likely she will be ready for discharge on Sunday. 06/23: Cardiology also added and Aldactone 25 mg daily. It appears they have cleared her for discharge with plan to follow-up with her own ground host/hostess. Chest x-ray shows continued changes of heart failure with worsening can fluid airspace disease on the left. Patient was seen by Dr. Loja for hyperproliferative anemia and patient may need bone marrow biopsy. Workup isn' t in process. Patient's breathing is improved from yesterday. She did not use BiPAP last evening. She states she had an episode of coughing after she was drinking water for which her oxygen was increased to 8 L. Plan to increase activity and wean oxygen down today. She is continued on Lasix 60 mg twice daily. Anticipate discharge back to [facility] on Sunday. 06/24: Cardiology is now following the patient on an as-needed basis only. Dr. Jiménez continues to follow the patient. Today hemoglobin is at 7. BUN 28 creatinine 1.6. Weight is down 2.4 kg from yesterday. Patient used BiPAP during the night and feels well this morning. Shortness of breath continues to improve. Lower extremity edema is decreasing. Plan for discharge to [facility] tomorrow. Lasix is currently at 60 mg twice daily and Aldactone 25 mg daily. Objective - Vital Signs Vital signs: Vital Signs Temp 97.5 F L 06/24/17 03:56 Pulse 51 L 06/24/17 03:56 Resp 18 06/24/17 03:56 BP 113/55 06/24/17 03:56 Pulse Ox 95 06/24/17 03:56 Intake & Output 06/23/17 06/24/17 06/24/17 18:59 06:59 18:59 Intake Total 1080 Output Total 550 Balance 1080 -550 Weight 80.1 kg Intake: Oral 1080 Output: Urine 550 Other: Voiding Method Indwelling Catheter # Voids 1 0 # Bowel Movements 1 - Exam General appearance: cooperative, moderate acute distress - EENT Eyes: anicteric sclerae, PERRLA, normal appearance ENT: hearing grossly normal - Neck Neck: no lymphadenopathy, normal ROM, no other, no rigidity, no stridor, no thyromegaly. Found to be using his S3 muscles - Respiratory Respiratory: bilateral: Diminished with increased crackles bilaterally - Cardiovascular Rhythm: regular Heart sounds: normal: S1, S2 Abnormal Heart Sounds: no systolic murmur, no diastolic murmur, no rub, no S3 Gallop, no S4 Gallop, no click, no other, significant edema lower extremities up to the knees - Gastrointestinal General gastrointestinal: normal bowel sounds, soft - Integumentary Integumentary: no rash - Neurologic Neurologic: CNII-XII intact - Musculoskeletal Musculoskeletal: gait normal, strength equal bilaterally - Psychiatric Psychiatric: A&O x's 3, appropriate affect - Labs CBC & Chem 7: 06/24/17 05:30 06/24/17 05:30 Labs: Abnormal Lab Results - Last 24 Hours (Table) 06/23/17 06/23/17 06/23/17 Range/Units 05:15 05:15 11:40 RBC 2.81 L (3.80-5.40) m/uL Hgb 7.2 L (11.4-16.0) gm/dL Hct 24.8 L (34.0-46.0) % MCH (25.0-35.0) pg MCHC 28.9 L (31.0-37.0) g/dL RDW 19.4 H (11.5-15.5) % Potassium (3.5-5.1) mmol/L BUN 28 H (7-17) mg/dL Creatinine 1.51 H (0.52-1.04) mg/dL Glucose 125 H (74-99) mg/dL POC Glucose (mg/dL) 146 H (75-99) mg/dL Calcium (8.4-10.2) mg/dL 06/23/17 06/23/17 06/24/17 Range/Units 16:39 20:39 05:30 RBC 2.87 L (3.80-5.40) m/uL Hgb 7.1 L (11.4-16.0) gm/dL Hct 24.7 L (34.0-46.0) % MCH 24.7 L (25.0-35.0) pg MCHC 28.7 L (31.0-37.0) g/dL RDW 17.6 H (11.5-15.5) % Potassium (3.5-5.1) mmol/L BUN (7-17) mg/dL Creatinine (0.52-1.04) mg/dL Glucose (74-99) mg/dL POC Glucose (mg/dL) 139 H 143 H (75-99) mg/dL Calcium (8.4-10.2) mg/dL 06/24/17 06/24/17 Range/Units 05:30 06:19 RBC (3.80-5.40) m/uL Hgb (11.4-16.0) gm/dL Hct (34.0-46.0) % MCH (25.0-35.0) pg MCHC (31.0-37.0) g/dL RDW (11.5-15.5) % Potassium 3.4 L (3.5-5.1) mmol/L BUN 28 H (7-17) mg/dL Creatinine 1.60 H (0.52-1.04) mg/dL Glucose 113 H (74-99) mg/dL POC Glucose (mg/dL) 131 H (75-99) mg/dL Calcium 8.1 L (8.4-10.2) mg/dL Assessment and Plan Plan: 1. Acute on chronic diastolic heart failure. Cardiology consult appreciated. Continue IV Lasix to oral and added Aldactone. Echocardiogram as above. I&O and daily weights. Monitor electrolytes and kidney function. . 2. Bilateral pleural effusions with possible mesothelioma thought to be due to previous pleurodesis done after her CABG. Patient has been seen by Dr. Ward and Dr. Staples on previous admissions. 3. Persistant atrial fibrillation currently rate controlled status post reversion. Cardiology consult appreciated. Continue eliquis at low-dose 2.5 mg twice a day. 4. CAD. Continue Imdur 20 mg 3 times a day, aspirin stopped as patient is on IS 5. Diabetes mellitus type 2. Continue Humalog scale before meals and at bedtime. Her A1c is 6.4. 6. Hypertensive cardiovascular disease. Continue Imdur, and Lasix. 7. History of obstructive sleep apnea. 8. Hyperlipidemia continue Lipitor 20mg. 9. History of CVA, stable 10. Normocytic anemia Consult with Dr. Loja appreciated. Workup in process. 11. History of DVT. 12. Osteoarthritis, generalized. 13. Acute kidney injury from diuresing Chronic kidney disease stage III. 14. DVT prophylaxis. Patient on eliquis 15. Gastrointestinal prophylaxis. Continue Protonix. Discharge plan: return to [facility] on Sunday Impression and plan of care have been directed as dictated by the signing physician. Ashtyn Yeung nurse practitioner acting as scribe for signing physician.
--- NOTE | 2017-06-24 11:17 | P.PN ---
Subjective Progress Note Date: 06/24/17 Principal diagnosis: Heart failure Progress note dated 06/24/2017 This is a 77-year-old female that we saw for congestive heart failure. She was treated primarily with BiPAP therapy and IV diuretics. She responded very nicely. She still requiring high flows of oxygen but has improved significantly. Very weak though. Will likely have to be discharged to some [facility]. Stable otherwise. Denies any fever chills nausea vomiting diarrhea or chest pain. The patient has not had used to BiPAP the last couple nights although she is free to use if she wishes. Very short of breath with any activity. She has a history of hypoxemic respiratory failure secondary to diastolic CHF pulmonary hypertension CAD with previous bypass grafting, sleep apnea syndrome, currently on CPAP atrial fibrillation CVA diabetes hyperlipidemia hypertension DJD DVT and chronic anemia. She is a DO NOT RESUSCITATE. Objective - Vital Signs Vital signs: Vital Signs Temp 97 F L 06/24/17 08:00 Pulse 55 L 06/24/17 08:00 Resp 18 06/24/17 08:00 BP 140/65 06/24/17 08:00 Pulse Ox 97 06/24/17 08:00 Intake & Output 06/23/17 06/24/17 06/24/17 18:59 06:59 18:59 Intake Total 1080 Output Total 550 Balance 1080 -550 Weight 80.1 kg Intake: Oral 1080 Output: Urine 550 Other: Voiding Method Indwelling Catheter # Voids 1 0 # Bowel Movements 1 - Exam No acute distress, oriented 3. Pale and very weak appearing HEENT examination is grossly unremarkable. Mucous membranes are moist. No oral lesions. Neck supple. Full range of motion. No adenopathy thyromegaly or neck vein distention. Cardiovascular examination reveals regular rhythm rate. S1-S2 normal. No S3 or S4. No discernible murmur noted. Lungs reveal a few scattered rhonchi and crackles. Breath sounds are diminished. She does not take the breast.. Abdomen soft bowel sounds are heard. No masses or tenderness. Extremities are intact. No cyanosis clubbing or edema. Skin is without rash or lesion. Neurologic examination is brief but nonfocal. - Labs CBC & Chem 7: 06/24/17 05:30 06/24/17 05:30 Labs: Abnormal Lab Results - Last 24 Hours (Table) 06/23/17 06/23/17 06/23/17 Range/Units 05:15 11:40 16:39 RBC (3.80-5.40) m/uL Hgb (11.4-16.0) gm/dL Hct (34.0-46.0) % MCH (25.0-35.0) pg MCHC (31.0-37.0) g/dL RDW (11.5-15.5) % Potassium (3.5-5.1) mmol/L BUN (7-17) mg/dL Creatinine (0.52-1.04) mg/dL Glucose (74-99) mg/dL POC Glucose (mg/dL) 146 H 139 H (75-99) mg/dL Calcium (8.4-10.2) mg/dL Total Protein (PEP) 5.3 L (6.2-8.2) g/dL Free [place] LC, Quant 9.63 H (0.33-1.94) mg/dL 06/23/17 06/24/17 06/24/17 Range/Units 20:39 05:30 05:30 RBC 2.87 L (3.80-5.40) m/uL Hgb 7.1 L (11.4-16.0) gm/dL Hct 24.7 L (34.0-46.0) % MCH 24.7 L (25.0-35.0) pg MCHC 28.7 L (31.0-37.0) g/dL RDW 17.6 H (11.5-15.5) % Potassium 3.4 L (3.5-5.1) mmol/L BUN 28 H (7-17) mg/dL Creatinine 1.60 H (0.52-1.04) mg/dL Glucose 113 H (74-99) mg/dL POC Glucose (mg/dL) 143 H (75-99) mg/dL Calcium 8.1 L (8.4-10.2) mg/dL Total Protein (PEP) (6.2-8.2) g/dL Free [place] LC, Quant (0.33-1.94) mg/dL 06/24/17 Range/Units 06:19 RBC (3.80-5.40) m/uL Hgb (11.4-16.0) gm/dL Hct (34.0-46.0) % MCH (25.0-35.0) pg MCHC (31.0-37.0) g/dL RDW (11.5-15.5) % Potassium (3.5-5.1) mmol/L BUN (7-17) mg/dL Creatinine (0.52-1.04) mg/dL Glucose (74-99) mg/dL POC Glucose (mg/dL) 131 H (75-99) mg/dL Calcium (8.4-10.2) mg/dL Total Protein (PEP) (6.2-8.2) g/dL Free [place] LC, Quant (0.33-1.94) mg/dL Assessment and Plan (1) Anemia Current Visit: Yes Status: Acute Code(s): D64.9 - ANEMIA, UNSPECIFIED SNOMED Code(s): 412539514 (2) CHF exacerbation Current Visit: Yes Status: Acute Code(s): I50.9 - HEART FAILURE, UNSPECIFIED SNOMED Code(s): 96528794 (3) Chronic atrial fibrillation Current Visit: No Status: Acute Code(s): I48.2 - CHRONIC ATRIAL FIBRILLATION SNOMED Code(s): 203507593 (4) Congestive heart failure Current Visit: No Status: Acute Code(s): I50.9 - HEART FAILURE, UNSPECIFIED SNOMED Code(s): 41646967 (5) Dyspnea Current Visit: No Status: Acute Code(s): R06.00 - DYSPNEA, UNSPECIFIED SNOMED Code(s): 888504569 Plan: Plan dated 06/24/2017 The patient is doing reasonably well. Relatively stable from the pulmonary standpoint. We'll try to titrate down further, the FiO2. The patient currently remains on Lasix. The patient may need to be discharged to a jail. We'll continue to follow. Prognosis is guarded. She is a DO NOT RESUSCITATE. Time with Patient: Less than 30
[2017-06-24 11:56] LABS: Glucose,Whole Blood 176 mg/dL (75-99)
[2017-06-24] MEDS: POTASSIUM CHLORIDE ER 20 MEQ TAB.ER PO SCH ×3 (12:24→19:32)
[2017-06-24 17:09] LABS: Glucose,Whole Blood 121 mg/dL (75-99)
[2017-06-24 20:59] LABS: Glucose,Whole Blood 139 mg/dL (75-99)
[2017-06-24] MEDS: SENNOSIDES 8.6 MG TAB PO SCH (21:44)
[2017-06-24] MEDS: ALPRAZolam 0.5 MG TAB PO PRN (21:46)
[2017-06-24 23:44] VITALS: TEMP 97
[2017-06-25] MEDS: INSULIN ASPART 100 UNIT/ML 1 ML 10 ML VIAL SQ SCH ×2 (07:33→12:33)
[2017-06-25 07:36] LABS: Glucose,Whole Blood 96 mg/dL (75-99)
[2017-06-25 07:45] VITALS: BP 109/51; PULSE 47; RESP 20
[2017-06-25] MEDS: FUROSEMIDE 20 MG TAB PO SCH (09:17)
[2017-06-25] MEDS: SPIRONOLACTONE 25 MG TAB PO SCH (09:17)
[2017-06-25] MEDS: CHOLECALCIFEROL 1,000 UNIT TAB PO SCH (09:18)
[2017-06-25] MEDS: ISOSORBIDE DINITRATE 20 MG TAB PO SCH (09:18)
[2017-06-25] MEDS: hydrALAZINE HCL 50 MG TAB PO SCH (09:18)
[2017-06-25] MEDS: APIXABAN 2.5 MG TABLET PO SCH (09:18)
[2017-06-25] MEDS: FERROUS SULFATE 325 MG TAB PO SCH (09:19)
[2017-06-25] MEDS: LOSARTAN 50 MG TAB PO SCH (09:19)
[2017-06-25] MEDS: ESCITALOPRAM 20 MG TAB PO SCH (09:19)
[2017-06-25] MEDS: cloNIDine HCL 0.1 MG TAB PO SCH (09:19)
[2017-06-25] MEDS: PANTOPRAZOLE 40 MG TABLET PO SCH (09:19)
--- NOTE | 2017-06-25 09:53 | XR ---
EXAMINATION TYPE: XR chest 2V DATE OF EXAM: 06/25/2017 COMPARISON: 06/23/2017 HISTORY: 77-year-old female follow-up exam, shortness of breath TECHNIQUE: Frontal and lateral views FINDINGS: Median sternotomy wires are present with post-CABG changes in the mediastinum. Heart is borderline to mildly enlarged. Diffuse interstitial densities persist. Some of these areas appear less confluent a s compared to prior exam. Trace effusions with adjacent opacity. IMPRESSION: Findings suggest CHF with persistent but slightly improving pulmonary edema. Trace effusions with adj acent atelectasis and/or consolidation.
[2017-06-25 10:11] LABS: Anisocytosis Slight; Basophils % (A) 0 %; CH 24.5; CHCM 28.3; Eosinophils # (A) 0.4 k/uL (0-0.7); Eosinophils % (A) 7 %; HCT 28.5 % (34.0-46.0); HDW 3.01; HGB 8.1 gm/dL (11.4-16.0); Hypochromasia Marked; Luc # (Auto) 0.05; Luc % (Auto) 1; Lymphocytes # (A) 0.6 k/uL (1.0-4.8); Lymphocytes % (A) 10 %; MCH 24.6 pg (25.0-35.0); MCHC 28.3 g/dL (31.0-37.0); MCV 87.1 fL (80.0-100.0); Monocytes # (A) 0.3 k/uL (0-1.0); Monocytes % (A) 5 %; Neutrophils # (A) 4.7 k/uL (1.3-7.7); Neutrophils % (A) 76 %; RBC 3.28 m/uL (3.80-5.40); RDW 18.7 % (11.5-15.5); WBC 6.1 k/uL (3.8-10.6)
[2017-06-25 10:29] LABS: Calcium 8.6 mg/dL (8.4-10.2); Magnesium 1.9 mg/dL (1.6-2.3); Potassium 3.8 mmol/L (3.5-5.1)
[2017-06-25 12:45] LABS: Glucose,Whole Blood 169 mg/dL (75-99)
--- NOTE | 2017-06-25 13:13 | P.DS ---
Providers Date of admission: 06/19/17 19:58 Expected date of discharge: 06/25/17 Attending physician: Hardeep Ambriz Consults: 06/19/17 19:58 Consult Physician Routine Consulting Provider: [facility] Consult Reason/Comments: CHF Do you want consulting provider notified?: Yes, Notify in am 06/20/17 12:31 Consult Physician Routine Consulting Provider: Melvin Jiménez Consult Reason/Comments: Follows with Jhoan, pseudotumor L lung, KERRI Do you want consulting provider notified?: Yes 06/21/17 12:33 Consult Physician Routine Consulting Provider: Ever Loja Consult Reason/Comments: anemia Do you want consulting provider notified?: Yes Primary care physician: [facility] Course: This is a 76-year-old female patient of Dr. Leal'stephie with a past history of coronary artery disease with prior 4 vessel CABG in 1998 and subsequent stenting of the mid RCA and OM and 2013 and 2 subsequent stent placements following that, hypertension, diabetes mellitus type 2, hyperlipidemia, obstructive sleep apnea, paroxysmal atrial fibrillation status post cardioversion 1 year ago on chronic Coumadin. Patient presented to [facility] emergency center on November 08 due to shortness of breath with cough for 3-4 days. She states the symptoms are worsening and that her ribs hurt due to coughing so much. She denies any lower extremity edema. Patient recently stopped taking her Coumadin because she didn't feel well when she took it and only feels cold. She complains of weakness when she walks. CTA of the chest showed no evidence of pulmonary embolism. Loculated bilateral pleural effusions are increased compared to January 2016. Pleural calcification on the right side and lesser extent on the left. Mild mediastinal adenopathy, cardiomegaly. Possibility of mesothelioma should be considered. Patient was seen by Dr. Ward and this was thought to be due to previous chemical pleurodesis following her CABG. Patient has been evaluated by cardiology and started on eliquis with plan to continue Plavix as well. Echocardiogram reveals moderate mitral regurgitation, moderate tricuspid regurgitation, mild pulmonary hypertension, moderate concentric left ventricular hypertrophy, EF 45- 50%. Vision was discharged home on November 10. She presented back to [facility] emergency center on November 13 with complaints of cough that been going on for 2-3 weeks and shortness of breath with exertion. She denies any lower extremity edema but does feel distended in the abdomen with occasional pain and a full feeling in her belly. Her last colonoscopy was 6-7 years ago. She also states she has a cold occasional coughing when she eats. She denies any constipation. She denies any history of asthma or ALLERGIES. She does not use home oxygen. There are no pets in the home and no mold that she knows of. Chest x-ray correlate for continued heart failure with pulmonary vascular congestion. Trace left pleural effusion and likely pseudotumor at the right mid lung representing trapped fluid within the minor fissure. He was seen in consultation by Dr. Staples and cardiology. She was treated for acute diastolic heart failure and was discharged home on 11/15/2016. Patient then followed up with her uat tester at [facility], Dr. Katty Ramirez and she has scheduled procedures on December 18 for heart catheterization and on January 01 for ablation. She does plan to follow-up with Dr. Ramirez when she discharges from the hospital, then came to [facility] with shortness of breath worsening with activitywith increased edema but no chest pain. ProBNP was 7070. She was discharged after a few days of IV diuretics. Patient is here this time with 3 weeks history of worsening shortness of breath on exertion and at rest.. Patient states she is not at her baseline since December but for the past few weeks it has been difficult for her to breathe associated with cough production with whitish phlegm. She denies any chest pain or palpitations. On my evaluation, patient was on high flow on 13 L of oxygen with a heart rate of 90 using her accessory muscles. Patient patient had received IV Lasix 40 mg and is currently scheduled to get 40 IV every 8 hours. Patient has been taking her medications regularly, endorses 8 pound weight gain in the last 1 week. She currently resides at [facility] and saw Dr. Leal last week. Patient does use CPAP machine for obstructive sleep apnea but does not require any oxygen at home. Chest x-ray done on 06/19 show pulmonary edema, cardiomegaly, blunting of costophrenic angle consistent with pleural effusion. EKG suggested sinus rhythm with occasional PVC with heartrate 71. Troponin negative 3 Labs including CBC suggested anemia with drop in hemoglobin from 10.7-7.8. Patient has had workup for blood loss anemia from intestine with negative Hemoccult in the past Reticulocyte count is 2.8. 2-D echo suggested left ventricle systolic function is normal with EF of 50-60% with evidence of severe pulmonary hypertension.. Due to increased distress patient was placed on BiPAP, pulmonary and cardiology was consulted for further recommendation. 06/21: Cardiology decreased TO 2.5 mg twice daily and switch the patient over to oral Lasix today. She has been diuresing well and is down 4 kg. echocardiogram reveals EF of 55-60% with LAD moderately dilated 34-39, mild mitral regurgitation and mild tricuspid regurgitation, severe pulmonary hypertension and moderate pulmonary regurgitation. Patient was seen by Dr. Jiménez and placed on BiPAP and is currently on high flow nasal cannula. Patient states she is feeling a little bit better from yesterday. Repeat chest x-ray shows improving congestive heart failure with resolved alveolar edema but persistent interstitial edema and pulmonary vascular congestion. Hemoglobin is at 7.1 and 1 unit of packed RBCs is been ordered. Consult with Dr. Loja regarding underlying reason for anemia and anemia workup is been started. She has had a recent EGD with Dr. Reid which did not show any abnormalities. Biopsy revealed chronic gastritis, esophagitis with chronic active esophagitis, H. pylori negative. [facility] is on [facility]. 06/22: Patient was switched back to IV Lasix yesterday she had decreased urine output. Cardiology has changed his back to oral at 60 mg twice daily this morning. Patient was unable to receive transfusion of blood yesterday as she is a Jehovah witness and transfusion was canceled. Incentive spirometry ordered. Patient is complaining of feeling tired and weak and cold. BUN is a 23 and creatinine 1.5 with sodium of 141. Discussed discharge plan with the patient and she is planning to return to [facility] and case management updated. Most likely she will be ready for discharge on Sunday. 06/23: Cardiology also added and Aldactone 25 mg daily. It appears they have cleared her for discharge with plan to follow-up with her own uat tester. Chest x-ray shows continued changes of heart failure with worsening can fluid airspace disease on the left. Patient was seen by Dr. Loja for hyperproliferative anemia and patient may need bone marrow biopsy. Workup isn' t in process. Patient's breathing is improved from yesterday. She did not use BiPAP last evening. She states she had an episode of coughing after she was drinking water for which her oxygen was increased to 8 L. Plan to increase activity and wean oxygen down today. She is continued on Lasix 60 mg twice daily. Anticipate discharge back to [facility] on Sunday. 06/24: Cardiology is now following the patient on an as-needed basis only. Dr. Jiménez continues to follow the patient. Today hemoglobin is at 7. BUN 28 creatinine 1.6. Weight is down 2.4 kg from yesterday. Patient used BiPAP during the night and feels well this morning. Shortness of breath continues to improve. Lower extremity edema is decreasing. Plan for discharge to [facility] tomorrow. Lasix is currently at 60 mg twice daily and Aldactone 25 mg daily. 06/25: Patient remains stable. Plan for her to use BiPAP at bedtime and O2 at 4 L during the day at the [facility]. Breathing status continues to improve. Patient will be discharged back to [facility] today in stable condition. Discharge diagnoses: 1. Acute on chronic diastolic heart failure. 2. Bilateral pleural effusions with possible mesothelioma thought to be due to previous pleurodesis done after her CABG. 3. Persistant atrial fibrillation currently rate controlled 4. CAD. 5. Diabetes mellitus type 2. 6. Hypertensive cardiovascular disease. 7. History of obstructive sleep apnea. 8. Hyperlipidemia continue Lipitor 20mg. 9. History of CVA, stable 10. Normocytic anemia Consult with Dr. Loja appreciated. Workup in process. 11. History of DVT. 12. Osteoarthritis, generalized. 13. Acute kidney injury from diuresing Chronic kidney disease stage III. Discharge plan: return to [facility] under the care of Dr. Mosley Impression and plan of care have been directed as dictated by the signing physician. Ashtyn Yeung nurse practitioner acting as scribe for signing physician. Patient Condition at Discharge: Good Plan - Discharge Summary Discharge Rx Participant: No New Discharge Prescriptions: New Acetaminophen Tab [Tylenol] 650 mg PO Q4H PRN tab PRN Reason: Fever And/ Or Pain Apixaban [Eliquis] 2.5 mg PO BID tablet cloNIDine HCL [Catapres] 0.1 mg PO BID tab Darbepoetin Redd [Aranesp] 60 mcg SQ Q7D syringe Losartan [Cozaar] 100 mg PO DAILY tab Spironolactone [Aldactone] 25 mg PO DAILY tab Continue Cholecalciferol [Vitamin D3] 1,000 unit PO DAILY Trimethobenzamide [Tigan] 300 mg PO Q8H PRN PRN Reason: Nausea Omeprazole 20 mg PO DAILY Furosemide [Lasix] 60 mg PO BID Escitalopram [Lexapro] 20 mg PO DAILY hydrALAZINE HCL [Apresoline] 100 mg PO TID Isosorbide Dinitrate [Isordil] 20 mg PO TID Ferrous Sulfate [Iron (65 MG Elemental)] 325 mg PO BID ALPRAZolam [Xanax] 0.5 mg PO HS PRN #30 tab PRN Reason: Anxiety Discontinued Apixaban [Eliquis] 5 mg PO BID #60 tab Acetaminophen Tab [Tylenol Tab] 650 mg PO Q4H PRN PRN Reason: Fever And/ Or Pain Sennosides [Senna] 17.2 mg PO HS Potassium Chloride [Klor-Con 20] 20 meq PO TID Losartan Potassium 50 mg PO DAILY Epoetin Redd [Procrit] 4,000 unit SQ DAILY amLODIPine [Norvasc] 10 mg PO DAILY Discharge Medication List Cholecalciferol [Vitamin D3] 1,000 unit PO DAILY 06/19/17 [History] Escitalopram [Lexapro] 20 mg PO DAILY 06/19/17 [History] Ferrous Sulfate [Iron (65 MG Elemental)] 325 mg PO BID 06/19/17 [History] Furosemide [Lasix] 60 mg PO BID 06/19/17 [History] Isosorbide Dinitrate [Isordil] 20 mg PO TID 06/19/17 [History] Omeprazole 20 mg PO DAILY 06/19/17 [History] Trimethobenzamide [Tigan] 300 mg PO Q8H PRN 06/19/17 [History] hydrALAZINE HCL [Apresoline] 100 mg PO TID 06/19/17 [History] ALPRAZolam [Xanax] 0.5 mg PO HS PRN #30 tab 06/25/17 [Rx] Acetaminophen Tab [Tylenol] 650 mg PO Q4H PRN tab 06/25/17 [Rx] Apixaban [Eliquis] 2.5 mg PO BID tablet 06/25/17 [Rx] Darbepoetin Redd [Aranesp] 60 mcg SQ Q7D syringe 06/25/17 [Rx] Losartan [Cozaar] 100 mg PO DAILY tab 06/25/17 [Rx] Spironolactone [Aldactone] 25 mg PO DAILY tab 06/25/17 [Rx] cloNIDine HCL [Catapres] 0.1 mg PO BID tab 06/25/17 [Rx] Follow up Appointment(s)/Referral(s): [facility], [NON-STAFF] - Activity/Diet/Wound Care/Special Instructions: Bipap 15/5, 50% at bedtime. O2 4L n/c Consistent Carb diet Activity as tolerated Discharge Disposition: TRANSFER TO SNF/ECF
[2017-06-25 13:39] VITALS: BMI 31.0
--- NOTE | 2017-06-25 14:42 | P.PN ---
Subjective Progress Note Date: 06/25/17 Principal diagnosis: Acute hypoxic respiratory failure secondary to acute diastolic heart failure, with pulmonary edema Jany is a 77-year-old white female patient that sees Dr. 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 Patient is from a rehab facility, and the staff noted desaturation and low oxygenation. Patient denies any chest pain, fever, chills, increased chest congestion, or wheezing. Past medical history includes coronary artery disease with history of coronary artery bypass grafting, congestive heart failure, recurrent pleural effusions requiring chemical pleurodesis, heart catheterization with stents, hyperlipidemia, DVT, chronic anemia and osteoarthritis. She does use CPAP machine for obstructive sleep apnea syndrome , but usually does not require any oxygen. Chest x-ray from 06/19/2017 shows pulmonary edema, cardiomegaly, blunting of costophrenic angles consistent with pleural effusions. EKG showed sinus rhythm with occasional PVCs, with a rate of 71 BPM. Patient was initiated on IV Lasix 40 mg daily, and was later increased to 40 mg IV push 3 times a day per cardiology. She is anticoagulated with Apixaban for her history of A. fib and history of DVT. She is on Aranesp for her history of chronic anemia. Opponens were negative 3, no proBNP was done this admission. Patient's stated she had an 8 pound weight gain in the last week. Today we work on salted in regards to patient's hypoxemia and increased shortness of breath. On evaluation patient was seen on 100% nonrebreather, comfortable at rest, however she complained about low activity tolerance, and being short of breath with any exertion even get up out of bed. Lung sounds are positive for scattered crackles over bilateral lower lobes and posterior right middle lobe. No wheezes, no rhonchi were appreciated. She remains in the normal sinus rhythm. 2-D echocardiogram results were reviewed and showed left ventricular systolic function to be normal with an EF between 55 and 60%. There is evidence of severe pulmonary hypertension with right ventricular systolic pressure at 57 mmHg. Patient's Lasix was already increased to 3 times a day per cardiology, patient is a -1800 fluid balance. Repeat chest x-ray was ordered and reviewed by Dr. Jiménez and shows persistent CHF exacerbation with small bilateral pleural effusions, moderate central vascular congestion and bilateral perihilar edema. Patient was placed in BiPAP ventilatory support with settings of 12 and 5, 100%. She is tolerating the BiPAP support very well, states she is comfortable on it. Respirations are even and nonlabored. We gave her her 1600 dose of Lasix early add 1400. At this point decision was made to continue monitoring the patient on selective care unit, continue weaning FiO2 to keep O2 sat at 92%. She is very comfortable on the BiPAP support, continue diuresis, repeat chest x-ray in the morning. Patient is agreeable with the plan, and so is her . Patient is currently a DO NOT RESUSCITATE status. On 06/21/2017 patient seen in follow-up on selective care floor. She is significantly less dyspneic today, she is currently on 10 L of oxygen per high flow nasal cannula. She wore the BiPAP through the night, with the settings of 12/5, FiO2 was weaned down to 50% from 100%. She states she feels significantly improved in terms of her breathing. Her lung sounds are positive for better air entry bilaterally, still remains with coarse moist crackles left greater than the right over posterior lower lobes. She is in negative 20/160 5 mL fluid balance over the last 24 hours. She has lost 3.7 kg in the last 24 hours. Continue diuresis with Lasix, patient may wear BiPAP intermittently as needed. Her oxygenation is anticipated to further improve. Replace potassium per protocol. Monitor renal function. Monitor vital signs and oxygenation status. On 06/22/2017 patient's no follow-up was to Floor. She sits up in the chair, no acute distress. She is currently on 10 L per high flow nasal cannula, O2 sat at 94%. She denies any dyspnea, cough or chest congestion. She did wear her BiPAP last night. She is is maintaining negative fluid balance, she is - 500 mL over the last 24 hours. IV Lasix was switched to oral Lasix per cardiology in view of patient's worsening renal file. Medically she continues to improve, able to tolerate more activity. Continue with current medical treatment. On 06/25/2017 patient seen on follow-up medical surgical floor. She continues to diurese well on oral Lasix, oxygenation is stable on 4 L per high flow nasal cannula, she did wear her BiPAP last night. Positive for bibasilar crackles, left lower edema has significantly improved. The plan is for discharge to [facility] today. Patient can continue on her CPAP unit from home at her home settings 10 cm of water. Objective - Vital Signs Vital signs: Vital Signs Temp 97.0 F L 06/25/17 07:00 Pulse 47 L 06/25/17 08:00 Resp 20 06/25/17 08:00 BP 109/51 06/25/17 07:00 Pulse Ox 99 06/25/17 07:00 Intake & Output 06/24/17 06/25/17 06/25/17 18:59 06:59 18:59 Intake Total 425 Balance 425 Weight 82 kg 82 kg Intake: Oral 425 Other: Voiding Method Indwelling Catheter Indwelling Catheter Toilet Bedside Commode # Voids 1 2 1 # Bowel Movements 1 1 2 - Exam GENERAL EXAM: Alert, active, comfortable in no apparent distress. HEAD: Normocephalic/atraumatic. EYES: Normal reaction of pupils, equal size. Conjunctiva pink, sclera white. NOSE: Clear with pink turbinates. THROAT: No erythema or exudates. NECK: No masses, no JVD, no thyroid enlargement, no adenopathy. CHEST: No chest wall deformity. Symmetrical expansion. LUNGS: Equal air entry, fine respiratory crackles noted bilaterally, over bilateral lower lung lobes anteriorly and posteriorly. No rhonchi, no wheezes. CVS: Regular rate and rhythm, normal S1 and S2, no gallops, no murmurs, no rubs ABDOMEN: Soft, nontender. No hepatosplenomegaly, normal bowel sounds, no guarding or rigidity. EXTREMITIES: No clubbing, no edema, no cyanosis, 2+ pulses and upper and lower extremities. MUSCULOSKELETAL: Muscle strength and tone normal. SPINE: No scoliosis or deformity SKIN: No rashes CENTRAL NERVOUS SYSTEM: Alert and oriented -3. No focal deficits, tone is normal in all 4 extremities. PSYCHIATRIC: Alert and oriented -3. Appropriate affect. Intact judgment and insight. - Labs CBC & Chem 7: 06/25/17 09:47 06/25/17 09:47 Labs: Abnormal Lab Results - Last 24 Hours (Table) 06/23/17 06/24/17 06/24/17 Range/Units 05:15 17:06 20:58 RBC (3.80-5.40) m/uL Hgb (11.4-16.0) gm/dL Hct (34.0-46.0) % MCH (25.0-35.0) pg MCHC (31.0-37.0) g/dL RDW (11.5-15.5) % Lymphocytes # (1.0-4.8) k/uL Sodium (137-145) mmol/L BUN (7-17) mg/dL Creatinine (0.52-1.04) mg/dL Glucose (74-99) mg/dL POC Glucose (mg/dL) 121 H 139 H (75-99) mg/dL RBC Folate 1,339 H (280 - 791) ng/mL 06/25/17 06/25/17 06/25/17 Range/Units 09:47 09:47 12:25 RBC 3.28 L (3.80-5.40) m/uL Hgb 8.1 L (11.4-16.0) gm/dL Hct 28.5 L (34.0-46.0) % MCH 24.6 L (25.0-35.0) pg MCHC 28.3 L (31.0-37.0) g/dL RDW 18.7 H (11.5-15.5) % Lymphocytes # 0.6 L (1.0-4.8) k/uL Sodium 136 L (137-145) mmol/L BUN 29 H (7-17) mg/dL Creatinine 1.73 H (0.52-1.04) mg/dL Glucose 161 H (74-99) mg/dL POC Glucose (mg/dL) 169 H (75-99) mg/dL RBC Folate (280 - 791) ng/mL Assessment and Plan Plan: Assessment: #1. Acute hypoxic respiratory failure secondary to acute diastolic heart failure, EF is 55-60 on the echo from 06/20/2017. #2. Pulmonary hypertension, right ventricular systolic pressure of 57 mmHg on the echo from 06/20/2017 #3. Coronary artery disease, with history of CABG and stenting #4. History of obstructive sleep apnea, on home CPAP with a pressure of 10 cm of water #5. History of paroxysmal A. fib, currently in sinus rhythm, on Eliquis, prior history of cardioversion #6. History of CVA/TIA graft #7. Diabetes mellitus #8. Hyperlipidemia #9. Hypertension #10. Osteoarthritis #11. History of deep vein thrombosis #12. 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 #13. History of chronic anemia, no evidence of GI blood loss. On Aranesp. EGD from 05/18/[address] Pena showed scattered erosions in the antrum consistent with gastritis, no esophagitis or peptic ulcer disease noted #14. Status DO NOT RESUSCITATE Plan: Patient continues to improve. Oxygen is down to 4 L per nasal cannula. She can continue on her home CPAP unit at 10 cm of water follow-up with Dr. Goel for CPAP titration on as-needed basis. Patient is stable for discharge to [facility]. I performed a history & physical examination of the patient and discussed their management with my nurse practitioner, Debbie Brewer. I reviewed the nurse practitioner's note and agree with the documented findings and plan of care. Lung sounds are positive for scattered crackles. The findings and the impression was discussed with the patient. I attest to the documentation by the nurse practitioner. Time with Patient: Less than 30
[2017-06-26 13:08] LABS: Methylmalonic Acid 0.19 umol/L (<0.40)
== END 2017-06-25 15:32 | DRG 291 ==
LOC: EC 18:48 → 6SEL 19:58 → 4MS4W 06-24 13:12
PROVIDERS: ADMIT Internal Medicine Geriatric Medicine; ATTEND Internal Medicine Geriatric Medicine
DX: I13.0 Hypertensive heart and chronic kidney disease with heart failure and stage 1 through stage 4 chronic kidney disease, or unspecified chronic kidney disease (principal); I50.33 Acute on chronic diastolic (congestive) heart failure; J96.01 Acute respiratory failure with hypoxia; N17.9 Acute kidney failure, unspecified; E11.22 Type 2 diabetes mellitus with diabetic chronic kidney disease; I27.20 Pulmonary hypertension, unspecified; I48.1 Persistent atrial fibrillation; I08.1 Rheumatic disorders of both mitral and tricuspid valves; N18.3 Chronic kidney disease, stage 3 (moderate); I48.0 Paroxysmal atrial fibrillation; I25.10 Atherosclerotic heart disease of native coronary artery without angina pectoris; G47.33 Obstructive sleep apnea (adult) (pediatric); E78.5 Hyperlipidemia, unspecified; D64.9 Anemia, unspecified; M19.90 Unspecified osteoarthritis, unspecified site; Z66 Do not resuscitate; E87.6 Hypokalemia; I48.2 Chronic atrial fibrillation; K29.60 Other gastritis without bleeding; J44.9 Chronic obstructive pulmonary disease, unspecified; E66.9 Obesity, unspecified; I49.3 Ventricular premature depolarization; Z95.1 Presence of aortocoronary bypass graft; Z86.73 Personal history of transient ischemic attack (TIA), and cerebral infarction without residual deficits; Z86.718 Personal history of other venous thrombosis and embolism; Z88.1 Allergy status to other antibiotic agents; Z88.2 Allergy status to sulfonamides; Z82.3 Family history of stroke; Z90.49 Acquired absence of other specified parts of digestive tract; Z90.710 Acquired absence of both cervix and uterus; Z87.440 Personal history of urinary (tract) infections; Z79.01 Long term (current) use of anticoagulants; Z79.899 Other long term (current) drug therapy
CPT/HCPCS: 36600; 71010; 71020; 80048; 80053; 81003; 82550; 82553; 82607; 82728; 82747; 82805; 83036; 83540; 83550; 83605; 83735; 83880; 83883; 83921; 84132; 84165; 84484; 85025; 85027; 85045; 86334; 86850; 86900; 86901; 86920; 93005; 93306; 94660; 94760; 96374; 99285

== ENCOUNTER 2017-09-26 11:57 | Inpatient (IN) | payer MEDICARE, OTHER ==
[2017-09-26] MEDS ORDERED: ONDANSETRON 4 MG/2 ML VIAL IVP STA (12:00)
[2017-09-26] MEDS ORDERED: ACETAMINOPHEN TAB 500 MG TAB PO STA (12:21)
[2017-09-26] MEDS ORDERED: IPRATROPIUM-ALBUTEROL 3 ML NEB INHALATION STA (12:21)
[2017-09-26] MEDS ORDERED: SODIUM CHLORIDE 0.9% 500 ML IV ONE (12:22)
--- NOTE | 2017-09-26 12:26 | ED ---
General Adult HPI - General Stated complaint: Sepsis Time Seen by Provider: 09/26/17 11:59 Source: patient, EMS, RN notes reviewed, old records reviewed Mode of arrival: EMS - History of Present Illness Initial comments: 77-year-old female presenting with 1 week history of cough and nasal congestion. Patient is alert and oriented, however she is not able to give a complete history. According to EMS she has had reported fever and productive cough. She does have past medical history of congestive heart failure. Patient does complain of some increased stool output, no diarrhea. She's had some nausea without vomiting. Patient has history of coronary artery disease status post CABG. She does have bilateral lower extremity swelling. She is currently on anticoagulation. - Related Data Home Medications Medication Instructions Recorded Confirmed Escitalopram [Lexapro] 20 mg PO DAILY 06/19/17 09/26/17 Omeprazole 20 mg PO DAILY 06/19/17 09/26/17 Trimethobenzamide [Tigan] 300 mg PO Q8H PRN 06/19/17 09/26/17 Bumetanide [Bumex] 1 mg PO BID 09/26/17 09/26/17 Isosorbide Mononitrate ER [Imdur] 30 mg PO TID 09/26/17 09/26/17 Metoprolol Tartrate [Lopressor] 75 mg PO BID 09/26/17 09/26/17 Potassium Chloride ER [K-Dur 20] 20 meq PO DAILY@1200 09/26/17 09/26/17 Slow Iron 45mg 90 mg PO BID 09/26/17 09/26/17 Spironolactone [Aldactone] 25 mg PO DAILY@1200 09/26/17 09/26/17 cloNIDine HCL [Catapres] 0.1 mg PO HS 09/26/17 09/26/17 hydrALAZINE HCL [Apresoline] 75 mg PO BID 09/26/17 09/26/17 sitaGLIPtin PHOS/metFORMIN HCL 1 tab PO DAILY 09/26/17 09/26/17 [Janumet Xr 100-1,000 mg Tablet] Previous Rx's Medication Instructions Recorded Losartan [Cozaar] 100 mg PO DAILY tab 06/25/17 Allergies Allergy/AdvReac Type Severity Reaction Status Date / Time sulfamethoxazole Allergy Dyspnea Verified 09/26/17 12:28 [From Bactrim] trimethoprim [From Bactrim] Allergy Dyspnea Verified 09/26/17 12:28 Review of Systems ROS Statement: Those systems with pertinent positive or pertinent negative responses have been documented in the HPI. ROS Other: All systems not noted in ROS Statement are negative. Limitations: ROS unobtainable due to patients medical condition Past Medical History Past Medical History: Atrial Fibrillation, Coronary Artery Disease (CAD), Heart Failure, COPD, CVA/TIA, Diabetes Mellitus, Deep Vein Thrombosis (DVT), Hyperlipidemia, Hypertension, Osteoarthritis (OA), Sleep Apnea/CPAP/BIPAP Additional Past Medical History / Comment(s): Coronary artery disease, chemical pleurodesis back in 1998 following cabg, CVA back in 2013 without any residual deficits, left lower extremity DVT in 2015, chronic diastolic heart failure, obesity,cpap at hs, uti's, wears a brief, iron deficiency anemia"has recieved iron infusions". History of Any Multi-Drug Resistant Organisms: None Reported Past Surgical History: Cholecystectomy, Coronary Bypass/CABG, Heart Catheterization With Stent, Hysterectomy Additional Past Surgical History / Comment(s): eye sx, 6 cardiac stent placed; quad CABG 1998, OVARY CYST REMOVED,colonoscopy cardioversion 1 year ago and again 12-07-16 at [facility], egd w/ bx -neg Past Anesthesia/Blood Transfusion Reactions: No Reported Reaction Additional Past Anesthesia/Blood Transfusion Reaction / Comment(s): Jehovahs witness no blood transfusions Date of Last Stent Placement:: 2013 Past Psychological History: No Psychological Hx Reported Smoking Status: Never smoker Past Alcohol Use History: None Reported Past Drug Use History: None Reported - Past Family History Father Additional Family Medical History / Comment(s): Father at age 89 following a hip fracture repair that became infected. He from complications of infection. Mother Additional Family Medical History / Comment(s): Mother in her 70s. She had history of stroke and had been in an extended care facility for 8 years prior to her . Sister(s) Additional Family Medical History / Comment(s): Patient has one sister that is 17 years younger than her with no major medical problems. Patient does not have any brothers. Son(s) Additional Family Medical History / Comment(s): She has 2 sons and one has heart problems. General Exam General appearance: alert, lethargic, in distress Head exam: Present: atraumatic, normocephalic Eye exam: Present: normal appearance, PERRL ENT exam: Present: mucous membranes dry Neck exam: Present: normal inspection. Absent: tenderness, meningismus Respiratory exam: Present: respiratory distress, decreased breath sounds Cardiovascular Exam: Present: normal rhythm, tachycardia GI/Abdominal exam: Present: soft, tenderness (Mild tenderness, Gen.). Absent: distended, guarding, rebound Extremities exam: Present: normal capillary refill, pedal edema Neurological exam: Present: alert. Absent: motor sensory deficit Skin exam: Present: warm, dry, intact. Absent: cyanosis, diaphoretic Course Vital Signs 09/26/17 09/26/17 09/26/17 12:05 12:43 12:58 Temperature 100.1 F H Pulse Rate 144 H 140 H 140 H Respiratory 26 H Rate Blood Pressure 117/89 O2 Sat by Pulse 88 L Oximetry 09/26/17 09/26/17 13:00 14:00 Temperature 99.0 F Pulse Rate 142 H 143 H Respiratory 26 H 24 Rate Blood Pressure 127/81 119/82 O2 Sat by Pulse 100 98 Oximetry EKG Findings - EKG Comments: EKG Findings:: EKG shows narrow complex irregular rhythm consistent with A. fib ventricular rate 136, QRS duration 90, QTC 526, there is no signs of acute ischemia. Medical Decision Making - Medical Decision Making 77-year-old female presenting with fever tachycardia and hypoxia. Patient is influenza be positive. She has significant laboratory abnormalities including acute on chronic renal failure with a creatinine 3.0 from baseline 2.0, elevated BNP 49,000 consistent with heart failure. Chest x-ray obtained, does show possible consolidation as well as pulmonary edema and trace bilateral effusions. Given the concern for consolidation patient does receive 1 dose of IV antibiotics cefepime and vancomycin. Although this is more likely influenza. Patient is started on Tamiflu. She is given IV hydration by EMS prior to arrival. She is also started on Cardizem for A. fib with RVR. Heart rate is improving in the emergency department, blood pressure remained stable. - Lab Data Result diagrams: 09/26/17 12:15 09/26/17 12:15 Lab Results 09/26/17 09/26/17 09/26/17 Range/Units 12:15 12:15 12:15 WBC 6.6 (3.8-10.6) k/uL RBC 3.70 L (3.80-5.40) m/uL Hgb 10.2 L (11.4-16.0) gm/dL Hct 33.7 L (34.0-46.0) % MCV 91.0 (80.0-100.0) fL MCH 27.7 (25.0-35.0) pg MCHC 30.4 L (31.0-37.0) g/dL RDW 17.8 H (11.5-15.5) % Plt Count 134 L (150-450) k/uL Neutrophils % 86 % Lymphocytes % 8 % Monocytes % 4 % Eosinophils % 2 % Basophils % 0 % Neutrophils # 5.6 (1.3-7.7) k/uL Lymphocytes # 0.5 L (1.0-4.8) k/uL Monocytes # 0.3 (0-1.0) k/uL Eosinophils # 0.1 (0-0.7) k/uL Basophils # 0.0 (0-0.2) k/uL Hypochromasia Slight Anisocytosis Slight PT (9.0-12.0) sec INR (<1.2) APTT (22.0-30.0) sec Sodium 144 (137-145) mmol/L Potassium 4.3 (3.5-5.1) mmol/L Chloride 113 H (98-107) mmol/L Carbon Dioxide 19 L (22-30) mmol/L Anion Gap 12 mmol/L BUN 65 H (7-17) mg/dL Creatinine 3.05 H (0.52-1.04) mg/dL Est GFR (MDRD) Af Amer 18 (>60 ml/min/1.73 sqM) Est GFR (MDRD) Non-Af 15 (>60 ml/min/1.73 sqM) Glucose 113 H (74-99) mg/dL Plasma Lactic Acid Shabbir 1.7 (0.7-2.0) mmol/L Calcium 7.8 L (8.4-10.2) mg/dL Total Bilirubin 0.8 (0.2-1.3) mg/dL AST 65 H (14-36) U/L ALT 64 H (9-52) U/L Alkaline Phosphatase 103 (38-126) U/L Troponin I (0.000-0.034) ng/mL NT-Pro-B Natriuret Pep pg/mL Total Protein 5.3 L (6.3-8.2) g/dL Albumin 2.8 L (3.5-5.0) g/dL Urine Color Urine Appearance (Clear) Urine pH (5.0-8.0) Ur Specific [place] (1.001-1.035) Urine Protein (Negative) Urine Glucose (UA) (Negative) Urine Ketones (Negative) Urine Blood (Negative) Urine Nitrite (Negative) Urine Bilirubin (Negative) Urine Urobilinogen (<2.0) mg/dL Ur Leukocyte Esterase (Negative) Urine RBC (0-5) /hpf Urine WBC (0-5) /hpf Ur Squamous Epith Cells (0-4) /hpf Urine Bacteria (None) /hpf Hyaline Casts (0-2) /lpf Urine Mucus (None) /hpf Influenza Type A RNA (Not Detectd) Influenza Type B (PCR) (Not Detectd) 09/26/17 09/26/17 09/26/17 Range/Units 12:15 12:15 12:15 WBC (3.8-10.6) k/uL RBC (3.80-5.40) m/uL Hgb (11.4-16.0) gm/dL Hct (34.0-46.0) % MCV (80.0-100.0) fL MCH (25.0-35.0) pg MCHC (31.0-37.0) g/dL RDW (11.5-15.5) % Plt Count (150-450) k/uL Neutrophils % % Lymphocytes % % Monocytes % % Eosinophils % % Basophils % % Neutrophils # (1.3-7.7) k/uL Lymphocytes # (1.0-4.8) k/uL Monocytes # (0-1.0) k/uL Eosinophils # (0-0.7) k/uL Basophils # (0-0.2) k/uL Hypochromasia Anisocytosis PT 13.7 H (9.0-12.0) sec INR 1.5 H (<1.2) APTT 23.3 (22.0-30.0) sec Sodium (137-145) mmol/L Potassium (3.5-5.1) mmol/L Chloride (98-107) mmol/L Carbon Dioxide (22-30) mmol/L Anion Gap mmol/L BUN (7-17) mg/dL Creatinine (0.52-1.04) mg/dL Est GFR (MDRD) Af Amer (>60 ml/min/1.73 sqM) Est GFR (MDRD) Non-Af (>60 ml/min/1.73 sqM) Glucose (74-99) mg/dL Plasma Lactic Acid Shabbir (0.7-2.0) mmol/L Calcium (8.4-10.2) mg/dL Total Bilirubin (0.2-1.3) mg/dL AST (14-36) U/L ALT (9-52) U/L Alkaline Phosphatase (38-126) U/L Troponin I <0.012 (0.000-0.034) ng/mL NT-Pro-B Natriuret Pep 26306 pg/mL Total Protein (6.3-8.2) g/dL Albumin (3.5-5.0) g/dL Urine Color Urine Appearance (Clear) Urine pH (5.0-8.0) Ur Specific [place] (1.001-1.035) Urine Protein (Negative) Urine Glucose (UA) (Negative) Urine Ketones (Negative) Urine Blood (Negative) Urine Nitrite (Negative) Urine Bilirubin (Negative) Urine Urobilinogen (<2.0) mg/dL Ur Leukocyte Esterase (Negative) Urine RBC (0-5) /hpf Urine WBC (0-5) /hpf Ur Squamous Epith Cells (0-4) /hpf Urine Bacteria (None) /hpf Hyaline Casts (0-2) /lpf Urine Mucus (None) /hpf Influenza Type A RNA (Not Detectd) Influenza Type B (PCR) (Not Detectd) 09/26/17 09/26/17 Range/Units 12:45 12:50 WBC (3.8-10.6) k/uL RBC (3.80-5.40) m/uL Hgb (11.4-16.0) gm/dL Hct (34.0-46.0) % MCV (80.0-100.0) fL MCH (25.0-35.0) pg MCHC (31.0-37.0) g/dL RDW (11.5-15.5) % Plt Count (150-450) k/uL Neutrophils % % Lymphocytes % % Monocytes % % Eosinophils % % Basophils % % Neutrophils # (1.3-7.7) k/uL Lymphocytes # (1.0-4.8) k/uL Monocytes # (0-1.0) k/uL Eosinophils # (0-0.7) k/uL Basophils # (0-0.2) k/uL Hypochromasia Anisocytosis PT (9.0-12.0) sec INR (<1.2) APTT (22.0-30.0) sec Sodium (137-145) mmol/L Potassium (3.5-5.1) mmol/L Chloride (98-107) mmol/L Carbon Dioxide (22-30) mmol/L Anion Gap mmol/L BUN (7-17) mg/dL Creatinine (0.52-1.04) mg/dL Est GFR (MDRD) Af Amer (>60 ml/min/1.73 sqM) Est GFR (MDRD) Non-Af (>60 ml/min/1.73 sqM) Glucose (74-99) mg/dL Plasma Lactic Acid Shabbir (0.7-2.0) mmol/L Calcium (8.4-10.2) mg/dL Total Bilirubin (0.2-1.3) mg/dL AST (14-36) U/L ALT (9-52) U/L Alkaline Phosphatase (38-126) U/L Troponin I (0.000-0.034) ng/mL NT-Pro-B Natriuret Pep pg/mL Total Protein (6.3-8.2) g/dL Albumin (3.5-5.0) g/dL Urine Color Yellow Urine Appearance Clear (Clear) Urine pH 5.0 (5.0-8.0) Ur Specific [place] 1.009 (1.001-1.035) Urine Protein Trace H (Negative) Urine Glucose (UA) Negative (Negative) Urine Ketones Negative (Negative) Urine Blood Negative (Negative) Urine Nitrite Negative (Negative) Urine Bilirubin Negative (Negative) Urine Urobilinogen <2.0 (<2.0) mg/dL Ur Leukocyte Esterase Moderate H (Negative) Urine RBC 3 (0-5) /hpf Urine WBC 5 (0-5) /hpf Ur Squamous Epith Cells 4 (0-4) /hpf Urine Bacteria Rare H (None) /hpf Hyaline Casts 21 H (0-2) /lpf Urine Mucus Rare H (None) /hpf Influenza Type A RNA Not Detected (Not Detectd) Influenza Type B (PCR) Detected H (Not Detectd) Critical Care Time Critical Care Time: Yes Total Critical Care Time: 35 Disposition Clinical Impression: Influenza, Atrial fibrillation with RVR Disposition: ADMITTED IP TO THIS HOSP Condition: Serious Referrals: Gerson Leal DO [Primary Care Provider] - 1-2 days Decision to Admit Reason: Admit from EC Decision Date: 09/26/17 Decision Time: 14:35
[2017-09-26 12:39] LABS: Anisocytosis Slight; Basophils % (A) 0 %; Eosinophils # (A) 0.1 k/uL (0-0.7); Eosinophils % (A) 2 %; HCT 33.7 % (34.0-46.0); HGB 10.2 gm/dL (11.4-16.0); Hypochromasia Slight; Lymphocytes # (A) 0.5 k/uL (1.0-4.8); Lymphocytes % (A) 8 %; MCH 27.7 pg (25.0-35.0); MCHC 30.4 g/dL (31.0-37.0); Mean Platelet Volume 8.4; Monocytes # (A) 0.3 k/uL (0-1.0); Monocytes % (A) 4 %; Neutrophils # (A) 5.6 k/uL (1.3-7.7); Neutrophils % (A) 86 %; Platelet Count 134 k/uL (150-450); RDW 17.8 % (11.5-15.5); WBC 6.6 k/uL (3.8-10.6)
[2017-09-26 12:45] LABS: Albumin 2.8 g/dL (3.5-5.0); Calcium 7.8 mg/dL (8.4-10.2); Potassium 4.3 mmol/L (3.5-5.1); Total Bilirubin 0.8 mg/dL (0.2-1.3); Total Protein 5.3 g/dL (6.3-8.2)
[2017-09-26 12:49] LABS: INR 1.5 (<1.2); Partial Thromboplastin Time 23.3 sec (22.0-30.0); Prothrombin Time 13.7 sec (9.0-12.0)
[2017-09-26 13:11] LABS: Appearance,Urine Clear (Clear); Bacteria,Urine Rare /hpf; Bilirubin,Urine Negative (Negative); Blood,Urine Negative (Negative); Color,Urine Yellow; Glucose,Urine (UA) Negative (Negative); Hyaline Casts,Urine 21 /lpf (0-2); Ketones,Urine Negative (Negative); Leukocyte Esterase,Urine Moderate (Negative); Mucus,Urine Rare /hpf; Nitrite,Urine Negative (Negative); Protein,Urine Trace (Negative); RBC,Urine 3 /hpf (0-5); Specific Gravity,Urine 1.009 (1.001-1.035); Squamous Epithelial Cell,Urine 4 /hpf (0-4); Urobilinogen,Urine <2.0 mg/dL (<2.0); WBC,Urine 5 /hpf (0-5)
[2017-09-26] MEDS ORDERED: DILTIAZEM 125 MG in SODIUM CHLORIDE 0.9% 100 ML IV ONE (13:23)
[2017-09-26] MEDS ORDERED: OSELTAMIVIR 75 MG CAP PO STA (13:55)
--- NOTE | 2017-09-26 14:02 | XR ---
EXAMINATION TYPE: XR chest 2V DATE OF EXAM: 09/26/2017 COMPARISON: Chest x-ray June 25, 2017 HISTORY: Fever TECHNIQUE: Frontal and lateral views of the chest are obtained. FINDINGS: Sternal wires and mediastinal clips are redemonstrated. There is reticular interstitial ch anges bilaterally. There is new focal round opacity lateral left lung base on frontal view less well seen on lateral view. There is new linear atelectasis in the right lung base. Tiny bilateral pleural effusions are felt present as there is blunting of posterior costophrenic angles on lateral view. No pneumothorax seen bilaterally. Osseous structures are demineralized. Cardiac silhouette size is stabl e and enlarged. IMPRESSION: Cardiomegaly and chronic parenchymal change with new tiny bilateral pleural effusions an d new right basilar linear atelectasis and slightly more suspicious left lateral lung rounded opacity , possible consolidation. Progress study advised. Acute interstitial edema background of chronic fibr osis cannot be excluded. Correlate for fluid overload state.
[2017-09-26] MEDS ORDERED: VANCOMYCIN 2,000 MG in SODIUM CHLORIDE 0.9% 500 ML IVPB STA (14:19)
[2017-09-26] MEDS ORDERED: CEFEPIME 2 GM in SODIUM CHLORIDE 0.9% 50 ML IVPB STA (14:22)
[2017-09-26] MEDS ORDERED: NALOXONE 0.4 MG/ML 1 ML VIAL IV PRN (14:45)
[2017-09-26 16:28] LABS: Glucose,Whole Blood 123 mg/dL (75-99)
[2017-09-26] MEDS: INSULIN ASPART 100 UNIT/ML 1 ML 10 ML VIAL SQ SCH ×2 (17:10→21:17)
[2017-09-26] MEDS: ISOSORBIDE MONONITRATE ER 30 MG TAB.ER.24H PO SCH ×2 (17:14→21:28)
[2017-09-26] MEDS: FERROUS SULFATE 325 MG TAB PO SCH (17:14)
[2017-09-26 20:34] LABS: Glucose,Whole Blood 121 mg/dL (75-99)
[2017-09-26] MEDS: OSELTAMIVIR 60 MG/10 ML ORAL SYRINGE PO SCH (21:28)
[2017-09-26] MEDS: hydrALAZINE HCL 25 MG TAB PO SCH (21:28)
[2017-09-26] MEDS: cloNIDine HCL 0.1 MG TAB PO SCH (21:28)
[2017-09-26] MEDS: METOPROLOL TARTRATE 25 MG TAB PO SCH (21:28)
[2017-09-27 06:06] LABS: Glucose,Whole Blood 113 mg/dL (75-99)
[2017-09-27] MEDS: INSULIN ASPART 100 UNIT/ML 1 ML 10 ML VIAL SQ SCH ×4 (06:16→21:19)
[2017-09-27 06:30] LABS: Anisocytosis Slight; Basophils % (A) 0 %; Eosinophils % (A) 1 %; HCT 34.4 % (34.0-46.0); HGB 10.1 gm/dL (11.4-16.0); Hypochromasia Moderate; Lymphocytes # (A) 0.6 k/uL (1.0-4.8); Lymphocytes % (A) 11 %; MCH 27.3 pg (25.0-35.0); MCHC 29.4 g/dL (31.0-37.0); MCV 92.6 fL (80.0-100.0); Mean Platelet Volume 8.7; Monocytes # (A) 0.3 k/uL (0-1.0); Monocytes % (A) 6 %; Neutrophils % (A) 80 %; Platelet Count 115 k/uL (150-450); RBC 3.72 m/uL (3.80-5.40); RDW 17.7 % (11.5-15.5)
[2017-09-27 06:44] LABS: Albumin 2.9 g/dL (3.5-5.0); Calcium 8.7 mg/dL (8.4-10.2); Magnesium 1.7 mg/dL (1.6-2.3); Potassium 4.7 mmol/L (3.5-5.1); Total Bilirubin 0.6 mg/dL (0.2-1.3); Total Protein 5.5 g/dL (6.3-8.2)
[2017-09-27] MEDS: FERROUS SULFATE 325 MG TAB PO SCH ×2 (06:44→18:03)
[2017-09-27] MEDS: PANTOPRAZOLE 40 MG TABLET PO SCH (06:44)
[2017-09-27] MEDS: OSELTAMIVIR 60 MG/10 ML ORAL SYRINGE PO SCH (07:49)
[2017-09-27] MEDS: hydrALAZINE HCL 25 MG TAB PO SCH ×2 (07:49→21:31)
[2017-09-27] MEDS: ISOSORBIDE MONONITRATE ER 30 MG TAB.ER.24H PO SCH ×3 (07:49→21:31)
[2017-09-27] MEDS: ESCITALOPRAM 20 MG TAB PO SCH (07:49)
[2017-09-27] MEDS: METOPROLOL TARTRATE 25 MG TAB PO SCH ×2 (07:49→21:31)
--- NOTE | 2017-09-27 08:06 | P.CRDCN ---
History of Present Illness Consult date: 09/27/17 Requesting physician: Juan Corbin Consult reason: congestive heart failure Chief complaint: Fever and cough History of present illness: This is a 77-year-old female with known history of coronary artery disease and prior bypass surgery, patient also had subsequent stent placements, diabetes, hypertension, hyperlipidemia, paroxysmal atrial fibrillation. She is unsure exactly of why her called the ambulance to pick her up however she has been experiencing fever and productive cough at home. She also states that she's been extremely weak. EKG on arrival here showed atrial fibrillation with a rapid ventricular response. Chest x-ray revealed cardiomegaly and chronic parenchymal change with new bilateral pleural effusions and a new right basilar atelectasis, possible consolidation. Acute interstitial edema background of chronic fibrosis cannot be excluded, suggestion of fluid overload. Blood pressure on arrival here 117/80, heart rate 144, temperature 100.1. O2 saturation 88% on room air. Laboratory data was reviewed, CBC, white blood cell count 5.0, hemoglobin 10.1, platelet count 1:15. Sodium 144, potassium 4.7, BUN 74, creatinine 3.4. Patient is known to have mild renal insufficiency, however her creatinine is normally in the range of 1.2. AST 78, ALT 74. Troponin negative. BNP level 49,800.Positive UTI, positive influenza b , positive stool for occult blood. Patient has been initiated on IV antibiotics , she is also currently on a Cardizem drip at 5 mg per hour. At the time of my examination this morning, patient is sitting up in bed, continues to have persistent cough of green sputum, mildly short of breath. Denies any chest discomfort. Past Medical History Past Medical History: Atrial Fibrillation, Coronary Artery Disease (CAD), Heart Failure, COPD, CVA/TIA, Diabetes Mellitus, Deep Vein Thrombosis (DVT), Hyperlipidemia, Hypertension, Osteoarthritis (OA), Sleep Apnea/CPAP/BIPAP Additional Past Medical History / Comment(s): Coronary artery disease, chemical pleurodesis back in 1998 following cabg, CVA back in 2013 without any residual deficits, left lower extremity DVT in 2015, chronic diastolic heart failure, obesity,cpap at hs, uti's, wears a brief, iron deficiency anemia"has recieved iron infusions". History of Any Multi-Drug Resistant Organisms: None Reported Past Surgical History: Cholecystectomy, Coronary Bypass/CABG, Heart Catheterization With Stent, Hysterectomy Additional Past Surgical History / Comment(s): eye sx, 6 cardiac stent placed; quad CABG 1998, OVARY CYST REMOVED,colonoscopy cardioversion 1 year ago and again 12-07-16 at [facility], egd w/ bx -neg Past Anesthesia/Blood Transfusion Reactions: No Reported Reaction Additional Past Anesthesia/Blood Transfusion Reaction / Comment(s): Jehovahs witness no blood transfusions Date of Last Stent Placement:: 2013 Past Psychological History: No Psychological Hx Reported Additional Psychological History / Comment(s): pt currently at [facility] [place]. difficulty walking needs assistance-weak. Smoking Status: Never smoker Past Alcohol Use History: None Reported Additional Past Alcohol Use History / Comment(s): Patient is a lifelong nonsmoker. Past Drug Use History: None Reported - Past Family History Father Additional Family Medical History / Comment(s): Father at age 89 following a hip fracture repair that became infected. He from complications of infection. Mother Additional Family Medical History / Comment(s): Mother in her 70s. She had history of stroke and had been in an extended care facility for 8 years prior to her . Sister(s) Additional Family Medical History / Comment(s): Patient has one sister that is 17 years younger than her with no major medical problems. Patient does not have any brothers. Son(s) Additional Family Medical History / Comment(s): She has 2 sons and one has heart problems. Medications and Allergies Home Medications Medication Instructions Recorded Confirmed Type Escitalopram [Lexapro] 20 mg PO DAILY 06/19/17 09/26/17 History Omeprazole 20 mg PO DAILY 06/19/17 09/26/17 History Trimethobenzamide [Tigan] 300 mg PO Q8H PRN 06/19/17 09/26/17 History Losartan [Cozaar] 100 mg PO DAILY tab 06/25/17 09/26/17 Rx Bumetanide [Bumex] 1 mg PO BID 09/26/17 09/26/17 History Isosorbide Mononitrate ER [Imdur] 30 mg PO TID 09/26/17 09/26/17 History Metoprolol Tartrate [Lopressor] 75 mg PO BID 09/26/17 09/26/17 History Potassium Chloride ER [K-Dur 20] 20 meq PO DAILY@1200 02/21/18 02/21/18 History Slow Iron 45mg 90 mg PO BID 09/26/17 09/26/17 History Spironolactone [Aldactone] 25 mg PO DAILY@1200 09/26/17 09/26/17 History cloNIDine HCL [Catapres] 0.1 mg PO HS 09/26/17 09/26/17 History hydrALAZINE HCL [Apresoline] 75 mg PO BID 09/26/17 09/26/17 History sitaGLIPtin PHOS/metFORMIN HCL 1 tab PO DAILY 09/26/17 09/26/17 History [Janumet Xr 100-1,000 mg Tablet] Allergies Allergy/AdvReac Type Severity Reaction Status Date / Time sulfamethoxazole Allergy Dyspnea Verified 09/26/17 12:28 [From Bactrim] trimethoprim [From Bactrim] Allergy Dyspnea Verified 09/26/17 12:28 Physical Exam Vitals: Vital Signs Temp Pulse Pulse Resp BP BP Pulse Ox 09/27/17 04:00 97.1 F L 83 16 109/64 96 09/27/17 00:00 98.4 F 87 16 98/55 95 09/26/17 20:00 98.8 F 68 18 121/57 94 L 09/26/17 16:00 99.1 F 92 18 118/60 100 09/26/17 15:11 99.3 F 107 H 22 109/69 98 09/26/17 14:45 104 H 24 115/60 98 09/26/17 14:00 99.0 F 143 H 24 119/82 98 09/26/17 13:00 142 H 26 H 127/81 100 09/26/17 12:58 140 H 09/26/17 12:43 140 H 09/26/17 12:05 100.1 F H 144 H 26 H 117/89 88 L Intake and Output 09/26/17 09/27/17 09/27/17 22:59 06:59 14:59 Other: Voiding Method Diaper Diaper Incontinent Incontinent # Voids 2 Weight 73.02 kg PHYSICAL EXAMINATION: HEENT: Head is atraumatic, normocephalic. Pupils equal, round. Neck is supple. There is elevated jugular venous pressure. HEART EXAMINATION: Heart S1 and S2 irregularly irregular CHEST EXAMINATION: Lungs reveal scattered coarse rhonchi and wheezing throughout with diminished air entry to the bases ABDOMEN: Soft, nontender. Bowel sounds are heard. No organomegaly noted. EXTREMITIES: 2+ peripheral pulses with trace to 1+ evidence of peripheral edema and no calf tenderness noted. NEUROLOGIC patient is awake, alert and oriented -2. . Results 09/27/17 05:54 09/27/17 05:54 Cardiac Enzymes 09/26/17 09/26/17 09/27/17 Range/Units 12:15 12:15 05:54 AST 65 H 78 H (14-36) U/L Troponin I <0.012 (0.000-0.034) ng/mL Coagulation 09/26/17 Range/Units 12:15 PT 13.7 H (9.0-12.0) sec APTT 23.3 (22.0-30.0) sec CBC 09/26/17 09/27/17 Range/Units 12:15 05:54 WBC 6.6 5.0 (3.8-10.6) k/uL RBC 3.70 L 3.72 L (3.80-5.40) m/uL Hgb 10.2 L 10.1 L (11.4-16.0) gm/dL Hct 33.7 L 34.4 (34.0-46.0) % Plt Count 134 L 115 L (150-450) k/uL Comprehensive Metabolic Panel 09/26/17 09/27/17 Range/Units 12:15 05:54 Sodium 144 144 (137-145) mmol/L Potassium 4.3 4.7 (3.5-5.1) mmol/L Chloride 113 H 111 H (98-107) mmol/L Carbon Dioxide 19 L 18 L (22-30) mmol/L BUN 65 H 74 H (7-17) mg/dL Creatinine 3.05 H 3.40 H (0.52-1.04) mg/dL Glucose 113 H 95 (74-99) mg/dL Calcium 7.8 L 8.7 (8.4-10.2) mg/dL AST 65 H 78 H (14-36) U/L ALT 64 H 74 H (9-52) U/L Alkaline Phosphatase 103 111 (38-126) U/L Total Protein 5.3 L 5.5 L (6.3-8.2) g/dL Albumin 2.8 L 2.9 L (3.5-5.0) g/dL Current Medications Generic Name Dose Route Start Last Admin Trade Name Freq PRN Reason Stop Dose Admin Acetaminophen 650 mg 09/26/17 14:45 Tylenol Tab PO Q6HR PRN Mild Pain or Fever > 100.5 Clonidine 0.1 mg 09/26/17 21:00 09/26/17 21:28 Catapres PO 0.1 mg HS CHARLES Administration Escitalopram Oxalate 20 mg 09/27/17 09:00 Lexapro PO DAILY CHARLES Ferrous Sulfate 325 mg 09/26/17 17:30 09/27/17 06:44 Feosol PO 325 mg BID-W/MEALS CHARLES Administration Hydralazine HCl 75 mg 09/26/17 21:00 09/26/17 21:28 Apresoline PO 75 mg BID CHARLES Administration Diltiazem HCl 125 mg/ Sodium 125 mls @ 5 mls/hr 09/26/17 13:23 09/26/17 14:00 Chloride IV 09/27/17 13:22 5 mg/hr .Q24H ONE 5 mls/hr 5 MG/HR Administration Insulin Aspart 0 unit 09/26/17 17:30 09/27/17 06:16 Novolog SQ Not Given ACHS [facility] Protocol Isosorbide Mononitrate 30 mg 09/26/17 16:00 09/26/17 21:28 Imdur PO 30 mg TID CHARLES Administration Losartan Potassium 100 mg 09/27/17 09:00 Cozaar PO DAILY [facility] Metoprolol Tartrate 75 mg 09/26/17 21:00 09/26/17 21:28 Lopressor PO 75 mg BID CHARLES Administration Naloxone HCl 0.2 mg 09/26/17 14:45 Narcan IV Q2M PRN Opioid Reversal Oseltamivir Phosphate 30 mg 09/26/17 21:00 09/26/17 21:28 Tamiflu PO 10/01/17 09:01 30 mg Q12HR CHARLES Administration Pantoprazole Sodium 40 mg 09/27/17 07:30 09/27/17 06:44 Protonix PO 40 mg [id number] [facility] Administration Potassium Chloride 20 meq 09/27/17 12:00 K-Dur 20 PO DAILY@1200 CHARLES Intake and Output 09/26/17 09/27/17 09/27/17 22:59 06:59 14:59 Other: Voiding Method Diaper Diaper Incontinent Incontinent # Voids 2 Weight 73.02 kg 09/27/17 05:54 09/27/17 05:54 EKG Interpretations (text) EKG shows atrial fibrillation with a rapid ventricular response Assessment and Plan Plan: Assessment and plan #1 symptoms of productive cough of green sputum, possible pneumonia, positive influenza B, currently on IV antibiotics #2 diastolic congestive heart failure acute on chronic. BNP level 49,800. Patient's most recent echocardiogram with Doppler study was performed in June 2017 which revealed an ejection fraction of 55-60%. Severe pulmonary hypertension with moderate pulmonic regurgitation #3 diabetes #4 coronary artery disease with prior bypass surgery and multiple stent placements #5 hypertension #6 hyperlipidemia #7 paroxysmal atrial fibrillation, Patient used to be on Eliquis for anticoagulation, this was stopped in June because of GI bleeding #8 sleep apnea #9 history of TIA #10 history of DVT #11 abnormal liver function, likely secondary to congestion #12 acute on chronic renal failure #13 anemia, positive stool for occult Plan We will repeat an echocardiogram with Doppler study. Discontinue Cardizem drip , patient continues to be in atrial fibrillation her heart rate 66 morning. Continue beta claudia along with losartan and clonidine. We will also start the patient on IV Lasix, monitoring intake and output along with daily weights and daily lytes BUN and creatinine. Further recommendations to follow. DNP note has been reviewed, I agree with a documented findings and plan of care. Patient was seen and examined.
[2017-09-27] MEDS: FUROSEMIDE 10 MG/ML 4 ML VIAL IV SCH ×2 (08:20→15:00)
[2017-09-27] MEDS ORDERED: LOSARTAN 50 MG TAB PO SCH (09:00)
--- NOTE | 2017-09-27 09:21 | P.NPCON ---
History of Present Illness - Reason for Consult acute renal failure - History of Present Illness Reason for consultation: Acute kidney injury History of present illness: Patient is a 77-year-old female seen in renal consultation for acute kidney injury. It appears patient has chronic kidney disease stage III with baseline creatinine in the range of 1-1.2 secondary to diabetic kidney disease. Patient presented to the hospital with generalized weakness along with fever and a cough. She is noted to be positive for influenza B virus. Patient continues to have a productive cough with yellow sputum. She denies chest pain or shortness of breath. Patient does have history of severe pulmonary hypertension and moderate pulmonary regurgitation. In her home as a total that she was taking Bumex 1 mg orally twice daily. In the ER she did get a 1 L bolus of 0.9 saline. Her creatinine was 3.05 on admission and is up to 3.4 today. Patient states she has been voiding but less than usual. No hematuria or dysuria. She was also noted to be in A. fib with RVR but her heart rate is now controlled. Her blood pressures have been in the systolic 90s to 100s. Denies use of NSAIDs. Denies any prior history of kidney disease. Vital signs are stable. General: The patient appeared well nourished and normally developed. HEENT: Head exam is unremarkable. Neck is without jugular venous distension. LUNGS: Lungs are clear to auscultation and percussion. Breath sounds decreased. HEART: Rate and Rhythm are regular. First and second heart sounds normal. No murmurs, rubs or gallops. ABDOMEN: Abdominal exam reveals normal bowel sounds. Non-tender and non- distended. No evidence of peritonitis. EXTREMITITES: 2+ edema. Past Medical History Past Medical History: Atrial Fibrillation, Coronary Artery Disease (CAD), Heart Failure, COPD, CVA/TIA, Diabetes Mellitus, Deep Vein Thrombosis (DVT), Hyperlipidemia, Hypertension, Osteoarthritis (OA), Sleep Apnea/CPAP/BIPAP Additional Past Medical History / Comment(s): Coronary artery disease, chemical pleurodesis back in 1998 following cabg, CVA back in 2013 without any residual deficits, left lower extremity DVT in 2016, chronic diastolic heart failure, obesity,cpap at [facility], uti's, wears a brief, iron deficiency anemia"has recieved iron infusions". History of Any Multi-Drug Resistant Organisms: None Reported Past Surgical History: Cholecystectomy, Coronary Bypass/CABG, Heart Catheterization With Stent, Hysterectomy Additional Past Surgical History / Comment(s): eye sx, 6 cardiac stent placed; quad CABG 1998, OVARY CYST REMOVED,colonoscopy cardioversion 1 year ago and again 12-07-16 at [facility], egd w/ bx -neg Past Anesthesia/Blood Transfusion Reactions: No Reported Reaction Additional Past Anesthesia/Blood Transfusion Reaction / Comment(s): Jehovahs witness no blood transfusions Date of Last Stent Placement:: 2013 Past Psychological History: No Psychological Hx Reported Additional Psychological History / Comment(s): pt currently at [facility] on the [place]. difficulty walking needs assistance-weak. Smoking Status: Never smoker Past Alcohol Use History: None Reported Additional Past Alcohol Use History / Comment(s): Patient is a lifelong nonsmoker. Past Drug Use History: None Reported - Past Family History Father Additional Family Medical History / Comment(s): Father at age 89 following a hip fracture repair that became infected. He from complications of infection. Mother Additional Family Medical History / Comment(s): Mother in her 70s. She had history of stroke and had been in an extended care facility for 8 years prior to her . Sister(s) Additional Family Medical History / Comment(s): Patient has one sister that is 17 years younger than her with no major medical problems. Patient does not have any brothers. Son(s) Additional Family Medical History / Comment(s): She has 2 sons and one has heart problems. Medications and Allergies Home Medications Medication Instructions Recorded Confirmed Type Escitalopram [Lexapro] 20 mg PO DAILY 06/19/17 09/26/17 History Omeprazole 20 mg PO DAILY 06/19/17 09/26/17 History Trimethobenzamide [Tigan] 300 mg PO Q8H PRN 06/19/17 09/26/17 History Losartan [Cozaar] 100 mg PO DAILY tab 06/25/17 09/26/17 Rx Bumetanide [Bumex] 1 mg PO BID 09/26/17 09/26/17 History Isosorbide Mononitrate ER [Imdur] 30 mg PO TID 09/26/17 09/26/17 History Metoprolol Tartrate [Lopressor] 75 mg PO BID 09/26/17 09/26/17 History Potassium Chloride ER [K-Dur 20] 20 meq PO DAILY@1200 09/26/17 09/26/17 History Slow Iron 45mg 90 mg PO BID 09/26/17 09/26/17 History Spironolactone [Aldactone] 25 mg PO DAILY@1200 09/26/17 09/26/17 History cloNIDine HCL [Catapres] 0.1 mg PO HS 09/26/17 09/26/17 History hydrALAZINE HCL [Apresoline] 75 mg PO BID 09/26/17 09/26/17 History sitaGLIPtin PHOS/metFORMIN HCL 1 tab PO DAILY 09/26/17 09/26/17 History [Janumet Xr 100-1,000 mg Tablet] Allergies Allergy/AdvReac Type Severity Reaction Status Date / Time sulfamethoxazole Allergy Dyspnea Verified 09/26/17 12:28 [From Bactrim] trimethoprim [From Bactrim] Allergy Dyspnea Verified 09/26/17 12:28 Physical Exam Vitals: Vital Signs Temp Pulse Pulse Resp BP BP Pulse Ox 09/27/17 08:00 97.3 F L 74 16 117/57 96 09/27/17 04:00 97.1 F L 83 16 109/64 96 09/27/17 00:00 98.4 F 87 16 98/55 95 09/26/17 20:00 98.8 F 68 18 121/57 94 L 09/26/17 16:00 99.1 F 92 18 118/60 100 09/26/17 15:11 99.3 F 107 H 22 109/69 98 09/26/17 14:45 104 H 24 115/60 98 09/26/17 14:00 99.0 F 143 H 24 119/82 98 09/26/17 13:00 142 H 26 H 127/81 100 09/26/17 12:58 140 H 09/26/17 12:43 140 H 09/26/17 12:05 100.1 F H 144 H 26 H 117/89 88 L Intake and Output 09/26/17 09/27/17 09/27/17 22:59 06:59 14:59 Other: Voiding Method Diaper Diaper Incontinent Incontinent # Voids 2 Weight 73.02 kg Results - Lab Results Most recent lab results Calcium 8.7 mg/dL (8.4-10.2) 09/27/17 05:54 Magnesium 1.7 mg/dL (1.6-2.3) 09/27/17 05:54 09/27/17 05:54 09/27/17 05:54 Assessment and Plan Plan: Assessment: #1. Acute kidney injury secondary to ATN secondary to cardiorenal syndrome. Creatinine was 3.05 on admission and is up to 3.4 today. Urinalysis reveals trace proteinuria and no significant hematuria. #2. Chronic kidney disease stage III secondary to diabetic kidney disease with basic creatinine in the range of 1-1.2. #3. Volume overload. #4. Diastolic CHF with severe pulmonary hypertension and moderate pulmonic regurgitation. #5. Influenza B maintained on Tamiflu. #6. Metabolic acidosis secondary to acute kidney injury and IV fluids. #7. Diabetes mellitus. Plan: Agree with IV diuresis - started on Lasix 40 mg IV every 8 hours this morning. Check renal ultrasound. Follow-up echocardiogram results. Check postvoid residual to make sure no underlying urinary retention. Avoid nephrotoxic agents and hypotensive episodes. Hold losartan for now. Hold antihypertensives for systolic blood pressure less than 110. Repeat electrolytes in the morning. Monitor bicarb. Thank you for the consultation. I will continue to follow the patient with you during her hospital stay.
--- NOTE | 2017-09-27 11:17 | US ---
EXAMINATION TYPE: US kidneys/renal and bladder DATE OF EXAM: 09/27/2017 COMPARISON: CT 05/14/2017 and ultrasound 03/01/2016 CLINICAL HISTORY: 77-year-old female acute kidney injury. Technique: Multiple sonographic images of the kidneys and bladder are obtained. FINDINGS: [employer] NOTES: Influenza patient of large body habitus unable to hold breath. Right Kidney: 10.0 x 4.3 x 4.6 cm. Inferior pole obscured by bowel gas . No hydronephrosis. There is some cortical thinning suggested. Left Kidney: 9.6 x 5.0 x 4.3 cm without hydronephrosis. There is a 2.4 x 2.2 x 2.1 cm cyst at the mid to upper pole with some layering milk of calcium. This was measured at 2.3 cm on 03/01/2016. Inferior pole obscured by bowel gas. Underdistention of the bladder limits its evaluation. Ascites noted, mild on right and in pelvis, mild to moderate along the left lower quadrant. Neither u reteral jet seen during the course of the exam. IMPRESSION: 1. No hydronephrosis. There is bowel gas shadowing, large patient body habitus, and difficulty contro lling breathing which limits the exam. 2. Cortical thinning on the right suggests underlying chronic medical renal disease. 3. Essentially stable 2.4 cm left upper and mid pole cyst with some internal calcification. 4. Abdominopelvic ascites, moderate in the left lower quadrant. Further clinical correlation/workup r ecommended.
[2017-09-27 11:40] LABS: Glucose,Whole Blood 118 mg/dL (75-99)
[2017-09-27] MEDS: POTASSIUM CHLORIDE ER 20 MEQ TAB.ER PO SCH (12:03)
--- NOTE | 2017-09-27 12:41 | P.HPIM ---
History of Present Illness H&P Date: 09/27/17 This is a 77-year-old female patient of Dr. Jalloh with a past history of coronary artery disease with prior 4 vessel CABG in 1998 and subsequent stenting of the mid RCA and OM and 2013 and 2 subsequent stent placements following that, hypertension, diabetes mellitus type 2, hyperlipidemia, obstructive sleep apnea, paroxysmal atrial fibrillation status post cardioversion currently on anticoagulation. Patient was last hospitalized in June 2017 for acute on chronic diastolic heart failure, acute kidney injury. Patient was discharged on eliquis which has subsequently been discontinued by her funding coordinator in [place] due to bleeding. Patient was initially discharged to [facility] for subacute rehab but has been discharged from [facility] and living at home with her . For 3 days patient has been feeling sick with sudden onset of cough that is nonproductive. She has had decreased urine output and not drinking very much for the past 3 days. Patient states she has had nausea vomiting and diarrhea. She was able to eat her breakfast this morning. She has not had a bowel movement since admission. Patient is on home O2 at 3 L nasal cannula. Patient presented to [facility] emergency [facility] by EMS. She was tachycardic at 140s and temperature max 100.1, pulse ox 88%. EKG was atrial fibrillation with RVR. Her hemoglobin was 10.2, BUN 65 and creatinine 3.05. Lactic acid was within normal limits, AST and ALT slightly elevated, INR 1.5. ProBNP fourth be 9800 and troponin 0.012. Urinalysis was clear with leukoesterase moderate, nitrate negative, bacteria rare. Influenza A+. Chest x -ray showed cardiomegaly with chronic parenchymal change with new tiny bilateral pleural effusions and new right basilar linear atelectasis and slightly more suspicious left lateral lung rounded obesity, possible consolidation. Acute interstitial edema with background of chronic fibrosis cannot be excluded. Correlate for fluid overload state. Patient was started on Cardizem drip and given IV hydration, cefepime and vancomycin were given. Patient was started on Tamiflu and admitted to the selective care unit for consults were placed with cardiology, pulmonary medicine and nephrology. Review of Systems All systems: negative Constitutional: Reports fatigue, Reports poor appetite, Reports weakness, Denies chills, Denies fever Eyes: denies blurred vision, denies pain Ears, nose, mouth and throat: Denies dysphagia, Denies headache, Denies sore throat, Denies vertigo Cardiovascular: Denies chest pain, Denies decreased exercise tolerance, Denies dyspnea on exertion, Denies lightheadedness, Denies shortness of breath, Denies syncope Respiratory: Reports cough, Reports dyspnea, Reports home oxygen, Reports wheezing, Denies cough with sputum, Denies excessive sputum, Denies hemoptysis Gastrointestinal: Reports diarrhea, Reports nausea, Reports vomiting, Denies abdominal pain Genitourinary: Denies dysuria, Denies hematuria Musculoskeletal: Denies myalgias Integumentary: Denies pruritus, Denies rash Neurological: Denies numbness, Denies weakness Psychiatric: Denies anxiety, Denies depression Endocrine: Denies fatigue, Denies weight change Past Medical History Past Medical History: Atrial Fibrillation, Coronary Artery Disease (CAD), Heart Failure, COPD, CVA/TIA, Diabetes Mellitus, Deep Vein Thrombosis (DVT), Hyperlipidemia, Hypertension, Osteoarthritis (OA), Sleep Apnea/CPAP/BIPAP Additional Past Medical History / Comment(s): Coronary artery disease, chemical pleurodesis back in 1998 following cabg, CVA back in 2013 without any residual deficits, left lower extremity DVT in 2016, chronic diastolic heart failure, obesity,cpap at , uti's, wears a brief, iron deficiency anemia"has recieved iron infusions". History of Any Multi-Drug Resistant Organisms: None Reported Past Surgical History: Cholecystectomy, Coronary Bypass/CABG, Heart Catheterization With Stent, Hysterectomy Additional Past Surgical History / Comment(s): eye sx, 6 cardiac stent placed; quad CABG 1998, OVARY CYST REMOVED,colonoscopy cardioversion 1 year ago and again 12-07-16 at [facility], egd w/ bx -neg Past Anesthesia/Blood Transfusion Reactions: No Reported Reaction Additional Past Anesthesia/Blood Transfusion Reaction / Comment(s): Jehovahs witness no blood transfusions Date of Last Stent Placement:: 2013 Past Psychological History: No Psychological Hx Reported Additional Psychological History / Comment(s): pt currently at [facility] on the [place]. difficulty walking needs assistance-weak. Smoking Status: Never smoker Past Alcohol Use History: None Reported Additional Past Alcohol Use History / Comment(s): Patient is a lifelong nonsmoker. Past Drug Use History: None Reported - Past Family History Father Additional Family Medical History / Comment(s): Father at age 89 following a hip fracture repair that became infected. He from complications of infection. Mother Additional Family Medical History / Comment(s): Mother in her 70s. She had history of stroke and had been in an extended care facility for 8 years prior to her . Sister(s) Additional Family Medical History / Comment(s): Patient has one sister that is 17 years younger than her with no major medical problems. Patient does not have any brothers. Son(s) Additional Family Medical History / Comment(s): She has 2 sons and one has heart problems. Medications and Allergies Home Medications Medication Instructions Recorded Confirmed Type Escitalopram [Lexapro] 20 mg PO DAILY 06/19/17 09/26/17 History Omeprazole 20 mg PO DAILY 06/19/17 09/26/17 History Trimethobenzamide [Tigan] 300 mg PO Q8H PRN 06/19/17 09/26/17 History Losartan [Cozaar] 100 mg PO DAILY tab 06/25/17 09/26/17 Rx Bumetanide [Bumex] 1 mg PO BID 09/26/17 09/26/17 History Isosorbide Mononitrate ER [Imdur] 30 mg PO TID 09/26/17 09/26/17 History Metoprolol Tartrate [Lopressor] 75 mg PO BID 09/26/17 09/26/17 History Potassium Chloride ER [K-Dur 20] 20 meq PO DAILY@1200 09/26/17 09/26/17 History Slow Iron 45mg 90 mg PO BID 09/26/17 09/26/17 History Spironolactone [Aldactone] 25 mg PO DAILY@1200 09/26/17 09/26/17 History cloNIDine HCL [Catapres] 0.1 mg PO HS 09/26/17 09/26/17 History hydrALAZINE HCL [Apresoline] 75 mg PO BID 09/26/17 09/26/17 History sitaGLIPtin PHOS/metFORMIN HCL 1 tab PO DAILY 09/26/17 09/26/17 History [Janumet Xr 100-1,000 mg Tablet] Allergies Allergy/AdvReac Type Severity Reaction Status Date / Time sulfamethoxazole Allergy Dyspnea Verified 09/26/17 12:28 [From Bactrim] trimethoprim [From Bactrim] Allergy Dyspnea Verified 09/26/17 12:28 Physical Exam Vitals: Vital Signs Temp Pulse Pulse Resp BP BP Pulse Ox 09/27/17 04:00 97.1 F L 83 16 109/64 96 09/27/17 00:00 98.4 F 87 16 98/55 95 09/26/17 20:00 98.8 F 68 18 121/57 94 L 09/26/17 16:00 99.1 F 92 18 118/60 100 09/26/17 15:11 99.3 F 107 H 22 109/69 98 09/26/17 14:45 104 H 24 115/60 98 09/26/17 14:00 99.0 F 143 H 24 119/82 98 09/26/17 13:00 142 H 26 H 127/81 100 09/26/17 12:58 140 H 09/26/17 12:43 140 H 09/26/17 12:05 100.1 F H 144 H 26 H 117/89 88 L Intake and Output 09/26/17 09/27/17 09/27/17 22:59 06:59 14:59 Other: Voiding Method Diaper Diaper Incontinent Incontinent # Voids 2 Weight 73.02 kg General appearance: cooperative, moderate acute distress - EENT Eyes: anicteric sclerae, PERRLA, normal appearance ENT: hearing grossly normal - Neck Neck: no lymphadenopathy, normal ROM, no other, no rigidity, no stridor, no thyromegaly. Found to be using his S3 muscles - Respiratory Respiratory: bilateral: Diminished with with coarse breath sounds, fine inspiratory wheeze, rhonchi bilaterally - Cardiovascular Rhythm: irregular Heart sounds: normal: S1, S2 Abnormal Heart Sounds: no systolic murmur, no diastolic murmur, no rub, no S3 Gallop, no S4 Gallop, no click, no other, significant edema lower extremities up to the knees - Gastrointestinal General gastrointestinal: normal bowel sounds, soft - Integumentary Integumentary: no rash - Neurologic Neurologic: CNII-XII intact - Musculoskeletal Musculoskeletal: gait normal, strength equal bilaterally - Psychiatric Psychiatric: A&O x's 3, appropriate affect Results CBC & Chem 7: 09/27/17 05:54 09/27/17 05:54 Labs: Abnormal Lab Results - Last 24 Hours (Table) 09/26/17 09/26/17 09/26/17 Range/Units 12:15 12:15 12:15 RBC 3.70 L (3.80-5.40) m/uL Hgb 10.2 L (11.4-16.0) gm/dL Hct 33.7 L (34.0-46.0) % MCHC 30.4 L (31.0-37.0) g/dL RDW 17.8 H (11.5-15.5) % Plt Count 134 L (150-450) k/uL Lymphocytes # 0.5 L (1.0-4.8) k/uL PT 13.7 H (9.0-12.0) sec INR 1.5 H (<1.2) Chloride 113 H (98-107) mmol/L Carbon Dioxide 19 L (22-30) mmol/L BUN 65 H (7-17) mg/dL Creatinine 3.05 H (0.52-1.04) mg/dL Glucose 113 H (74-99) mg/dL POC Glucose (mg/dL) (75-99) mg/dL Calcium 7.8 L (8.4-10.2) mg/dL AST 65 H (14-36) U/L ALT 64 H (9-52) U/L Total Protein 5.3 L (6.3-8.2) g/dL Albumin 2.8 L (3.5-5.0) g/dL Urine Protein (Negative) Ur Leukocyte Esterase (Negative) Urine Bacteria (None) /hpf Hyaline Casts (0-2) /lpf Urine Mucus (None) /hpf Stool Occult Blood (Negative) Influenza Type B (PCR) (Not Detectd) 09/26/17 09/26/17 09/26/17 Range/Units 12:45 12:50 16:22 RBC (3.80-5.40) m/uL Hgb (11.4-16.0) gm/dL Hct (34.0-46.0) % MCHC (31.0-37.0) g/dL RDW (11.5-15.5) % Plt Count (150-450) k/uL Lymphocytes # (1.0-4.8) k/uL PT (9.0-12.0) sec INR (<1.2) Chloride (98-107) mmol/L Carbon Dioxide (22-30) mmol/L BUN (7-17) mg/dL Creatinine (0.52-1.04) mg/dL Glucose (74-99) mg/dL POC Glucose (mg/dL) 123 H (75-99) mg/dL Calcium (8.4-10.2) mg/dL AST (14-36) U/L ALT (9-52) U/L Total Protein (6.3-8.2) g/dL Albumin (3.5-5.0) g/dL Urine Protein Trace H (Negative) Ur Leukocyte Esterase Moderate H (Negative) Urine Bacteria Rare H (None) /hpf Hyaline Casts 21 H (0-2) /lpf Urine Mucus Rare H (None) /hpf Stool Occult Blood (Negative) Influenza Type B (PCR) Detected H (Not Detectd) 09/26/17 09/26/17 09/27/17 Range/Units 18:19 20:33 05:54 RBC 3.72 L (3.80-5.40) m/uL Hgb 10.1 L (11.4-16.0) gm/dL Hct (34.0-46.0) % MCHC 29.4 L (31.0-37.0) g/dL RDW 17.7 H (11.5-15.5) % Plt Count 115 L (150-450) k/uL Lymphocytes # 0.6 L (1.0-4.8) k/uL PT (9.0-12.0) sec INR (<1.2) Chloride (98-107) mmol/L Carbon Dioxide (22-30) mmol/L BUN (7-17) mg/dL Creatinine (0.52-1.04) mg/dL Glucose (74-99) mg/dL POC Glucose (mg/dL) 121 H (75-99) mg/dL Calcium (8.4-10.2) mg/dL AST (14-36) U/L ALT (9-52) U/L Total Protein (6.3-8.2) g/dL Albumin (3.5-5.0) g/dL Urine Protein (Negative) Ur Leukocyte Esterase (Negative) Urine Bacteria (None) /hpf Hyaline Casts (0-2) /lpf Urine Mucus (None) /hpf Stool Occult Blood Positive H (Negative) Influenza Type B (PCR) (Not Detectd) 09/27/17 09/27/17 Range/Units 05:54 06:04 RBC (3.80-5.40) m/uL Hgb (11.4-16.0) gm/dL Hct (34.0-46.0) % MCHC (31.0-37.0) g/dL RDW (11.5-15.5) % Plt Count (150-450) k/uL Lymphocytes # (1.0-4.8) k/uL PT (9.0-12.0) sec INR (<1.2) Chloride 111 H (98-107) mmol/L Carbon Dioxide 18 L (22-30) mmol/L BUN 74 H (7-17) mg/dL Creatinine 3.40 H (0.52-1.04) mg/dL Glucose (74-99) mg/dL POC Glucose (mg/dL) 113 H (75-99) mg/dL Calcium (8.4-10.2) mg/dL AST 78 H (14-36) U/L ALT 74 H (9-52) U/L Total Protein 5.5 L (6.3-8.2) g/dL Albumin 2.9 L (3.5-5.0) g/dL Urine Protein (Negative) Ur Leukocyte Esterase (Negative) Urine Bacteria (None) /hpf Hyaline Casts (0-2) /lpf Urine Mucus (None) /hpf Stool Occult Blood (Negative) Influenza Type B (PCR) (Not Detectd) Microbiology - Last 24 Hours (Table) 09/26/17 12:45 Urine Culture - Preliminary Urine,Voided Thrombosis Risk Factor Assmnt - DVT/VTE Prophylaxis DVT/VTE Prophylaxis: Pharmacologic Prophylaxis ordered Assessment and Plan Plan: 1. Acute hypoxic respiratory failure secondary to influenza a, possible pneumonia, atrial fibrillation with RVR and acute on chronic diastolic heart failure. Consults requested with cardiology and pulmonary medicine. Cardizem drip discontinued and patient resumed on Lopressor 75 mg twice daily. Patient has been off anticoagulation per her primary funding coordinator. Echocardiogram.. 2. Acute on chronic diastolic heart failure. Cardiology consult appreciated. Continue IV Lasix and IV every 8 previous Echocardiogram suggested severe pulmonary hypertension with 55-60% ejection fraction . I&O and daily weights. Monitor electrolytes and kidney function. 3. Persistant atrial fibrillation presenting with RVR. Cardiology consult appreciated. Continue Lopressor 75 mg 3 times daily. 4. Influenza A. Patient started on Tamiflu. There is concern for possible pneumonia. Consult placed with Dr. Espinal. 5. Acute kidney injury secondary to ATN secondary to cardiorenal syndrome with underlying chronic kidney disease stage III. IV Lasix, post void residual, avoid nephrotoxic agents and hypotensive episodes. Losartan on hold. 6. CAD. Continue Imdur 30 mg 3 times a day. 7. Diabetes mellitus type 2. Continue Novolog scale before meals and at bedtime. Her A1c is 5.1. Janumet currently on hold. 8. Hypertensive cardiovascular disease. Continue Imdur, metoprolol, hydralazine, losartan and Lasix. 9. History of obstructive sleep apnea. 10. Hyperlipidemia not currently on statin 11. History of CVA, stable 12. 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 11. History of DVT. 12. Osteoarthritis, generalized. 13. DVT prophylaxis. 14. Gastrointestinal prophylaxis. Continue Protonix. Patient will be admitted to the hospital for a minimum of 3 night stay. Discharge plan: To be determined. Patient was previously at [facility] for subacute rehab Impression and plan of care have been directed as dictated by the signing physician. Ashtyn Yeung nurse practitioner acting as scribe for signing physician.
--- NOTE | 2017-09-27 12:41 | P.CNPUL ---
History of Present Illness Consult date: 09/27/17 Requesting physician: Juan Corbin Reason for consult: dyspnea Chief complaint: Altered mental status, shortness of breath. History of present illness: This is a very pleasant 77-year-old female patient who follows with Dr. Leal as her primary care physician. She has a history of atrial fibrillation, coronary artery disease with previous and placements and coronary artery bypass grafting, congestive heart failure, diabetes mellitus, DVT, hyperlipidemia, hypertension, obstructive sleep apnea utilizing CPAP, obesity, osteoarthritis. The patient is a Sikhism and will not accept blood transfusions. She also has a history of chronic obstructive pulmonary disease and follows with Dr. Staples in our office for the same. She had been having a 1 week history of cough and nasal congestion and shortness of breath. Yesterday her noted her to have altered mental status as well. She was uncooperative and confused. She is brought here for the same. She was found to be influenza B positive. She also had atrial fibrillation with a rapid ventricular response and was admitted for the same. She is seen today in consultation on the selective care unit. She is awake and alert in no acute distress. Her who is at the bedside states she is much improved today as compared to yesterday as far as her mentation. She does have a loose nonproductive cough. Her chest x-ray reveals evidence of cardiomegaly with chronic parenteral changes and tiny bilateral pleural effusions and a left lung opacity. Possibly fluid collection or consolidation. She is maintaining good O2 saturations in the 90s on 2 L/m per nasal cannula. She did have a T-max of 100.1 but is currently afebrile. No leukocytosis. Hemoglobin 10.1. Platelet count 115,000. BUN 74 creatinine 3.40. AST 78, ALT 74. Stool for occult blood is positive. Urine culture is pending. She was given a dose of vancomycin and cefepime. She is currently on Tamiflu. Cardizem drip currently on hold. She remains in atrial fibrillation. Her rate is better controlled. She is being in diuresed with Lasix 40 mg IV every 8 hours. She is incontinent of urine. Review of Systems Constitutional: Reports fatigue, Reports poor appetite, Reports weakness Eyes: denies blurred vision, denies decreased vision Ears: deny: decreased hearing Ears, nose, mouth and throat: Reports sinus pressure Cardiovascular: Reports dyspnea on exertion, Reports rapid heart beat, Reports shortness of breath Respiratory: Reports congestion, Reports cough, Reports dyspnea Gastrointestinal: Reports melena Genitourinary: Reports mixed incontinence Musculoskeletal: Reports limitation of motion Integumentary: Denies pruritus, Denies rash Neurological: Reports change in mentation Psychiatric: Reports difficulty concentrating Endocrine: Denies fatigue, Denies weight change Past Medical History Past Medical History: Atrial Fibrillation, Coronary Artery Disease (CAD), Heart Failure, COPD, CVA/TIA, Diabetes Mellitus, Deep Vein Thrombosis (DVT), Hyperlipidemia, Hypertension, Osteoarthritis (OA), Sleep Apnea/CPAP/BIPAP Additional Past Medical History / Comment(s): Coronary artery disease, chemical pleurodesis back in 1998 following cabg, CVA back in 2013 without any residual deficits, left lower extremity DVT in 2015, chronic diastolic heart failure, obesity,cpap at , uti's, wears a brief, iron deficiency anemia"has recieved iron infusions". History of Any Multi-Drug Resistant Organisms: None Reported Past Surgical History: Cholecystectomy, Coronary Bypass/CABG, Heart Catheterization With Stent, Hysterectomy Additional Past Surgical History / Comment(s): eye sx, 6 cardiac stent placed; quad CABG 1998, OVARY CYST REMOVED,colonoscopy cardioversion 1 year ago and again 12-07-16 at [facility], egd w/ bx -neg Past Anesthesia/Blood Transfusion Reactions: No Reported Reaction Additional Past Anesthesia/Blood Transfusion Reaction / Comment(s): Jehovahs witness no blood transfusions Date of Last Stent Placement:: 2013 Past Psychological History: No Psychological Hx Reported Additional Psychological History / Comment(s): pt currently at [facility]. difficulty walking needs assistance-weak. Smoking Status: Never smoker Past Alcohol Use History: None Reported Additional Past Alcohol Use History / Comment(s): Patient is a lifelong nonsmoker. Past Drug Use History: None Reported - Past Family History Father Additional Family Medical History / Comment(s): Father at age 89 following a hip fracture repair that became infected. He from complications of infection. Mother Additional Family Medical History / Comment(s): Mother in her 70s. She had history of stroke and had been in an extended care facility for 8 years prior to her . Sister(s) Additional Family Medical History / Comment(s): Patient has one sister that is 17 years younger than her with no major medical problems. Patient does not have any brothers. Son(s) Additional Family Medical History / Comment(s): She has 2 sons and one has heart problems. Medications and Allergies Home Medications Medication Instructions Recorded Confirmed Type Escitalopram [Lexapro] 20 mg PO DAILY 06/19/17 09/26/17 History Omeprazole 20 mg PO DAILY 06/19/17 09/26/17 History Trimethobenzamide [Tigan] 300 mg PO Q8H PRN 06/19/17 09/26/17 History Losartan [Cozaar] 100 mg PO DAILY tab 06/25/17 09/26/17 Rx Bumetanide [Bumex] 1 mg PO BID 09/26/17 09/26/17 History Isosorbide Mononitrate ER [Imdur] 30 mg PO TID 09/26/17 09/26/17 History Metoprolol Tartrate [Lopressor] 75 mg PO BID 09/26/17 09/26/17 History Potassium Chloride ER [K-Dur 20] 20 meq PO DAILY@1200 09/26/17 09/26/17 History Slow Iron 45mg 90 mg PO BID 09/26/17 09/26/17 History Spironolactone [Aldactone] 25 mg PO DAILY@1200 09/26/17 09/26/17 History cloNIDine HCL [Catapres] 0.1 mg PO HS 09/26/17 09/26/17 History hydrALAZINE HCL [Apresoline] 75 mg PO BID 09/26/17 09/26/17 History sitaGLIPtin PHOS/metFORMIN HCL 1 tab PO DAILY 09/26/17 09/26/17 History [Janumet Xr 100-1,000 mg Tablet] Allergies Allergy/AdvReac Type Severity Reaction Status Date / Time sulfamethoxazole Allergy Dyspnea Verified 09/26/17 12:28 [From Bactrim] trimethoprim [From Bactrim] Allergy Dyspnea Verified 09/26/17 12:28 Physical Exam Vitals: Vital Signs Temp Pulse Pulse Resp BP BP Pulse Ox 09/27/17 08:00 97.3 F L 74 16 117/57 96 09/27/17 04:00 97.1 F L 83 16 109/64 96 09/27/17 00:00 98.4 F 87 16 98/55 95 02/21/18 20:00 98.8 F 68 18 121/57 94 L 09/26/17 16:00 99.1 F 92 18 118/60 100 09/26/17 15:11 99.3 F 107 H 22 109/69 98 09/26/17 14:45 104 H 24 115/60 98 09/26/17 14:00 99.0 F 143 H 24 119/82 98 09/26/17 13:00 142 H 26 H 127/81 100 09/26/17 12:58 140 H 09/26/17 12:43 140 H Intake and Output 09/26/17 09/27/17 09/27/17 22:59 06:59 14:59 Intake Total 240 Balance 240 Intake: Oral 240 Other: Voiding Method Diaper Diaper Incontinent Incontinent # Voids 2 Weight 73.02 kg GENERAL EXAM: Alert, disoriented to place. Fairly comfortable in no apparent distress. HEAD: Normocephalic. EYES: Normal reaction of pupils, equal size. NOSE: Clear with pink turbinates. THROAT: No erythema or exudates. NECK: No masses, no JVD. CHEST: No chest wall deformity. LUNGS: Equal air entry with crackles in the posterior bases.. CVS: S1 and S2 normal with no audible murmur, regular rhythm. ABDOMEN: No hepatosplenomegaly, normal bowel sounds, no guarding or rigidity. SPINE: Kyphoscoliosis SKIN: No rashes CENTRAL NERVOUS SYSTEM: No focal deficits, tone is normal in all 4 extremities. EXTREMITIES: There is no peripheral edema. No clubbing, no cyanosis. Peripheral pulses are intact. Results - Laboratory Findings CBC and BMP: 09/27/17 05:54 09/27/17 05:54 PT/INR, D-dimer PT 13.7 sec (9.0-12.0) H 09/26/17 12:15 INR 1.5 (<1.2) H 09/26/17 12:15 Abnormal lab findings: Abnormal Labs 09/26/17 09/26/17 09/26/17 12:15 12:15 12:15 RBC 3.70 L Hgb 10.2 L Hct 33.7 L MCHC 30.4 L RDW 17.8 H Plt Count 134 L Lymphocytes # 0.5 L PT 13.7 H INR 1.5 H Chloride 113 H Carbon Dioxide 19 L BUN 65 H Creatinine 3.05 H Glucose 113 H POC Glucose (mg/dL) Calcium 7.8 L AST 65 H ALT 64 H Total Protein 5.3 L Albumin 2.8 L Urine Protein Ur Leukocyte Esterase Urine Bacteria Hyaline Casts Urine Mucus Stool Occult Blood Influenza Type B (PCR) 09/26/17 09/26/17 09/26/17 12:45 12:50 16:22 RBC Hgb Hct MCHC RDW Plt Count Lymphocytes # PT INR Chloride Carbon Dioxide BUN Creatinine Glucose POC Glucose (mg/dL) 123 H Calcium AST ALT Total Protein Albumin Urine Protein Trace H Ur Leukocyte Esterase Moderate H Urine Bacteria Rare H Hyaline Casts 21 H Urine Mucus Rare H Stool Occult Blood Influenza Type B (PCR) Detected H 09/26/17 09/26/17 09/27/17 18:19 20:33 05:54 RBC 3.72 L Hgb 10.1 L Hct MCHC 29.4 L RDW 17.7 H Plt Count 115 L Lymphocytes # 0.6 L PT INR Chloride Carbon Dioxide BUN Creatinine Glucose POC Glucose (mg/dL) 121 H Calcium AST ALT Total Protein Albumin Urine Protein Ur Leukocyte Esterase Urine Bacteria Hyaline Casts Urine Mucus Stool Occult Blood Positive H Influenza Type B (PCR) 09/27/17 09/27/17 09/27/17 05:54 06:04 11:38 RBC Hgb Hct MCHC RDW Plt Count Lymphocytes # PT INR Chloride 111 H Carbon Dioxide 18 L BUN 74 H Creatinine 3.40 H Glucose POC Glucose (mg/dL) 113 H 118 H Calcium AST 78 H ALT 74 H Total Protein 5.5 L Albumin 2.9 L Urine Protein Ur Leukocyte Esterase Urine Bacteria Hyaline Casts Urine Mucus Stool Occult Blood Influenza Type B (PCR) Assessment and Plan Assessment: Impression: #1 Acute hypoxic respiratory failure secondary to an acute exacerbation of diastolic congestive heart failure. Ejection fraction 55-60% on echo from 2017. #2 Acute influenza B infection. #3 Atrial fibrillation with a rapid ventricular response initially on a diltiazem drip. Rate better controlled today. #4 Acute on chronic renal failure current creatinine 3.40. Ultrasound reveals no hydronephrosis. #5 Acute on chronic anemia. Stool for occult blood positive. EGD on 2016 revealed scattered erosions in the antrum consistent with gastritis. #6 Elevated liver enzymes. #7 History of CVA/TIA. #8 Diabetes mellitus. #9 Hyperlipidemia. #10 Hypertension. #11 History of DVT #12 Osteoarthritis. #13 Obstructive sleep apnea utilizing CPAP in the outpatient setting on 10 cm of water. #14 Pulmonary hypertension. Plan: The patient was seen and evaluated by Dr. Staples. Her chest x-ray and labs were reviewed. Mostly a picture of fluid volume overload and diastolic congestive heart failure. We'll continue with diuretics. Her is at the bedside and states her mental status has improved today as compared to yesterday. She is a DO NOT RESUSCITATE/DO NOT INTUBATE CODE STATUS. No need for BiPAP at this time. We will place her on ceftriaxone empirically. Urine culture is pending. Follow-up chest x-ray in the a.m. We'll continue to follow make further recommendations based on her clinical status. I, the cosigning physician, performed a history & physical examination of the patient. Lungs sounds have crackles in the bilateral posterior bases.. Maintaining good O2 saturations in the 90s on 3 L/m per nasal cannula.. I discussed the assessment and plan of care with my nurse practitioner, Dariela Keyes. I attest to the above note as dictated by her. Time with Patient: Greater than 30
[2017-09-27 17:00] LABS: Glucose,Whole Blood 119 mg/dL (75-99)
[2017-09-27 20:53] LABS: Glucose,Whole Blood 160 mg/dL (75-99)
[2017-09-27] MEDS: cloNIDine HCL 0.1 MG TAB PO SCH (21:31)
[2017-09-28] MEDS: FUROSEMIDE 10 MG/ML 4 ML VIAL IV SCH ×4 (00:34→21:28)
[2017-09-28 06:09] LABS: Glucose,Whole Blood 109 mg/dL (75-99)
[2017-09-28] MEDS: INSULIN ASPART 100 UNIT/ML 1 ML 10 ML VIAL SQ SCH ×4 (06:10→21:22)
[2017-09-28 06:44] LABS: Calcium 8.4 mg/dL (8.4-10.2); Magnesium 1.8 mg/dL (1.6-2.3); Potassium 4.4 mmol/L (3.5-5.1)
[2017-09-28] MEDS: PANTOPRAZOLE 40 MG TABLET PO SCH ×2 (06:54→09:57)
[2017-09-28] MEDS: FERROUS SULFATE 325 MG TAB PO SCH ×3 (06:54→19:01)
--- NOTE | 2017-09-28 08:18 | P.PN ---
Subjective Patient is seen in follow-up for acute kidney injury. Patient has chronic kidney disease stage III secondary to diabetic kidney disease with baseline creatinine in the range of 1-1.2. Patient presented to the hospital with fever and cough. She is positive for influenza B. She was also in A. fib with RVR but is now rate controlled. She is noted to have ascites and edema for which she is currently maintained on Lasix 40 mg IV every 8 hours. Her urine output is documented as 850 mL. She was also noted to have urinary retention for which she has a Brooks catheter in place now. She has history of diastolic CHF with severe pulmonary hypertension and moderate pulmonic regurgitation. She is currently resting in bed. She is not a reliable historian at this time. Vital signs are stable. General: The patient appeared well nourished and normally developed. HEENT: Head exam is unremarkable. Neck is without jugular venous distension. LUNGS: Lungs are clear to auscultation and percussion. Breath sounds decreased. HEART: Rate and Rhythm are regular. First and second heart sounds normal. No murmurs, rubs or gallops. ABDOMEN: Abdominal exam reveals normal bowel sounds. Non-tender and non- distended. No evidence of peritonitis. EXTREMITITES: 1+ edema. Objective - Vital Signs Vital signs: Vital Signs Temp 96.7 F L 09/28/17 04:00 Pulse 92 09/28/17 04:00 Resp 18 09/28/17 04:00 BP 103/64 09/28/17 04:00 Pulse Ox 94 L 09/28/17 04:00 Intake & Output 09/27/17 09/28/17 09/28/17 18:59 06:59 18:59 Intake Total 900 80 Output Total 150 700 Balance 750 -620 Weight 76.3 kg Intake: IV 180 80 0.9 kvo 180 80 Oral 720 Output: Urine 150 700 Other: Voiding Method Indwelling Catheter # Voids 1 # Bowel Movements 0 - Labs CBC & Chem 7: 09/27/17 05:54 09/28/17 05:34 Labs: Abnormal Lab Results - Last 24 Hours (Table) 09/27/17 09/27/17 09/27/17 Range/Units 11:38 16:58 20:52 Chloride (98-107) mmol/L Carbon Dioxide (22-30) mmol/L BUN (7-17) mg/dL Creatinine (0.52-1.04) mg/dL POC Glucose (mg/dL) 118 H 119 H 160 H (75-99) mg/dL 09/28/17 09/28/17 Range/Units 05:34 06:08 Chloride 108 H (98-107) mmol/L Carbon Dioxide 18 L (22-30) mmol/L BUN 73 H (7-17) mg/dL Creatinine 3.50 H (0.52-1.04) mg/dL POC Glucose (mg/dL) 109 H (75-99) mg/dL Microbiology - Last 24 Hours (Table) 09/26/17 12:45 Urine Culture - Preliminary Urine,Voided Gram Neg Bacilli 09/26/17 14:55 Blood Culture - Preliminary Blood No Growth after 24 hours 09/26/17 12:45 Blood Culture - Preliminary Blood No Growth after 24 hours Assessment and Plan Plan: Assessment: #1. Acute kidney injury secondary to ATN secondary to cardiorenal syndrome. Creatinine was 3.05 on admission and is up to 3.5 today. Urinalysis reveals trace proteinuria and no significant hematuria. No evidence of hydronephrosis noted on renal ultrasound. #2. Chronic kidney disease stage III secondary to diabetic kidney disease with basic creatinine in the range of 1-1.2. #3. Volume overload. #4. Diastolic CHF with severe pulmonary hypertension and moderate pulmonic regurgitation. #5. Influenza B maintained on Tamiflu. #6. Metabolic acidosis secondary to acute kidney injury. #7. Diabetes mellitus. #8. Urinary retention status post Brooks catheter placement. Plan: I will change Lasix to 80 mg IV twice daily. Avoid nephrotoxic agents and hypotensive episodes. Hold losartan for now. Hold antihypertensives for systolic blood pressure less than 110. Repeat electrolytes in the morning. Add oral sodium bicarbonate 650 mg twice daily. Continue to monitor renal function and urine output.
[2017-09-28] MEDS: OSELTAMIVIR 60 MG/10 ML ORAL SYRINGE PO SCH (09:58)
[2017-09-28] MEDS: cefTRIAXone IN SWFI 1,000 MG/10 ML SYRINGE IVP SCH (09:58)
[2017-09-28] MEDS: METOPROLOL TARTRATE 25 MG TAB PO SCH ×2 (09:58→21:28)
[2017-09-28] MEDS: ISOSORBIDE MONONITRATE ER 30 MG TAB.ER.24H PO SCH ×3 (09:58→21:29)
[2017-09-28] MEDS: hydrALAZINE HCL 25 MG TAB PO SCH (09:58)
[2017-09-28] MEDS: ESCITALOPRAM 20 MG TAB PO SCH (09:58)
[2017-09-28] MEDS: SODIUM BICARBONATE TAB 650 MG TAB PO SCH ×2 (09:59→21:29)
--- NOTE | 2017-09-28 11:12 | P.PN ---
Subjective Progress Note Date: 09/28/17 Principal diagnosis: Acute hypoxic respiratory failure secondary to diastolic congestive heart failure. This is a very pleasant 77-year-old female patient who follows with Dr. Leal as her primary care physician. She has a history of atrial fibrillation, coronary artery disease with previous and placements and coronary artery bypass grafting, congestive heart failure, diabetes mellitus, DVT, hyperlipidemia, hypertension, obstructive sleep apnea utilizing CPAP, obesity, osteoarthritis. The patient is a Anabaptism and will not accept blood transfusions. She also has a history of chronic obstructive pulmonary disease and follows with Dr. Staples in our office for the same. She had been having a 1 week history of cough and nasal congestion and shortness of breath. Yesterday her noted her to have altered mental status as well. She was uncooperative and confused. She is brought here for the same. She was found to be influenza B positive. She also had atrial fibrillation with a rapid ventricular response and was admitted for the same. She is seen today in consultation on the selective care unit. She is awake and alert in no acute distress. Her who is at the bedside states she is much improved today as compared to yesterday as far as her mentation. She does have a loose nonproductive cough. Her chest x-ray reveals evidence of cardiomegaly with chronic parenteral changes and tiny bilateral pleural effusions and a left lung opacity. Possibly fluid collection or consolidation. She is maintaining good O2 saturations in the 90s on 2 L/m per nasal cannula. She did have a T-max of 100.1 but is currently afebrile. No leukocytosis. Hemoglobin 10.1. Platelet count 115,000. BUN 74 creatinine 3.40. AST 78, ALT 74. Stool for occult blood is positive. Urine culture is pending. She was given a dose of vancomycin and cefepime. She is currently on Tamiflu. Cardizem drip currently on hold. She remains in atrial fibrillation. Her rate is better controlled. She is being in diuresed with Lasix 40 mg IV every 8 hours. She is incontinent of urine. The patient is seen again today 09/28/2017 in follow-up on the selective care unit. She is awake and alert in no acute distress. She is breathing easier today as compared to yesterday. She is more oriented today as well. Continues to diurese. She is currently in a negative balance. She is maintaining good O2 saturations in the mid 90s on 3 L/m per nasal cannula. She's afebrile. Hemodynamically stable. Objective - Vital Signs Vital signs: Vital Signs Temp 96.7 F L 09/28/17 08:00 Pulse 98 09/28/17 08:00 Resp 18 09/28/17 08:00 BP 120/78 09/28/17 08:00 Pulse Ox 95 09/28/17 08:00 Intake & Output 09/27/17 09/28/17 09/28/17 18:59 06:59 18:59 Intake Total 900 80 0 Output Total 150 700 Balance 750 -620 0 Weight 76.3 kg Intake: IV 180 80 0.9 kvo 180 80 Oral 720 0 Output: Urine 150 700 Other: Voiding Method Indwelling Catheter Indwelling Catheter # Voids 1 # Bowel Movements 0 - Exam GENERAL EXAM: Alert, oriented 3. Fairly comfortable in no apparent distress. HEAD: Normocephalic. EYES: Normal reaction of pupils, equal size. NOSE: Clear with pink turbinates. THROAT: No erythema or exudates. NECK: No masses, no JVD. CHEST: No chest wall deformity. LUNGS: Equal air entry with crackles in the posterior bases.. CVS: S1 and S2 normal with no audible murmur, regular rhythm. ABDOMEN: No hepatosplenomegaly, normal bowel sounds, no guarding or rigidity. SPINE: Kyphoscoliosis SKIN: No rashes CENTRAL NERVOUS SYSTEM: No focal deficits, tone is normal in all 4 extremities. EXTREMITIES: There is no peripheral edema. No clubbing, no cyanosis. Peripheral pulses are intact. - Labs CBC & Chem 7: 09/27/17 05:54 09/28/17 05:34 Labs: Abnormal Lab Results - Last 24 Hours (Table) 09/27/17 09/27/17 09/27/17 Range/Units 11:38 16:58 20:52 Chloride (98-107) mmol/L Carbon Dioxide (22-30) mmol/L BUN (7-17) mg/dL Creatinine (0.52-1.04) mg/dL POC Glucose (mg/dL) 118 H 119 H 160 H (75-99) mg/dL 09/28/17 09/28/17 Range/Units 05:34 06:08 Chloride 108 H (98-107) mmol/L Carbon Dioxide 18 L (22-30) mmol/L BUN 73 H (7-17) mg/dL Creatinine 3.50 H (0.52-1.04) mg/dL POC Glucose (mg/dL) 109 H (75-99) mg/dL Microbiology - Last 24 Hours (Table) 09/26/17 12:45 Urine Culture - Preliminary Urine,Voided Gram Neg Bacilli 09/26/17 14:55 Blood Culture - Preliminary Blood No Growth after 24 hours 09/26/17 12:45 Blood Culture - Preliminary Blood No Growth after 24 hours Assessment and Plan Assessment: Impression: #1 Acute hypoxic respiratory failure secondary to an acute exacerbation of diastolic congestive heart failure. Ejection fraction 55-60% on echo from 2017. #2 Acute influenza B infection. #3 Atrial fibrillation with a rapid ventricular response initially on a diltiazem drip. Rate better controlled today. #4 Acute on chronic renal failure current creatinine 3.40. Ultrasound reveals no hydronephrosis. #5 Acute on chronic anemia. Stool for occult blood positive. EGD on 2016 revealed scattered erosions in the antrum consistent with gastritis. #6 Urinary tract infection and gram-negative bacilli. #7 History of CVA/TIA. #8 Diabetes mellitus. #9 Hyperlipidemia. #10 Hypertension. #11 History of DVT #12 Osteoarthritis. #13 Obstructive sleep apnea utilizing CPAP in the outpatient setting on 10 cm of water. #14 Pulmonary hypertension. Plan: The patient was seen and evaluated by Dr. Staples. He is more alert and oriented today. Mostly a picture of fluid volume overload and diastolic congestive heart failure. We'll continue with diuretics. To need ceftriaxone for urinary tract infection. She is a DO NOT RESUSCITATE/DO NOT INTUBATE CODE STATUS. No need for BiPAP at this time. Repeat chest x-ray. We'll continue to follow make further recommendations based on her clinical status. I, the cosigning physician, performed a history & physical examination of the patient. Lungs sounds have crackles in the bilateral posterior bases.. Maintaining good O2 saturations in the 90s on 3 L/m per nasal cannula.. I discussed the assessment and plan of care with my nurse practitioner, Dariela Keyes. I attest to the above note as dictated by her.
--- NOTE | 2017-09-28 11:51 | XR ---
EXAMINATION TYPE: XR chest 1V portable DATE OF EXAM: 09/28/2017 COMPARISON: 09/26/2017 HISTORY: Influenza with history of COPD TECHNIQUE: Single frontal view of the chest is obtained. FINDINGS: Left basilar opacity of the costophrenic angle demonstrates central lucency and could repr esent a loculated pleural effusion or cavitary lesion. Right infrahilar airspace disease is linear an d favored to represent atelectasis. Heart is enlarged with post CABG changes. Right hemidiaphragm anish vation is unchanged from the prior. Remainder the lungs are clear. There is mild generalized osseous demineralization. IMPRESSION: 1. New left basilar opacity with central lucency may represent a cavitary lesion or loculated pleural effusion. Further evaluation with CT could be performed. 2. Right infrahilar opacity is favored to represent atelectasis. 3. Improved pulmonary vascular congestion, right pleural effusion and interstitial edema.
[2017-09-28 11:57] LABS: Glucose,Whole Blood 125 mg/dL (75-99)
[2017-09-28] MEDS: POTASSIUM CHLORIDE ER 20 MEQ TAB.ER PO SCH (12:00)
--- NOTE | 2017-09-28 13:55 | P.PN ---
Subjective Progress Note Date: 09/28/17 This is a 77-year-old female patient of Dr. Leal'stephie with a past history of coronary artery disease with prior 4 vessel CABG in 1998 and subsequent stenting of the mid RCA and OM and 2013 and 2 subsequent stent placements following that, hypertension, diabetes mellitus type 2, hyperlipidemia, obstructive sleep apnea, paroxysmal atrial fibrillation status post cardioversion currently on anticoagulation. Patient was last hospitalized in June 2017 for acute on chronic diastolic heart failure, acute kidney injury. Patient was discharged on eliquis which has subsequently been discontinued by her tuber machine cutter in [place] due to bleeding. Patient was initially discharged to [facility] for subacute rehab but has been discharged from [facility] and living at home with her . For 3 days patient has been feeling sick with sudden onset of cough that is nonproductive. She has had decreased urine output and not drinking very much for the past 3 days. Patient states she has had nausea vomiting and diarrhea. She was able to eat her breakfast this morning. She has not had a bowel movement since admission. Patient is on home O2 at 3 L nasal cannula. Patient presented to [facility] emergency center by EMS. She was tachycardic at 140s and temperature max 100.1, pulse ox 88%. EKG was atrial fibrillation with RVR. Her hemoglobin was 10.2, BUN 65 and creatinine 3.05. Lactic acid was within normal limits, AST and ALT slightly elevated, INR 1.5. ProBNP fourth be 9800 and troponin 0.012. Urinalysis was clear with leukoesterase moderate, nitrate negative, bacteria rare. Influenza A+. Chest x -ray showed cardiomegaly with chronic parenchymal change with new tiny bilateral pleural effusions and new right basilar linear atelectasis and slightly more suspicious left lateral lung rounded obesity, possible consolidation. Acute interstitial edema with background of chronic fibrosis cannot be excluded. Correlate for fluid overload state. Patient was started on Cardizem drip and given IV hydration, cefepime and vancomycin were given. Patient was started on Tamiflu and admitted to the selective care unit for consults were placed with cardiology, pulmonary medicine and nephrology. 09/28: Dr. Schmidt has seen the patient for acute kidney injury and ordered renal ultrasound which showed no hydronephrosis. Chronic medical renal disease. Stable 2.5 cm left upper and mid pole cyst with some internal calcification. Abdominal pelvic ascites, moderate in the left lower quadrant. Repeat BUN 73 and creatinine 3.5, CO2 18. Sodium bicarb has been added by nephrology. Losartan is on hold. Patient seen and followed by Dr. Staples and ceftriaxone was started empirically but no signs of true pneumonia and patient is continued on Tamiflu. Repeat chest x-ray reveals new left basilar opacity with central lucency may represent cavitary lesion or loculated pleural effusion. Right intrahilar OPC is favored to represent atelectasis. Improved pulmonary vascular congestion, right pleural effusion and interstitial edema. Cardiology has discontinued Cardizem drip and patient remains in atrial fibrillation but rate is controlled. Patient's breathing is much improved today and she states she is feeling much better in general. She is seen sitting up in a chair at the bedside. Plan will be to transfer her to [facility] today. Patient did have urinary retention during the night and Brooks catheter was placed. Cardiology has increased Lasix to 80 mg IV every 12 hours. PT evaluation added. Patient is planning to return home with homecare. Objective - Vital Signs Vital signs: Vital Signs Temp 96.7 F L 09/28/17 04:00 Pulse 92 09/28/17 04:00 Resp 18 09/28/17 04:00 BP 103/64 09/28/17 04:00 Pulse Ox 94 L 09/28/17 04:00 Intake & Output 09/27/17 09/28/17 09/28/17 18:59 06:59 18:59 Intake Total 900 80 Output Total 150 700 Balance 750 -620 Weight 76.3 kg Intake: IV 180 80 0.9 kvo 180 80 Oral 720 Output: Urine 150 700 Other: Voiding Method Indwelling Catheter # Voids 1 # Bowel Movements 0 - Exam General appearance: cooperative, moderate acute distress - EENT Eyes: anicteric sclerae, PERRLA, normal appearance ENT: hearing grossly normal - Neck Neck: no lymphadenopathy, normal ROM, no other, no rigidity, no stridor, no thyromegaly. Found to be using his S3 muscles - Respiratory Respiratory: bilateral: Diminished with with coarse breath sounds, fine inspiratory wheeze, rhonchi bilaterally - Cardiovascular Rhythm: irregular Heart sounds: normal: S1, S2 Abnormal Heart Sounds: no systolic murmur, no diastolic murmur, no rub, no S3 Gallop, no S4 Gallop, no click, no other, significant edema lower extremities up to the knees - Gastrointestinal General gastrointestinal: normal bowel sounds, soft - Integumentary Integumentary: no rash - Neurologic Neurologic: CNII-XII intact - Musculoskeletal Musculoskeletal: weak strength equal bilaterally - Psychiatric Psychiatric: A&O x's 3, appropriate affect - Labs CBC & Chem 7: 09/27/17 05:54 09/28/17 05:34 Labs: Abnormal Lab Results - Last 24 Hours (Table) 09/27/17 09/27/17 09/27/17 Range/Units 11:38 16:58 20:52 Chloride (98-107) mmol/L Carbon Dioxide (22-30) mmol/L BUN (7-17) mg/dL Creatinine (0.52-1.04) mg/dL POC Glucose (mg/dL) 118 H 119 H 160 H (75-99) mg/dL 09/28/17 09/28/17 Range/Units 05:34 06:08 Chloride 108 H (98-107) mmol/L Carbon Dioxide 18 L (22-30) mmol/L BUN 73 H (7-17) mg/dL Creatinine 3.50 H (0.52-1.04) mg/dL POC Glucose (mg/dL) 109 H (75-99) mg/dL Microbiology - Last 24 Hours (Table) 09/26/17 12:45 Urine Culture - Preliminary Urine,Voided Gram Neg Bacilli 09/26/17 14:55 Blood Culture - Preliminary Blood No Growth after 24 hours 09/26/17 12:45 Blood Culture - Preliminary Blood No Growth after 24 hours Assessment and Plan Plan: 1. Acute hypoxic respiratory failure secondary to influenza A, possible pneumonia ruled out by Dr. Espinal, atrial fibrillation with RVR and acute on chronic diastolic heart failure. Consults requested with cardiology and pulmonary medicine. Cardizem drip discontinued and patient resumed on Lopressor 75 mg twice daily. Patient has been off anticoagulation per her primary tuber machine cutter. Echocardiogram is pending. 2. Acute on chronic diastolic heart failure. Cardiology consult appreciated. Continue IV Lasix 80 every 12, previous Echocardiogram suggested severe pulmonary hypertension with 55-60% ejection fraction . I&O and daily weights. Monitor electrolytes and kidney function. 3. Persistant atrial fibrillation presenting with RVR. Cardiology consult appreciated. Continue Lopressor 75 mg 3 times daily. 4. Influenza A. Patient started on Tamiflu. Consult placed with Dr. Teddy grace. Patient started on ceftriaxone empirically. 5. Acute kidney injury secondary to ATN secondary to cardiorenal syndrome with underlying chronic kidney disease stage III. IV Lasix, post void residual, avoid nephrotoxic agents and hypotensive episodes. Losartan on hold. Ultrasound as above. Sodium bicarb 650 mg twice daily. 6. CAD. Continue Imdur 30 mg 3 times a day. 7. Diabetes mellitus type 2. Continue Novolog scale before meals and at bedtime. Her A1c is 5.1. Janumet currently on hold. 8. Hypertensive cardiovascular disease. Continue Imdur, metoprolol, hydralazine, losartan (on hold) and Lasix. Hold for systolic blood pressure less than 110. 9. History of obstructive sleep apnea. 10. Hyperlipidemia not currently on statin 11. History of CVA, stable 12. 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 11. History of DVT. 12. Osteoarthritis, generalized. 13. DVT prophylaxis. 14. Gastrointestinal prophylaxis. Continue Protonix. CODE STATUS: No code Discharge plan: Home with [facility]. PT and OT added. Impression and plan of care have been directed as dictated by the signing physician. Ashtyn Yeung nurse practitioner acting as scribe for signing physician.
[2017-09-28 17:30] LABS: Glucose,Whole Blood 136 mg/dL (75-99)
[2017-09-28] MEDS: ACETAMINOPHEN TAB 325 MG TAB PO PRN (19:01)
[2017-09-28 20:33] LABS: Glucose,Whole Blood 128 mg/dL (75-99)
[2017-09-29] MEDS: hydrALAZINE HCL 25 MG TAB PO SCH ×3 (00:18→22:02)
[2017-09-29] MEDS: cloNIDine HCL 0.1 MG TAB PO SCH ×2 (00:18→20:49)
[2017-09-29] MEDS: ACETAMINOPHEN TAB 325 MG TAB PO PRN (05:45)
[2017-09-29 07:32] LABS: Glucose,Whole Blood 114 mg/dL (75-99)
[2017-09-29 07:42] LABS: Calcium 8.6 mg/dL (8.4-10.2); Potassium 5.1 mmol/L (3.5-5.1)
[2017-09-29] MEDS: INSULIN ASPART 100 UNIT/ML 1 ML 10 ML VIAL SQ SCH ×4 (07:56→20:42)
[2017-09-29] MEDS: SODIUM BICARBONATE TAB 650 MG TAB PO SCH ×3 (07:58→22:02)
[2017-09-29] MEDS: METOPROLOL TARTRATE 25 MG TAB PO SCH ×2 (07:58→20:49)
[2017-09-29] MEDS: ESCITALOPRAM 20 MG TAB PO SCH (07:59)
[2017-09-29] MEDS: OSELTAMIVIR 60 MG/10 ML ORAL SYRINGE PO SCH (07:59)
[2017-09-29] MEDS: FUROSEMIDE 10 MG/ML 4 ML VIAL IV SCH (07:59)
[2017-09-29] MEDS: PANTOPRAZOLE 40 MG TABLET PO SCH (07:59)
[2017-09-29] MEDS: FERROUS SULFATE 325 MG TAB PO SCH ×2 (07:59→17:17)
[2017-09-29] MEDS: ISOSORBIDE MONONITRATE ER 30 MG TAB.ER.24H PO SCH ×3 (07:59→22:02)
[2017-09-29] MEDS: cefTRIAXone IN SWFI 1,000 MG/10 ML SYRINGE IVP SCH (09:32)
--- NOTE | 2017-09-29 11:47 | CT ---
EXAMINATION TYPE: CT chest wo con DATE OF EXAM: 09/29/2017 COMPARISON: Previous study dated 11/08/2016. HISTORY: Lung mass, weakness CT DLP: 290.60 mGycm. Automated Exposure Control for Dose Reduction was Utilized. TECHNIQUE: CT scan of the thorax is performed without IV contrast. FINDINGS: There is a small amount of focal consolidation in the medial segment of the right upper lob e. There is also bibasilar airspace disease. There is a small, left pleural effusion. Some of this is loculated. There is pleural calcifications b ilaterally. There is a new masslike density in the medial aspect of the right upper lobe measuring 1. 9 x 3.3 cm. This was not present previously. This has a Hounsfield value of 20 Hounsfield units and m ay represent loculated fluid. There is some shotty aortopulmonary adenopathy as well as some shotty pericaval lymph nodes. No defin ite pathologically enlarged lymph nodes are seen. The heart is enlarged. There is significant coronary artery and other vascular calcifications. There is no pericardial fluid. There is some ascites within the abdomen. Visualized portions of the upper abdomen are otherwise unre markable. There is hypertrophic spondylosis within the spine. IMPRESSION: 1. BILATERAL AREAS OF CONSOLIDATION. 2. BILATERAL EFFUSIONS. SOME OF THESE APPEAR LOCULATED. 3. CARDIOMEGALY AND SIGNIFICANT CORONARY ARTERY CALCIFICATION. 4. NONSPECIFIC MEDIASTINAL ADENOPATHY. 5. ASCITES. 6. DEGENERATIVE CHANGES WITHIN THE SPINE.
--- NOTE | 2017-09-29 11:58 | P.PN ---
Subjective Patient is seen in follow-up for acute kidney injury. Patient has chronic kidney disease stage III secondary to diabetic kidney disease with baseline creatinine in the range of 1-1.2. Patient presented to the hospital with fever and cough. She is positive for influenza B. She was also in A. fib with RVR but is now rate controlled. She is noted to have ascites and edema for which she is currently maintained on Lasix 80 mg IV every 12 hours. Her urine output is documented as 850 mL. She was also noted to have urinary retention for which she has a Brooks catheter in place now. She has history of diastolic CHF with severe pulmonary hypertension and moderate pulmonic regurgitation. She is currently resting in bed. She is not a reliable historian at this time. Vital signs are stable. General: The patient appeared well nourished and normally developed. HEENT: Head exam is unremarkable. Neck is without jugular venous distension. LUNGS: Lungs are clear to auscultation and percussion. Breath sounds decreased. HEART: Rate and Rhythm are regular. First and second heart sounds normal. No murmurs, rubs or gallops. ABDOMEN: Abdominal exam reveals normal bowel sounds. Non-tender and non- distended. No evidence of peritonitis. EXTREMITITES: 1+ edema. Objective - Vital Signs Vital signs: Vital Signs Temp 97.7 F 09/28/17 21:14 Pulse 85 09/29/17 08:00 Resp 18 09/29/17 08:00 BP 127/92 09/29/17 07:00 Pulse Ox 92 L 09/29/17 08:14 Intake & Output 09/28/17 09/29/17 09/29/17 18:59 06:59 18:59 Intake Total 190 235 Balance 190 235 Intake: IV 70 160 0.9 kvo 70 160 Oral 120 75 Other: Voiding Method Indwelling Catheter Indwelling Catheter Indwelling Catheter - Labs CBC & Chem 7: 09/27/17 05:54 09/29/17 06:42 Labs: Abnormal Lab Results - Last 24 Hours (Table) 09/28/17 09/28/17 09/28/17 Range/Units 11:43 17:27 20:28 Chloride (98-107) mmol/L Carbon Dioxide (22-30) mmol/L BUN (7-17) mg/dL Creatinine (0.52-1.04) mg/dL Glucose (74-99) mg/dL POC Glucose (mg/dL) 125 H 136 H 128 H (75-99) mg/dL 09/29/17 09/29/17 Range/Units 06:42 07:18 Chloride 109 H (98-107) mmol/L Carbon Dioxide 15 L (22-30) mmol/L BUN 73 H (7-17) mg/dL Creatinine 3.72 H (0.52-1.04) mg/dL Glucose 120 H (74-99) mg/dL POC Glucose (mg/dL) 114 H (75-99) mg/dL Microbiology - Last 24 Hours (Table) 09/26/17 12:45 Urine Culture - Final Urine,Voided Citrobacter wermarlynanii 09/26/17 14:55 Blood Culture - Preliminary Blood No Growth after 48 hours 09/26/17 12:45 Blood Culture - Preliminary Blood No Growth after 48 hours Assessment and Plan Plan: Assessment: #1. Acute kidney injury secondary to ATN secondary to cardiorenal syndrome. Creatinine was 3.05 on admission and is up to 3.7 today. Urinalysis reveals trace proteinuria and no significant hematuria. No evidence of hydronephrosis noted on renal ultrasound. #2. Chronic kidney disease stage III secondary to diabetic kidney disease with basic creatinine in the range of 1-1.2. #3. Volume overload. #4. Diastolic CHF with severe pulmonary hypertension and moderate pulmonic regurgitation. #5. Influenza B maintained on Tamiflu. #6. Metabolic acidosis secondary to acute kidney injury. #7. Diabetes mellitus. #8. Urinary retention status post Brooks catheter placement. Plan: Maintain Lasix 80 mg IV every 12 hours for now. Avoid nephrotoxic agents and hypotensive episodes. Continue to hold losartan. Hold antihypertensives for systolic blood pressure less than 110. Repeat electrolytes in the morning. Increase sodium bicarbonate to 1300 mg twice daily. Continue to monitor renal function and urine output. Discontinue potassium supplementation.
[2017-09-29 11:59] LABS: Glucose,Whole Blood 161 mg/dL (75-99)
--- NOTE | 2017-09-29 14:14 | P.PN ---
Subjective Progress Note Date: 09/29/17 Principal diagnosis: Acute hypoxic respiratory failure, diastolic congestive heart failure, influenza , loculated pleural effusion, possible underlying pneumonia. This is a very pleasant 77-year-old female patient who follows with Dr. Leal as her primary care physician. She has a history of atrial fibrillation, coronary artery disease with previous and placements and coronary artery bypass grafting, congestive heart failure, diabetes mellitus, DVT, hyperlipidemia, hypertension, obstructive sleep apnea utilizing CPAP, obesity, osteoarthritis. 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 She also has a history of chronic obstructive pulmonary disease and follows with Dr. Staples in our office for the same. She had been having a 1 week history of cough and nasal congestion and shortness of breath. Yesterday her noted her to have altered mental status as well. She was uncooperative and confused. She is brought here for the same. She was found to be influenza B positive. She also had atrial fibrillation with a rapid ventricular response and was admitted for the same. She is seen today in consultation on the selective care unit. She is awake and alert in no acute distress. Her who is at the bedside states she is much improved today as compared to yesterday as far as her mentation. She does have a loose nonproductive cough. Her chest x-ray reveals evidence of cardiomegaly with chronic parenteral changes and tiny bilateral pleural effusions and a left lung opacity. Possibly fluid collection or consolidation. She is maintaining good O2 saturations in the 90s on 2 L/m per nasal cannula. She did have a T-max of 100.1 but is currently afebrile. No leukocytosis. Hemoglobin 10.1. Platelet count 115,000. BUN 74 creatinine 3.40. AST 78, ALT 74. Stool for occult blood is positive. Urine culture is pending. She was given a dose of vancomycin and cefepime. She is currently on Tamiflu. Cardizem drip currently on hold. She remains in atrial fibrillation. Her rate is better controlled. She is being in diuresed with Lasix 40 mg IV every 8 hours. She is incontinent of urine. The patient is seen again today 09/28/2017 in follow-up on the selective care unit. She is awake and alert in no acute distress. She is breathing easier today as compared to yesterday. She is more oriented today as well. Continues to diurese. She is currently in a negative balance. She is maintaining good O2 saturations in the mid 90s on 3 L/m per nasal cannula. She's afebrile. Hemodynamically stable. Patient was reevaluated today on 09/25/2017, continues to do poorly, continues to have cough wheezing shortness of breath, and her chest CT showed multiple findings including findings of pleural effusions, loculated effusion on the left side, multiple opacities in the lungs, most of it suggestive of fluid, however the possibility of pneumonia is not entirely ruled out, malignancy is also entertained, but felt to be less likely. Patient remains on relatively high-dose of diuretics, she is also on antibiotics, antiviral treatment for influenza, but does not seem to be making a significant improvement so far. Renal functioning seems to be getting worse, BUN is up to 73 creatinine is 3.72 , and she is developing worsening metabolic acidosis from her renal failure. Clearly the patient needs to be on more diuretics, and I believe this may lead to worsening renal functioning. Objective - Vital Signs Vital signs: Vital Signs Temp 97.7 F 09/28/17 21:14 Pulse 85 09/29/17 08:00 Resp 18 09/29/17 08:00 BP 127/92 09/29/17 07:00 Pulse Ox 94 L 09/29/17 13:51 Intake & Output 09/28/17 09/29/17 09/29/17 18:59 06:59 18:59 Intake Total 190 235 Output Total 800 Balance 190 235 -800 Intake: IV 70 160 0.9 kvo 70 160 Oral 120 75 Output: Urine 800 Other: Voiding Method Indwelling Catheter Indwelling Catheter Indwelling Catheter - Exam GENERAL EXAM: Alert, oriented 3. Fairly comfortable in no apparent distress. HEAD: Normocephalic. EYES: Normal reaction of pupils, equal size. NOSE: Clear with pink turbinates. THROAT: No erythema or exudates. NECK: No masses, no JVD. CHEST: No chest wall deformity. LUNGS: Equal air entry with crackles in the posterior bases.. CVS: S1 and S2 normal with no audible murmur, regular rhythm. ABDOMEN: No hepatosplenomegaly, normal bowel sounds, no guarding or rigidity. SPINE: Kyphoscoliosis SKIN: No rashes CENTRAL NERVOUS SYSTEM: No focal deficits, tone is normal in all 4 extremities. EXTREMITIES: There is no peripheral edema. No clubbing, no cyanosis. Peripheral pulses are intact. - Labs CBC & Chem 7: 09/27/17 05:54 09/29/17 06:42 Labs: Abnormal Lab Results - Last 24 Hours (Table) 09/28/17 09/28/17 09/29/17 Range/Units 17:27 20:28 06:42 Chloride 109 H (98-107) mmol/L Carbon Dioxide 15 L (22-30) mmol/L BUN 73 H (7-17) mg/dL Creatinine 3.72 H (0.52-1.04) mg/dL Glucose 120 H (74-99) mg/dL POC Glucose (mg/dL) 136 H 128 H (75-99) mg/dL 09/29/17 09/29/17 Range/Units 07:18 11:45 Chloride (98-107) mmol/L Carbon Dioxide (22-30) mmol/L BUN (7-17) mg/dL Creatinine (0.52-1.04) mg/dL Glucose (74-99) mg/dL POC Glucose (mg/dL) 114 H 161 H (75-99) mg/dL Microbiology - Last 24 Hours (Table) 09/26/17 12:45 Urine Culture - Final Urine,Voided Citrobacter werkmanii 09/26/17 14:55 Blood Culture - Preliminary Blood No Growth after 48 hours 09/26/17 12:45 Blood Culture - Preliminary Blood No Growth after 48 hours Assessment and Plan Assessment: #1 Acute hypoxic respiratory failure secondary to an acute exacerbation of diastolic congestive heart failure. Ejection fraction 55-60% on echo from 2017. #2 Acute influenza B infection. #3 Atrial fibrillation with a rapid ventricular response initially on a diltiazem drip. Rate better controlled today. #4 Acute on chronic renal failure current creatinine 3.40. Ultrasound reveals no hydronephrosis. #5 Acute on chronic anemia. Stool for occult blood positive. EGD on 2016 revealed scattered erosions in the antrum consistent with gastritis. #6 Urinary tract infection and gram-negative bacilli. #7 History of CVA/TIA. #8 Diabetes mellitus. #9 Hyperlipidemia. #10 Hypertension. #11 History of DVT #12 Osteoarthritis. #13 Obstructive sleep apnea utilizing CPAP in the outpatient setting on 10 cm of water. #14 Pulmonary hypertension. Reviewed the CT of the chest, I believe that we are dealing with mostly worsening congestive heart failure, possibility of underlying pneumonia is not entirely ruled out, but felt to be less likely. Patient will need more diuretics, may even have to consider placing the patient on a Lasix drip. We' ll continue to follow closely. Time with Patient: Less than 30
[2017-09-29] MEDS ORDERED: ONDANSETRON 4 MG/2 ML VIAL IVP PRN (14:22)
[2017-09-29] MEDS: FUROSEMIDE 250 MG in SODIUM CHLORIDE 0.9% 225 ML IVP SCH (15:08)
--- NOTE | 2017-09-29 17:28 | P.PN ---
Subjective Progress Note Date: 09/29/17 his is a 77-year-old female patient of Dr. Leal'stephie with a past history of coronary artery disease with prior 4 vessel CABG in 1998 and subsequent stenting of the mid RCA and OM and 2013 and 2 subsequent stent placements following that, hypertension, diabetes mellitus type 2, hyperlipidemia, obstructive sleep apnea, paroxysmal atrial fibrillation status post cardioversion currently on anticoagulation. Patient was last hospitalized in June 2017 for acute on chronic diastolic heart failure, acute kidney injury. Patient was discharged on eliquis which has subsequently been discontinued by her threat analyst in [place] due to bleeding. Patient was initially discharged to [facility] for subacute rehab but has been discharged from [facility] and living at home with her . For 3 days patient has been feeling sick with sudden onset of cough that is nonproductive. She has had decreased urine output and not drinking very much for the past 3 days. Patient states she has had nausea vomiting and diarrhea. She was able to eat her breakfast this morning. She has not had a bowel movement since admission. Patient is on home O2 at 3 L nasal cannula. Patient presented to [facility] emergency center by EMS. She was tachycardic at 140s and temperature max 100.1, pulse ox 88%. EKG was atrial fibrillation with RVR. Her hemoglobin was 10.2, BUN 65 and creatinine 3.05. Lactic acid was within normal limits, AST and ALT slightly elevated, INR 1.5. ProBNP fourth be 9800 and troponin 0.012. Urinalysis was clear with leukoesterase moderate, nitrate negative, bacteria rare. Influenza A+. Chest x -ray showed cardiomegaly with chronic parenchymal change with new tiny bilateral pleural effusions and new right basilar linear atelectasis and slightly more suspicious left lateral lung rounded obesity, possible consolidation. Acute interstitial edema with background of chronic fibrosis cannot be excluded. Correlate for fluid overload state. Patient was started on Cardizem drip and given IV hydration, cefepime and vancomycin were given. Patient was started on Tamiflu and admitted to the selective care unit for consults were placed with cardiology, pulmonary medicine and nephrology. 09/28: Dr. Schmidt has seen the patient for acute kidney injury and ordered renal ultrasound which showed no hydronephrosis. Chronic medical renal disease. Stable 2.5 cm left upper and mid pole cyst with some internal calcification. Abdominal pelvic ascites, moderate in the left lower quadrant. Repeat BUN 73 and creatinine 3.5, CO2 18. Sodium bicarb has been added by nephrology. Losartan is on hold. Patient seen and followed by Dr. Staples and ceftriaxone was started empirically but no signs of true pneumonia and patient is continued on Tamiflu. Repeat chest x-ray reveals new left basilar opacity with central lucency may represent cavitary lesion or loculated pleural effusion. Right intrahilar OPC is favored to represent atelectasis. Improved pulmonary vascular congestion, right pleural effusion and interstitial edema. Cardiology has discontinued Cardizem drip and patient remains in atrial fibrillation but rate is controlled. Patient's breathing is much improved today and she states she is feeling much better in general. She is seen sitting up in a chair at the bedside. Plan will be to transfer her to [facility] today. Patient did have urinary retention during the night and Brooks catheter was placed. Cardiology has increased Lasix to 80 mg IV every 12 hours. PT evaluation added. Patient is planning to return home with homecare. 09/29: Patient's more dyspneic when seen today, she is Audible rhonchi, patient is to receive IV Lasix mainly in the drip form at 10 mics per hour, as adjusted by Dr. Schmidt Patient does not have any chest pain no shortness of breath, patient feels overwhelmed and weak, no aspirative events, tmax 97.7. Computed tomography scan of the chest performed It is scan of the chest performed showing pleural calcification in new masslike density medial aspect right upper lobe measuring 1.9 cm x 3.3cm may represent loculated fluid, shotty pulmonary adenopathy, and pericaval lymph node, small amount of focal consolidation and small left pleural effusion Objective - Vital Signs Vital signs: Vital Signs Temp 97.7 F 09/28/17 21:14 Pulse 85 09/29/17 08:00 Resp 18 09/29/17 08:00 BP 127/92 09/29/17 07:00 Pulse Ox 94 L 09/29/17 13:51 Intake & Output 09/28/17 09/29/17 09/29/17 18:59 06:59 18:59 Intake Total 190 235 120 Output Total 1100 Balance 190 235 -980 Intake: IV 70 160 0.9 kvo 70 160 Oral 120 75 120 Output: Urine 1100 Other: Voiding Method Indwelling Catheter Indwelling Catheter Indwelling Catheter - Constitutional General appearance: Present: cooperative, no acute distress - EENT Eyes: Present: anicteric sclerae, EOMI, PERRLA, dentition normal - Neck Neck: Present: normal ROM - Respiratory Respiratory: bilateral: diminished, rales, rhonchi, prolonged inspiration, negative: CTA, dullness, wheezing, prolonged expiration - Cardiovascular Rhythm: regular Heart sounds: normal: S1, S2 Abnormal Heart Sounds: Absent: systolic murmur, diastolic murmur, rub, S3 Gallop , S4 Gallop, click, other - Gastrointestinal General gastrointestinal: Present: normal bowel sounds, soft - Integumentary Integumentary: Present: normal, normal turgor - Musculoskeletal Musculoskeletal: Present: gait normal, strength equal bilaterally - Psychiatric Psychiatric: Present: A&O x's 3, appropriate affect, intact judgment & insight - Labs CBC & Chem 7: 09/27/17 05:54 09/29/17 06:42 Labs: Abnormal Lab Results - Last 24 Hours (Table) 09/28/17 09/28/17 09/29/17 Range/Units 17:27 20:28 06:42 Chloride 109 H (98-107) mmol/L Carbon Dioxide 15 L (22-30) mmol/L BUN 73 H (7-17) mg/dL Creatinine 3.72 H (0.52-1.04) mg/dL Glucose 120 H (74-99) mg/dL POC Glucose (mg/dL) 136 H 128 H (75-99) mg/dL 09/29/17 09/29/17 Range/Units 07:18 11:45 Chloride (98-107) mmol/L Carbon Dioxide (22-30) mmol/L BUN (7-17) mg/dL Creatinine (0.52-1.04) mg/dL Glucose (74-99) mg/dL POC Glucose (mg/dL) 114 H 161 H (75-99) mg/dL Microbiology - Last 24 Hours (Table) 09/26/17 12:45 Blood Culture - Preliminary Blood No Growth after 72 hours 09/26/17 12:45 Urine Culture - Final Urine,Voided Citrobacter werkmanii 09/26/17 14:55 Blood Culture - Preliminary Blood No Growth after 48 hours Laboratory Results - last 24 hr 09/28/17 09/28/17 09/29/17 17:27 20:28 06:42 Sodium 140 Potassium 5.1 Chloride 109 H Carbon Dioxide 15 L Anion Gap 16 BUN 73 H Creatinine 3.72 H Est GFR (MDRD) Af Amer 14 Est GFR (MDRD) Non-Af 12 Glucose 120 H POC Glucose (mg/dL) 136 H 128 H POC Glu Cogeneration Operator ID Belem Newman, Marily Calcium 8.6 09/29/17 09/29/17 07:18 11:45 Sodium Potassium Chloride Carbon Dioxide Anion Gap BUN Creatinine Est GFR (MDRD) Af Amer Est GFR (MDRD) Non-Af Glucose POC Glucose (mg/dL) 114 H 161 H POC Glu Cogeneration Operator ID Mary De Santiago JonnathanMary arizmendi Calcium Assessment and Plan Plan: 1. Acute hypoxic respiratory failure secondary to influenza B, possible pneumonia ruled out by Dr. Espinal, atrial fibrillation with RVR and acute on chronic diastolic heart failure. Consults requested with cardiology and pulmonary medicine. Cardizem drip discontinued and patient resumed on Lopressor 75 mg twice daily. Patient has been off anticoagulation per her primary threat analyst. Echocardiogram is pending. 2. Acute on chronic diastolic heart failure. Cardiology consult appreciated. Continue IV Lasix 80 every 12, previous Echocardiogram suggested severe pulmonary hypertension with 55-60% ejection fraction . I&O and daily weights. Monitor electrolytes and kidney function. 3. Persistant atrial fibrillation presenting with RVR. Cardiology consult appreciated. Continue Lopressor 75 mg 3 times daily. 4. Influenza B. Patient started on Tamiflu. Consult placed with Dr. Espinal appreciated. Patient started on ceftriaxone empirically. 5. New masslike density right upper lobe 1.9 x 3.3 cm as noted on CAT scan may represent loculated fluid 6. Acute kidney injury secondary to ATN secondary to cardiorenal syndrome with underlying chronic kidney disease stage III. IV Lasix, post void residual, avoid nephrotoxic agents and hypotensive episodes. Losartan on hold. Ultrasound as above. Sodium bicarb 650 mg twice daily. 7. CAD. Continue Imdur 30 mg 3 times a day. 8. Ascites with nonspecific mediastinal adenopathy and right upper lobe masslike density new noted 1.9 x 2.3 cm and pleural calcification, compared to November 2016, agent is on IV Lasix drip currently placed on 09/29/2017, and IV Rocephin no changes to the treatment made 9. Diabetes mellitus type 2. Continue Novolog scale before meals and at bedtime. Her A1c is 5.1. Janumet currently on hold. 10. Hypertensive cardiovascular disease. Continue Imdur, metoprolol, hydralazine, losartan (on hold) and Lasix. Hold for systolic blood pressure less than 110. 11. History of obstructive sleep apnea. 12. Hyperlipidemia not currently on statin 13. History of CVA, stable 14. 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 15. History of DVT. 16. Osteoarthritis, generalized. 17. DVT prophylaxis. 18. Gastrointestinal prophylaxis. Continue Protonix. CODE STATUS: No code Discharge plan: Home with [facility]. PT and OT added.
[2017-09-29 17:51] LABS: Glucose,Whole Blood 116 mg/dL (75-99)
[2017-09-29 20:28] LABS: Glucose,Whole Blood 114 mg/dL (75-99)
[2017-09-30] MEDS: ACETAMINOPHEN TAB 325 MG TAB PO PRN (03:50)
--- NOTE | 2017-09-30 07:24 | XR ---
EXAMINATION TYPE: XR chest 1V portable DATE OF EXAM: 09/30/2017 HISTORY: chf. REFERENCE: Previous study dated 09/28/2017. FINDINGS: There has been a midline sternotomy. The heart is enlarged. Questionable cavitary lesion left lung base is not clearly visualized on today's examination. There i s left basilar airspace disease. There are small, bilateral effusions, worse on the left than the rig ht. There is worsening interstitial change. IMPRESSION: CHANGES MOST CONSISTENT WITH WORSENING CONGESTIVE HEART FAILURE.
[2017-09-30 07:40] LABS: Anisocytosis Slight; Basophils % (A) 0 %; Eosinophils % (A) 0 %; HCT 37.6 % (34.0-46.0); HGB 11.3 gm/dL (11.4-16.0); Hypochromasia Slight; Lymphocytes % (A) 12 %; MCH 27.6 pg (25.0-35.0); MCHC 30.2 g/dL (31.0-37.0); MCV 91.5 fL (80.0-100.0); Mean Platelet Volume 9.3; Monocytes # (A) 0.3 k/uL (0-1.0); Monocytes % (A) 4 %; Neutrophils # (A) 7.2 k/uL (1.3-7.7); Neutrophils % (A) 83 %; Platelet Count 113 k/uL (150-450); RBC 4.11 m/uL (3.80-5.40); RDW 18.1 % (11.5-15.5); WBC 8.6 k/uL (3.8-10.6)
[2017-09-30 07:48] LABS: Calcium 8.5 mg/dL (8.4-10.2); Magnesium 1.9 mg/dL (1.6-2.3); Phosphorus 5.7 mg/dL (2.5-4.5); Potassium 4.8 mmol/L (3.5-5.1)
[2017-09-30 07:57] LABS: Glucose,Whole Blood 104 mg/dL (75-99)
[2017-09-30] MEDS: hydrALAZINE HCL 25 MG TAB PO SCH ×2 (08:45→20:47)
[2017-09-30] MEDS: SODIUM BICARBONATE TAB 650 MG TAB PO SCH ×2 (08:45→20:46)
[2017-09-30] MEDS: OSELTAMIVIR 60 MG/10 ML ORAL SYRINGE PO SCH (08:46)
[2017-09-30] MEDS: PANTOPRAZOLE 40 MG TABLET PO SCH (08:46)
[2017-09-30] MEDS: ESCITALOPRAM 20 MG TAB PO SCH (08:46)
[2017-09-30] MEDS: METOPROLOL TARTRATE 25 MG TAB PO SCH ×2 (08:46→20:47)
[2017-09-30] MEDS: ISOSORBIDE MONONITRATE ER 30 MG TAB.ER.24H PO SCH ×3 (08:46→20:47)
[2017-09-30] MEDS: FERROUS SULFATE 325 MG TAB PO SCH ×2 (08:46→17:04)
[2017-09-30] MEDS: INSULIN ASPART 100 UNIT/ML 1 ML 10 ML VIAL SQ SCH ×4 (08:47→20:11)
[2017-09-30] MEDS: cefTRIAXone IN SWFI 1,000 MG/10 ML SYRINGE IVP SCH (08:47)
[2017-09-30 11:33] LABS: Glucose,Whole Blood 128 mg/dL (75-99)
--- NOTE | 2017-09-30 11:56 | P.PN ---
Subjective Patient is seen in follow-up for acute kidney injury. Patient has chronic kidney disease stage III secondary to diabetic kidney disease with baseline creatinine in the range of 1-1.2. Patient presented to the hospital with fever and cough. She is positive for influenza B. She was also in A. fib with RVR but is now rate controlled. She is noted to have ascites and edema for which she is currently maintained on Lasix drip at 10 mL an hour. Her urine output is documented as 1500 mL in the last 24 hours. She was also noted to have urinary retention for which she has a Brooks catheter in place now. She has history of diastolic CHF with severe pulmonary hypertension and moderate pulmonic regurgitation. She is currently resting in bed. is present at bedside. Vital signs are stable. General: The patient appeared well nourished and normally developed. HEENT: Head exam is unremarkable. Neck is without jugular venous distension. LUNGS: Lungs are clear to auscultation and percussion. Breath sounds decreased. HEART: Rate and Rhythm are regular. First and second heart sounds normal. No murmurs, rubs or gallops. ABDOMEN: Abdominal exam reveals normal bowel sounds. Non-tender and non- distended. No evidence of peritonitis. EXTREMITITES: Trace edema. Objective - Vital Signs Vital signs: Vital Signs Temp 97.8 F 09/29/17 20:00 Pulse 90 09/30/17 08:00 Resp 18 09/30/17 08:00 BP 118/72 09/30/17 07:00 Pulse Ox 94 L 09/30/17 10:29 Intake & Output 09/29/17 09/30/17 09/30/17 18:59 06:59 18:59 Intake Total 120 60 Output Total 1100 400 500 Balance -980 -340 -500 Intake: IV 30 0.9 kvo 30 Intake, IV Titration 30 Amount Furosemide 250 mg In 30 Sodium Chloride 0.9% 225 ml @ 10 MG/HR 10 mls/hr IVP .Q24H [facility] Rx#: [id number] Oral 120 Output: Urine 1100 400 500 Uretheral (Brooks) 400 200 Other: Voiding Method Indwelling Catheter Indwelling Catheter Indwelling Catheter # Bowel Movements 1 1 - Labs CBC & Chem 7: 09/30/17 07:11 09/30/17 07:11 Labs: Abnormal Lab Results - Last 24 Hours (Table) 09/29/17 09/29/17 09/29/17 Range/Units 11:45 17:32 20:18 Hgb (11.4-16.0) gm/dL MCHC (31.0-37.0) g/dL RDW (11.5-15.5) % Plt Count (150-450) k/uL Chloride (98-107) mmol/L Carbon Dioxide (22-30) mmol/L BUN (7-17) mg/dL Creatinine (0.52-1.04) mg/dL Glucose (74-99) mg/dL POC Glucose (mg/dL) 161 H 116 H 114 H (75-99) mg/dL Phosphorus (2.5-4.5) mg/dL 09/30/17 09/30/17 09/30/17 Range/Units 07:11 07:11 07:36 Hgb 11.3 L (11.4-16.0) gm/dL MCHC 30.2 L (31.0-37.0) g/dL RDW 18.1 H (11.5-15.5) % Plt Count 113 L (150-450) k/uL Chloride 109 H (98-107) mmol/L Carbon Dioxide 18 L (22-30) mmol/L BUN 78 H (7-17) mg/dL Creatinine 3.90 H (0.52-1.04) mg/dL Glucose 104 H (74-99) mg/dL POC Glucose (mg/dL) 104 H (75-99) mg/dL Phosphorus 5.7 H (2.5-4.5) mg/dL 09/30/17 Range/Units 11:22 Hgb (11.4-16.0) gm/dL MCHC (31.0-37.0) g/dL RDW (11.5-15.5) % Plt Count (150-450) k/uL Chloride (98-107) mmol/L Carbon Dioxide (22-30) mmol/L BUN (7-17) mg/dL Creatinine (0.52-1.04) mg/dL Glucose (74-99) mg/dL POC Glucose (mg/dL) 128 H (75-99) mg/dL Phosphorus (2.5-4.5) mg/dL Microbiology - Last 24 Hours (Table) 09/26/17 14:55 Blood Culture - Preliminary Blood No Growth after 72 hours 09/26/17 12:45 Blood Culture - Preliminary Blood No Growth after 72 hours Assessment and Plan Plan: Assessment: #1. Acute kidney injury secondary to ATN secondary to cardiorenal syndrome. Creatinine was 3.05 on admission and is up to 3.9 today. Urinalysis reveals trace proteinuria and no significant hematuria. No evidence of hydronephrosis noted on renal ultrasound. #2. Chronic kidney disease stage III secondary to diabetic kidney disease with basic creatinine in the range of 1-1.2. #3. Volume overload. She did have a CT of the chest which revealed bilateral effusions as well as areas of consolidation. #4. Diastolic CHF with severe pulmonary hypertension and moderate pulmonic regurgitation. #5. Influenza B maintained on Tamiflu. #6. Metabolic acidosis secondary to acute kidney injury. #7. Diabetes mellitus. #8. Urinary retention status post Brooks catheter placement. Plan: Continue Lasix drip at 10 mL an hour for now. Add metolazone 2.5 mg once daily. Avoid nephrotoxic agents and hypotensive episodes. Continue to hold losartan. Hold antihypertensives for systolic blood pressure less than 110. Repeat electrolytes in the morning. Maintain sodium bicarbonate 1300 mg twice daily. Continue to monitor renal function and urine output. Discontinued potassium supplementation.
--- NOTE | 2017-09-30 13:32 | P.PN ---
Subjective Progress Note Date: 09/30/17 Principal diagnosis: Acute hypoxic respiratory failure, diastolic congestive heart failure, influenza , loculated pleural effusion, possible underlying pneumonia. This is a very pleasant 77-year-old female patient who follows with Dr. Leal as her primary care physician. She has a history of atrial fibrillation, coronary artery disease with previous and placements and coronary artery bypass grafting, congestive heart failure, diabetes mellitus, DVT, hyperlipidemia, hypertension, obstructive sleep apnea utilizing CPAP, obesity, osteoarthritis. The patient is a [employer] and will not accept blood transfusions. She also has a history of chronic obstructive pulmonary disease and follows with Dr. Staples in our office for the same. She had been having a 1 week history of cough and nasal congestion and shortness of breath. Yesterday her noted her to have altered mental status as well. She was uncooperative and confused. She is brought here for the same. She was found to be influenza B positive. She also had atrial fibrillation with a rapid ventricular response and was admitted for the same. She is seen today in consultation on the selective care unit. She is awake and alert in no acute distress. Her who is at the bedside states she is much improved today as compared to yesterday as far as her mentation. She does have a loose nonproductive cough. Her chest x-ray reveals evidence of cardiomegaly with chronic parenteral changes and tiny bilateral pleural effusions and a left lung opacity. Possibly fluid collection or consolidation. She is maintaining good O2 saturations in the 90s on 2 L/m per nasal cannula. She did have a T-max of 100.1 but is currently afebrile. No leukocytosis. Hemoglobin 10.1. Platelet count 115,000. BUN 74 creatinine 3.40. AST 78, ALT 74. Stool for occult blood is positive. Urine culture is pending. She was given a dose of vancomycin and cefepime. She is currently on Tamiflu. Cardizem drip currently on hold. She remains in atrial fibrillation. Her rate is better controlled. She is being in diuresed with Lasix 40 mg IV every 8 hours. She is incontinent of urine. The patient is seen again today 09/28/2017 in follow-up on the selective care unit. She is awake and alert in no acute distress. She is breathing easier today as compared to yesterday. She is more oriented today as well. Continues to diurese. She is currently in a negative balance. She is maintaining good O2 saturations in the mid 90s on 3 L/m per nasal cannula. She's afebrile. Hemodynamically stable. Patient was reevaluated today on 09/29/2017, continues to do poorly, continues to have cough wheezing shortness of breath, and her chest CT showed multiple findings including findings of pleural effusions, loculated effusion on the left side, multiple opacities in the lungs, most of it suggestive of fluid, however the possibility of pneumonia is not entirely ruled out, malignancy is also entertained, but felt to be less likely. Patient remains on relatively high-dose of diuretics, she is also on antibiotics, antiviral treatment for influenza, but does not seem to be making a significant improvement so far. Renal functioning seems to be getting worse, BUN is up to 73 creatinine is 3.72 , and she is developing worsening metabolic acidosis from her renal failure. Clearly the patient needs to be on more diuretics, and I believe this may lead to worsening renal functioning. Reevaluated today on 09/30/2017, patient was doing poorly yesterday, and her chest x-ray as well as CT of the chest were consistent with worsening pulmonary edema and congestive heart failure. Hence the patient was placed on a Lasix drip, and over the last 24 hours she has done extremely well and much better compared to earlier. Less shortness of breath noted. Patient is definitely in a negative balance of about 2000 mL in the last 24 hours. And clinically she is feeling better. All labs were reviewed, CBC is relatively normal BUN is 78 creatinine is 3.9, slightly worse compared to yesterday, but the patient has what looks like a picture of cardiorenal syndrome. Objective - Vital Signs Vital signs: Vital Signs Temp 97.8 F 09/29/17 20:00 Pulse 90 09/30/17 08:00 Resp 18 09/30/17 08:00 BP 118/72 09/30/17 07:00 Pulse Ox 94 L 09/30/17 10:29 Intake & Output 09/29/17 09/30/17 09/30/17 18:59 06:59 18:59 Intake Total 120 60 Output Total 1100 400 500 Balance -980 -340 -500 Intake: IV 30 0.9 kvo 30 Intake, IV Titration 30 Amount Furosemide 250 mg In 30 Sodium Chloride 0.9% 225 ml @ 10 MG/HR 10 mls/hr IVP .Q24H [facility] Rx#: [id number] Oral 120 Output: Urine 1100 400 500 Uretheral (Brooks) 400 200 Other: Voiding Method Indwelling Catheter Indwelling Catheter Indwelling Catheter # Bowel Movements 1 1 - Exam GENERAL EXAM: Alert, oriented 3. Fairly comfortable in no apparent distress. HEAD: Normocephalic. EYES: Normal reaction of pupils, equal size. NOSE: Clear with pink turbinates. THROAT: No erythema or exudates. NECK: No masses, no JVD. CHEST: No chest wall deformity. LUNGS: Equal air entry minimal fine crackles at the bases noted, improved compared to yesterday. CVS: S1 and S2 normal with no audible murmur, regular rhythm. ABDOMEN: No hepatosplenomegaly, normal bowel sounds, no guarding or rigidity. SPINE: Kyphoscoliosis SKIN: No rashes CENTRAL NERVOUS SYSTEM: No focal deficits, tone is normal in all 4 extremities. EXTREMITIES: There is no peripheral edema. No clubbing, no cyanosis. Peripheral pulses are intact. - Labs CBC & Chem 7: 09/30/17 07:11 09/30/17 07:11 Labs: Abnormal Lab Results - Last 24 Hours (Table) 09/29/17 09/29/17 09/30/17 Range/Units 17:32 20:18 07:11 Hgb (11.4-16.0) gm/dL MCHC (31.0-37.0) g/dL RDW (11.5-15.5) % Plt Count (150-450) k/uL Chloride 109 H (98-107) mmol/L Carbon Dioxide 18 L (22-30) mmol/L BUN 78 H (7-17) mg/dL Creatinine 3.90 H (0.52-1.04) mg/dL Glucose 104 H (74-99) mg/dL POC Glucose (mg/dL) 116 H 114 H (75-99) mg/dL Phosphorus 5.7 H (2.5-4.5) mg/dL 09/30/17 09/30/17 09/30/17 Range/Units 07:11 07:36 11:22 Hgb 11.3 L (11.4-16.0) gm/dL MCHC 30.2 L (31.0-37.0) g/dL RDW 18.1 H (11.5-15.5) % Plt Count 113 L (150-450) k/uL Chloride (98-107) mmol/L Carbon Dioxide (22-30) mmol/L BUN (7-17) mg/dL Creatinine (0.52-1.04) mg/dL Glucose (74-99) mg/dL POC Glucose (mg/dL) 104 H 128 H (75-99) mg/dL Phosphorus (2.5-4.5) mg/dL Microbiology - Last 24 Hours (Table) 09/26/17 14:55 Blood Culture - Preliminary Blood No Growth after 72 hours 09/26/17 12:45 Blood Culture - Preliminary Blood No Growth after 72 hours Assessment and Plan Assessment: #1 Acute hypoxic respiratory failure secondary to an acute exacerbation of diastolic congestive heart failure. Ejection fraction 55-60% on echo from 2017. #2 Acute influenza B infection. #3 Atrial fibrillation with a rapid ventricular response initially on a diltiazem drip. Rate better controlled today. #4 Acute on chronic renal failure current creatinine 3.40. Ultrasound reveals no hydronephrosis. #5 Acute on chronic anemia. Stool for occult blood positive. EGD on 2016 revealed scattered erosions in the antrum consistent with gastritis. #6 Urinary tract infection and gram-negative bacilli. #7 History of CVA/TIA. #8 Diabetes mellitus. #9 Hyperlipidemia. #10 Hypertension. #11 History of DVT #12 Osteoarthritis. #13 Obstructive sleep apnea utilizing CPAP in the outpatient setting on 10 cm of water. #14 Pulmonary hypertension. 15 cardiorenal syndrome with renal failure. Acute on chronic as noted above. Recommendation: Continue Lasix drip, continue other meds as listed, continue bronchodilators, utilizes CPAP as needed, we'll continue to follow. Prognosis is definitely guarded considering her underlying cardiac condition and renal condition. Time with Patient: Less than 30
[2017-09-30] MEDS: METOLAZONE 2.5 MG TAB PO SCH (17:02)
[2017-09-30 17:33] LABS: Glucose,Whole Blood 117 mg/dL (75-99)
[2017-09-30] MEDS: FUROSEMIDE 250 MG in SODIUM CHLORIDE 0.9% 225 ML IVP SCH (17:35)
--- NOTE | 2017-09-30 19:40 | P.PN ---
Subjective Progress Note Date: 09/30/17 his is a 77-year-old female patient of Dr. Leal'stephie with a past history of coronary artery disease with prior 4 vessel CABG in 1998 and subsequent stenting of the mid RCA and OM and 2013 and 2 subsequent stent placements following that, hypertension, diabetes mellitus type 2, hyperlipidemia, obstructive sleep apnea, paroxysmal atrial fibrillation status post cardioversion currently on anticoagulation. Patient was last hospitalized in June 2017 for acute on chronic diastolic heart failure, acute kidney injury. Patient was discharged on eliquis which has subsequently been discontinued by her newspaper manager in [place] due to bleeding. Patient was initially discharged to [facility] for subacute rehab but has been discharged from [facility] and living at home with her . For 3 days patient has been feeling sick with sudden onset of cough that is nonproductive. She has had decreased urine output and not drinking very much for the past 3 days. Patient states she has had nausea vomiting and diarrhea. She was able to eat her breakfast this morning. She has not had a bowel movement since admission. Patient is on home O2 at 3 L nasal cannula. Patient presented to [facility] emergency center by EMS. She was tachycardic at 140s and temperature max 100.1, pulse ox 88%. EKG was atrial fibrillation with RVR. Her hemoglobin was 10.2, BUN 65 and creatinine 3.05. Lactic acid was within normal limits, AST and ALT slightly elevated, INR 1.5. ProBNP fourth be 9800 and troponin 0.012. Urinalysis was clear with leukoesterase moderate, nitrate negative, bacteria rare. Influenza A+. Chest x -ray showed cardiomegaly with chronic parenchymal change with new tiny bilateral pleural effusions and new right basilar linear atelectasis and slightly more suspicious left lateral lung rounded obesity, possible consolidation. Acute interstitial edema with background of chronic fibrosis cannot be excluded. Correlate for fluid overload state. Patient was started on Cardizem drip and given IV hydration, cefepime and vancomycin were given. Patient was started on Tamiflu and admitted to the selective care unit for consults were placed with cardiology, pulmonary medicine and nephrology. 09/28: Dr. Schmidt has seen the patient for acute kidney injury and ordered renal ultrasound which showed no hydronephrosis. Chronic medical renal disease. Stable 2.5 cm left upper and mid pole cyst with some internal calcification. Abdominal pelvic ascites, moderate in the left lower quadrant. Repeat BUN 73 and creatinine 3.5, CO2 18. Sodium bicarb has been added by nephrology. Losartan is on hold. Patient seen and followed by Dr. Staples and ceftriaxone was started empirically but no signs of true pneumonia and patient is continued on Tamiflu. Repeat chest x-ray reveals new left basilar opacity with central lucency may represent cavitary lesion or loculated pleural effusion. Right intrahilar OPC is favored to represent atelectasis. Improved pulmonary vascular congestion, right pleural effusion and interstitial edema. Cardiology has discontinued Cardizem drip and patient remains in atrial fibrillation but rate is controlled. Patient's breathing is much improved today and she states she is feeling much better in general. She is seen sitting up in a chair at the bedside. Plan will be to transfer her to [facility] today. Patient did have urinary retention during the night and Brooks catheter was placed. Cardiology has increased Lasix to 80 mg IV every 12 hours. PT evaluation added. Patient is planning to return home with homecare. 09/29: Patient's more dyspneic when seen today, she is Audible rhonchi, patient is to receive IV Lasix mainly in the drip form at 10 mics per hour, as adjusted by Dr. Schmidt Patient does not have any chest pain no shortness of breath, patient feels overwhelmed and weak, no aspirative events, tmax 97.7. Computed tomography scan of the chest performed ct scan of the chest performed showing pleural calcification in new masslike density medial aspect right upper lobe measuring 1.9 cm x 3.3cm may represent loculated fluid, shotty pulmonary adenopathy, and pericaval lymph node, small amount of focal consolidation and small left pleural effusion 09/30: Patient is slightly better compared to yesterday. With regards to her breathing, she remains on IV Lasix drip,she still requires high flow O210 L test cannula satting between 94-99%, family is at bedside, and updated, patient is still physically debilitated, and has decreased appetite, was anticipating subacute rehab post discharge, improve nutrition with supplementation,prognosis currently is guarded, creatinine slightly worse from yesterday at 3.9 from a previous of 3.72. Nephrology is following closely Objective - Vital Signs Vital signs: Vital Signs Temp 97.8 F 09/29/17 20:00 Pulse 62 09/30/17 16:00 Resp 18 09/30/17 16:00 BP 133/83 09/30/17 15:00 Pulse Ox 99 09/30/17 15:00 Intake & Output 09/30/17 09/30/17 10/01/17 06:59 18:59 06:59 Intake Total 60 410 Output Total 400 800 Balance -340 -390 Weight 76.3 kg Intake: IV 30 0.9 kvo 30 Intake, IV Titration 30 250 Amount Furosemide 250 mg In 30 250 Sodium Chloride 0.9% 225 ml @ 10 MG/HR 10 mls/hr IVP .Q24H [facility]LES Rx#: [id number] Oral 160 Output: Urine 400 800 Uretheral (Brooks) 400 200 Other: Voiding Method Indwelling Catheter Indwelling Catheter # Bowel Movements 1 1 - Constitutional General appearance: Present: cooperative, no acute distress. Absent: average body habitus, disheveled, mild distress, morbidly obese, obese, severe distress , thin - EENT Eyes: Present: anicteric sclerae, PERRLA, dentition normal - Neck Neck: Present: normal ROM. Absent: lymphadenopathy, other, rigidity, stridor, thyromegaly - Respiratory Respiratory: left: rales, rhonchi, negative: CTA, diminished, dullness, wheezing - Cardiovascular Rhythm: regular Heart sounds: normal: S1, S2 Abnormal Heart Sounds: Absent: systolic murmur, diastolic murmur, rub, S3 Gallop , S4 Gallop, click, other - Gastrointestinal General gastrointestinal: Present: normal bowel sounds, soft - Integumentary Integumentary: Present: normal - Neurologic Neurologic: Present: CNII-XII intact - Musculoskeletal Musculoskeletal: Present: generalized weakness, strength equal bilaterally - Psychiatric Psychiatric: Present: A&O x's 3, appropriate affect, intact judgment & insight - Labs CBC & Chem 7: 09/30/17 07:11 09/30/17 07:11 Labs: Abnormal Lab Results - Last 24 Hours (Table) 09/29/17 09/30/17 09/30/17 Range/Units 20:18 07:11 07:11 Hgb 11.3 L (11.4-16.0) gm/dL MCHC 30.2 L (31.0-37.0) g/dL RDW 18.1 H (11.5-15.5) % Plt Count 113 L (150-450) k/uL Chloride 109 H (98-107) mmol/L Carbon Dioxide 18 L (22-30) mmol/L BUN 78 H (7-17) mg/dL Creatinine 3.90 H (0.52-1.04) mg/dL Glucose 104 H (74-99) mg/dL POC Glucose (mg/dL) 114 H (75-99) mg/dL Phosphorus 5.7 H (2.5-4.5) mg/dL 09/30/17 09/30/17 09/30/17 Range/Units 07:36 11:22 17:08 Hgb (11.4-16.0) gm/dL MCHC (31.0-37.0) g/dL RDW (11.5-15.5) % Plt Count (150-450) k/uL Chloride (98-107) mmol/L Carbon Dioxide (22-30) mmol/L BUN (7-17) mg/dL Creatinine (0.52-1.04) mg/dL Glucose (74-99) mg/dL POC Glucose (mg/dL) 104 H 128 H 117 H (75-99) mg/dL Phosphorus (2.5-4.5) mg/dL Microbiology - Last 24 Hours (Table) 09/26/17 14:55 Blood Culture - Preliminary Blood No Growth after 96 hours 09/26/17 12:45 Blood Culture - Preliminary Blood No Growth after 96 hours Assessment and Plan Plan: 1. Acute hypoxic respiratory failure secondary to influenza B, possible pneumonia ruled out by Dr. Espinal, atrial fibrillation with RVR and acute on chronic diastolic heart failure. Consults requested with cardiology and pulmonary medicine. Cardizem drip discontinued and patient resumed on Lopressor 75 mg twice daily. Patient has been off anticoagulation per her primary newspaper manager. Echocardiogram is pending. 2. Acute on chronic diastolic heart failure. Cardiology consult appreciated. Continue IV drip, Lasix 10 mics per hour, previous Echocardiogram suggested severe pulmonary hypertension with 55-60% ejection fraction . I&O and daily weights. Monitor electrolytes and kidney function. 3. Persistant atrial fibrillation presenting with RVR. Cardiology consult appreciated. Continue Lopressor 75 mg 3 times daily. 4. Influenza B. Patient started on Tamiflu. Consult placed with Dr. Espinal appreciated. Patient started on ceftriaxone empirically. 5. New masslike density right upper lobe 1.9 x 3.3 cm as noted on CAT scan may represent loculated fluidcontinue IV antibiotics 6. Acute kidney injury secondary to ATN secondary to cardiorenal syndrome with underlying chronic kidney disease stage III. IV Lasix, post void residual, avoid nephrotoxic agents and hypotensive episodes. Losartan on hold. Ultrasound as above. Sodium bicarb 650 mg twice daily. 7. CAD. Continue Imdur 30 mg 3 times a day. 8. Ascites with nonspecific mediastinal adenopathy and right upper lobe masslike density new noted 1.9 x 2.3 cm and pleural calcification, compared to November 2016, agent is on IV Lasix drip currently placed on 09/29/2017, and IV Rocephin no changes to the treatment made 9. Diabetes mellitus type 2. Continue Novolog scale before meals and at bedtime. Her A1c is 5.1. Janumet currently on hold. 10. Hypertensive cardiovascular disease. Continue Imdur, metoprolol, hydralazine, losartan (on hold) and Lasix. Hold for systolic blood pressure less than 110. 11. History of obstructive sleep apnea. 12. Hyperlipidemia not currently on statin 13. History of CVA, stable 14. 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 15. History of DVT. 16. Osteoarthritis, generalized. 17. DVT prophylaxis. 18. Gastrointestinal prophylaxis. Continue Protonix. CODE STATUS: No code Discharge plan: most likely would need a subacute rehabilitation. PT and OT added.
[2017-09-30 20:06] LABS: Glucose,Whole Blood 112 mg/dL (75-99)
[2017-09-30] MEDS: cloNIDine HCL 0.1 MG TAB PO SCH (20:48)
[2017-09-30] MEDS: guaiFENesin 600 MG TABLET.ER PO SCH (21:45)
[2017-10-01 07:25] LABS: Glucose,Whole Blood 95 mg/dL (75-99)
[2017-10-01] MEDS: INSULIN ASPART 100 UNIT/ML 1 ML 10 ML VIAL SQ SCH ×4 (07:31→20:58)
[2017-10-01] MEDS: cefTRIAXone IN SWFI 1,000 MG/10 ML SYRINGE IVP SCH (07:39)
[2017-10-01] MEDS: FERROUS SULFATE 325 MG TAB PO SCH ×2 (07:40→17:21)
[2017-10-01] MEDS: PANTOPRAZOLE 40 MG TABLET PO SCH (07:40)
[2017-10-01] MEDS: SODIUM BICARBONATE TAB 650 MG TAB PO SCH ×2 (07:40→20:59)
[2017-10-01] MEDS: guaiFENesin 600 MG TABLET.ER PO SCH ×2 (07:40→20:59)
[2017-10-01] MEDS: METOPROLOL TARTRATE 25 MG TAB PO SCH ×2 (07:40→20:59)
[2017-10-01] MEDS: ISOSORBIDE MONONITRATE ER 30 MG TAB.ER.24H PO SCH ×3 (07:41→22:19)
[2017-10-01] MEDS: hydrALAZINE HCL 25 MG TAB PO SCH ×2 (07:41→20:59)
[2017-10-01] MEDS: ESCITALOPRAM 20 MG TAB PO SCH (07:41)
[2017-10-01] MEDS: METOLAZONE 2.5 MG TAB PO SCH (07:41)
[2017-10-01 08:04] LABS: Anisocytosis Slight; Basophils % (A) 0 %; Eosinophils % (A) 1 %; HCT 37.8 % (34.0-46.0); HGB 11.2 gm/dL (11.4-16.0); Hypochromasia Moderate; Lymphocytes # (A) 0.9 k/uL (1.0-4.8); Lymphocytes % (A) 12 %; MCH 27.4 pg (25.0-35.0); MCHC 29.7 g/dL (31.0-37.0); MCV 92.2 fL (80.0-100.0); Mean Platelet Volume 9.1; Monocytes # (A) 0.2 k/uL (0-1.0); Monocytes % (A) 3 %; Neutrophils # (A) 6.5 k/uL (1.3-7.7); Neutrophils % (A) 83 %; Platelet Count 116 k/uL (150-450); RDW 18.3 % (11.5-15.5); WBC 7.8 k/uL (3.8-10.6)
[2017-10-01 08:14] LABS: Calcium 8.5 mg/dL (8.4-10.2); Magnesium 1.9 mg/dL (1.6-2.3); Potassium 4.3 mmol/L (3.5-5.1)
--- NOTE | 2017-10-01 11:29 | P.PN ---
Subjective Patient is seen in follow-up for acute kidney injury. Patient has chronic kidney disease stage III secondary to diabetic kidney disease with baseline creatinine in the range of 1-1.2. Patient presented to the hospital with fever and cough. She is positive for influenza B. She was also in A. fib with RVR but is now rate controlled. She is noted to have ascites and edema for which she is currently maintained on Lasix drip at 10 mL an hour. Her urine output is documented as 1100 mL in the last 24 hours. She was also noted to have urinary retention for which she has a Brooks catheter in place now. She has history of diastolic CHF with severe pulmonary hypertension and moderate pulmonic regurgitation. She is currently resting in bed. She is on a CPAP. Appears lethargic. Vital signs are stable. General: The patient appeared well nourished and normally developed. HEENT: Head exam is unremarkable. Neck is without jugular venous distension. LUNGS: Lungs are clear to auscultation and percussion. Breath sounds decreased. HEART: Rate and Rhythm are regular. First and second heart sounds normal. No murmurs, rubs or gallops. ABDOMEN: Abdominal exam reveals normal bowel sounds. Non-tender and non- distended. No evidence of peritonitis. EXTREMITITES: Trace edema. Objective - Vital Signs Vital signs: Vital Signs Temp 97.6 F 10/01/17 07:00 Pulse 46 L 10/01/17 08:00 Resp 18 10/01/17 08:00 BP 115/55 10/01/17 07:00 Pulse Ox 94 L 10/01/17 08:42 Intake & Output 09/30/17 10/01/17 10/01/17 18:59 06:59 18:59 Intake Total 410 60 Output Total 800 300 Balance -390 -240 Weight 76.3 kg Intake: IV 60 0.9 kvo 60 Intake, IV Titration 250 Amount Furosemide 250 mg In 250 Sodium Chloride 0.9% 225 ml @ 10 MG/HR 10 mls/hr IVP .Q24H [facility] Rx#: [id number] Oral 160 Output: Urine 800 300 Uretheral (Brooks) 200 Other: Voiding Method Indwelling Catheter Indwelling Catheter Indwelling Catheter # Bowel Movements 1 - Labs CBC & Chem 7: 10/01/17 07:28 10/01/17 07:28 Labs: Abnormal Lab Results - Last 24 Hours (Table) 09/30/17 09/30/17 09/30/17 Range/Units 11:22 17:08 20:02 Hgb (11.4-16.0) gm/dL MCHC (31.0-37.0) g/dL RDW (11.5-15.5) % Plt Count (150-450) k/uL Lymphocytes # (1.0-4.8) k/uL Chloride (98-107) mmol/L Carbon Dioxide (22-30) mmol/L BUN (7-17) mg/dL Creatinine (0.52-1.04) mg/dL POC Glucose (mg/dL) 128 H 117 H 112 H (75-99) mg/dL 10/01/17 10/01/17 Range/Units 07:28 07:28 Hgb 11.2 L (11.4-16.0) gm/dL MCHC 29.7 L (31.0-37.0) g/dL RDW 18.3 H (11.5-15.5) % Plt Count 116 L (150-450) k/uL Lymphocytes # 0.9 L (1.0-4.8) k/uL Chloride 109 H (98-107) mmol/L Carbon Dioxide 20 L (22-30) mmol/L BUN 84 H* (7-17) mg/dL Creatinine 4.18 H (0.52-1.04) mg/dL POC Glucose (mg/dL) (75-99) mg/dL Microbiology - Last 24 Hours (Table) 09/26/17 14:55 Blood Culture - Preliminary Blood No Growth after 96 hours 09/26/17 12:45 Blood Culture - Preliminary Blood No Growth after 96 hours Assessment and Plan Plan: Assessment: #1. Acute kidney injury secondary to ATN secondary to cardiorenal syndrome. Creatinine was 3.05 on admission and is up to 4.18 today. Urinalysis reveals trace proteinuria and no significant hematuria. No evidence of hydronephrosis noted on renal ultrasound. #2. Chronic kidney disease stage III secondary to diabetic kidney disease with basic creatinine in the range of 1-1.2. #3. Volume overload. She did have a CT of the chest which revealed bilateral effusions as well as areas of consolidation. #4. Diastolic CHF with severe pulmonary hypertension and moderate pulmonic regurgitation. #5. Influenza B maintained on Tamiflu. #6. Metabolic acidosis secondary to acute kidney injury. #7. Diabetes mellitus. #8. Urinary retention status post Brooks catheter placement. Plan: Change Lasix to 40 mg IV every 8 hours. Continue metolazone 2.5 mg once daily. Avoid nephrotoxic agents and hypotensive episodes. Continue to hold losartan. Hold antihypertensives for systolic blood pressure less than 110. Repeat electrolytes in the morning. Maintain sodium bicarbonate 1300 mg twice daily. Continue to monitor renal function and urine output. Discontinued potassium supplementation. I discussed the potential need for renal replacement therapy with the patient and her yesterday. She is currently refusing hemodialysis and I again discussed with her that it may be temporary but she continues to refuse. Continue with supportive care.
[2017-10-01 11:41] LABS: Glucose,Whole Blood 91 mg/dL (75-99)
--- NOTE | 2017-10-01 13:35 | XR ---
EXAMINATION TYPE: XR chest 1V portable DATE OF EXAM: 10/01/2017 COMPARISON: 09/30/2017 HISTORY: Pulmonary edema. Follow-up exam. Shortness of breath. TECHNIQUE: Single frontal view of the chest is obtained. FINDINGS: There is redemonstration of multifocal bilateral opacities with linear density along the l eft costophrenic angle tracking of the lateral pleura. Blunting of the right costophrenic angle is al so noted. Cardiac silhouette is enlarged with post CABG changes. Osseous structures appear intact. IMPRESSION: 1. Similar-appearing bilateral multifocal patchy alveolar opacities and interstitial edema. Considera tions are for multifocal pneumonia and pulmonary edema. 2. Partially loculated small left pleural effusion and trace right pleural effusion.
--- NOTE | 2017-10-01 13:53 | P.PN ---
Subjective Progress Note Date: 10/01/17 Principal diagnosis: Acute hypoxic rest she failure, diastolic congestive heart failure, influenza, loculated pleural effusion, possible underlying pneumonia This is a very pleasant 77-year-old female patient who follows with Dr. Leal as her primary care physician. She has a history of atrial fibrillation, coronary artery disease with previous and placements and coronary artery bypass grafting, congestive heart failure, diabetes mellitus, DVT, hyperlipidemia, hypertension, obstructive sleep apnea utilizing CPAP, obesity, osteoarthritis. The patient is a Religion and will not accept blood transfusions. She also has a history of chronic obstructive pulmonary disease and follows with Dr. Staples in our office for the same. She had been having a 1 week history of cough and nasal congestion and shortness of breath. Yesterday her noted her to have altered mental status as well. She was uncooperative and confused. She is brought here for the same. She was found to be influenza B positive. She also had atrial fibrillation with a rapid ventricular response and was admitted for the same. She is seen today in consultation on the selective care unit. She is awake and alert in no acute distress. Her who is at the bedside states she is much improved today as compared to yesterday as far as her mentation. She does have a loose nonproductive cough. Her chest x-ray reveals evidence of cardiomegaly with chronic parenteral changes and tiny bilateral pleural effusions and a left lung opacity. Possibly fluid collection or consolidation. She is maintaining good O2 saturations in the 90s on 2 L/m per nasal cannula. She did have a T-max of 100.1 but is currently afebrile. No leukocytosis. Hemoglobin 10.1. Platelet count 115,000. BUN 74 creatinine 3.40. AST 78, ALT 74. Stool for occult blood is positive. Urine culture is pending. She was given a dose of vancomycin and cefepime. She is currently on Tamiflu. Cardizem drip currently on hold. She remains in atrial fibrillation. Her rate is better controlled. She is being in diuresed with Lasix 40 mg IV every 8 hours. She is incontinent of urine. The patient is seen again today 09/28/2017 in follow-up on the selective care unit. She is awake and alert in no acute distress. She is breathing easier today as compared to yesterday. She is more oriented today as well. Continues to diurese. She is currently in a negative balance. She is maintaining good O2 saturations in the mid 90s on 3 L/m per nasal cannula. She's afebrile. Hemodynamically stable. Patient was reevaluated today on 09/29/2017, continues to do poorly, continues to have cough wheezing shortness of breath, and her chest CT showed multiple findings including findings of pleural effusions, loculated effusion on the left side, multiple opacities in the lungs, most of it suggestive of fluid, however the possibility of pneumonia is not entirely ruled out, malignancy is also entertained, but felt to be less likely. Patient remains on relatively high-dose of diuretics, she is also on antibiotics, antiviral treatment for influenza, but does not seem to be making a significant improvement so far. Renal functioning seems to be getting worse, BUN is up to 73 creatinine is 3.72 , and she is developing worsening metabolic acidosis from her renal failure. Clearly the patient needs to be on more diuretics, and I believe this may lead to worsening renal functioning. Reevaluated today on 09/30/2017, patient was doing poorly yesterday, and her chest x-ray as well as CT of the chest were consistent with worsening pulmonary edema and congestive heart failure. Hence the patient was placed on a Lasix drip, and over the last 24 hours she has done extremely well and much better compared to earlier. Less shortness of breath noted. Patient is definitely in a negative balance of about 2000 mL in the last 24 hours. And clinically she is feeling better. All labs were reviewed, CBC is relatively normal BUN is 78 creatinine is 3.9, slightly worse compared to yesterday, but the patient has what looks like a picture of cardiorenal syndrome. On 10/01/2017 patient seen again in follow-up. She is lethargic, but arousable , appears very fatigued, and weak. She remains on high flow nasal cannula at 10 L, with pulse ox of 94%. Lung sounds are positive for coarse rhonchi throughout the lung cai, patient remains in A. fib with a controlled rate. Her chest x-ray from this morning shows bilateral multifocal patchy alveolar opacities and interstitial edema compatible with multifocal pneumonia and pulmonary edema, and partially loculated small left pleural effusion and trace right pleural effusion. Patient remains on Lasix drip at 10 mg per hour, her net fluid balance is negative 630 ml over the last 24 hours. Urine culture was positive for Citrobacter werkmanii, with sensitivity to Rocephin, which the patient is currently on. Blood cultures were negative. Much in the way sputum production. Patient has a very poor appetite, nursing staff reports very poor oral intake. She is mostly bedbound, tolerates activity very poorly, becomes severely dyspneic. We will place the patient on BiPAP support today, with pressures of 12 4, and FiO2 of 50%, titrate FiO2 to keep O2 sat at 90% and above. Objective - Vital Signs Vital signs: Vital Signs Temp 97.6 F 10/01/17 07:00 Pulse 46 L 10/01/17 08:00 Resp 18 10/01/17 08:00 BP 115/55 10/01/17 07:00 Pulse Ox 94 L 10/01/17 08:42 Intake & Output 09/30/17 10/01/17 10/01/17 18:59 06:59 18:59 Intake Total 410 60 Output Total 800 300 Balance -390 -240 Weight 76.3 kg Intake: IV 60 0.9 kvo 60 Intake, IV Titration 250 Amount Furosemide 250 mg In 250 Sodium Chloride 0.9% 225 ml @ 10 MG/HR 10 mls/hr IVP .Q24H [facility] Rx#: [id number] Oral 160 Output: Urine 800 300 Uretheral (Brooks) 200 Other: Voiding Method Indwelling Catheter Indwelling Catheter Indwelling Catheter # Bowel Movements 1 - Exam GENERAL EXAM: Alert, oriented 3. Appears very fatigued, weak and withdrawn HEAD: Normocephalic. EYES: Normal reaction of pupils, equal size. NOSE: Clear with pink turbinates. THROAT: No erythema or exudates. NECK: No masses, no JVD. CHEST: No chest wall deformity. LUNGS: Equal air entry with coarse rhonchi throughout the lung cai CVS: S1 and S2 normal with no audible murmur, regular rhythm. ABDOMEN: No hepatosplenomegaly, normal bowel sounds, no guarding or rigidity. SPINE: Kyphoscoliosis SKIN: No rashes CENTRAL NERVOUS SYSTEM: No focal deficits, tone is normal in all 4 extremities. EXTREMITIES: There is no peripheral edema. No clubbing, no cyanosis. Peripheral pulses are intact. - Labs CBC & Chem 7: 10/01/17 07:28 10/01/17 07:28 Labs: Abnormal Lab Results - Last 24 Hours (Table) 09/30/17 09/30/17 10/01/17 Range/Units 17:08 20:02 07:28 Hgb (11.4-16.0) gm/dL MCHC (31.0-37.0) g/dL RDW (11.5-15.5) % Plt Count (150-450) k/uL Lymphocytes # (1.0-4.8) k/uL Chloride (98-107) mmol/L Carbon Dioxide (22-30) mmol/L BUN (7-17) mg/dL Creatinine (0.52-1.04) mg/dL POC Glucose (mg/dL) 117 H 112 H (75-99) mg/dL Prealbumin 12.0 L (18.0-42.0) mg/dL 10/01/17 10/01/17 Range/Units 07:28 07:28 Hgb 11.2 L (11.4-16.0) gm/dL MCHC 29.7 L (31.0-37.0) g/dL RDW 18.3 H (11.5-15.5) % Plt Count 116 L (150-450) k/uL Lymphocytes # 0.9 L (1.0-4.8) k/uL Chloride 109 H (98-107) mmol/L Carbon Dioxide 20 L (22-30) mmol/L BUN 84 H* (7-17) mg/dL Creatinine 4.18 H (0.52-1.04) mg/dL POC Glucose (mg/dL) (75-99) mg/dL Prealbumin (18.0-42.0) mg/dL Microbiology - Last 24 Hours (Table) 09/26/17 14:55 Blood Culture - Preliminary Blood No Growth after 96 hours 09/26/17 12:45 Blood Culture - Preliminary Blood No Growth after 96 hours Assessment and Plan Plan: Assessment: #1 Acute hypoxic respiratory failure secondary to an acute exacerbation of diastolic congestive heart failure. Ejection fraction 55-60% on echo from 2017. #2 Acute influenza B infection. #3 Atrial fibrillation with a rapid ventricular response initially on a diltiazem drip. Rate better controlled today. #4 Acute on chronic renal failure current creatinine 4.18. Ultrasound reveals no hydronephrosis. #5 Acute on chronic anemia. Stool for occult blood positive. EGD on 2016 revealed scattered erosions in the antrum consistent with gastritis. #6 Urinary tract infection, urine cultures positive for Citrobacter werkmanii, with sensitivity to Rocephin which the patient is on #7 History of CVA/TIA. #8 Diabetes mellitus. #9 Hyperlipidemia. #10 Hypertension. #11 History of DVT #12 Osteoarthritis. #13 Obstructive sleep apnea utilizing CPAP in the outpatient setting on 10 cm of water. #14 Pulmonary hypertension. 15 cardiorenal syndrome with renal failure. Acute on chronic as noted above. Recommendation: Continue Lasix drip, continue other meds as listed, continue bronchodilators, will initiate the patient on BiPAP support with pressures 1204, and FiO2 of 50% . Patient's renal profile continues to worsen. Overall she is declining, her oral intake is poor, and so as her activity tolerance. Patient is a status DO NOT RESUSCITATE. Prognosis is definitely guarded considering her underlying cardiac condition and renal condition. I performed a history & physical examination of the patient and discussed their management with my nurse practitioner, Debbie Brewer. I reviewed the nurse practitioner's note and agree with the documented findings and plan of care. Lung sounds are positive for coarse rhonchi throughout the lung cai. The findings and the impression was discussed with the patient. I attest to the documentation by the nurse practitioner. Time with Patient: Less than 30
[2017-10-01] MEDS: ACETAMINOPHEN TAB 325 MG TAB PO PRN (14:17)
--- NOTE | 2017-10-01 16:27 | P.PN ---
Subjective Progress Note Date: 10/01/17 This is a 77-year-old female patient of Dr. Leal'stephie with a past history of coronary artery disease with prior 4 vessel CABG in 1998 and subsequent stenting of the mid RCA and OM and 2013 and 2 subsequent stent placements following that, hypertension, diabetes mellitus type 2, hyperlipidemia, obstructive sleep apnea, paroxysmal atrial fibrillation status post cardioversion currently on anticoagulation. Patient was last hospitalized in June 2017 for acute on chronic diastolic heart failure, acute kidney injury. Patient was discharged on eliquis which has subsequently been discontinued by her commercial green retrofit architect in [place] due to bleeding. Patient was initially discharged to [facility] for subacute rehab but has been discharged from [facility] and living at home with her . For 3 days patient has been feeling sick with sudden onset of cough that is nonproductive. She has had decreased urine output and not drinking very much for the past 3 days. Patient states she has had nausea vomiting and diarrhea. She was able to eat her breakfast this morning. She has not had a bowel movement since admission. Patient is on home O2 at 3 L nasal cannula. Patient presented to [facility] emergency center by EMS. She was tachycardic at 140s and temperature max 100.1, pulse ox 88%. EKG was atrial fibrillation with RVR. Her hemoglobin was 10.2, BUN 65 and creatinine 3.05. Lactic acid was within normal limits, AST and ALT slightly elevated, INR 1.5. ProBNP fourth be 9800 and troponin 0.012. Urinalysis was clear with leukoesterase moderate, nitrate negative, bacteria rare. Influenza A+. Chest x -ray showed cardiomegaly with chronic parenchymal change with new tiny bilateral pleural effusions and new right basilar linear atelectasis and slightly more suspicious left lateral lung rounded obesity, possible consolidation. Acute interstitial edema with background of chronic fibrosis cannot be excluded. Correlate for fluid overload state. Patient was started on Cardizem drip and given IV hydration, cefepime and vancomycin were given. Patient was started on Tamiflu and admitted to the selective care unit for consults were placed with cardiology, pulmonary medicine and nephrology. 09/28: Dr. Schmidt has seen the patient for acute kidney injury and ordered renal ultrasound which showed no hydronephrosis. Chronic medical renal disease. Stable 2.5 cm left upper and mid pole cyst with some internal calcification. Abdominal pelvic ascites, moderate in the left lower quadrant. Repeat BUN 73 and creatinine 3.5, CO2 18. Sodium bicarb has been added by nephrology. Losartan is on hold. Patient seen and followed by Dr. Staples and ceftriaxone was started empirically but no signs of true pneumonia and patient is continued on Tamiflu. Repeat chest x-ray reveals new left basilar opacity with central lucency may represent cavitary lesion or loculated pleural effusion. Right intrahilar OPC is favored to represent atelectasis. Improved pulmonary vascular congestion, right pleural effusion and interstitial edema. Cardiology has discontinued Cardizem drip and patient remains in atrial fibrillation but rate is controlled. Patient's breathing is much improved today and she states she is feeling much better in general. She is seen sitting up in a chair at the bedside. Plan will be to transfer her to [facility] today. Patient did have urinary retention during the night and Brooks catheter was placed. Cardiology has increased Lasix to 80 mg IV every 12 hours. PT evaluation added. Patient is planning to return home with homecare. 09/29: Patient's more dyspneic when seen today, she is Audible rhonchi, patient is to receive IV Lasix mainly in the drip form at 10 mics per hour, as adjusted by Dr. Schmidt Patient does not have any chest pain no shortness of breath, patient feels overwhelmed and weak, no aspirative events, tmax 97.7. Computed tomography scan of the chest performed ct scan of the chest performed showing pleural calcification in new masslike density medial aspect right upper lobe measuring 1.9 cm x 3.3cm may represent loculated fluid, shotty pulmonary adenopathy, and pericaval lymph node, small amount of focal consolidation and small left pleural effusion 09/30: Patient is slightly better compared to yesterday. With regards to her breathing, she remains on IV Lasix drip,she still requires high flow O210 L test cannula satting between 94-99%, family is at bedside, and updated, patient is still physically debilitated, and has decreased appetite, was anticipating subacute rehab post discharge, improve nutrition with supplementation,prognosis currently is guarded, creatinine slightly worse from yesterday at 3.9 from a previous of 3.72. Nephrology is following closely 10/01: Repeat chest x-ray shows similar appearing bilateral multifocal patchy alveolar opacities and interstitial edema. Considerations are for multifocal pneumonia and pulmonary edema. Partially loculated small left pleural effusion and trace right pleural effusion. Today, patient is lethargic but arousable and she complains of significant weakness. She has been on high flow nasal cannula at 10 L since yesterday at 7 AM. She has been placed on BiPAP intermittently. A. fib is controlled rate on the low side for which metipranolol will be decreased from 75 mg twice daily to 25 mg daily and clonidine will be discontinued. Patient has again refused hemodialysis. She has on Lasix 40 mg IV every 8 hours, sodium bicarb and metolazone. Patient completed her course of Tamiflu. Objective - Vital Signs Vital signs: Vital Signs Temp 97.4 F L 10/01/17 15:00 Pulse 48 L 10/01/17 15:00 Resp 18 10/01/17 15:00 BP 118/59 10/01/17 15:00 Pulse Ox 95 10/01/17 15:00 Intake & Output 09/30/17 10/01/17 10/01/17 18:59 06:59 18:59 Intake Total 410 60 Output Total 800 300 500 Balance -390 -240 -500 Weight 76.3 kg Intake: IV 60 0.9 kvo 60 Intake, IV Titration 250 Amount Furosemide 250 mg In 250 Sodium Chloride 0.9% 225 ml @ 10 MG/HR 10 mls/hr IVP .Q24H [facility] Rx#: [id number] Oral 160 Output: Urine 800 300 500 Uretheral (Brooks) 200 500 Other: Voiding Method Indwelling Catheter Indwelling Catheter Indwelling Catheter # Voids 500 # Bowel Movements 1 - Exam General appearance: Present: cooperative, no acute distress. Absent: average body habitus, disheveled, mild distress, morbidly obese, obese, severe distress , thin - EENT Eyes: Present: anicteric sclerae, PERRLA, dentition normal - Neck Neck: Present: normal ROM. Absent: lymphadenopathy, other, rigidity, stridor, thyromegaly - Respiratory Respiratory: left: rales, rhonchi, negative: CTA, diminished, dullness, wheezing - Cardiovascular Rhythm: regular Heart sounds: normal: S1, S2 Abnormal Heart Sounds: Absent: systolic murmur, diastolic murmur, rub, S3 Gallop , S4 Gallop, click, other - Gastrointestinal General gastrointestinal: Present: normal bowel sounds, soft - Integumentary Integumentary: Present: normal - Neurologic Neurologic: Present: CNII-XII intact - Musculoskeletal Musculoskeletal: Present: generalized weakness, strength equal bilaterally - Psychiatric Psychiatric: Present: A&O x's 3, appropriate affect, intact judgment & insight, lethargic - Labs CBC & Chem 7: 10/01/17 07:28 10/01/17 07:28 Labs: Abnormal Lab Results - Last 24 Hours (Table) 09/30/17 09/30/17 10/01/17 Range/Units 17:08 20:02 07:28 Hgb (11.4-16.0) gm/dL MCHC (31.0-37.0) g/dL RDW (11.5-15.5) % Plt Count (150-450) k/uL Lymphocytes # (1.0-4.8) k/uL Chloride (98-107) mmol/L Carbon Dioxide (22-30) mmol/L BUN (7-17) mg/dL Creatinine (0.52-1.04) mg/dL POC Glucose (mg/dL) 117 H 112 H (75-99) mg/dL Prealbumin 12.0 L (18.0-42.0) mg/dL 10/01/17 10/01/17 Range/Units 07:28 07:28 Hgb 11.2 L (11.4-16.0) gm/dL MCHC 29.7 L (31.0-37.0) g/dL RDW 18.3 H (11.5-15.5) % Plt Count 116 L (150-450) k/uL Lymphocytes # 0.9 L (1.0-4.8) k/uL Chloride 109 H (98-107) mmol/L Carbon Dioxide 20 L (22-30) mmol/L BUN 84 H* (7-17) mg/dL Creatinine 4.18 H (0.52-1.04) mg/dL POC Glucose (mg/dL) (75-99) mg/dL Prealbumin (18.0-42.0) mg/dL Microbiology - Last 24 Hours (Table) 09/26/17 12:45 Blood Culture - Preliminary Blood No Growth after 120 hours 09/26/17 14:55 Blood Culture - Preliminary Blood No Growth after 96 hours Assessment and Plan Plan: 1. Acute hypoxic respiratory failure secondary to influenza A, possible pneumonia ruled out by Dr. Espinal, atrial fibrillation with RVR and acute on chronic diastolic heart failure. Consults requested with cardiology and pulmonary medicine. Cardizem drip discontinued and patient resumed on Lopressor. Patient has been off anticoagulation per her primary commercial green retrofit architect. Echocardiogram is pending. 2. Acute on chronic diastolic heart failure. Cardiology consult appreciated. Continue IV Lasix 40 every 12, previous Echocardiogram suggested severe pulmonary hypertension with 55-60% ejection fraction . I&O and daily weights. Monitor electrolytes and kidney function. 3. Persistant atrial fibrillation presenting with RVR. Patient now is running bradycardic in the 40s.. Cardiology consult appreciated-. Continue Lopressor at decreased dose of 25 mg 2 times daily. 4. Influenza A. Completed Tamiflu. Consult placed with Dr. Espinal appreciated. Patient started on ceftriaxone empirically. 5. Acute kidney injury secondary to ATN secondary to cardiorenal syndrome with underlying chronic kidney disease stage III. IV Lasix, post void residual, avoid nephrotoxic agents and hypotensive episodes. Losartan on hold. Ultrasound as above. Sodium bicarb 650 mg twice daily, Zaroxolyn 2.5 mg daily. Patient refusing dialysis treatment 6. CAD. Continue Imdur 30 mg 3 times a day. 7. Diabetes mellitus type 2. Continue Novolog scale before meals and at bedtime. Her A1c is 5.1. Janumet currently on hold. 8. Hypertensive cardiovascular disease. Continue Imdur, metoprolol, hydralazine, losartan (on hold) and Lasix. Hold for systolic blood pressure less than 110. 9. History of obstructive sleep apnea. 10. Hyperlipidemia not currently on statin 11. History of CVA, stable 12. 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 11. History of DVT. 12. Osteoarthritis, generalized. 13. DVT prophylaxis. 14. Gastrointestinal prophylaxis. Continue Protonix. 15. Ascites with nonspecific mediastinal adenopathy and right upper lobe masslike density new noted 1.9 x 2.3 cm and pleural calcification on CT, compared to November 2016, IV Lasix and IV Rocephin no changes to the treatment made CODE STATUS: No code Discharge plan: Home with [facility]. PT and OT added. Most likely, patient will need subacute rehab. Impression and plan of care have been directed as dictated by the signing physician. Ashtyn Yeung nurse practitioner acting as scribe for signing physician.
[2017-10-01 17:17] LABS: Glucose,Whole Blood 133 mg/dL (75-99)
[2017-10-01] MEDS: FUROSEMIDE 10 MG/ML 4 ML VIAL IV SCH ×2 (17:20→23:31)
[2017-10-01 20:56] LABS: Glucose,Whole Blood 134 mg/dL (75-99)
[2017-10-02 07:35] LABS: Glucose,Whole Blood 102 mg/dL (75-99)
[2017-10-02] MEDS: INSULIN ASPART 100 UNIT/ML 1 ML 10 ML VIAL SQ SCH ×2 (07:38→12:57)
[2017-10-02 07:47] LABS: Anisocytosis Slight; Basophils % (A) 0 %; Eosinophils # (A) 0.1 k/uL (0-0.7); Eosinophils % (A) 1 %; HCT 39.2 % (34.0-46.0); HGB 11.6 gm/dL (11.4-16.0); Hypochromasia Moderate; Lymphocytes # (A) 1.1 k/uL (1.0-4.8); Lymphocytes % (A) 13 %; MCH 27.3 pg (25.0-35.0); MCHC 29.6 g/dL (31.0-37.0); MCV 92.1 fL (80.0-100.0); Mean Platelet Volume 9.3; Monocytes # (A) 0.2 k/uL (0-1.0); Monocytes % (A) 3 %; Neutrophils # (A) 6.8 k/uL (1.3-7.7); Neutrophils % (A) 81 %; Platelet Count 123 k/uL (150-450); RBC 4.25 m/uL (3.80-5.40); RDW 18.7 % (11.5-15.5); WBC 8.4 k/uL (3.8-10.6)
[2017-10-02] MEDS: cefTRIAXone IN SWFI 1,000 MG/10 ML SYRINGE IVP SCH (08:06)
[2017-10-02] MEDS: SODIUM BICARBONATE TAB 650 MG TAB PO SCH (08:07)
[2017-10-02] MEDS: ISOSORBIDE MONONITRATE ER 30 MG TAB.ER.24H PO SCH ×3 (08:07→21:42)
[2017-10-02] MEDS: FERROUS SULFATE 325 MG TAB PO SCH (08:07)
[2017-10-02] MEDS: guaiFENesin 600 MG TABLET.ER PO SCH (08:07)
[2017-10-02] MEDS: hydrALAZINE HCL 25 MG TAB PO SCH (08:07)
[2017-10-02] MEDS: ESCITALOPRAM 20 MG TAB PO SCH (08:07)
[2017-10-02] MEDS: METOPROLOL TARTRATE 25 MG TAB PO SCH ×2 (08:07→21:42)
[2017-10-02] MEDS: PANTOPRAZOLE 40 MG TABLET PO SCH (08:07)
[2017-10-02] MEDS: FUROSEMIDE 10 MG/ML 4 ML VIAL IV SCH ×3 (08:08→23:46)
[2017-10-02] MEDS: METOLAZONE 2.5 MG TAB PO SCH (08:08)
[2017-10-02 08:10] LABS: Calcium 8.6 mg/dL (8.4-10.2)
--- NOTE | 2017-10-02 10:05 | P.PN ---
Subjective Progress Note Date: 10/02/17 Principal diagnosis: Acute hypoxic rest she failure, diastolic congestive heart failure, influenza, loculated pleural effusion, possible underlying pneumonia This is a very pleasant 77-year-old female patient who follows with Dr. Leal as her primary care physician. She has a history of atrial fibrillation, coronary artery disease with previous and placements and coronary artery bypass grafting, congestive heart failure, diabetes mellitus, DVT, hyperlipidemia, hypertension, obstructive sleep apnea utilizing CPAP, obesity, osteoarthritis. The patient is a [employer] and will not accept blood transfusions. She also has a history of chronic obstructive pulmonary disease and follows with Dr. Staples in our office for the same. She had been having a 1 week history of cough and nasal congestion and shortness of breath. Yesterday her noted her to have altered mental status as well. She was uncooperative and confused. She is brought here for the same. She was found to be influenza B positive. She also had atrial fibrillation with a rapid ventricular response and was admitted for the same. She is seen today in consultation on the selective care unit. She is awake and alert in no acute distress. Her who is at the bedside states she is much improved today as compared to yesterday as far as her mentation. She does have a loose nonproductive cough. Her chest x-ray reveals evidence of cardiomegaly with chronic parenteral changes and tiny bilateral pleural effusions and a left lung opacity. Possibly fluid collection or consolidation. She is maintaining good O2 saturations in the 90s on 2 L/m per nasal cannula. She did have a T-max of 100.1 but is currently afebrile. No leukocytosis. Hemoglobin 10.1. Platelet count 115,000. BUN 74 creatinine 3.40. AST 78, ALT 74. Stool for occult blood is positive. Urine culture is pending. She was given a dose of vancomycin and cefepime. She is currently on Tamiflu. Cardizem drip currently on hold. She remains in atrial fibrillation. Her rate is better controlled. She is being in diuresed with Lasix 40 mg IV every 8 hours. She is incontinent of urine. The patient is seen again today 09/28/2017 in follow-up on the selective care unit. She is awake and alert in no acute distress. She is breathing easier today as compared to yesterday. She is more oriented today as well. Continues to diurese. She is currently in a negative balance. She is maintaining good O2 saturations in the mid 90s on 3 L/m per nasal cannula. She's afebrile. Hemodynamically stable. Patient was reevaluated today on 09/29/2017, continues to do poorly, continues to have cough wheezing shortness of breath, and her chest CT showed multiple findings including findings of pleural effusions, loculated effusion on the left side, multiple opacities in the lungs, most of it suggestive of fluid, however the possibility of pneumonia is not entirely ruled out, malignancy is also entertained, but felt to be less likely. Patient remains on relatively high-dose of diuretics, she is also on antibiotics, antiviral treatment for influenza, but does not seem to be making a significant improvement so far. Renal functioning seems to be getting worse, BUN is up to 73 creatinine is 3.72 , and she is developing worsening metabolic acidosis from her renal failure. Clearly the patient needs to be on more diuretics, and I believe this may lead to worsening renal functioning. Reevaluated today on 09/30/2017, patient was doing poorly yesterday, and her chest x-ray as well as CT of the chest were consistent with worsening pulmonary edema and congestive heart failure. Hence the patient was placed on a Lasix drip, and over the last 24 hours she has done extremely well and much better compared to earlier. Less shortness of breath noted. Patient is definitely in a negative balance of about 2000 mL in the last 24 hours. And clinically she is feeling better. All labs were reviewed, CBC is relatively normal BUN is 78 creatinine is 3.9, slightly worse compared to yesterday, but the patient has what looks like a picture of cardiorenal syndrome. On 10/01/2017 patient seen again in follow-up. She is lethargic, but arousable , appears very fatigued, and weak. She remains on high flow nasal cannula at 10 L, with pulse ox of 94%. Lung sounds are positive for coarse rhonchi throughout the lung cai, patient remains in A. fib with a controlled rate. Her chest x-ray from this morning shows bilateral multifocal patchy alveolar opacities and interstitial edema compatible with multifocal pneumonia and pulmonary edema, and partially loculated small left pleural effusion and trace right pleural effusion. Patient remains on Lasix drip at 10 mg per hour, her net fluid balance is negative 630 ml over the last 24 hours. Urine culture was positive for Citrobacter werkmanii, with sensitivity to Rocephin, which the patient is currently on. Blood cultures were negative. Much in the way sputum production. Patient has a very poor appetite, nursing staff reports very poor oral intake. She is mostly bedbound, tolerates activity very poorly, becomes severely dyspneic. We will place the patient on BiPAP support today, with pressures of 12 4, and FiO2 of 50%, titrate FiO2 to keep O2 sat at 90% and above. On 10/02/2017 patient is seen again on medical surgical floor. Still remains fatigued and weak, but more awake. She did wear the BiPAP yesterday for part of the day, however towards in the day she started refusing it, and was placed back on 9 L per high flow nasal cannula. She was recommended to continue wearing it at bedtime and as needed through the day intermittently. She remains on high flow nasal cannula at 9 L, with pulse ox of 95%. We will try to wean that down further. She remains afebrile, hemodynamically stable. Lung sounds are positive for scattered coarse rhonchi throughout the lung cai, patient does have a loose congested nonproductive cough. Unable to clear any phlegm. Her renal profile continues to worsen, her BUN is up to 89, and creatinine is up to 4.30. Patient's Lasix drip was switched to Lasix 40 mg IV every 8 hours per nephrology. She remains in -380 ML fluid balance over the last 24 hours. But that remains very poor. Hemodialysis initiation was discussed with her by nephrology, and the patient refused it several times. Today we addressed the CODE STATUS with her, and she clearly stated she does not want any heroic measures, or placement on life-support in case of worsening clinical status. She remains on Rocephin for the UTI with Citrobacter workmanii. Blood cultures remain negative. Objective - Vital Signs Vital signs: Vital Signs Temp 97.4 F L 10/02/17 07:00 Pulse 75 10/02/17 08:00 Resp 18 10/02/17 08:00 BP 133/74 10/02/17 07:00 Pulse Ox 95 10/02/17 09:08 Intake & Output 10/01/17 10/02/17 10/02/17 18:59 06:59 18:59 Intake Total 180 540 Output Total 500 600 Balance -320 -60 Intake: IV 120 0.9 kvo 120 Oral 180 420 Output: Urine 500 600 Uretheral (Brooks) 500 600 Other: Voiding Method Indwelling Catheter Indwelling Catheter Indwelling Catheter # Voids 500 - Exam GENERAL EXAM: Alert, oriented 3. Appears very fatigued, weak and withdrawn HEAD: Normocephalic. EYES: Normal reaction of pupils, equal size. NOSE: Clear with pink turbinates. THROAT: No erythema or exudates. NECK: No masses, no JVD. CHEST: No chest wall deformity. LUNGS: Equal air entry with coarse rhonchi throughout the lung cai CVS: S1 and S2 normal with no audible murmur, regular rhythm. ABDOMEN: No hepatosplenomegaly, normal bowel sounds, no guarding or rigidity. SPINE: Kyphoscoliosis SKIN: No rashes CENTRAL NERVOUS SYSTEM: No focal deficits, tone is normal in all 4 extremities. EXTREMITIES: There is no peripheral edema. No clubbing, no cyanosis. Peripheral pulses are intact. - Labs CBC & Chem 7: 10/02/17 07:15 10/02/17 07:15 Labs: Abnormal Lab Results - Last 24 Hours (Table) 10/01/17 10/01/17 10/01/17 Range/Units 07:28 17:12 20:54 MCHC (31.0-37.0) g/dL RDW (11.5-15.5) % Plt Count (150-450) k/uL Chloride (98-107) mmol/L Carbon Dioxide (22-30) mmol/L BUN (7-17) mg/dL Creatinine (0.52-1.04) mg/dL Glucose (74-99) mg/dL POC Glucose (mg/dL) 133 H 134 H (75-99) mg/dL Prealbumin 12.0 L (18.0-42.0) mg/dL 10/02/17 10/02/17 10/02/17 Range/Units 07:15 07:15 07:25 MCHC 29.6 L (31.0-37.0) g/dL RDW 18.7 H (11.5-15.5) % Plt Count 123 L (150-450) k/uL Chloride 108 H (98-107) mmol/L Carbon Dioxide 20 L (22-30) mmol/L BUN 89 H* (7-17) mg/dL Creatinine 4.30 H (0.52-1.04) mg/dL Glucose 102 H (74-99) mg/dL POC Glucose (mg/dL) 102 H (75-99) mg/dL Prealbumin (18.0-42.0) mg/dL Microbiology - Last 24 Hours (Table) 09/26/17 14:55 Blood Culture - Preliminary Blood No Growth after 120 hours 09/26/17 12:45 Blood Culture - Preliminary Blood No Growth after 120 hours Assessment and Plan Plan: Assessment: #1 Acute hypoxic respiratory failure secondary to an acute exacerbation of diastolic congestive heart failure. Ejection fraction 55-60% on echo from 2017. #2 Acute influenza B infection. #3 Atrial fibrillation with a rapid ventricular response initially on a diltiazem drip. Rate better controlled today. #4 Acute on chronic renal failure current creatinine 4.18. Ultrasound reveals no hydronephrosis. #5 Acute on chronic anemia. Stool for occult blood positive. EGD on 2016 revealed scattered erosions in the antrum consistent with gastritis. #6 Urinary tract infection, urine cultures positive for Citrobacter werkmanii, with sensitivity to Rocephin which the patient is on #7 History of CVA/TIA. #8 Diabetes mellitus. #9 Hyperlipidemia. #10 Hypertension. #11 History of DVT #12 Osteoarthritis. #13 Obstructive sleep apnea utilizing CPAP in the outpatient setting on 10 cm of water. #14 Pulmonary hypertension. 15 cardiorenal syndrome with renal failure. Acute on chronic as noted above. Recommendation: Patient seems to be more awake today, continues to be fatigued and weak. Lung sounds are still very congested. She is not able to wear BiPAP for a prolonged period the time, we will continue the BiPAP support at bedtime, and as tolerated during a day, to alternate with a high flow nasal cannula. Continue weaning FiO2. Patient's renal profile at continues to worsen, nephrology has switched the Lasix drip to intermittent injections of Lasix 40 IV push every 8 hours. She has refused hemodialysis. Patient's appetite remains very poor, she is quite weak, and debilitated. CODE STATUS was again discussed with her, she made it very clear she does not want any heroic measures or placement on life- support in case of further deterioration of her clinical status. Prognosis is poor given her overall deconditioned state, multiple medical problems, and comorbidities. I performed a history & physical examination of the patient and discussed their management with my nurse practitioner, Debbie Brewer. I reviewed the nurse practitioner's note and agree with the documented findings and plan of care. Lung sounds are positive for coarse rhonchi throughout the lung cai. The findings and the impression was discussed with the patient. I attest to the documentation by the nurse practitioner. Time with Patient: Less than 30
--- NOTE | 2017-10-02 11:29 | P.PN ---
Subjective Patient is seen in follow-up for acute kidney injury. Patient has chronic kidney disease stage III secondary to diabetic kidney disease with baseline creatinine in the range of 1-1.2. Patient presented to the hospital with fever and cough. She is positive for influenza B. She was also in A. fib with RVR but is now rate controlled. She is noted to have ascites and edema for which she is currently maintained on Lasix 40 mg 3 times daily IV. Her urine output is documented as 1100 mL in the last 24 hours. She was also noted to have urinary retention for which she has a Brooks catheter in place now. She has history of diastolic CHF with severe pulmonary hypertension and moderate pulmonic regurgitation. She is currently resting in bed. He remains weak. Appears lethargic. present at bedside. Vital signs are stable. General: The patient appeared well nourished and normally developed. HEENT: Head exam is unremarkable. Neck is without jugular venous distension. LUNGS: Lungs are clear to auscultation and percussion. Breath sounds decreased. HEART: Rate and Rhythm are regular. First and second heart sounds normal. No murmurs, rubs or gallops. ABDOMEN: Abdominal exam reveals normal bowel sounds. Non-tender and non- distended. No evidence of peritonitis. EXTREMITITES: Trace edema. Objective - Vital Signs Vital signs: Vital Signs Temp 97.4 F L 10/02/17 07:00 Pulse 75 10/02/17 08:00 Resp 18 10/02/17 08:00 BP 133/74 10/02/17 07:00 Pulse Ox 95 10/02/17 09:08 Intake & Output 10/01/17 10/02/17 10/02/17 18:59 06:59 18:59 Intake Total 180 540 Output Total 500 600 Balance -320 -60 Intake: IV 120 0.9 kvo 120 Oral 180 420 Output: Urine 500 600 Uretheral (Brooks) 500 600 Other: Voiding Method Indwelling Catheter Indwelling Catheter Indwelling Catheter # Voids 500 - Labs CBC & Chem 7: 10/02/17 07:15 10/02/17 07:15 Labs: Abnormal Lab Results - Last 24 Hours (Table) 10/01/17 10/01/17 10/01/17 Range/Units 07:28 17:12 20:54 MCHC (31.0-37.0) g/dL RDW (11.5-15.5) % Plt Count (150-450) k/uL Chloride (98-107) mmol/L Carbon Dioxide (22-30) mmol/L BUN (7-17) mg/dL Creatinine (0.52-1.04) mg/dL Glucose (74-99) mg/dL POC Glucose (mg/dL) 133 H 134 H (75-99) mg/dL Prealbumin 12.0 L (18.0-42.0) mg/dL 10/02/17 10/02/17 10/02/17 Range/Units 07:15 07:15 07:25 MCHC 29.6 L (31.0-37.0) g/dL RDW 18.7 H (11.5-15.5) % Plt Count 123 L (150-450) k/uL Chloride 108 H (98-107) mmol/L Carbon Dioxide 20 L (22-30) mmol/L BUN 89 H* (7-17) mg/dL Creatinine 4.30 H (0.52-1.04) mg/dL Glucose 102 H (74-99) mg/dL POC Glucose (mg/dL) 102 H (75-99) mg/dL Prealbumin (18.0-42.0) mg/dL Microbiology - Last 24 Hours (Table) 09/26/17 14:55 Blood Culture - Preliminary Blood No Growth after 120 hours 09/26/17 12:45 Blood Culture - Preliminary Blood No Growth after 120 hours Assessment and Plan Plan: Assessment: #1. Acute kidney injury secondary to ATN secondary to cardiorenal syndrome. Creatinine was 3.05 on admission and is up to 4.3 today. Urinalysis reveals trace proteinuria and no significant hematuria. No evidence of hydronephrosis noted on renal ultrasound. #2. Chronic kidney disease stage III secondary to diabetic kidney disease with basic creatinine in the range of 1-1.2. #3. Volume overload. She did have a CT of the chest which revealed bilateral effusions as well as areas of consolidation. #4. Diastolic CHF with severe pulmonary hypertension and moderate pulmonic regurgitation. #5. Influenza B maintained on Tamiflu. #6. Metabolic acidosis secondary to acute kidney injury. #7. Diabetes mellitus. #8. Urinary retention status post Brooks catheter placement. Plan: Continue Lasix to 40 mg IV every 8 hours. Continue metolazone 2.5 mg once daily. Avoid nephrotoxic agents and hypotensive episodes. Continue to hold losartan. Hold antihypertensives for systolic blood pressure less than 110. Repeat electrolytes in the morning. Maintain sodium bicarbonate 1300 mg twice daily. Continue to monitor renal function and urine output. Discontinued potassium supplementation. I discussed the potential need for renal replacement therapy with the patient and her again today. She continues to refuse renal replacement therapy. Continue with supportive care.
[2017-10-02 11:34] LABS: Glucose,Whole Blood 160 mg/dL (75-99)
[2017-10-02] MEDS ORDERED: LORazepam 2 MG/ML INJ IV PRN (14:28)
[2017-10-02] MEDS ORDERED: ATROPINE OPHTH SOLN 1% 5ML BTL SUBLINGUAL PRN (14:28)
[2017-10-02] MEDS ORDERED: ARTIFICIAL TEARS-HYPROMELLOSE DROPS 15 ML BTL BOTH EYES PRN (14:28)
[2017-10-02] MEDS ORDERED: MORPHINE ORAL SOL CONC 20 MG/ML BOTTLE PO PRN (14:30)
[2017-10-03 07:29] VITALS: BP 180/95; PULSE 97; RESP 16; TEMP 96.6
[2017-10-03] MEDS: FUROSEMIDE 10 MG/ML 4 ML VIAL IV SCH (07:48)
[2017-10-03] MEDS: PANTOPRAZOLE 40 MG TABLET PO SCH (07:48)
[2017-10-03] MEDS: METOPROLOL TARTRATE 25 MG TAB PO SCH (07:48)
[2017-10-03] MEDS: ISOSORBIDE MONONITRATE ER 30 MG TAB.ER.24H PO SCH ×2 (07:49→07:57)
[2017-10-03 11:23] VITALS: BMI 28.8
--- NOTE | 2017-10-03 12:33 | P.PN ---
Subjective Progress Note Date: 10/03/17 This is a 77-year-old female patient of Dr. Leal'stephie with a past history of coronary artery disease with prior 4 vessel CABG in 1998 and subsequent stenting of the mid RCA and OM and 2013 and 2 subsequent stent placements following that, hypertension, diabetes mellitus type 2, hyperlipidemia, obstructive sleep apnea, paroxysmal atrial fibrillation status post cardioversion currently on anticoagulation. Patient was last hospitalized in June 2017 for acute on chronic diastolic heart failure, acute kidney injury. Patient was discharged on eliquis which has subsequently been discontinued by her meteorology faculty member in [place] due to bleeding. Patient was initially discharged to [facility] for subacute rehab but has been discharged from [facility] and living at home with her . For 3 days patient has been feeling sick with sudden onset of cough that is nonproductive. She has had decreased urine output and not drinking very much for the past 3 days. Patient states she has had nausea vomiting and diarrhea. She was able to eat her breakfast this morning. She has not had a bowel movement since admission. Patient is on home O2 at 3 L nasal cannula. Patient presented to [facility] emergency center by EMS. She was tachycardic at 140s and temperature max 100.1, pulse ox 88%. EKG was atrial fibrillation with RVR. Her hemoglobin was 10.2, BUN 65 and creatinine 3.05. Lactic acid was within normal limits, AST and ALT slightly elevated, INR 1.5. ProBNP fourth be 9800 and troponin 0.012. Urinalysis was clear with leukoesterase moderate, nitrate negative, bacteria rare. Influenza A+. Chest x -ray showed cardiomegaly with chronic parenchymal change with new tiny bilateral pleural effusions and new right basilar linear atelectasis and slightly more suspicious left lateral lung rounded obesity, possible consolidation. Acute interstitial edema with background of chronic fibrosis cannot be excluded. Correlate for fluid overload state. Patient was started on Cardizem drip and given IV hydration, cefepime and vancomycin were given. Patient was started on Tamiflu and admitted to the selective care unit for consults were placed with cardiology, pulmonary medicine and nephrology. 09/28: Dr. Schmidt has seen the patient for acute kidney injury and ordered renal ultrasound which showed no hydronephrosis. Chronic medical renal disease. Stable 2.5 cm left upper and mid pole cyst with some internal calcification. Abdominal pelvic ascites, moderate in the left lower quadrant. Repeat BUN 73 and creatinine 3.5, CO2 18. Sodium bicarb has been added by nephrology. Losartan is on hold. Patient seen and followed by Dr. Staples and ceftriaxone was started empirically but no signs of true pneumonia and patient is continued on Tamiflu. Repeat chest x-ray reveals new left basilar opacity with central lucency may represent cavitary lesion or loculated pleural effusion. Right intrahilar OPC is favored to represent atelectasis. Improved pulmonary vascular congestion, right pleural effusion and interstitial edema. Cardiology has discontinued Cardizem drip and patient remains in atrial fibrillation but rate is controlled. Patient's breathing is much improved today and she states she is feeling much better in general. She is seen sitting up in a chair at the bedside. Plan will be to transfer her to [facility] today. Patient did have urinary retention during the night and Brooks catheter was placed. Cardiology has increased Lasix to 80 mg IV every 12 hours. PT evaluation added. Patient is planning to return home with homecare. 09/29: Patient's more dyspneic when seen today, she is Audible rhonchi, patient is to receive IV Lasix mainly in the drip form at 10 mics per hour, as adjusted by Dr. Schmidt Patient does not have any chest pain no shortness of breath, patient feels overwhelmed and weak, no aspirative events, tmax 97.7. Computed tomography scan of the chest performed ct scan of the chest performed showing pleural calcification in new masslike density medial aspect right upper lobe measuring 1.9 cm x 3.3cm may represent loculated fluid, shotty pulmonary adenopathy, and pericaval lymph node, small amount of focal consolidation and small left pleural effusion 09/30: Patient is slightly better compared to yesterday. With regards to her breathing, she remains on IV Lasix drip,she still requires high flow O210 L test cannula satting between 94-99%, family is at bedside, and updated, patient is still physically debilitated, and has decreased appetite, was anticipating subacute rehab post discharge, improve nutrition with supplementation,prognosis currently is guarded, creatinine slightly worse from yesterday at 3.9 from a previous of 3.72. Nephrology is following closely 10/01: Repeat chest x-ray shows similar appearing bilateral multifocal patchy alveolar opacities and interstitial edema. Considerations are for multifocal pneumonia and pulmonary edema. Partially loculated small left pleural effusion and trace right pleural effusion. Today, patient is lethargic but arousable and she complains of significant weakness. She has been on high flow nasal cannula at 10 L since yesterday at 7 AM. She has been placed on BiPAP intermittently. A. fib is controlled rate on the low side for which metipranolol will be decreased from 75 mg twice daily to 25 mg daily and clonidine will be discontinued. Patient has again refused hemodialysis. She has on Lasix 40 mg IV every 8 hours, sodium bicarb and metolazone. Patient completed her course of Tamiflu. BUN 84 and creatinine 4.18. 10/02: Patient is currently on high flow nasal cannula pulse oxing 95%. Patient has been on and off BiPAP. Patient has been afebrile. BUN 89 creatinine 4.3. Which is up from yesterday. Urine cultures positive for Citrobacter werkmanii 10-49,000 colonies. Patient continues to refuse dialysis. Patient does not want any aggressive treatment. Patient is open to hospice and comfort care. All aggressive medications have been discontinued and care. Patient will be on limited medications. Hospice referral placed. Objective - Vital Signs Vital signs: Vital Signs Temp 96.6 F L 10/03/17 07:28 Pulse 97 10/03/17 08:00 Resp 16 10/03/17 08:00 BP 180/95 10/03/17 07:28 Pulse Ox 95 10/03/17 07:28 Intake & Output 10/02/17 10/03/17 10/03/17 18:59 06:59 18:59 Intake Total 140 420 Output Total 725 1000 Balance -585 -580 Weight 76.3 kg 76.3 kg Intake: IV 140 120 0.9 kvo 140 120 Oral 300 Output: Urine 725 1000 Uretheral (Brooks) 725 Other: Voiding Method Indwelling Catheter Indwelling Catheter Indwelling Catheter - Exam General appearance: Present: cooperative, no acute distress. Absent: average body habitus, disheveled, mild distress, morbidly obese, obese, severe distress , thin - EENT Eyes: Present: anicteric sclerae, PERRLA, dentition normal - Neck Neck: Present: normal ROM. Absent: lymphadenopathy, other, rigidity, stridor, thyromegaly - Respiratory Respiratory: left: rales, rhonchi, negative: CTA, diminished, dullness, wheezing - Cardiovascular Rhythm: regular Heart sounds: normal: S1, S2 Abnormal Heart Sounds: Absent: systolic murmur, diastolic murmur, rub, S3 Gallop , S4 Gallop, click, other - Gastrointestinal General gastrointestinal: Present: normal bowel sounds, soft - Integumentary Integumentary: Present: normal - Neurologic Neurologic: Present: CNII-XII intact - Musculoskeletal Musculoskeletal: Present: generalized weakness, strength equal bilaterally - Psychiatric Psychiatric: Present: A&O x's 3, appropriate affect, intact judgment & insight, lethargic - Labs CBC & Chem 7: 10/02/17 07:15 10/02/17 07:15 Labs: Microbiology - Last 24 Hours (Table) 09/26/17 14:55 Blood Culture - Final Blood No Growth after 144 hours 09/26/17 12:45 Blood Culture - Final Blood No Growth after 144 hours Assessment and Plan Plan: 1. Acute hypoxic respiratory failure secondary to influenza A, possible pneumonia ruled out by Dr. Espinal, atrial fibrillation with RVR and acute on chronic diastolic heart failure. Consults requested with cardiology and pulmonary medicine. Cardizem drip discontinued and patient resumed on Lopressor. Patient has been off anticoagulation per her primary meteorology faculty member. Echocardiogram is pending. 2. Acute on chronic diastolic heart failure. Cardiology consult appreciated. Continue IV Lasix 40 every 12, previous Echocardiogram suggested severe pulmonary hypertension with 55-60% ejection fraction . I&O and daily weights. Monitor electrolytes and kidney function. 3. Persistant atrial fibrillation presenting with RVR. Patient now is running bradycardic in the 40s.. Cardiology consult appreciated-. Continue Lopressor at decreased dose of 25 mg 2 times daily. 4. Influenza A. Completed Tamiflu. Consult placed with Dr. Espinal appreciated. Patient started on ceftriaxone empirically. 5. Acute kidney injury secondary to ATN secondary to cardiorenal syndrome with underlying chronic kidney disease stage III. IV Lasix, post void residual, avoid nephrotoxic agents and hypotensive episodes. Losartan on hold. Ultrasound as above. Sodium bicarb 650 mg twice daily, Zaroxolyn 2.5 mg daily. Patient refusing dialysis treatment 6. CAD. Continue Imdur 30 mg 3 times a day. 7. Diabetes mellitus type 2. Continue Novolog scale before meals and at bedtime. Her A1c is 5.1. Janumet currently on hold. 8. Hypertensive cardiovascular disease. Continue Imdur, metoprolol, hydralazine, losartan (on hold) and Lasix. Hold for systolic blood pressure less than 110. 9. History of obstructive sleep apnea. 10. Hyperlipidemia not currently on statin 11. History of CVA, stable 12. 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 11. History of DVT. 12. Osteoarthritis, generalized. 13. DVT prophylaxis. 14. Gastrointestinal prophylaxis. Continue Protonix. 15. Ascites with nonspecific mediastinal adenopathy and right upper lobe masslike density new noted 1.9 x 2.3 cm and pleural calcification on CT, compared to November 2016, IV Lasix and IV Rocephin no changes to the treatment made CODE STATUS: No code Discharge plan: Hospice. Impression and plan of care have been directed as dictated by the signing physician. Ashtyn Yeung nurse practitioner acting as scribe for signing physician.
--- NOTE | 2017-10-03 15:16 | P.DS ---
Providers Date of admission: 09/26/17 14:45 Expected date of discharge: 10/03/17 Attending physician: Juan Corbin [facility] Course: This is a 77-year-old female patient of Dr. Leal's with a past history of coronary artery disease with prior 4 vessel CABG in 1998 and subsequent stenting of the mid RCA and OM and 2013 and 2 subsequent stent placements following that, hypertension, diabetes mellitus type 2, hyperlipidemia, obstructive sleep apnea, paroxysmal atrial fibrillation status post cardioversion currently on anticoagulation. Patient was last hospitalized in June 2017 for acute on chronic diastolic heart failure, acute kidney injury. Patient was discharged on eliquis which has subsequently been discontinued by her jewelry bench worker in [place] due to bleeding. Patient was initially discharged to [facility] for subacute rehab but has been discharged from [facility] and living at home with her . For 3 days patient has been feeling sick with sudden onset of cough that is nonproductive. She has had decreased urine output and not drinking very much for the past 3 days. Patient states she has had nausea vomiting and diarrhea. She was able to eat her breakfast this morning. She has not had a bowel movement since admission. Patient is on home O2 at 3 L nasal cannula. Patient presented to [facility] emergency center by EMS. She was tachycardic at 140s and temperature max 100.1, pulse ox 88%. EKG was atrial fibrillation with RVR. Her hemoglobin was 10.2, BUN 65 and creatinine 3.05. Lactic acid was within normal limits, AST and ALT slightly elevated, INR 1.5. ProBNP fourth be 9800 and troponin 0.012. Urinalysis was clear with leukoesterase moderate, nitrate negative, bacteria rare. Influenza A+. Chest x -ray showed cardiomegaly with chronic parenchymal change with new tiny bilateral pleural effusions and new right basilar linear atelectasis and slightly more suspicious left lateral lung rounded obesity, possible consolidation. Acute interstitial edema with background of chronic fibrosis cannot be excluded. Correlate for fluid overload state. Patient was started on Cardizem drip and given IV hydration, cefepime and vancomycin were given. Patient was started on Tamiflu and admitted to the selective care unit for consults were placed with cardiology, pulmonary medicine and nephrology. 09/28: Dr. Schmidt has seen the patient for acute kidney injury and ordered renal ultrasound which showed no hydronephrosis. Chronic medical renal disease. Stable 2.5 cm left upper and mid pole cyst with some internal calcification. Abdominal pelvic ascites, moderate in the left lower quadrant. Repeat BUN 73 and creatinine 3.5, CO2 18. Sodium bicarb has been added by nephrology. Losartan is on hold. Patient seen and followed by Dr. Staples and ceftriaxone was started empirically but no signs of true pneumonia and patient is continued on Tamiflu. Repeat chest x-ray reveals new left basilar opacity with central lucency may represent cavitary lesion or loculated pleural effusion. Right intrahilar OPC is favored to represent atelectasis. Improved pulmonary vascular congestion, right pleural effusion and interstitial edema. Cardiology has discontinued Cardizem drip and patient remains in atrial fibrillation but rate is controlled. Patient's breathing is much improved today and she states she is feeling much better in general. She is seen sitting up in a chair at the bedside. Plan will be to transfer her to [facility] today. Patient did have urinary retention during the night and Brooks catheter was placed. Cardiology has increased Lasix to 80 mg IV every 12 hours. PT evaluation added. Patient is planning to return home with homecare. 09/29: Patient's more dyspneic when seen today, she is Audible rhonchi, patient is to receive IV Lasix mainly in the drip form at 10 mics per hour, as adjusted by Dr. Schmidt Patient does not have any chest pain no shortness of breath, patient feels overwhelmed and weak, no aspirative events, tmax 97.7. Computed tomography scan of the chest performed ct scan of the chest performed showing pleural calcification in new masslike density medial aspect right upper lobe measuring 1.9 cm x 3.3cm may represent loculated fluid, shotty pulmonary adenopathy, and pericaval lymph node, small amount of focal consolidation and small left pleural effusion 09/30: Patient is slightly better compared to yesterday. With regards to her breathing, she remains on IV Lasix drip,she still requires high flow O210 L test cannula satting between 94-99%, family is at bedside, and updated, patient is still physically debilitated, and has decreased appetite, was anticipating subacute rehab post discharge, improve nutrition with supplementation,prognosis currently is guarded, creatinine slightly worse from yesterday at 3.9 from a previous of 3.72. Nephrology is following closely 10/01: Repeat chest x-ray shows similar appearing bilateral multifocal patchy alveolar opacities and interstitial edema. Considerations are for multifocal pneumonia and pulmonary edema. Partially loculated small left pleural effusion and trace right pleural effusion. Today, patient is lethargic but arousable and she complains of significant weakness. She has been on high flow nasal cannula at 10 L since yesterday at 7 AM. She has been placed on BiPAP intermittently. A. fib is controlled rate on the low side for which metipranolol will be decreased from 75 mg twice daily to 25 mg daily and clonidine will be discontinued. Patient has again refused hemodialysis. She has on Lasix 40 mg IV every 8 hours, sodium bicarb and metolazone. Patient completed her course of Tamiflu. BUN 84 and creatinine 4.18. 10/02: Patient is currently on high flow nasal cannula pulse oxing 95%. Patient has been on and off BiPAP. Patient has been afebrile. BUN 89 creatinine 4.3. Which is up from yesterday. Urine cultures positive for Citrobacter werkmanii 10-49,000 colonies. Patient continues to refuse dialysis. Patient does not want any aggressive treatment. Patient is open to hospice and comfort care. All aggressive medications have been discontinued and care. Patient will be on limited medications. Hospice referral placed. 10/03: Patient transition to hospice care today. Discharge diagnoses: 1. Acute hypoxic respiratory failure secondary to influenza A, atrial fibrillation with RVR and acute on chronic diastolic heart failure. 2. Acute on chronic diastolic heart failure. 3. Persistant atrial fibrillation presenting with RVR. 4. Influenza A. 5. Acute kidney injury secondary to ATN secondary to cardiorenal syndrome with underlying chronic kidney disease stage III. 6. CAD. 7. Diabetes mellitus type 2. 8. Hypertensive cardiovascular disease. 9. History of obstructive sleep apnea. 10. Hyperlipidemia 11. History of CVA, stable 12. Normocytic anemia 11. History of DVT. 12. Osteoarthritis, generalized. 13. Ascites with nonspecific mediastinal adenopathy and right upper lobe masslike density new noted 1.9 x 2.3 cm and pleural calcification on CT Discharge plan: Transition to [facility]. Impression and plan of care have been directed as dictated by the signing physician. Ashtyn Yeung nurse practitioner acting as scribe for signing physician. Patient Condition at Discharge: Undetermined Plan - Discharge Summary New Discharge Prescriptions: No Action Trimethobenzamide [Tigan] 300 mg PO Q8H PRN PRN Reason: Nausea Omeprazole 20 mg PO DAILY Escitalopram [Lexapro] 20 mg PO DAILY Losartan [Cozaar] 100 mg PO DAILY tab Spironolactone [Aldactone] 25 mg PO DAILY@1200 cloNIDine HCL [Catapres] 0.1 mg PO HS Slow Iron 45mg 90 mg PO BID sitaGLIPtin PHOS/metFORMIN HCL [Janumet Xr 100-1,000 mg Tablet] 1 tab PO DAILY Potassium Chloride ER [K-Dur 20] 20 meq PO DAILY@1200 Metoprolol Tartrate [Lopressor] 75 mg PO BID Isosorbide Mononitrate ER [Imdur] 30 mg PO TID hydrALAZINE HCL [Apresoline] 75 mg PO BID Bumetanide [Bumex] 1 mg PO BID Discharge Medication List Escitalopram [Lexapro] 20 mg PO DAILY 06/19/17 [History] Omeprazole 20 mg PO DAILY 06/19/17 [History] Trimethobenzamide [Tigan] 300 mg PO Q8H PRN 06/19/17 [History] Losartan [Cozaar] 100 mg PO DAILY tab 06/25/17 [Rx] Bumetanide [Bumex] 1 mg PO BID 09/26/17 [History] Isosorbide Mononitrate ER [Imdur] 30 mg PO TID 09/26/17 [History] Metoprolol Tartrate [Lopressor] 75 mg PO BID 09/26/17 [History] Potassium Chloride ER [K-Dur 20] 20 meq PO DAILY@1200 09/26/17 [History] Slow Iron 45mg 90 mg PO BID 09/26/17 [History] Spironolactone [Aldactone] 25 mg PO DAILY@1200 09/26/17 [History] cloNIDine HCL [Catapres] 0.1 mg PO HS 09/26/17 [History] hydrALAZINE HCL [Apresoline] 75 mg PO BID 09/26/17 [History] sitaGLIPtin PHOS/metFORMIN HCL [Janumet Xr 100-1,000 mg Tablet] 1 tab PO DAILY 09/26/17 [History] Follow up Appointment(s)/Referral(s): [facility], [NON-STAFF] - Gerson Leal DO [Primary Care Provider] - 1-2 days Discharge Disposition: HOME SELF-CARE
== END 2017-10-03 11:30 | disposition hospice, inpatient (51) | DRG 193 ==
LOC: EC 11:57 → 6SEL 14:45 → 5MS5E 09-28 16:34
PROVIDERS: ADMIT Internal Medicine; ATTEND Internal Medicine
DX: J10.1 Influenza due to other identified influenza virus with other respiratory manifestations (principal); I50.33 Acute on chronic diastolic (congestive) heart failure; J96.01 Acute respiratory failure with hypoxia; N17.0 Acute kidney failure with tubular necrosis; E11.22 Type 2 diabetes mellitus with diabetic chronic kidney disease; I48.1 Persistent atrial fibrillation; N18.3 Chronic kidney disease, stage 3 (moderate); R18.8 Other ascites; E66.01 Morbid (severe) obesity due to excess calories; E87.2 Acidosis; I13.0 Hypertensive heart and chronic kidney disease with heart failure and stage 1 through stage 4 chronic kidney disease, or unspecified chronic kidney disease; N39.0 Urinary tract infection, site not specified; J98.11 Atelectasis; Z66 Do not resuscitate; Z51.5 Encounter for palliative care; I27.20 Pulmonary hypertension, unspecified; Z99.81 Dependence on supplemental oxygen; J44.9 Chronic obstructive pulmonary disease, unspecified; M41.9 Scoliosis, unspecified; N28.1 Cyst of kidney, acquired; I37.1 Nonrheumatic pulmonary valve insufficiency; D64.9 Anemia, unspecified; I25.10 Atherosclerotic heart disease of native coronary artery without angina pectoris; G47.33 Obstructive sleep apnea (adult) (pediatric); E78.5 Hyperlipidemia, unspecified; N39.46 Mixed incontinence; M15.9 Polyosteoarthritis, unspecified; K29.70 Gastritis, unspecified, without bleeding; R59.0 Localized enlarged lymph nodes; R33.9 Retention of urine, unspecified; B96.89 Other specified bacterial agents as the cause of diseases classified elsewhere; R91.8 Other nonspecific abnormal finding of lung field; Z68.28 Body mass index [BMI] 28.0-28.9, adult; Z91.15 Patient's noncompliance with renal dialysis; Z79.84 Long term (current) use of oral hypoglycemic drugs; Z79.899 Other long term (current) drug therapy; Z86.718 Personal history of other venous thrombosis and embolism; Z95.1 Presence of aortocoronary bypass graft; Z95.5 Presence of coronary angioplasty implant and graft; Z90.49 Acquired absence of other specified parts of digestive tract; Z86.73 Personal history of transient ischemic attack (TIA), and cerebral infarction without residual deficits; Z90.710 Acquired absence of both cervix and uterus; Z88.2 Allergy status to sulfonamides
CPT/HCPCS: 36415; 71045; 71046; 71250; 76770; 80048; 80053; 81001; 82272; 82550; 83605; 83735; 83880; 84100; 84134; 84484; 85025; 85610; 85730; 87040; 87077; 87086; 87186; 87502; 93005; 94640; 94660; 94760; 96365; 99291

== ENCOUNTER 2017-10-03 11:32 | Inpatient (IN) | payer MEDICAID ==
[2017-10-03] MEDS ORDERED: ATROPINE OPHTH SOLN 1% 5ML BTL SUBLINGUAL PRN (11:50)
[2017-10-03] MEDS ORDERED: ACETAMINOPHEN SUPPOSITORY 650 MG SUPP RECTAL PRN (11:53)
[2017-10-03] MEDS ORDERED: ONDANSETRON 4 MG/2 ML VIAL IVP PRN (11:56)
[2017-10-03] MEDS ORDERED: BISACODYL 10 MG SUPP RECTAL PRN (11:57)
[2017-10-03] MEDS ORDERED: MORPHINE SULFATE 4 MG/ML SYRINGE IVP PRN (11:58)
[2017-10-03 12:43] VITALS: BMI 28.8
--- NOTE | 2017-10-03 15:20 | P.HPIM ---
History of Present Illness H&P Date: 10/03/17 Chief Complaint: [facility] Hospice This is a 77-year-old female patient of Dr. Jalloh with a past history of coronary artery disease with prior 4 vessel CABG in 1998 and subsequent stenting of the mid RCA and OM and 2013 and 2 subsequent stent placements following that, hypertension, diabetes mellitus type 2, hyperlipidemia, obstructive sleep apnea, paroxysmal atrial fibrillation status post cardioversion currently on anticoagulation. Patient was admitted to the hospital for multiple medical problems and her condition continued to deteriorate and patient didn't want aggressive treatment and did not want dialysis. Patient transition to hospice care today. Review of Systems ROS unobtainable: due to mental status Past Medical History Past Medical History: Atrial Fibrillation, Coronary Artery Disease (CAD), Heart Failure, COPD, CVA/TIA, Diabetes Mellitus, Deep Vein Thrombosis (DVT), Hyperlipidemia, Hypertension, Osteoarthritis (OA), Sleep Apnea/CPAP/BIPAP Additional Past Medical History / Comment(s): Coronary artery disease, chemical pleurodesis back in 1998 following cabg, CVA back in 2013 without any residual deficits, left lower extremity DVT in 2015, chronic diastolic heart failure, obesity,cpap at , [facility], wears a brief, iron deficiency anemia"has recieved iron infusions". History of Any Multi-Drug Resistant Organisms: None Reported Past Surgical History: Cholecystectomy, Coronary Bypass/CABG, Heart Catheterization With Stent, Hysterectomy Additional Past Surgical History / Comment(s): eye sx, 6 cardiac stent placed; quad CABG 1998, OVARY CYST REMOVED,colonoscopy cardioversion 1 year ago and again 12-07-16 at [facility], egd w/ bx -neg Past Anesthesia/Blood Transfusion Reactions: No Reported Reaction Additional Past Anesthesia/Blood Transfusion Reaction / Comment(s): Jehovahs witness no blood transfusions Date of Last Stent Placement:: 2013 Past Psychological History: No Psychological Hx Reported Additional Psychological History / Comment(s): pt currently at [facility]. difficulty walking needs assistance-weak. Smoking Status: Never smoker Past Alcohol Use History: None Reported Additional Past Alcohol Use History / Comment(s): Patient is a lifelong nonsmoker. Past Drug Use History: None Reported - Past Family History Father Additional Family Medical History / Comment(s): Father at age 89 following a hip fracture repair that became infected. He from complications of infection. Mother Additional Family Medical History / Comment(s): Mother in her 70s. She had history of stroke and had been in an extended care facility for 8 years prior to her . Sister(s) Additional Family Medical History / Comment(s): Patient has one sister that is 17 years younger than her with no major medical problems. Patient does not have any brothers. Son(s) Additional Family Medical History / Comment(s): She has 2 sons and one has heart problems. Medications and Allergies Home Medications Medication Instructions Recorded Confirmed Type Escitalopram [Lexapro] 20 mg PO DAILY 06/19/17 10/03/17 History Omeprazole 20 mg PO DAILY 06/19/17 10/03/17 History Trimethobenzamide [Tigan] 300 mg PO Q8H PRN 06/19/17 10/03/17 History Losartan [Cozaar] 100 mg PO DAILY tab 06/25/17 10/03/17 Rx Bumetanide [Bumex] 1 mg PO BID 09/26/17 10/03/17 History Isosorbide Mononitrate ER [Imdur] 30 mg PO TID 09/26/17 10/03/17 History Metoprolol Tartrate [Lopressor] 75 mg PO BID 09/26/17 10/03/17 History Potassium Chloride ER [K-Dur 20] 20 meq PO DAILY@1200 09/26/17 10/03/17 History Slow Iron 45mg 90 mg PO BID 09/26/17 10/03/17 History Spironolactone [Aldactone] 25 mg PO DAILY@1200 09/26/17 10/03/17 History cloNIDine HCL [Catapres] 0.1 mg PO HS 09/26/17 10/03/17 History hydrALAZINE HCL [Apresoline] 75 mg PO BID 09/26/17 10/03/17 History sitaGLIPtin PHOS/metFORMIN HCL 1 tab PO DAILY 09/26/17 10/03/17 History [Janumet Xr 100-1,000 mg Tablet] Allergies Allergy/AdvReac Type Severity Reaction Status Date / Time sulfamethoxazole Allergy Dyspnea Verified 10/03/17 12:38 [From Bactrim] trimethoprim [From Bactrim] Allergy Dyspnea Verified 10/03/17 12:38 Physical Exam Vitals: Intake and Output 0210/03/17 10/03/17 22:59 06:59 14:59 Other: Weight 76.3 kg Patient Weight 10/04/17 06:59 Weight 76.3 kg Gen: This is a 77-year-old female. Patient is in hospital and appears to be comfortable. HEENT: Head is atraumatic, normocephalic. Pupils equal, round. Sclerae is anicteric. LUNGS: Clear to auscultation. No wheezes or rhonchi. No intercostal retractions. HEART: irregular rate and rhythm. No murmur. ABDOMEN: Soft. Bowel sounds are present. No masses. No tenderness. Brooks catheter draining clear binu urine EXTREMITIES: 2+ pedal edema. No calf tenderness. NEUROLOGICAL: Patient is awake, alert and oriented x3. Extreme weakness noted. Thrombosis Risk Factor Assmnt - DVT/VTE Prophylaxis DVT/VTE Prophylaxis: Contraindicated - See note Assessment and Plan Plan: 1. Acute hypoxic respiratory failure secondary to influenza A, atrial fibrillation with RVR and acute on chronic diastolic heart failure. 2. Acute on chronic diastolic heart failure. 3. Persistant atrial fibrillation presenting with RVR. 4. Influenza A. 5. Acute kidney injury secondary to ATN secondary to cardiorenal syndrome with underlying chronic kidney disease stage III. 6. CAD. 7. Diabetes mellitus type 2. 8. Hypertensive cardiovascular disease. 9. History of obstructive sleep apnea. 10. Hyperlipidemia 11. History of CVA, stable 12. Normocytic anemia 11. History of DVT. 12. Osteoarthritis, generalized. 13. Ascites with nonspecific mediastinal adenopathy and right upper lobe masslike density new noted 1.9 x 2.3 cm and pleural calcification on CT Plan: Provide comfort care measures only. All aggressive treatment stopped. Discharge plan: Transition to [facility]. Impression and plan of care have been directed as dictated by the signing physician. Ashtyn Yeung nurse practitioner acting as scribe for signing physician.
[2017-10-03] MEDS: FUROSEMIDE 10 MG/ML 4 ML VIAL IV SCH ×2 (16:15→22:57)
[2017-10-03] MEDS: LORazepam 2 MG/ML INJ IV PRN (20:43)
[2017-10-03 21:13] VITALS: RESP 18
[2017-10-04] MEDS: LORazepam 2 MG/ML INJ IV PRN (05:14)
[2017-10-04] MEDS: FUROSEMIDE 10 MG/ML 4 ML VIAL IV SCH ×3 (07:28→23:39)
[2017-10-04 09:05] VITALS: BP 197/125; TEMP 98
[2017-10-04] MEDS ORDERED: SCOPOLAMINE 1.5MG/72HR PATCH TRANSDERM SCH (12:00)
[2017-10-04] MEDS: MORPHINE SULFATE (100 MG/2 ML) 100 MG in SODIUM CHLORIDE 0.9% 100 ML IV SCH (12:17)
[2017-10-05 07:22] VITALS: PULSE 93
[2017-10-05] MEDS: FUROSEMIDE 10 MG/ML 4 ML VIAL IV SCH ×3 (08:22→23:55)
[2017-10-05] MEDS: MORPHINE SULFATE (100 MG/2 ML) 100 MG in SODIUM CHLORIDE 0.9% 100 ML IV SCH (11:41)
[2017-10-06] MEDS: FUROSEMIDE 10 MG/ML 4 ML VIAL IV SCH ×2 (07:48→12:45)
[2017-10-06] MEDS: MORPHINE SULFATE (100 MG/2 ML) 100 MG in SODIUM CHLORIDE 0.9% 100 ML IV SCH (08:13)
--- NOTE | 2017-10-07 13:59 | P.DS ---
Providers Date of admission: 10/03/17 11:32 Expected date of discharge: 10/06/17 Attending physician: Juan Corbin [facility] Course: This is a 77-year-old female patient of Dr. Leal's with a past history of coronary artery disease with prior 4 vessel CABG in 1998 and subsequent stenting of the mid RCA and OM and 2013 and 2 subsequent stent placements following that, hypertension, diabetes mellitus type 2, hyperlipidemia, obstructive sleep apnea, paroxysmal atrial fibrillation status post cardioversion currently on anticoagulation. Patient was admitted to the hospital for multiple medical problems and her condition continued to deteriorate and patient didn't want aggressive treatment and did not want dialysis. Patient transition to hospice care. Patient on the evening of October 06. Please see nursing documentation for detail. Discharge diagnoses: 1. Acute hypoxic respiratory failure secondary to influenza A, atrial fibrillation with RVR and acute on chronic diastolic heart failure. 2. Acute on chronic diastolic heart failure. 3. Persistant atrial fibrillation presenting with RVR. 4. Influenza A. 5. Acute kidney injury secondary to ATN secondary to cardiorenal syndrome with underlying chronic kidney disease stage III. 6. CAD. 7. Diabetes mellitus type 2. 8. Hypertensive cardiovascular disease. 9. History of obstructive sleep apnea. 10. Hyperlipidemia 11. History of CVA, stable 12. Normocytic anemia 11. History of DVT. 12. Osteoarthritis, generalized. 13. Ascites with nonspecific mediastinal adenopathy and right upper lobe masslike density new noted 1.9 x 2.3 cm and pleural calcification on CT Impression and plan of care have been directed as dictated by the signing physician. Ashtyn Yeung nurse practitioner acting as scribe for signing physician. Patient Condition at Discharge: Undetermined Plan - Discharge Summary New Discharge Prescriptions: No Action Trimethobenzamide [Tigan] 300 mg PO Q8H PRN PRN Reason: Nausea Omeprazole 20 mg PO DAILY Escitalopram [Lexapro] 20 mg PO DAILY Losartan [Cozaar] 100 mg PO DAILY tab Spironolactone [Aldactone] 25 mg PO DAILY@1200 cloNIDine HCL [Catapres] 0.1 mg PO HS Slow Iron 45mg 90 mg PO BID sitaGLIPtin PHOS/metFORMIN HCL [Janumet Xr 100-1,000 mg Tablet] 1 tab PO DAILY Potassium Chloride ER [K-Dur 20] 20 meq PO DAILY@1200 Metoprolol Tartrate [Lopressor] 75 mg PO BID Isosorbide Mononitrate ER [Imdur] 30 mg PO TID hydrALAZINE HCL [Apresoline] 75 mg PO BID Bumetanide [Bumex] 1 mg PO BID Discharge Medication List Escitalopram [Lexapro] 20 mg PO DAILY 06/19/17 [History] Omeprazole 20 mg PO DAILY 06/19/17 [History] Trimethobenzamide [Tigan] 300 mg PO Q8H PRN 06/19/17 [History] Losartan [Cozaar] 100 mg PO DAILY tab 06/25/17 [Rx] Bumetanide [Bumex] 1 mg PO BID 09/26/17 [History] Isosorbide Mononitrate ER [Imdur] 30 mg PO TID 09/26/17 [History] Metoprolol Tartrate [Lopressor] 75 mg PO BID 09/26/17 [History] Potassium Chloride ER [K-Dur 20] 20 meq PO DAILY@1200 09/26/17 [History] Slow Iron 45mg 90 mg PO BID 09/26/17 [History] Spironolactone [Aldactone] 25 mg PO DAILY@1200 09/26/17 [History] cloNIDine HCL [Catapres] 0.1 mg PO HS 09/26/17 [History] hydrALAZINE HCL [Apresoline] 75 mg PO BID 09/26/17 [History] sitaGLIPtin PHOS/metFORMIN HCL [Janumet Xr 100-1,000 mg Tablet] 1 tab PO DAILY 09/26/17 [History] Discharge Disposition: - Preliminary Cause of Preliminary Cause of : Acute hypoxic respiratory failure secondary to influenza A, atrial fibrilla
== END 2017-10-06 15:06 | disposition expired | DRG 951 ==
LOC: 5MS5E 11:32
PROVIDERS: ADMIT Internal Medicine; ATTEND Internal Medicine
DX: Z51.5 Encounter for palliative care (principal); J96.01 Acute respiratory failure with hypoxia; N17.0 Acute kidney failure with tubular necrosis; I50.33 Acute on chronic diastolic (congestive) heart failure; E11.22 Type 2 diabetes mellitus with diabetic chronic kidney disease; R18.8 Other ascites; I48.1 Persistent atrial fibrillation; N18.3 Chronic kidney disease, stage 3 (moderate); Z66 Do not resuscitate; I13.0 Hypertensive heart and chronic kidney disease with heart failure and stage 1 through stage 4 chronic kidney disease, or unspecified chronic kidney disease; J44.9 Chronic obstructive pulmonary disease, unspecified; J10.1 Influenza due to other identified influenza virus with other respiratory manifestations; M15.0 Primary generalized (osteo)arthritis; I25.10 Atherosclerotic heart disease of native coronary artery without angina pectoris; G47.33 Obstructive sleep apnea (adult) (pediatric); E78.5 Hyperlipidemia, unspecified; D64.9 Anemia, unspecified; R59.0 Localized enlarged lymph nodes; R26.2 Difficulty in walking, not elsewhere classified; E66.9 Obesity, unspecified; Z68.28 Body mass index [BMI] 28.0-28.9, adult; Z79.84 Long term (current) use of oral hypoglycemic drugs; Z79.899 Other long term (current) drug therapy; Z86.718 Personal history of other venous thrombosis and embolism; Z86.73 Personal history of transient ischemic attack (TIA), and cerebral infarction without residual deficits; Z95.5 Presence of coronary angioplasty implant and graft; Z95.1 Presence of aortocoronary bypass graft; Z87.440 Personal history of urinary (tract) infections; Z90.49 Acquired absence of other specified parts of digestive tract; Z90.710 Acquired absence of both cervix and uterus; Z88.2 Allergy status to sulfonamides